=== PATIENT | male | born 1940 | race Caucasian/White ===

== ENCOUNTER 2018-07-23 16:23 | Inpatient (IN) ==
[2018-07-23] MEDS ORDERED: MethylPREDNISolone Sod Succinate Inj 40 MG/ML Vial IV.PUSH ONE (16:36)
--- NOTE | 2018-07-23 16:42 | ED ---
HPI General Chief Complaint: Shortness of Breath/Dyspnea Stated Complaint: Respiratory Time Seen by Provider: 07/23/18 16:30 Source: patient Mode of arrival: ambulatory Limitations: no limitations History of Present Illness 77-year-old male with PMH of COPD, DM, CHF, HTN, PVD, anemia, CAD status post CABG x5 presents to the ED for evaluation of one week history of worsening shortness of breath, cough productive of yellow sputum. Patient states "I have gained 11 pounds since July 03." He states "I got all this fluid on me and I cannot breathe." He states that he uses a Trilogy machine at home but has had no improvement of his symptoms. He endorses chills. He has not measured a fever at home. He denies chest pain, palpitations, diaphoresis. He endorses increase in lower extremity edema. [facility] here for further evaluation. He is a current smoker. Related Data Home Medications Medication Instructions Recorded Confirmed amlodipine 10 mg PO DAILY 07/23/18 07/23/18 aspirin 81 mg PO DAILY 07/23/18 07/23/18 atorvastatin 80 mg PO QPM 07/23/18 07/23/18 carboxymethylcellulose sodium 1 drp OPHTHALMIC (EYE) Q4-6H PRN 07/23/18 07/23/18 clopidogrel 75 mg PO DAILY 07/23/18 07/23/18 cyanocobalamin (vitamin B-12) 1,000 mcg PO DAILY 07/23/18 07/23/18 furosemide 40 mg PO BID 07/23/18 07/23/18 glipizide 10 mg PO BID 07/23/18 07/23/18 ipratropium-albuterol 3 ml INHALATION Q6-8H PRN 07/23/18 07/23/18 isosorbide mononitrate 120 mg PO DAILY 07/23/18 07/23/18 metoprolol succinate 25 mg PO DAILY 07/23/18 07/23/18 nitroglycerin 0.4 mg SUBLINGUAL Q5-15M PRN 07/23/18 07/23/18 pantoprazole 40 mg PO BID 07/23/18 07/23/18 ranolazine 1,000 mg PO Q12H 07/23/18 07/23/18 terazosin 4 mg PO DAILY 07/23/18 07/23/18 Allergies Allergy/AdvReac Type Severity Reaction Status Date / Time acetaminophen Allergy Severe Rash Unverified 07/23/18 17:07 aspirin Allergy Severe Rash Unverified 07/23/18 17:07 codeine Allergy Severe anaphylaxis Unverified 03/04/17 00:48 ferrous sulfate Allergy Severe Rash Unverified 03/04/17 00:48 iron Allergy Severe Rash Unverified 03/04/17 00:48 oxycodone Allergy Severe Rash Unverified 07/23/18 17:07 [place] AdvReac Severe SYSTEM Uncoded 04/11/14 08:32 SHUTS DOWN Review of Systems ROS: all other systems reviewed are negative FOR[facility]LY [facility] Medical History Medical History Amaurosis fugax (Acute) Anemia (Acute) COPD (chronic obstructive pulmonary disease) (Acute) Chronic ischemic heart disease (Acute) Chronic kidney disease (Acute) Colon polyp (Acute) Diabetes (Acute) Dyslipidemia (Acute) Gastritis (Acute) Hearing loss (Acute) Hypertension (Acute) Hypertrophy of prostate without urinary obstruction (Acute) Osteoarthritis (Acute) Pancreatitis (Acute) Peripheral vascular disease (Acute) Ptosis of eyelid (Acute) Sleep apnea (Acute) TIA (transient ischemic attack) (Acute) Surgical History Surgical History History of cardiac cath (Acute) Postsurgical aortocoronary bypass status (Acute) Social History Social History Substance History: No History of Abuse Smoking Status: Current every day smoker Tobacco Type: Cigarettes How Often Do You Have a Drink Containing Alcohol: Never Recent Travel in [facility] within the Last 8 Weeks: No Recent Out of Country Travel within the Last 8 Weeks: No Exam Narrative Exam Narrative: GENERAL: Well-nourished, well-developed, obese white male with some degree of breathing difficulties. SKIN: Focused skin assessment warm/dry. Perioral cyanosis. HEAD: Atraumatic. Normocephalic. EYES: Pupils equal and round. No scleral icterus. No injection or drainage. ENT: No nasal bleeding or discharge. Mucous membranes pink and moist. NECK: Trachea midline. No JVD. CARDIOVASCULAR: Regular rate and rhythm. No murmur appreciated. RESPIRATORY: No accessory muscle use. Audible wheezing at bedside. Coarse breath sounds diffusely. Breath sounds equal bilaterally. GASTROINTESTINAL: Abdomen soft, non-tender, protuberant, nontender. Hepatic and splenic margins not palpable. MUSCULOSKELETAL: No obvious deformities. No clubbing. 2+ edema to the midshin bilaterally. NEUROLOGICAL: Awake and alert. No obvious cranial nerve deficits. Motor grossly within normal limits. Normal speech. PSYCHIATRIC: Appropriate mood and affect; insight and judgment normal. Course Initial Documented Vital Signs Temperature 97.8 F 07/23/18 16:27 Pulse Rate 57 L 07/23/18 16:27 Respiratory Rate 20 07/23/18 16:27 Blood Pressure 136/65 07/23/18 16:27 Pulse Oximetry 94 L 07/23/18 16:27 Last Documented Vital Signs Temperature 97.8 F 07/23/18 18:41 Pulse Rate 63 07/23/18 19:00 Respiratory Rate 18 07/23/18 19:00 Blood Pressure 123/58 L 07/23/18 19:00 Pulse Oximetry 98 07/23/18 19:00 Medical Decision Making LAURENCE Attestation LAURENCE supervised visit: Yes Attestation: I, Dr. Tomlin, have reviewed the advance practice practitioner's documentation and am in agreement, met with the patient face to face, made the diagnosis, and the medical decision making was done by me. *My assessment and Findings: Dyspnea. Patient with history of COPD, CHF. Patient has had progressive shortness of breath over the last 2 weeks. He is extremely tachypneic. Just talking, makes him severely short of breath. The patient has what appears to be mild congestive heart failure on his chest x- ray. He also has wheezing so he would have a dual diagnosis of both COPD and CHF. He will be admitted for diuresis and treatment for his COPD. MDM Narrative Medical decision making narrative: 77-year-old male with PMH of COPD, DM, CHF, HTN, PVD, anemia, CAD status post CABG x5 presents to the ED for evaluation of one week history of worsening shortness of breath, cough productive of yellow sputum. Patient states "I have gained 11 pounds since July 03." He states "I got all this fluid on me and I cannot breathe." On presentation patient's respiratory rate is 28, O2 sats 98% on 3 L by nasal cannula. There is audible wheezing heard while standing in the doorway. Patient has perioral cyanosis, coarse lung sounds in all lung talley. IV was established. Patient was administered duo nebs x3, IV Solu-Medrol. EKG without acute changes. CXR with pulmonary venous congestion and diffuse cardiomegaly. The patient was administered 1 mg of Bumex. CBC WBC 6.5, hemoglobin 9.4. INR 1.2. CMP with BUN of 19, creatinine 2.22. BNP 213. No culture indicated of the UA. This is CHF and COPD exacerbation. Patient is agreeable to admission. I spoke with Dr. Sanchez who agrees to accept the patient to the medicine service. Please see medicine notes for disposition. Medical Screen Exam Complete: Yes Emergency Medical Condition: Yes Differential Diagnosis Differential Diagnosis: COPD exacerbation versus CHF exacerbation versus pneumonia versus anemia versus other Lab Data Result diagrams: 07/23/18 16:40 07/23/18 16:40 Lab Results 07/23/18 07/23/18 07/23/18 Range/Units 16:40 16:40 16:40 WBC 6.5 (4.0-11.0) th/mm3 RBC 4.06 L (4.50-5.90) mil/mm3 Hgb 9.4 L (13.0-17.0) gm/dL Hct 29.4 L (39.0-51.0) % MCV 72.6 L (80.0-100.0) fL MCH 23.2 L (27.0-34.0) pg MCHC 32.0 (32.0-36.0) % RDW 20.2 H (11.6-17.2) % Plt Count 113 L (150-450) th/mm3 MPV 8.6 (7.0-11.0) fL Neut % (Auto) 65.1 (16.0-70.0) % Lymph % (Auto) 24.1 (9.0-44.0) % [place] % (Auto) 8.7 H (0.0-8.0) % Eos % (Auto) 1.5 (0.0-4.0) % Baso % (Auto) 0.6 (0.0-2.0) % Neut # (Auto) 4.2 (1.8-7.7) th/mm3 Lymph # (Auto) 1.6 (1.0-4.8) th/mm3 [place] # (Auto) 0.6 (0.0-0.9) th/mm3 Eos # (Auto) 0.1 (0.0-0.4) th/mm3 Baso # (Auto) 0.0 (0.0-0.2) th/mm3 WBC Differential . Differential Comment Auto diff final PT 11.7 H (9.8-11.6) sec INR 1.2 Ratio Puncture Site Patient Temperature O2 Saturation (90-100) % ABG pH (7.380-7.420) ABG pCO2 (38-42) mmHg ABG pO2 (61-120) mmHg ABG HCO3 (22-26) mmol/L ABG O2 Content (12.0-20.0) Vol % ABG Base Excess (-2-2) mmol/L ABG Methemoglobin (0-2) % Matt Test Hemoglobin (12.0-16.0) G/DL Carboxyhemoglobin (0-4) % Inspired O2 % Critical Value Sodium 139 (136-145) meq/L Potassium 4.1 (3.5-5.1) meq/L Chloride 103 (98-107) meq/L Carbon Dioxide 31.6 (21.0-32.0) meq/L Anion Gap 4 L (5-15) meq/L BUN 19 H (7-18) mg/dL Creatinine 2.22 H (0.60-1.30) mg/dL Estimated GFR 29 L (>89) mL/min Random Glucose 80 (74-106) mg/dL Calcium 8.7 (8.5-10.1) mg/dL Total Bilirubin 0.7 (0.2-1.0) mg/dL AST 18 (15-37) U/L ALT 20 (12-78) U/L Alkaline Phosphatase 132 H (45-117) U/L Troponin I 0.04 (0.02-0.05) ng/mL B-Natriuretic Peptide (0-100) pg/mL Total Protein 7.6 (6.4-8.2) g/dL Albumin 3.6 (3.4-5.0) g/dL Urine Color (Yellw/Straw) Urine Clarity (Clear) Urine pH (5.0-8.5) Ur Specific [place] (1.002-1.035) Urine Protein (Neg-Trace) mg/dL Urine Glucose (UA) (Negative) mg/dL Urine Ketones (Negative) mg/dL Urine Occult Blood (Negative) Urine Nitrate (Negative) Urine Bilirubin (Negative) Urine Urobilinogen (Less than 2) mg/dL Ur Leukocyte Esterase (Negative) Micro UA Comment Ur Microscopic Review Urine Culture Comments 07/23/18 07/23/18 07/23/18 Range/Units 16:40 17:03 18:38 WBC (4.0-11.0) th/mm3 RBC (4.50-5.90) mil/mm3 Hgb (13.0-17.0) gm/dL Hct (39.0-51.0) % MCV (80.0-100.0) fL MCH (27.0-34.0) pg MCHC (32.0-36.0) % RDW (11.6-17.2) % Plt Count (150-450) th/mm3 MPV (7.0-11.0) fL Neut % (Auto) (16.0-70.0) % Lymph % (Auto) (9.0-44.0) % [place] % (Auto) (0.0-8.0) % Eos % (Auto) (0.0-4.0) % Baso % (Auto) (0.0-2.0) % Neut # (Auto) (1.8-7.7) th/mm3 Lymph # (Auto) (1.0-4.8) th/mm3 [place] # (Auto) (0.0-0.9) th/mm3 Eos # (Auto) (0.0-0.4) th/mm3 Baso # (Auto) (0.0-0.2) th/mm3 WBC Differential Differential Comment PT (9.8-11.6) sec INR Ratio Puncture Site Right radial Patient Temperature 98.6 O2 Saturation 87 L* (90-100) % ABG pH 7.42 (7.380-7.420) ABG pCO2 46 H (38-42) mmHg ABG pO2 69 (61-120) mmHg ABG HCO3 30 H (22-26) mmol/L ABG O2 Content 10.5 L (12.0-20.0) Vol % ABG Base Excess 5.4 H (-2-2) mmol/L ABG Methemoglobin 0.6 (0-2) % Matt Test Present Hemoglobin 8.5 L (12.0-16.0) G/DL Carboxyhemoglobin 6.4 H* (0-4) % Inspired O2 21 % Critical Value Yes Sodium (136-145) meq/L Potassium (3.5-5.1) meq/L Chloride (98-107) meq/L Carbon Dioxide (21.0-32.0) meq/L Anion Gap (5-15) meq/L BUN (7-18) mg/dL Creatinine (0.60-1.30) mg/dL Estimated GFR (>89) mL/min Random Glucose (74-106) mg/dL Calcium (8.5-10.1) mg/dL Total Bilirubin (0.2-1.0) mg/dL AST (15-37) U/L ALT (12-78) U/L Alkaline Phosphatase (45-117) U/L Troponin I (0.02-0.05) ng/mL B-Natriuretic Peptide 213 H (0-100) pg/mL Total Protein (6.4-8.2) g/dL Albumin (3.4-5.0) g/dL Urine Color Yellow (Yellw/Straw) Urine Clarity Clear (Clear) Urine pH 6.0 (5.0-8.5) Ur Specific [place] 1.004 (1.002-1.035) Urine Protein Negative (Neg-Trace) mg/dL Urine Glucose (UA) Negative (Negative) mg/dL Urine Ketones Negative (Negative) mg/dL Urine Occult Blood Negative (Negative) Urine Nitrate Negative (Negative) Urine Bilirubin Negative (Negative) Urine Urobilinogen Less than 2 (Less than 2) mg/dL Ur Leukocyte Esterase Negative (Negative) Micro UA Comment Culture not ind Ur Microscopic Review Not Reportable Urine Culture Comments Culture not ind Imaging Data Radiologist's impression: Chest X-Ray 07/23/18 16:36 CONCLUSION: 1. Pulmonary venous congestion. 2. Diffuse cardiomegaly. Discharge Plan Discharge Disposition Patient Disposition: ED Admit(ED Internal Use Only) Discharge Order Discharge Orders: ED Use Only Admit Order (Routine); Ordered 07/23/18 Ordered By: Nancy Garcia Discharge Details Diagnosis: CHF exacerbation, COPD exacerbation Physicians Team ED Provider: Avni Tomlin ED Midlevel Provider: Nancy Garcia Primary Care Provider: [facility],Physician 's Attending Provider: Jason Lema Discharge Interventions Interventions: Vital Signs Last Done: 07/23/18 19:00 Status ED Status: Admitted Observation Patient
--- NOTE | 2018-07-23 16:56 | XR ---
EXAM DATE: 07/23/2018 4:52 PM EST AGE/SEX: 77 years / Male INDICATIONS: Short of breath. CLINICAL DATA: This is the patient's initial encounter. Patient reports that signs and symptoms have been present for 1 week and indicates a pain score of 4/10. MEDICAL/SURGICAL HISTORY: Cardiovascular disease. Stroke. CABG. COMPARISON: No prior exams available for comparison. FINDINGS: There is hyperaeration of both lung talley. There is prominence of pulmonary vasculature bilaterally characteristic of pulmonary venous congestion. The heart size is diffusely enlarged. There is evidenc e of previous cardiothoracic surgery. No significant pleural effusions are demonstrated. There is no evidence of pneumothorax. The bony structures are grossly intact. CONCLUSION: 1. Pulmonary venous congestion. 2. Diffuse cardiomegaly. Electronically signed by: Favio Larry MD Board Certified Radiologist 07/23/2018 4:55 PM EST
[2018-07-23 16:57] LABS: Baso % (Auto) 0.6 % (0.0-2.0); Eos # (Auto) 0.1 th/mm3 (0.0-0.4); Eos % (Auto) 1.5 % (0.0-4.0); Hematocrit 29.4 % (39.0-51.0); Hemoglobin 9.4 gm/dL (13.0-17.0); Lymph # (Auto) 1.6 th/mm3 (1.0-4.8); Lymph % (Auto) 24.1 % (9.0-44.0); Mean Corpuscular Hemoglobin 23.2 pg (27.0-34.0); Mean Corpuscular Volume 72.6 fL (80.0-100.0); Mean Platelet Volume 8.6 fL (7.0-11.0); Mono # (Auto) 0.6 th/mm3 (0.0-0.9); Mono % (Auto) 8.7 % (0.0-8.0); Neut # (Auto) 4.2 th/mm3 (1.8-7.7); Neut % (Auto) 65.1 % (16.0-70.0); Platelet Count 113 th/mm3 (150-450); Red Blood Count 4.06 mil/mm3 (4.50-5.90); Red Cell Distribution Width 20.2 % (11.6-17.2); White Blood Count 6.5 th/mm3 (4.0-11.0)
[2018-07-23 17:06] LABS: INR 1.2 Ratio; Prothrombin Time 11.7 sec (9.8-11.6)
[2018-07-23 17:15] LABS: ABG Base Excess 5.4 mmol/L (-2-2); ABG PCO2 46 mmHg (38-42); ABG PO2 69 mmHg (61-120)
[2018-07-23 17:21] LABS: Alanine Aminotransferase 20 U/L (12-78); Albumin 3.6 g/dL (3.4-5.0); Anion Gap 4 meq/L (5-15); Aspartate Aminotransferase 18 U/L (15-37); Blood Urea Nitrogen 19 mg/dL (7-18); Calcium 8.7 mg/dL (8.5-10.1); Carbon Dioxide 31.6 meq/L (21.0-32.0); Chloride 103 meq/L (98-107); Glomerular Filtration Rate 29 mL/min (>89); Glucose,Random 80 mg/dL (74-106); Potassium 4.1 meq/L (3.5-5.1); Sodium 139 meq/L (136-145)
[2018-07-23 17:25] LABS: Alkaline Phosphatase 132 U/L (45-117); Total Protein 7.6 g/dL (6.4-8.2); Troponin I 0.04 ng/mL (0.02-0.05)
[2018-07-23 19:08] LABS: Bilirubin,Urine Negative (Negative); Clarity,Urine Clear (Clear); Color,Urine Yellow (Yellw/Straw); Glucose,Urine (UA) Negative (Negative); Leukocyte Esterase,Urine Negative (Negative); Nitrite,Urine Negative (Negative); Specific Gravity,Urine 1.004 (1.002-1.035)
--- NOTE | 2018-07-23 19:42 | P.HPFP ---
History of Present Illness Primary Care Physician: Physician [facility] <GregDenny L - 07/24/18 14:00> Physician [facility] <Daniel Sandeep Perezabby Schaeffer - 07/23/18 19:42> History of Present Illness: 77 y/o M w/hx of CHF, COPD, and CKD3 presents w/progressive SOB. A week ago, developed gradual worsening SOB occurring with activity and rest. Feels that his belly is pressing against his lungs and that it will bust. Is feeling SOB while laying in bed, even while sitting up. Uses CPAP at night. His stomach and feet swelled up. If he does any activity at all, he has to take a nitro. Taking his medications. Has vertigo, not feeling more lightheaded or dizzy more than usual. Has an occasional cough. No fevers/chills, recent illness , nausea/vomiting, or diarrhea. P[place] is [facility]. [place] [facility] [place] Sees product/industry consultant in [place] is Dr. Ellison. Did stress test a couple weeks ago, which "was good." Discussed placing a defibrillator due to heart blockage. Has been to the hospital 4 times for fluid overload in total, last year was hospitalized for several weeks and this was the last time (CHF, ARF). Uses a cane to ambulate. Uses atrovent and symbicort for COPD. Does not use O2 at home. PMH: DM2, controlled JENNIFER CHF CVA x4, last was 2014 CKD 3 Gastritis Anemia obesity OA BPH Past surgical history: CABG x 5 1998 Carotid endarterectomy 1998 2014 cholecystectomy 2016 colonoscopy 2016 EGD Family Hx: Social hx: No ETOH use. Smoked 50 pack years, no illicit or recreational drug use. Lives in house, ambulates with cane. 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 <Daniel PerezSobeida Schaeffer - 07/23/18 22:02> - Diagnosis (1) CHF exacerbation (2) COPD exacerbation (3) DM2 (diabetes mellitus, type 2) (4) Coronary artery disease (5) History of CVA (cerebrovascular accident) (6) CKD (chronic kidney disease) stage 3, GFR 30-59 ml/min (7) BPH (benign prostatic hyperplasia) (8) Gastritis (9) Smoker <Sobeida Interiano - 07/23/18 21:40> (1) Elevated troponin (2) CHF exacerbation (3) COPD exacerbation (4) DM2 (diabetes mellitus, type 2) (5) Coronary artery disease (6) History of CVA (cerebrovascular accident) (7) CKD (chronic kidney disease) stage 3, GFR 30-59 ml/min (8) BPH (benign prostatic hyperplasia) (9) Gastritis (10) Smoker <Denny Garza - 07/24/18 14:00> Inpatient Certification: I certify that the inpatient services were ordered in accordance with Medicare regulations governing the order. This includes certification that hospital inpatient services are reasonable and necessary and in the case of services not specified as inpatient-only under 42 CFR 419.22(n), that they are appropriately provided as inpatient services in accordance to with the 2-midnight benchmark under 43 CFR 412.3(e) <Denny Garza - 07/24/18 14:00> PMFSH - History History Provided By: Patient, Medical Record <Sobeida Interiano - 07/23/18 19: 42> - Medical History Medical History: Medical History (Last Updated 07/23/18 @ 16:38 by Franny Winslow RN) Amaurosis fugax Anemia COPD (chronic obstructive pulmonary disease) Chronic ischemic heart disease Chronic kidney disease Colon polyp Diabetes Dyslipidemia Gastritis Hearing loss Hypertension Hypertrophy of prostate without urinary obstruction Osteoarthritis Pancreatitis Peripheral vascular disease Ptosis of eyelid Sleep apnea TIA (transient ischemic attack) <Denny Garza - 07/24/18 14:00> Medical History (Last Updated 07/23/18 @ 16:38 by Franny Winslow RN) Amaurosis fugax Anemia COPD (chronic obstructive pulmonary disease) Chronic ischemic heart disease Chronic kidney disease Colon polyp Diabetes Dyslipidemia Gastritis Hearing loss Hypertension Hypertrophy of prostate without urinary obstruction Osteoarthritis Pancreatitis Peripheral vascular disease Ptosis of eyelid Sleep apnea TIA (transient ischemic attack) <Sobeida Interiano - 07/23/18 19:42> - Surgical History Surgical History: Surgical History (Last Updated 07/23/18 @ 16:38 by Franny Winslow RN) History of cardiac cath Postsurgical aortocoronary bypass status <Denny Garza - 07/24/18 14:00> Surgical History (Last Updated 07/23/18 @ 16:38 by Franny Winslow RN) History of cardiac cath Postsurgical aortocoronary bypass status <Sobeida Interiano 07/23/18 19:42> - Tobacco History Tobacco Use In Past 30 Days: Yes <Sobeida Interiano 07/23/18 19:42> Smoking Status: Current every day smoker <Sobeida Interiano 07/23/18 19:42> Tobacco Type: Cigarettes <Sobeida Interiano 07/23/18 19:42> - Alcohol History How Often Do You Have a Drink Containing Alcohol: Never <Sobeida Interiano 19:42> - Substance Use History Substance History: No History of Abuse <Sobeida Interiano 07/23/18 19:42> - Travel History Recent Travel in the [facility] Within the Last 8 Weeks: No <Sobeida Interiano 07/23 19:42> Recent Travel Out of the Country Within the Last 8 Weeks: No <Sobeida Interiano 07/23/18 19:42> - Immunization History Tetanus Immunization: Unsure <Sobeida Interiano 07/23/18 19:42> Medications and Allergies Allergies Allergy/AdvReac Type Severity Reaction Status Date / Time acetaminophen Allergy Severe Rash Verified 07/24/18 09:38 aspirin Allergy Severe Rash Verified 07/24/18 09:38 codeine Allergy Severe anaphylaxis Verified 07/24/18 09:38 ferrous sulfate Allergy Severe Rash Verified 07/24/18 09:38 iron Allergy Severe Rash Verified 07/24/18 09:38 oxycodone Allergy Severe Rash Verified 07/24/18 09:38 [place] AdvReac Severe SYSTEM Uncoded 04/11/14 08:32 SHUTS DOWN <Denny Garza - 07/24/18 14:00> Home Medications Medication Instructions Recorded Confirmed Type amlodipine 10 mg PO DAILY 07/23/18 07/23/18 History aspirin 81 mg PO DAILY 07/23/18 07/23/18 History atorvastatin 80 mg PO QPM 07/23/18 07/23/18 History carboxymethylcellulose sodium 1 drp OPHTHALMIC (EYE) Q4-6H PRN 07/23/18 History clopidogrel 75 mg PO DAILY 07/23/18 07/23/18 History cyanocobalamin (vitamin B-12) 1,000 mcg PO DAILY 07/23/18 07/23/18 History furosemide 40 mg PO BID 07/23/18 07/23/18 History glipizide 10 mg PO BID 07/23/18 07/23/18 History ipratropium-albuterol 3 ml INHALATION Q6-8H PRN 07/23/18 07/23/18 History isosorbide mononitrate 120 mg PO DAILY 07/23/18 07/23/18 History metoprolol succinate 25 mg PO DAILY 07/23/18 07/23/18 History nitroglycerin 0.4 mg SUBLINGUAL Q5-15M PRN 07/23/18 07/23/18 History pantoprazole 40 mg PO BID 07/23/18 07/23/18 History ranolazine 1,000 mg PO Q12H 07/23/18 07/23/18 History terazosin 4 mg PO DAILY 07/23/18 07/23/18 History <Denny Garza - 07/24/18 14:00> Active Medications: Active Medications Al Hydroxide/Mg Hydroxide (Milk Of Pinnacle Spinealin Rollins) 30 ml PO Q12H PRN PRN Reason: Mild Constipation Albuterol (Albuterol Neb (Prn)) 2.5 mg NEB Q2HR NEB PRN PRN Reason: SHORTNESS OF BREATH Albuterol (Duoneb Neb (Herb)) 1 ampul NEB Q8HR NEB HERB Amlodipine Besylate (Norvasc) 10 mg PO DAILY [facility] Last Admin: 07/24/18 08:32 Dose: 10 mg Artificial Tears (Refresh Tears 0.5% Opth Drops) 1 drop EACH EYE Q4H PRN PRN Reason: Eye Irritation Aspirin (Aspirin Chew) 324 mg PO ONCE ONE Stop: 07/24/18 13:16 Atorvastatin Calcium (Lipitor) 80 mg PO QPM [facility] Bisacodyl (Dulcolax Supp) 10 mg RECTAL DAILY PRN PRN Reason: SEVERE CONSITIPATION Budesonide/Formoterol Fumarate (Symbicort 160/4.5 Mcg Inh) 2 puff INH BID [facility] Last Admin: 07/24/18 01:04 Dose: Not Given Bumetanide (Bumex Inj) 1 mg IV.PUSH BID [facility] Last Admin: 07/24/18 08:55 Dose: 1 mg Chlorhexidine Gluconate (Chlorhexidine 2% Cloth) 3 pack TOPICAL DAILY@0400 [facility] Stop: 07/30/18 03:59 Chlorhexidine Gluconate (Chlorhexidine 2% Cloth) 3 pack TOPICAL DAILY@0400 PRN PRN Reason: Extra cloth needed Stop: 07/30/18 03:59 Clopidogrel Bisulfate (Plavix) 75 mg PO DAILY [facility] Last Admin: 07/24/18 08:32 Dose: 75 mg Gabapentin (Neurontin) 100 mg PO TID [facility] Last Admin: 07/24/18 12:13 Dose: 100 mg Isosorbide Mononitrate (Imdur) 120 mg PO DAILY [facility] Last Admin: 07/24/18 08:31 Dose: 120 mg Lactulose (Lactulose Liq) 30 ml PO DAILY PRN PRN Reason: SEVERE CONSITIPATION Metoprolol Succinate (Toprol Xl) 25 mg PO DAILY [facility] Last Admin: 07/24/18 08:31 Dose: 25 mg Nicotine (Habitrol 21 Mg Patch.24 Hr) 1 patch T-DERMAL DAILY [facility] Last Admin: 07/24/18 08:32 Dose: 1 patch Nitroglycerin (Nitrostat Sl) 0.4 mg SL Q5M PRN PRN Reason: Chest Pain Last Admin: 07/24/18 05:25 Dose: 0.4 mg Ondansetron HCl (Zofran Inj) 4 mg IV.PUSH Q6H PRN PRN Reason: NAUSEA OR VOMITING Pantoprazole Sodium (Protonix) 40 mg PO BID [facility] Last Admin: 07/24/18 08:32 Dose: 40 mg Prednisone (Deltasone) 20 mg PO BID [facility] Last Admin: 07/24/18 12:14 Dose: 20 mg Sennosides (Senokot) 17.2 mg PO Q12H PRN PRN Reason: Moderate Constipation Sodium Chloride (Ns Flush) 2 ml IV.FLUSH BID [facility] Last Admin: 07/24/18 08:32 Dose: 2 ml Sodium Chloride (Ns Flush) 2 ml IV.FLUSH PRN PRN PRN Reason: FLUSH AFTER USING IV ACCESS Terazosin HCl (Hytrin) 4 mg PO DAILY [facility] Last Admin: 07/24/18 08:31 Dose: 4 mg <Denny Garza - 07/24/18 14:00> Exam Vital signs: Vital Signs 07/23/18 16:27 07/23/18 17:16 07/23/18 18:41 Temperature 97.8 F 97.8 F Pulse Rate 57 L 82 63 Respiratory Rate 20 23 28 H Blood Pressure 136/65 158/67 H Pulse Oximetry 94 L 98 07/23/18 18:52 07/23/18 18:53 07/23/18 19:00 Temperature Pulse Rate 62 63 Respiratory Rate 18 Blood Pressure 123/58 L Pulse Oximetry 99 99 98 07/23/18 20:22 07/23/18 23:04 07/24/18 00:00 Temperature 98.1 F Pulse Rate 74 76 Respiratory Rate 18 22 Blood Pressure 133/76 Pulse Oximetry 96 90 L 07/24/18 03:34 07/24/18 04:00 07/24/18 04:26 Temperature 98.6 F Pulse Rate 69 77 Respiratory Rate 18 20 Blood Pressure 158/61 H Pulse Oximetry 94 L 100 07/24/18 04:46 07/24/18 06:00 07/24/18 06:31 Temperature 98.6 F 98.6 F 98.6 F Pulse Rate 92 H 85 85 Respiratory Rate 20 20 20 Blood Pressure 159/69 H 160/72 H 170/72 H Pulse Oximetry 94 L 94 L 97 07/24/18 08:00 Temperature Pulse Rate Respiratory Rate Blood Pressure Pulse Oximetry 100 Intake & Output 07/23/18 07/24/18 07/24/18 18:59 06:59 18:59 Intake Total 250 / 250 Output Total 1700 / 1700 Balance -1450 / -1450 Weight 125.645 kg 125.645 kg Intake: Oral 250 / 250 Output: Urine 1700 / 1700 Other: # Voids 1 Weight On Admission 125.645 kg <Denny Garza L - 07/24/18 14:00> Vital Signs 07/23/18 16:27 07/23/18 17:16 07/23/18 18:41 Temperature 97.8 F 97.8 F Pulse Rate 57 L 82 63 Respiratory Rate 20 23 28 H Blood Pressure 136/65 158/67 H Pulse Oximetry 94 L 98 07/23/18 18:52 07/23/18 18:53 Temperature Pulse Rate 62 Respiratory Rate Blood Pressure Pulse Oximetry 99 99 Intake & Output 07/23/18 07/23/18 07/24/18 06:59 18:59 06:59 Weight 125.645 kg <Carolynroc Sobeida Perez - 07/23/18 19:42> Narrative: GENERAL: Overweight older gentleman w/large AP diameter sitting up in bed in mild discomfort. Use of some accessory muscles to breathe, needs help to sit up. SKIN: Warm and dry. HEAD: Atraumatic. Normocephalic. EYES: No scleral icterus. No injection or drainage. ENT: No nasal bleeding or discharge. Mucous membranes pink and moist. Some difficulty hearing. NECK: Trachea midline. No JVD visible, difficult due to body habitus. CARDIOVASCULAR: Regular rate and rhythm. RESPIRATORY: Bilateral expiratory wheeze and poor inspiratory airflow. GASTROINTESTINAL: Abdomen soft but distended. No tenderness. MUSCULOSKELETAL: Extremities with 1+ edema, non-pitting. NEUROLOGICAL: Awake and alert. No obvious cranial nerve deficits. Limited range of motion due to body habitus. Normal speech. <Daniel Sobeida Perez - 07/23/18 22:02> Results - Labs Result diagrams: 07/24/18 06:39 07/24/18 06:39 <Denny Garza L - 07/24/18 14:00> Abnormal lab results 07/23/18 07/23/18 07/23/18 Range/Units 16:40 16:40 16:40 RBC 4.06 L (4.50-5.90) mil/mm3 Hgb 9.4 L (13.0-17.0) gm/dL Hct 29.4 L (39.0-51.0) % MCV 72.6 L (80.0-100.0) fL MCH 23.2 L (27.0-34.0) pg MCHC (32.0-36.0) % RDW 20.2 H (11.6-17.2) % Plt Count 113 L (150-450) th/mm3 Neut % (Auto) (16.0-70.0) % Upson % (Auto) 8.7 H (0.0-8.0) % Lymph # (Auto) (1.0-4.8) th/mm3 PT 11.7 H (9.8-11.6) sec O2 Saturation (90-100) % ABG pCO2 (38-42) mmHg ABG HCO3 (22-26) mmol/L ABG O2 Content (12.0-20.0) Vol % ABG Base Excess (-2-2) mmol/L Hemoglobin (12.0-16.0) G/DL Carboxyhemoglobin (0-4) % Anion Gap 4 L (5-15) meq/L BUN 19 H (7-18) mg/dL Creatinine 2.22 H (0.60-1.30) mg/dL Estimated GFR 29 L (>89) mL/min POC Glucose (68-110) mg/dl Random Glucose (74-106) mg/dL Alkaline Phosphatase 132 H (45-117) U/L Troponin I (0.02-0.05) ng/mL B-Natriuretic Peptide (0-100) pg/mL 07/23/18 07/23/18 07/24/18 Range/Units 16:40 17:03 04:03 RBC (4.50-5.90) mil/mm3 Hgb (13.0-17.0) gm/dL Hct (39.0-51.0) % MCV (80.0-100.0) fL MCH (27.0-34.0) pg MCHC (32.0-36.0) % RDW (11.6-17.2) % Plt Count (150-450) th/mm3 Neut % (Auto) (16.0-70.0) % Upson % (Auto) (0.0-8.0) % Lymph # (Auto) (1.0-4.8) th/mm3 PT (9.8-11.6) sec O2 Saturation 87 L* (90-100) % ABG pCO2 46 H (38-42) mmHg ABG HCO3 30 H (22-26) mmol/L ABG O2 Content 10.5 L (12.0-20.0) Vol % ABG Base Excess 5.4 H (-2-2) mmol/L Hemoglobin 8.5 L (12.0-16.0) G/DL Carboxyhemoglobin 6.4 H* (0-4) % Anion Gap (5-15) meq/L BUN (7-18) mg/dL Creatinine (0.60-1.30) mg/dL Estimated GFR (>89) mL/min POC Glucose 195 H (68-110) mg/dl Random Glucose (74-106) mg/dL Alkaline Phosphatase (45-117) U/L Troponin I (0.02-0.05) ng/mL B-Natriuretic Peptide 213 H (0-100) pg/mL 07/24/18 07/24/18 07/24/18 Range/Units 06:39 06:39 06:39 RBC 3.80 L (4.50-5.90) mil/mm3 Hgb 8.7 L (13.0-17.0) gm/dL Hct 27.4 L (39.0-51.0) % MCV 72.0 L (80.0-100.0) fL MCH 22.8 L (27.0-34.0) pg MCHC 31.7 L (32.0-36.0) % RDW 20.5 H (11.6-17.2) % Plt Count 100 L (150-450) th/mm3 Neut % (Auto) 84.7 H (16.0-70.0) % Upson % (Auto) (0.0-8.0) % Lymph # (Auto) 0.5 L (1.0-4.8) th/mm3 PT (9.8-11.6) sec O2 Saturation (90-100) % ABG pCO2 (38-42) mmHg ABG HCO3 (22-26) mmol/L ABG O2 Content (12.0-20.0) Vol % ABG Base Excess (-2-2) mmol/L Hemoglobin (12.0-16.0) G/DL Carboxyhemoglobin (0-4) % Anion Gap (5-15) meq/L BUN 21 H (7-18) mg/dL Creatinine 2.27 H (0.60-1.30) mg/dL Estimated GFR 28 L (>89) mL/min POC Glucose (68-110) mg/dl Random Glucose 177 H (74-106) mg/dL Alkaline Phosphatase (45-117) U/L Troponin I (0.02-0.05) ng/mL B-Natriuretic Peptide 365 H (0-100) pg/mL 07/24/18 07/24/18 Range/Units 10:36 12:07 RBC (4.50-5.90) mil/mm3 Hgb (13.0-17.0) gm/dL Hct (39.0-51.0) % MCV (80.0-100.0) fL MCH (27.0-34.0) pg MCHC (32.0-36.0) % RDW (11.6-17.2) % Plt Count (150-450) th/mm3 Neut % (Auto) (16.0-70.0) % Upson % (Auto) (0.0-8.0) % Lymph # (Auto) (1.0-4.8) th/mm3 PT (9.8-11.6) sec O2 Saturation (90-100) % ABG pCO2 (38-42) mmHg ABG HCO3 (22-26) mmol/L ABG O2 Content (12.0-20.0) Vol % ABG Base Excess (-2-2) mmol/L Hemoglobin (12.0-16.0) G/DL Carboxyhemoglobin (0-4) % Anion Gap (5-15) meq/L BUN (7-18) mg/dL Creatinine (0.60-1.30) mg/dL Estimated GFR (>89) mL/min POC Glucose 162 H (68-110) mg/dl Random Glucose (74-106) mg/dL Alkaline Phosphatase (45-117) U/L Troponin I 1.47 H* (0.02-0.05) ng/mL B-Natriuretic Peptide (0-100) pg/mL Short CBC 07/23/18 07/24/18 Range/Units 16:40 06:39 WBC 6.5 4.8 (4.0-11.0) th/mm3 Hgb 9.4 L 8.7 L (13.0-17.0) gm/dL Hct 29.4 L 27.4 L (39.0-51.0) % Plt Count 113 L 100 L (150-450) th/mm3 BMP 07/23/18 07/24/18 16:40 06:39 Sodium 139 137 Potassium 4.1 4.4 Chloride 103 101 Carbon Dioxide 31.6 28.9 BUN 19 H 21 H Creatinine 2.22 H 2.27 H Calcium 8.7 9.0 Cardiac Enzymes 07/23/18 07/24/18 Range/Units 16:40 10:36 Troponin I 0.04 1.47 H* (0.02-0.05) ng/mL Liver Function 07/23/18 Range/Units 16:40 Total Bilirubin 0.7 (0.2-1.0) mg/dL AST 18 (15-37) U/L ALT 20 (12-78) U/L Alkaline Phosphatase 132 H (45-117) U/L Albumin 3.6 (3.4-5.0) g/dL Urine 07/23/18 Range/Units 18:38 Urine Color Yellow (Yellw/Straw) Urine Clarity Clear (Clear) Urine pH 6.0 (5.0-8.5) Ur Specific [place] 1.004 (1.002-1.035) Urine Protein Negative (Neg-Trace) mg/dL Urine Glucose (UA) Negative (Negative) mg/dL <YoungDenny L - 07/24/18 14:00> Abnormal lab results 07/23/18 07/23/18 07/23/18 Range/Units 16:40 16:40 16:40 RBC 4.06 L (4.50-5.90) mil/mm3 Hgb 9.4 L (13.0-17.0) gm/dL Hct 29.4 L (39.0-51.0) % MCV 72.6 L (80.0-100.0) fL MCH 23.2 L (27.0-34.0) pg RDW 20.2 H (11.6-17.2) % Plt Count 113 L (150-450) th/mm3 Upson % (Auto) 8.7 H (0.0-8.0) % PT 11.7 H (9.8-11.6) sec O2 Saturation (90-100) % ABG pCO2 (38-42) mmHg ABG HCO3 (22-26) mmol/L ABG O2 Content (12.0-20.0) Vol % ABG Base Excess (-2-2) mmol/L Hemoglobin (12.0-16.0) G/DL Carboxyhemoglobin (0-4) % Anion Gap 4 L (5-15) meq/L BUN 19 H (7-18) mg/dL Creatinine 2.22 H (0.60-1.30) mg/dL Estimated GFR 29 L (>89) mL/min Alkaline Phosphatase 132 H (45-117) U/L B-Natriuretic Peptide (0-100) pg/mL 07/23/18 07/23/18 Range/Units 16:40 17:03 RBC (4.50-5.90) mil/mm3 Hgb (13.0-17.0) gm/dL Hct (39.0-51.0) % MCV (80.0-100.0) fL MCH (27.0-34.0) pg RDW (11.6-17.2) % Plt Count (150-450) th/mm3 Upson % (Auto) (0.0-8.0) % PT (9.8-11.6) sec O2 Saturation 87 L* (90-100) % ABG pCO2 46 H (38-42) mmHg ABG HCO3 30 H (22-26) mmol/L ABG O2 Content 10.5 L (12.0-20.0) Vol % ABG Base Excess 5.4 H (-2-2) mmol/L Hemoglobin 8.5 L (12.0-16.0) G/DL Carboxyhemoglobin 6.4 H* (0-4) % Anion Gap (5-15) meq/L BUN (7-18) mg/dL Creatinine (0.60-1.30) mg/dL Estimated GFR (>89) mL/min Alkaline Phosphatase (45-117) U/L B-Natriuretic Peptide 213 H (0-100) pg/mL Short CBC 07/23/18 Range/Units 16:40 WBC 6.5 (4.0-11.0) th/mm3 Hgb 9.4 L (13.0-17.0) gm/dL Hct 29.4 L (39.0-51.0) % Plt Count 113 L (150-450) th/mm3 BMP 07/23/18 16:40 Sodium 139 Potassium 4.1 Chloride 103 Carbon Dioxide 31.6 BUN 19 H Creatinine 2.22 H Calcium 8.7 Cardiac Enzymes 07/23/18 Range/Units 16:40 Troponin I 0.04 (0.02-0.05) ng/mL Liver Function 07/23/18 Range/Units 16:40 Total Bilirubin 0.7 (0.2-1.0) mg/dL AST 18 (15-37) U/L ALT 20 (12-78) U/L Alkaline Phosphatase 132 H (45-117) U/L Albumin 3.6 (3.4-5.0) g/dL Urine 07/23/18 Range/Units 18:38 Urine Color Yellow (Yellw/Straw) Urine Clarity Clear (Clear) Urine pH 6.0 (5.0-8.5) Ur Specific [place] 1.004 (1.002-1.035) Urine Protein Negative (Neg-Trace) mg/dL Urine Glucose (UA) Negative (Negative) mg/dL <[facility] 07/23/18 19:42> - Imaging Impressions Chest X-Ray 07/23/18 16:36 CONCLUSION: 1. Pulmonary venous congestion. 2. Diffuse cardiomegaly. Chest X-Ray 07/24/18 00:00 CONCLUSION: Slight cardiomegaly, questionable right lung base infiltrate and/or tiny pleural effusion. <Denny Garza 07/24/18 14:00> Impressions Chest X-Ray 07/23/18 16:36 CONCLUSION: 1. Pulmonary venous congestion. 2. Diffuse cardiomegaly. <[facility] 07/23/18 19:42> Caprini VTE Risk Assessment Caprini VTE Risk Assessment: Moderate/High Risk (score >= 2) <[facility] 07/23/18 22:02> Caprini Risk Assessment Model: Point Value = 1 Point Value = 2 Point Value = 3 Point Value = 5 Age 41-60 Minor surgery BMI > 25 kg/m2 Swollen legs Varicose veins or History of unexplained or recurrent spontaneous Oral contraceptives or hormone replacement Sepsis (< 1 month) Serious lung disease, including pneumonia (< 1 month) Abnormal pulmonary function Acute myocardial infarction Congestive heart failure (< 1 month) History of inflammatory bowel disease Medical patient at bed rest Age 61-74 Arthroscopic surgery Major open surgery (> 45 min) Laparoscopic surgery (> 45 min) Malignancy Confined to bed (> 72 hours) Immobilizing plaster cast Central venous access Age >= 75 History of VTE Family history of VTE Factor V Leiden Prothrombin [id number] Lupus anticoagulant Anticardiolipin antibodies Elevated serum homocysteine Heparin-induced thrombocytopenia Other congenital or acquired thrombophilia Stroke (< 1 month) Elective arthroplasty Hip, pelvis, or leg fracture Acute spinal cord injury (< 1 month) <Denny Garza 07/24/18 14:00> Point Value = 1 Point Value = 2 Point Value = 3 Point Value = 5 Age 41-60 Minor surgery BMI > 25 kg/m2 Swollen legs Varicose veins or History of unexplained or recurrent spontaneous Oral contraceptives or hormone replacement Sepsis (< 1 month) Serious lung disease, including pneumonia (< 1 month) Abnormal pulmonary function Acute myocardial infarction Congestive heart failure (< 1 month) History of inflammatory bowel disease Medical patient at bed rest Age 61-74 Arthroscopic surgery Major open surgery (> 45 min) Laparoscopic surgery (> 45 min) Malignancy Confined to bed (> 72 hours) Immobilizing plaster cast Central venous access Age >= 75 History of VTE Family history of VTE Factor V Leiden Prothrombin [id number] Lupus anticoagulant Anticardiolipin antibodies Elevated serum homocysteine Heparin-induced thrombocytopenia Other congenital or acquired thrombophilia Stroke (< 1 month) Elective arthroplasty Hip, pelvis, or leg fracture Acute spinal cord injury (< 1 month) <Sobeida Interiano - 07/23/18 19:42> Prophylaxis Regimen: Total Risk Factor Score Risk Level Prophylaxis Regimen 0-1 Low Early ambulation 2 Moderate Order ONE of the following: *Sequential Compression Device (SCD) *Heparin 5000 units SQ BID 3-4 Higher Order ONE of the following medications: *Heparin 5000 units SQ TID *Enoxaparin/Lovenox 40 mg SQ daily (WT < 150 kg, CrCl > 30 mL/min) *Enoxaparin/Lovenox 30 mg SQ daily (WT < 150 kg, CrCl > 10-29 mL/min) *Enoxaparin/Lovenox 30 mg SQ BID (WT < 150 kg, CrCl > 30 mL/min) AND/OR *Sequential Compression Device (SCD) 5 or more Highest Order ONE of the following medications: *Heparin 5000 units SQ TID (Preferred with Epidurals) *Enoxaparin/Lovenox 40 mg SQ daily (WT < 150 kg, CrCl > 30 mL/min) *Enoxaparin/Lovenox 30 mg SQ daily (WT < 150 kg, CrCl > 10-29 mL/min) *Enoxaparin/Lovenox 30 mg SQ BID (WT < 150 kg, CrCl > 30 mL/min) AND *Sequential Compression Device (SCD) <Denny Garza - 07/24/18 14:00> Total Risk Factor Score Risk Level Prophylaxis Regimen 0-1 Low Early ambulation 2 Moderate Order ONE of the following: *Sequential Compression Device (SCD) *Heparin 5000 units SQ BID 3-4 Higher Order ONE of the following medications: *Heparin 5000 units SQ TID *Enoxaparin/Lovenox 40 mg SQ daily (WT < 150 kg, CrCl > 30 mL/min) *Enoxaparin/Lovenox 30 mg SQ daily (WT < 150 kg, CrCl > 10-29 mL/min) *Enoxaparin/Lovenox 30 mg SQ BID (WT < 150 kg, CrCl > 30 mL/min) AND/OR *Sequential Compression Device (SCD) 5 or more Highest Order ONE of the following medications: *Heparin 5000 units SQ TID (Preferred with Epidurals) *Enoxaparin/Lovenox 40 mg SQ daily (WT < 150 kg, CrCl > 30 mL/min) *Enoxaparin/Lovenox 30 mg SQ daily (WT < 150 kg, CrCl > 10-29 mL/min) *Enoxaparin/Lovenox 30 mg SQ BID (WT < 150 kg, CrCl > 30 mL/min) AND *Sequential Compression Device (SCD) <Sobeida Interiano - 07/23/18 19:42> Assessment and Plan - Assessment (1) CHF exacerbation Code(s): I50.9 - Heart failure, unspecified Status: Acute Plan: BNP 213 on admission CXR shows pulmonary congestion Takes furosemide 40 mg BID, metoprolol and amlodipine as home meds ABG does not show significant respiratory acidosis, patient is compensated Given Bumex 1 mg x1 in the ED (hx of CKD) Give another Bumex 1 mg x1. Order Bumex 1 mg to be given BID Cardiac tele IS, head of bed elevated 30 degrees, CPAP at night to prevent atelactasis O2 as needed to maintain sats 88-92 degrees XR tomorrow AM PA&LAT, morning BMP Duonebs Q4H, with albuterol PRN for SOB 2D echo Check morning BMP PT ordered CM for possible need for home O2. Will need home O2 walk test (2) COPD exacerbation Code(s): J44.1 - Chronic obstructive pulmonary disease with (acute) exacerbation Status: Acute Plan: See above plan Based on lung exam, more likely CHF exacerbation w/concurrent COPD exacerbation Home meds: atrovent and symbicort BID -> have been held Solumedrol 60 mg IV x1 given in the ED Consider starting 5 day total course of steroids, continued with prednisone 40 mg daily tomorrow based on clinical exam (3) DM2 (diabetes mellitus, type 2) Code(s): E11.9 - Type 2 diabetes mellitus without complications Status: Acute Plan: SSI w/accuchecks Con't home Gabapentin TID (4) Coronary artery disease Code(s): I25.10 - Atherosclerotic heart disease of [place] coronary artery without angina pectoris Status: Acute Plan: Con't home atorvastatin, plavix, amlodipine, isosorbide mononitrate,. Con't ranolazine for angina. [hold aspirin due to allergy although this is a home med(?)] (5) History of CVA (cerebrovascular accident) Code(s): Z86.73 - Personal history of transient ischemic attack (TIA), and cerebral infarction without residual deficits Status: Acute Plan: See above, con't home meds except aspirin (6) CKD (chronic kidney disease) stage 3, GFR 30-59 ml/min Code(s): N18.3 - Chronic kidney disease, stage 3 (moderate) Status: Acute Plan: Avoid nephrotoxic meds See above plan Daily BMP (7) BPH (benign prostatic hyperplasia) Code(s): N40.0 - Benign prostatic hyperplasia without lower urinary tract symptoms Status: Acute Plan: Con't home Terazosin 4 mg daily (8) Gastritis Code(s): K29.70 - Gastritis, unspecified, without bleeding Status: Acute Plan: Con't home protonix daily (9) Smoker Code(s): F17.200 - Nicotine dependence, unspecified, uncomplicated Status: Acute Plan: Nicotine patches daily Encourage cessation Fluids: none, try to avoid Electrolytes: as needed Nutrition: Diabetic diet DVT prophylaxis: plavix and SCDs <Abid R2Sobeida N - 07/23/18 21:40> (1) Elevated troponin Code(s): R74.8 - Abnormal levels of other serum enzymes Status: Acute (2) CHF exacerbation Code(s): I50.9 - Heart failure, unspecified Status: Acute (3) COPD exacerbation Code(s): J44.1 - Chronic obstructive pulmonary disease with (acute) exacerbation Status: Acute (4) DM2 (diabetes mellitus, type 2) Code(s): E11.9 - Type 2 diabetes mellitus without complications Status: Acute (5) Coronary artery disease Code(s): I25.10 - Atherosclerotic heart disease of [place] coronary artery without angina pectoris Status: Acute (6) History of CVA (cerebrovascular accident) Code(s): Z86.73 - Personal history of transient ischemic attack (TIA), and cerebral infarction without residual deficits Status: Acute (7) CKD (chronic kidney disease) stage 3, GFR 30-59 ml/min Code(s): N18.3 - Chronic kidney disease, stage 3 (moderate) Status: Acute (8) BPH (benign prostatic hyperplasia) Code(s): N40.0 - Benign prostatic hyperplasia without lower urinary tract symptoms Status: Acute (9) Gastritis Code(s): K29.70 - Gastritis, unspecified, without bleeding Status: Acute (10) Smoker Code(s): F17.200 - Nicotine dependence, unspecified, uncomplicated Status: Acute <Denny Garza - 07/24/18 14:00> - Attending Attestation The exam, history, and the medical decision-making described in the above note were completed with the assistance of the resident physician. I reviewed and agree with the findings presented. I attest that I had a [id number] encounter with the patient on the following day, and personally performed and documented my assessment and findings in the medical record. See my documentation on 07/24/18. <Denny Garza - 07/24/18 14:00> <Denny Garza - Last Filed: 07/24/18 14:00> (2) CHF exacerbation Qualifiers: Heart failure type: systolic Qualified Code(s): I50.23 - Acute on chronic systolic (congestive) heart failure <Denny Garza - Ha Filed: 07/24/18 14:00> (2) CHF exacerbation Qualifiers: Heart failure type: systolic Qualified Code(s): I50.23 - Acute on chronic systolic (congestive) heart failure
[2018-07-23] MEDS ORDERED: Bisacodyl 10 MG Supp RECTAL PRN (20:21)
[2018-07-23] MEDS ORDERED: Budesonide-Formoterol 160/4.5 MCG 6 GM Inhaler INH SCH (21:00)
[2018-07-24 07:22] LABS: Baso % (Auto) 0.1 % (0.0-2.0); Eos % (Auto) 0.1 % (0.0-4.0); Hematocrit 27.4 % (39.0-51.0); Hemoglobin 8.7 gm/dL (13.0-17.0); Lymph # (Auto) 0.5 th/mm3 (1.0-4.8); Lymph % (Auto) 10.4 % (9.0-44.0); Mean Corpuscular HGB Conc 31.7 % (32.0-36.0); Mean Corpuscular Hemoglobin 22.8 pg (27.0-34.0); Mean Platelet Volume 8.3 fL (7.0-11.0); Mono # (Auto) 0.2 th/mm3 (0.0-0.9); Mono % (Auto) 4.7 % (0.0-8.0); Neut # (Auto) 4.1 th/mm3 (1.8-7.7); Neut % (Auto) 84.7 % (16.0-70.0); Platelet Count 100 th/mm3 (150-450); Red Cell Distribution Width 20.5 % (11.6-17.2); White Blood Count 4.8 th/mm3 (4.0-11.0)
[2018-07-24 07:37] LABS: Carbon Dioxide 28.9 meq/L (21.0-32.0); Potassium 4.4 meq/L (3.5-5.1)
[2018-07-24] MEDS: Isosorbide Mononitrate 60 MG ER 24HR Tablet (Imdur) PO SCH (08:31)
[2018-07-24] MEDS: Gabapentin 100 MG Capsule PO SCH ×3 (08:31→18:29)
[2018-07-24] MEDS: amLODIPine 10 MG Tablet PO SCH (08:32)
--- NOTE | 2018-07-24 08:48 | XR ---
EXAM DATE: 07/24/2018 8:41 AM EST AGE/SEX: 77 years / Male INDICATIONS: Congestion. CLINICAL DATA: This is the patient's subsequent encounter. Patient reports that signs and symptoms h ave been present for 2 days and indicates a pain score of 0/10. MEDICAL/SURGICAL HISTORY: . Cardiovascular disease. Stroke. CABG. . [place] [facility] [place]. . FINDINGS: Slight cardiomegaly seen. There is evidence for prior median sternotomy. Questionable infiltrate right lung base and/or tiny right pleural effusion. CONCLUSION: Slight cardiomegaly, questionable right lung base infiltrate and/or tiny pleural effusion. Electronically signed by: Ana Nina MD Board Certified Radiologist 07/24/2018 8:46 AM EST
--- NOTE | 2018-07-24 10:36 | ECHRPT ---
Indication: Heart Failure CONCLUSIONS Normal left ventricular size. Mild concentric left ventricular hypertrophy. The left ventricular systolic function is moderately reduced with an estimated ejection fraction in the range of 40-45%. Global hypokinesis The left atrial size is mildly dilated. Normal atrial septal thickness. Trace mitral valve regurgitation. Aortic valve sclerosis is present. There is trace tricuspid valve regurgitation. The estimated pulmonary arterial pressure is 48 mmHg. BP: 170 / 75 HR: Rhythm: MEASUREMENTS (Male / Female) Normal Values Technical Quality:Technically difficult study 2D ECHO LV Diastolic Diameter PLAX 5.0 cm 4.2 - 5.9 / 3.9 - 5.3 cm LV Systolic Diameter PLAX 4.3 cm IVS Diastolic Thickness 1.1 cm 0.6 - 1.0 / 0.6 - 0.9 cm LVPW Diastolic Thickness 1.1 cm 0.6 - 1.0 / 0.6 - 0.9 cm LV Relative Wall Thickness 0.4 RV Internal Dim ED PLAX 3.1 cm LVOT Diameter 1.9 cm Aortic Root Diameter 3.1 cm LA Systolic Diameter LX 4.5 cm 3.0 - 4.0 / 2.7 - 3.8 cm DOPPLER AV Peak Velocity 167.0 cm/s AV Peak Gradient 11.2 mmHg LVOT Peak Velocity 74.6 cm/s LVOT Peak Gradient 2.2 mmHg AV Area Cont Eq pk 1.3 cm Mitral E Point Velocity 147.0 cm/s Mitral A Point Velocity 141.0 cm/s Mitral E to A Ratio 1.0 LV E' Lateral Velocity 4.9 cm/s Mitral E to LV E' Lateral Ratio 30.2 LV E' Septal Velocity 11.6 cm/s Mitral E to LV E' Septal Ratio 12.7 TR Peak Velocity 308.0 cm/s TR Peak Gradient 37.9 mmHg Right Atrial Pressure 10.0 mmHg Pulmonary Artery Systolic Pressu 47.9 mmHg Right Ventricular Systolic Press 47.9 mmHg PV Peak Velocity 136.0 cm/s PV Peak Gradient 7.4 mmHg FINDINGS LEFT VENTRICLE Normal left ventricular size. Mild concentric left ventricular hypertrophy. The left ventricular systolic function is moderately reduced with an estimated ejection fraction in the range of 40-45%. RIGHT VENTRICLE Normal right ventricular size and systolic function. LEFT ATRIUM The left atrial size is mildly dilated. RIGHT ATRIUM The right atrial size is normal. ATRIAL SEPTUM Normal atrial septal thickness. AORTA The aortic root and proximal ascending aorta are normal in size on limited imaging. MITRAL VALVE Trace mitral valve regurgitation. AORTIC VALVE Trileaflet aortic valve. Aortic valve sclerosis is present. TRICUSPID VALVE There is trace tricuspid valve regurgitation. The estimated pulmonary arterial pressure is 48 mmHg. PULMONARY VALVE The pulmonary valve is not well visualized. VESSELS The inferior vena cava is normal in size. PERICARDIUM No pericardial effusion. Ortega Hoffman MD (Electronically Signed) Final Date:24 July 2018 10:34
[2018-07-24] MEDS: predniSONE 20 MG Tablet PO SCH ×2 (12:14→20:01)
--- NOTE | 2018-07-24 12:43 | P.PNFP ---
Subjective Interval history: 77 year old male with CHF, COPD, CKD stage 3, presented yesterday with dyspnea. Occurred gradually, starting a week ago. Occurs with activity and rest. Notices increased edema, lower extremities and abdomen. Also with some mild coughing. No fevers, chills, recent travel, recent viral illness, nausea, vomiting, diarrhea. Sees Dr. Burton at [facility] for primary care. Sees Dr. Ellison in [place] for cardiology. Has been hospitalized 4 times in the past for CHF exacerbation. Last time was a year ago. Uses cane to ambulate. For his COPD, he is not on home oxygen. Uses Atrovent and Symbicort, along with albuterol as needed. Also with history of diabetes, multiple strokes, significant obesity, obstructive sleep apnea. CABG in 1994, history of stable angina. Seen with Dr. Medina, Dr. Sanchez, and Dr. Pavon this morning. He is sitting up in bed. Has apparent coughing during the history. Reports feeling 40% better compared to yesterday. Notes his breathing is better. Reports having chest discomfort, but also reports that this is chronic. Goes across his chest and up to his shoulder. Has good appetite. Notices decrease in edema overnight. Urinating well. Reports that for his angina he is heavily reliant on nitro for relief. Also takes Ranolazine for the angina. Results - Labs Result diagrams: 07/24/18 06:39 07/24/18 06:39 Abnormal lab results 07/23/18 07/23/18 07/23/18 Range/Units 16:40 16:40 16:40 RBC 4.06 L (4.50-5.90) mil/mm3 Hgb 9.4 L (13.0-17.0) gm/dL Hct 29.4 L (39.0-51.0) % MCV 72.6 L (80.0-100.0) fL MCH 23.2 L (27.0-34.0) pg MCHC (32.0-36.0) % RDW 20.2 H (11.6-17.2) % Plt Count 113 L (150-450) th/mm3 Neut % (Auto) (16.0-70.0) % [place] % (Auto) 8.7 H (0.0-8.0) % Lymph # (Auto) (1.0-4.8) th/mm3 PT 11.7 H (9.8-11.6) sec O2 Saturation (90-100) % ABG pCO2 (38-42) mmHg ABG HCO3 (22-26) mmol/L ABG O2 Content (12.0-20.0) Vol % ABG Base Excess (-2-2) mmol/L Hemoglobin (12.0-16.0) G/DL Carboxyhemoglobin (0-4) % Anion Gap 4 L (5-15) meq/L BUN 19 H (7-18) mg/dL Creatinine 2.22 H (0.60-1.30) mg/dL Estimated GFR 29 L (>89) mL/min POC Glucose (68-110) mg/dl Random Glucose (74-106) mg/dL Alkaline Phosphatase 132 H (45-117) U/L Troponin I (0.02-0.05) ng/mL B-Natriuretic Peptide (0-100) pg/mL 07/23/18 07/23/18 07/24/18 Range/Units 16:40 17:03 04:03 RBC (4.50-5.90) mil/mm3 Hgb (13.0-17.0) gm/dL Hct (39.0-51.0) % MCV (80.0-100.0) fL MCH (27.0-34.0) pg MCHC (32.0-36.0) % RDW (11.6-17.2) % Plt Count (150-450) th/mm3 Neut % (Auto) (16.0-70.0) % [place] % (Auto) (0.0-8.0) % Lymph # (Auto) (1.0-4.8) th/mm3 PT (9.8-11.6) sec O2 Saturation 87 L* (90-100) % ABG pCO2 46 H (38-42) mmHg ABG HCO3 30 H (22-26) mmol/L ABG O2 Content 10.5 L (12.0-20.0) Vol % ABG Base Excess 5.4 H (-2-2) mmol/L Hemoglobin 8.5 L (12.0-16.0) G/DL Carboxyhemoglobin 6.4 H* (0-4) % Anion Gap (5-15) meq/L BUN (7-18) mg/dL Creatinine (0.60-1.30) mg/dL Estimated GFR (>89) mL/min POC Glucose 195 H (68-110) mg/dl Random Glucose (74-106) mg/dL Alkaline Phosphatase (45-117) U/L Troponin I (0.02-0.05) ng/mL B-Natriuretic Peptide 213 H (0-100) pg/mL 07/24/18 07/24/18 07/24/18 Range/Units 06:39 06:39 06:39 RBC 3.80 L (4.50-5.90) mil/mm3 Hgb 8.7 L (13.0-17.0) gm/dL Hct 27.4 L (39.0-51.0) % MCV 72.0 L (80.0-100.0) fL MCH 22.8 L (27.0-34.0) pg MCHC 31.7 L (32.0-36.0) % RDW 20.5 H (11.6-17.2) % Plt Count 100 L (150-450) th/mm3 Neut % (Auto) 84.7 H (16.0-70.0) % [place] % (Auto) (0.0-8.0) % Lymph # (Auto) 0.5 L (1.0-4.8) th/mm3 PT (9.8-11.6) sec O2 Saturation (90-100) % ABG pCO2 (38-42) mmHg ABG HCO3 (22-26) mmol/L ABG O2 Content (12.0-20.0) Vol % ABG Base Excess (-2-2) mmol/L Hemoglobin (12.0-16.0) G/DL Carboxyhemoglobin (0-4) % Anion Gap (5-15) meq/L BUN 21 H (7-18) mg/dL Creatinine 2.27 H (0.60-1.30) mg/dL Estimated GFR 28 L (>89) mL/min POC Glucose (68-110) mg/dl Random Glucose 177 H (74-106) mg/dL Alkaline Phosphatase (45-117) U/L Troponin I (0.02-0.05) ng/mL B-Natriuretic Peptide 365 H (0-100) pg/mL 07/24/18 07/24/18 Range/Units 10:36 12:07 RBC (4.50-5.90) mil/mm3 Hgb (13.0-17.0) gm/dL Hct (39.0-51.0) % MCV (80.0-100.0) fL MCH (27.0-34.0) pg MCHC (32.0-36.0) % RDW (11.6-17.2) % Plt Count (150-450) th/mm3 Neut % (Auto) (16.0-70.0) % [place] % (Auto) (0.0-8.0) % Lymph # (Auto) (1.0-4.8) th/mm3 PT (9.8-11.6) sec O2 Saturation (90-100) % ABG pCO2 (38-42) mmHg ABG HCO3 (22-26) mmol/L ABG O2 Content (12.0-20.0) Vol % ABG Base Excess (-2-2) mmol/L Hemoglobin (12.0-16.0) G/DL Carboxyhemoglobin (0-4) % Anion Gap (5-15) meq/L BUN (7-18) mg/dL Creatinine (0.60-1.30) mg/dL Estimated GFR (>89) mL/min POC Glucose 162 H (68-110) mg/dl Random Glucose (74-106) mg/dL Alkaline Phosphatase (45-117) U/L Troponin I 1.47 H* (0.02-0.05) ng/mL B-Natriuretic Peptide (0-100) pg/mL Short CBC 07/23/18 07/24/18 Range/Units 16:40 06:39 WBC 6.5 4.8 (4.0-11.0) th/mm3 Hgb 9.4 L 8.7 L (13.0-17.0) gm/dL Hct 29.4 L 27.4 L (39.0-51.0) % Plt Count 113 L 100 L (150-450) th/mm3 BMP 07/23/18 07/24/18 16:40 06:39 Sodium 139 137 Potassium 4.1 4.4 Chloride 103 101 Carbon Dioxide 31.6 28.9 BUN 19 H 21 H Creatinine 2.22 H 2.27 H Calcium 8.7 9.0 Cardiac Enzymes 07/23/18 07/24/18 Range/Units 16:40 10:36 Troponin I 0.04 1.47 H* (0.02-0.05) ng/mL Liver Function 07/23/18 Range/Units 16:40 Total Bilirubin 0.7 (0.2-1.0) mg/dL AST 18 (15-37) U/L ALT 20 (12-78) U/L Alkaline Phosphatase 132 H (45-117) U/L Albumin 3.6 (3.4-5.0) g/dL Urine 07/23/18 Range/Units 18:38 Urine Color Yellow (Yellw/Straw) Urine Clarity Clear (Clear) Urine pH 6.0 (5.0-8.5) Ur Specific [place] 1.004 (1.002-1.035) Urine Protein Negative (Neg-Trace) mg/dL Urine Glucose (UA) Negative (Negative) mg/dL - Imaging Impressions Chest X-Ray 07/23/18 16:36 CONCLUSION: 1. Pulmonary venous congestion. 2. Diffuse cardiomegaly. Chest X-Ray 07/24/18 00:00 CONCLUSION: Slight cardiomegaly, questionable right lung base infiltrate and/or tiny pleural effusion. Physical Exam Vital signs: Vital Signs 07/23/18 16:27 07/23/18 17:16 07/23/18 18:41 Temperature 97.8 F 97.8 F Pulse Rate 57 L 82 63 Respiratory Rate 20 23 28 H Blood Pressure 136/65 158/67 H Pulse Oximetry 94 L 98 07/23/18 18:52 07/23/18 18:53 07/23/18 19:00 Temperature Pulse Rate 62 63 Respiratory Rate 18 Blood Pressure 123/58 L Pulse Oximetry 99 99 98 07/23/18 20:22 07/23/18 23:04 07/24/18 00:00 Temperature 98.1 F Pulse Rate 74 76 Respiratory Rate 18 22 Blood Pressure 133/76 Pulse Oximetry 96 90 L 07/24/18 03:34 07/24/18 04:00 07/24/18 04:26 Temperature 98.6 F Pulse Rate 69 77 Respiratory Rate 18 20 Blood Pressure 158/61 H Pulse Oximetry 94 L 100 07/24/18 04:46 07/24/18 06:00 07/24/18 06:31 Temperature 98.6 F 98.6 F 98.6 F Pulse Rate 92 H 85 85 Respiratory Rate 20 20 20 Blood Pressure 159/69 H 160/72 H 170/72 H Pulse Oximetry 94 L 94 L 97 07/24/18 08:00 Temperature Pulse Rate Respiratory Rate Blood Pressure Pulse Oximetry 100 Intake & Output 07/23/18 07/24/18 07/24/18 18:59 06:59 18:59 Intake Total 250 / 250 Output Total 1700 / 1700 Balance -1450 / -1450 Weight 125.645 kg 125.645 kg Intake: Oral 250 / 250 Output: Urine 1700 / 1700 Other: # Voids 1 Weight On Admission 125.645 kg Narrative: General: Obese, sitting up in bed, no distress, coughing Skin: No rashes or lesions HEENT: Normocephalic, no conjunctivitis, no nasal discharge Neck: Supple, endarterectomy scar, no thyromegaly or lymphadenopathy CV: RRR, no murmurs, rubs, or gallops, regular pulses, normal cap refill Lungs: Has mild expiratory wheezing bilaterally, fine crackles in the lung bases , coughing during exam, no significant respiratory distress, mild accessory muscle use with breathing, talking in complete sentences Abdomen: Soft, mild edema, no distension, normal bowel sounds Ext: 1+ pitting edema Neuro: Awake, alert Assessment and Plan - Assessment (1) Elevated troponin Code(s): R74.8 - Abnormal levels of other serum enzymes Status: Acute Plan: Patient with chest discomfort during rounds this morning, history of stable angina, possibly now unstable. History of CABG. - Troponin significantly elevated compared to yesterday - Stat EKG, start Aspirin if not allergic - High dose statin 80 mg daily - Nitroglycerin as needed for chest pain - Morphine for unacceptable chest pain - Stat consult to cardiology for upwards trend (2) CHF exacerbation Code(s): I50.9 - Heart failure, unspecified Status: Acute Plan: BNP 213 on admission CXR shows pulmonary congestion Takes furosemide 40 mg BID, metoprolol and Imdur as home meds ABG does not show significant respiratory acidosis, patient is compensated Had 1450 mL output overnight ECHO: Mild LVH, EF 40-45%, left atrial mild dilation, aortic valve sclerosis, pulmonary pressure 48 X-ray: Mild cardiomegaly, pulmonary congestion, no obvious pneumonia EKst degree AV block, nonspecific ST-T wave changes - Continue Bumex 1 mg bid for diuresis - Monitor intake and output, daily weights - Continue metoprolol, Imdur. May benefit from TALHA inhibitor but possibly with acute kidney injury so will hold off. - Continue telemetry, review daily - Keep head of bed elevated to 30 degrees - O2 walk test before discharge - O2 supplementation to target 88-93% O2 Sat (3) COPD exacerbation Code(s): J44.1 - Chronic obstructive pulmonary disease with (acute) exacerbation Status: Acute Plan: Symptoms most consistent with CHF exacerbation, may be component of COPD exacerbation. Has some mild diffuse wheezing on exam. - Continue Atrovent and Symbicort for maintenance - DuoNebs once a day which is what he does at home, albuterol as needed - Prednisone 40 mg daily (4) DM2 (diabetes mellitus, type 2) Code(s): E11.9 - Type 2 diabetes mellitus without complications Status: Acute Plan: SSI w/accuchecks Con't home Gabapentin TID (5) Coronary artery disease Code(s): I25.10 - Atherosclerotic heart disease of [place] coronary artery without angina pectoris Status: Acute Plan: History of CABG and stable angina. Complaining of chest discomfort this morning , unclear if this is his baseline. - Trend troponin and EKG's - Continue high dose statin, Plavix. Aspirin is listed as a home med but it is also listed as an allergy, will verify with patient and resume if he is not allergic. - Continue Ranolazine, Imdur (6) History of CVA (cerebrovascular accident) Code(s): Z86.73 - Personal history of transient ischemic attack (TIA), and cerebral infarction without residual deficits Status: Acute Plan: See above, con't home meds (7) CKD (chronic kidney disease) stage 3, GFR 30-59 ml/min Code(s): N18.3 - Chronic kidney disease, stage 3 (moderate) Status: Acute Plan: Avoid nephrotoxic meds See above plan Daily BMP (8) BPH (benign prostatic hyperplasia) Code(s): N40.0 - Benign prostatic hyperplasia without lower urinary tract symptoms Status: Acute Plan: Con't home Terazosin 4 mg daily (9) Gastritis Code(s): K29.70 - Gastritis, unspecified, without bleeding Status: Acute Plan: Con't home protonix daily (10) Smoker Code(s): F17.200 - Nicotine dependence, unspecified, uncomplicated Status: Acute Plan: Nicotine patches daily Encourage cessation Fluids: by mouth Electrolytes: monitor Nutrition: Diabetic diet DVT prophylaxis: plavix and SCDs - Assessment and Plan Discussed Condition With: Seen and discussed with Dr. Pavon, Dr. Medina (2) CHF exacerbation Qualifiers: Heart failure type: systolic Qualified Code(s): I50.23 - Acute on chronic systolic (congestive) heart failure
[2018-07-24] MEDS ORDERED: Heparin Drip 25,000 UNIT/250 ML BAG IV.CONT PRN (14:27)
[2018-07-24] MEDS ORDERED: Heparin 10,000 UNITS/10 ML Vial (for IV use) IV.PUSH STA (14:27)
--- NOTE | 2018-07-24 14:47 | MB ---
cc: Ortega Hoffman MD DATE: 07/24/2018 REASON FOR CONSULTATION: Chest pain, shortness of breath, abnormal troponins. HISTORY OF PRESENT ILLNESS: The patient is a pleasant 77-year-old gentleman with a known ischemic cardiomyopathy with history of CHF, COPD, chronic kidney disease, who has had multiple admissions for CHF. The patient presents with worsening shortness of breath and was admitted for a CHF exacerbation. This morning he began having reasonable sounding chest discomfort radiating to his left jaw which he does describe as his prior angina. Of note, the patient had a recent nonischemic nuclear stress test per the patient. 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 He does not believe anyone has ever tried from the right arm. PAST MEDICAL HISTORY: Obesity, diabetes, CHF, CVA, CKD, CABG x5 in 1997, carotid endarterectomy, cholecystectomy, tobacco abuse. CURRENT MEDICATIONS: 1. Norvasc 10 mg a day. 2. Lipitor 80 mg daily. 3. Bumex 1 mg IV b.i.d. 4. Plavix 75 mg daily. 5. Neurontin. 6. Imdur 120 mg daily. 7. Toprol-XL 25 mg daily. 8. Nicotine patch. 9. Protonix 40 mg b.i.d. 10. Prednisone 20 mg b.i.d. ALLERGIES: TYLENOL, ASPIRIN, CODEINE, IRON, OXYCODONE. PHYSICAL EXAMINATION: VITAL SIGNS: Afebrile, pulse 85, respiratory rate 20, BP 170/72, saturating 100 on BiPAP. GENERAL: Pleasant, obese gentleman in no distress. NECK: No JVD. LUNGS: Decreased breath sounds in all [place]. HEART: Regular rate and rhythm. No significant murmurs appreciated. ABDOMEN: Benign. EXTREMITIES: 1+ edema bilaterally. LABORATORY DATA: White count 4.8, hematocrit 27.4, platelets 100. INR is 1.2. Sodium 137, potassium 4.4, chloride 101, bicarbonate 20.9, BUN 21, creatinine 2.27. Troponin 1.47. BNP 365. EKG shows sinus rhythm with diffuse ST changes. Echocardiogram shows ejection fraction 40%-45% with global hypokinesis. ASSESSMENT AND PLAN: 1. Chest pain with abnormal troponin. The patient may have had a small non-ST elevation myocardial infarction. However, he does have chronic kidney disease and some congestive heart failure, so even this level of troponin may reflect more of his chronic medical conditions than acute coronary syndrome. However, I did discuss cardiac catheterization with the patient, which at this time he declines given his severe vasculopathy, difficulty with access and severe kidney disease. He wishes to be treated only medically for now, which I agree seems appropriate given his other conditions. I will have him start an IV heparin drip at least until his troponins peak and I will add a statin to his regimen for angina. He is already on Imdur and a beta vickie. 2. Congestive heart failure. The patient has acute on chronic systolic congestive heart failure. He is breathing better and diuresing. We will continue him on IV Bumex for now. Thank you for the opportunity to participate in this patient's care. Ortega Hoffman MD MATA/ana , 02:27 PM , 02:35 PM
--- NOTE | 2018-07-24 14:54 | P.PNADD ---
Addendum to Inpatient Note Reason for Addendum: Additional Documentation (I was present with residents during the re-evaluation of this patient and agree with plan. Will treat with high dose aspirin, continue Plavix, start therapeutic anticoagulation, continue high dose statin, get cardiology on board. He is declining any coronary intervention.) Additional information: Subjective: This morning patient reported extensive left-sided chest pain that radiated up through the left shoulder and up the left side of his neck to the base of his occiput. At the time troponins were ordered that ultimately revealed an elevated troponin of 1.47. Concurrent EKG at the time showed no acute ST elevation or depression. Patient was reexamined at bedside at approximately 1330. At this time patient reported no chest pain and was feeling well. He denies any shortness of breath, dizziness, lightheadedness, nausea, or vomiting. Objective: General: Obese, sitting up in chair, no distress eating lunch Skin: No rashes or lesions HEENT: Normocephalic, no conjunctivitis, no nasal discharge Neck: Supple, endarterectomy scar, no thyromegaly or lymphadenopathy CV: RRR, no murmurs, rubs, or gallops, regular pulses, normal cap refill Lungs: Has mild expiratory wheezing bilaterally, fine crackles in the lung bases , coughing during exam, no significant respiratory distress, mild accessory muscle use with breathing, talking in complete sentences Abdomen: Soft, mild edema, no distension, normal bowel sounds Ext: 1+ pitting edema Neuro: Awake, alert Vital Signs Temp Pulse Resp BP Pulse Ox 07/24/18 08:00 100 07/24/18 06:31 98.6 F 85 20 170/72 H 97 07/24/18 06:00 98.6 F 85 20 160/72 H 94 L 07/24/18 04:46 98.6 F 92 H 20 159/69 H 94 L 07/24/18 04:26 100 07/24/18 04:00 98.6 F 77 20 158/61 H 94 L 07/24/18 03:34 69 18 Abnormal lab results 07/23/18 07/23/18 07/23/18 Range/Units 16:40 16:40 16:40 RBC 4.06 L (4.50-5.90) mil/mm3 Hgb 9.4 L (13.0-17.0) gm/dL Hct 29.4 L (39.0-51.0) % MCV 72.6 L (80.0-100.0) fL MCH 23.2 L (27.0-34.0) pg MCHC (32.0-36.0) % RDW 20.2 H (11.6-17.2) % Plt Count 113 L (150-450) th/mm3 Neut % (Auto) (16.0-70.0) % [place] % (Auto) 8.7 H (0.0-8.0) % Lymph # (Auto) (1.0-4.8) th/mm3 PT 11.7 H (9.8-11.6) sec O2 Saturation (90-100) % ABG pCO2 (38-42) mmHg ABG HCO3 (22-26) mmol/L ABG O2 Content (12.0-20.0) Vol % ABG Base Excess (-2-2) mmol/L Hemoglobin (12.0-16.0) G/DL Carboxyhemoglobin (0-4) % Anion Gap 4 L (5-15) meq/L BUN 19 H (7-18) mg/dL Creatinine 2.22 H (0.60-1.30) mg/dL Estimated GFR 29 L (>89) mL/min POC Glucose (68-110) mg/dl Random Glucose (74-106) mg/dL Alkaline Phosphatase 132 H (45-117) U/L Troponin I (0.02-0.05) ng/mL B-Natriuretic Peptide (0-100) pg/mL 07/23/18 07/23/18 07/24/18 Range/Units 16:40 17:03 04:03 RBC (4.50-5.90) mil/mm3 Hgb (13.0-17.0) gm/dL Hct (39.0-51.0) % MCV (80.0-100.0) fL MCH (27.0-34.0) pg MCHC (32.0-36.0) % RDW (11.6-17.2) % Plt Count (150-450) th/mm3 Neut % (Auto) (16.0-70.0) % [place] % (Auto) (0.0-8.0) % Lymph # (Auto) (1.0-4.8) th/mm3 PT (9.8-11.6) sec O2 Saturation 87 L* (90-100) % ABG pCO2 46 H (38-42) mmHg ABG HCO3 30 H (22-26) mmol/L ABG O2 Content 10.5 L (12.0-20.0) Vol % ABG Base Excess 5.4 H (-2-2) mmol/L Hemoglobin 8.5 L (12.0-16.0) G/DL Carboxyhemoglobin 6.4 H* (0-4) % Anion Gap (5-15) meq/L BUN (7-18) mg/dL Creatinine (0.60-1.30) mg/dL Estimated GFR (>89) mL/min POC Glucose 195 H (68-110) mg/dl Random Glucose (74-106) mg/dL Alkaline Phosphatase (45-117) U/L Troponin I (0.02-0.05) ng/mL B-Natriuretic Peptide 213 H (0-100) pg/mL 07/24/18 07/24/18 07/24/18 Range/Units 06:39 06:39 06:39 RBC 3.80 L (4.50-5.90) mil/mm3 Hgb 8.7 L (13.0-17.0) gm/dL Hct 27.4 L (39.0-51.0) % MCV 72.0 L (80.0-100.0) fL MCH 22.8 L (27.0-34.0) pg MCHC 31.7 L (32.0-36.0) % RDW 20.5 H (11.6-17.2) % Plt Count 100 L (150-450) th/mm3 Neut % (Auto) 84.7 H (16.0-70.0) % [place] % (Auto) (0.0-8.0) % Lymph # (Auto) 0.5 L (1.0-4.8) th/mm3 PT (9.8-11.6) sec O2 Saturation (90-100) % ABG pCO2 (38-42) mmHg ABG HCO3 (22-26) mmol/L ABG O2 Content (12.0-20.0) Vol % ABG Base Excess (-2-2) mmol/L Hemoglobin (12.0-16.0) G/DL Carboxyhemoglobin (0-4) % Anion Gap (5-15) meq/L BUN 21 H (7-18) mg/dL Creatinine 2.27 H (0.60-1.30) mg/dL Estimated GFR 28 L (>89) mL/min POC Glucose (68-110) mg/dl Random Glucose 177 H (74-106) mg/dL Alkaline Phosphatase (45-117) U/L Troponin I (0.02-0.05) ng/mL B-Natriuretic Peptide 365 H (0-100) pg/mL 07/24/18 07/24/18 Range/Units 10:36 12:07 RBC (4.50-5.90) mil/mm3 Hgb (13.0-17.0) gm/dL Hct (39.0-51.0) % MCV (80.0-100.0) fL MCH (27.0-34.0) pg MCHC (32.0-36.0) % RDW (11.6-17.2) % Plt Count (150-450) th/mm3 Neut % (Auto) (16.0-70.0) % [place] % (Auto) (0.0-8.0) % Lymph # (Auto) (1.0-4.8) th/mm3 PT (9.8-11.6) sec O2 Saturation (90-100) % ABG pCO2 (38-42) mmHg ABG HCO3 (22-26) mmol/L ABG O2 Content (12.0-20.0) Vol % ABG Base Excess (-2-2) mmol/L Hemoglobin (12.0-16.0) G/DL Carboxyhemoglobin (0-4) % Anion Gap (5-15) meq/L BUN (7-18) mg/dL Creatinine (0.60-1.30) mg/dL Estimated GFR (>89) mL/min POC Glucose 162 H (68-110) mg/dl Random Glucose (74-106) mg/dL Alkaline Phosphatase (45-117) U/L Troponin I 1.47 H* (0.02-0.05) ng/mL B-Natriuretic Peptide (0-100) pg/mL Assessment: 77 year old male with CHF, COPD, CKD stage 3, admitted yesterday with dyspnea, found to have left-sided chest pain, elevated troponins, and no acute ST elevation on EKG. Plan: -Aspirin 325 mg now -Cardiology consulted spoke with Dr. Hoffman, who did not request anticoagulation and reported that he was on his way to see patient -Follow-up with serial troponins and EKG Per cardiology: -IV heparin drip at least until his troponins peak -Continue atorvastatin 80 mg p.o. -Continue Imdur 120 g daily -Continue metoprolol 25 mg p.o. daily -Continue him on IV Bumex for now
[2018-07-24 15:13] LABS: Activated Partial Thrombo Time 26.3 sec (23.4-31.7); INR 1.2 Ratio; Prothrombin Time 12.4 sec (9.8-11.6)
--- NOTE | 2018-07-24 19:50 | ECG ---
Date Performed: 07/23/2018 Time Performed: 16:39:22 PTAGE: 77 years EKG: SINUS BRADYCARDIA WITH FIRST DEGREE AV BLOCK NONSPECIFIC ST & T-WAVE ABNORMALITY Compared t o previous tracing, there is a rhythm change from atrial fibrillation to Sinus rhythm ABNORMAL ECG PREVIOUS TRACING : 10/09/2015 15.30 DOCTOR: Marquise Hickey Interpretating Date/Time 07/24/2018 19:49:33
--- NOTE | 2018-07-24 19:51 | ECG ---
Date Performed: 07/24/2018 Time Performed: 10:25:13 PTAGE: 77 years EKG: Sinus rhythm WITH FIRST DEGREE AV BLOCK NONSPECIFIC ST & T-WAVE ABNORMALITY Since the previous tracing, no signif icant change noted ABNORMAL ECG PREVIOUS TRACING : 07/23/2018 16.39 DOCTOR: Marquise Hickey Interpretating Date/Time 07/24/2018 19:49:46
--- NOTE | 2018-07-24 21:02 | P.PNADD ---
Addendum to Inpatient Note Reason for Addendum: Additional Documentation Additional information: Patient is a 77 year old male with left-sided chest pain that radiated up through his left shoulder and neck to the base of his occiput this morning, prompting an ACS work-up. Initial troponin elevated at 1.47 with a repeat of 9.05. Most recent ECG shows sinus rhythm with AV block, which is unchanged from the previous tracing. Cardiology was consulted. Following discussion with patient and refusal to undergo a cardiac cath, patient was placed on a heparin drip this afternoon. Resident team was paged around 8 p.m. when second troponin resulted. Resident team evaluated patient at bedside. He had experienced a short episode of chest pain, alleviated by nitroglycerin x1. Patient denied chest pain and shortness of breath. T: 98.1 HR: 78 RR: 20 BP 141/64 Patient resting comfortably in bed. In no acute distress. Patient continues to refuse cardiac cath as he is concerned about his kidney function as well as access during the cardiac cath. He is agreeable to medical management, which at this time has been optimized. Of note, patient has aspirin listed as severe allergy, however, upon questioning the patient, he had suffered a GI bleed a year ago on aspirin therapy but does not have a true allergy. At this time, benefits of aspirin outweigh the risk. suma Garza
[2018-07-25] MEDS: Chlorhexidine Gluconate 2% 1 Pack (2 Cloths) TOPICAL SCH (03:58)
[2018-07-25] MEDS ORDERED: Chlorhexidine Gluconate 2% 1 Pack (2 Cloths) TOPICAL PRN (04:00)
[2018-07-25 05:46] LABS: Hematocrit 27.1 % (39.0-51.0); Hemoglobin 8.8 gm/dL (13.0-17.0); Mean Corpuscular HGB Conc 32.4 % (32.0-36.0); Mean Corpuscular Hemoglobin 23.2 pg (27.0-34.0); Mean Corpuscular Volume 71.5 fL (80.0-100.0); Mean Platelet Volume 8.8 fL (7.0-11.0); Platelet Count 101 th/mm3 (150-450); Red Blood Count 3.79 mil/mm3 (4.50-5.90); White Blood Count 5.8 th/mm3 (4.0-11.0)
[2018-07-25 06:08] LABS: Calcium 8.8 mg/dL (8.5-10.1); Carbon Dioxide 29.4 meq/L (21.0-32.0); Potassium 4.2 meq/L (3.5-5.1)
[2018-07-25] MEDS: amLODIPine 10 MG Tablet PO SCH (08:23)
[2018-07-25] MEDS: predniSONE 20 MG Tablet PO SCH ×2 (08:23→21:58)
[2018-07-25] MEDS: Gabapentin 100 MG Capsule PO SCH ×3 (08:23→18:09)
[2018-07-25] MEDS: Isosorbide Mononitrate 60 MG ER 24HR Tablet (Imdur) PO SCH (08:24)
--- NOTE | 2018-07-25 11:48 | P.PNFP ---
Subjective Interval history: Patient endorses significant improvement in the symptoms. Vitals stable overnight. Patient on room air. Used BiPAP overnight. Denies chest pain, shortness of breath currently. Is currently on heparin drip. States that he still would not like catheterization procedure. Endorses improvement in edema in the lower extremity's. <Abid Sobeida Perez N - 07/25/18 11:48> Results - Labs Result diagrams: 07/26/18 06:46 07/26/18 06:46 <Denny Garza L - 07/26/18 17:21> Abnormal lab results 07/26/18 07/26/18 07/26/18 Range/Units 06:46 06:46 06:46 RBC 3.86 L (4.50-5.90) mil/mm3 Hgb 8.9 L (13.0-17.0) gm/dL Hct 28.2 L (39.0-51.0) % MCV 73.0 L (80.0-100.0) fL MCH 23.1 L (27.0-34.0) pg MCHC 31.6 L (32.0-36.0) % RDW 20.5 H (11.6-17.2) % Plt Count 107 L (150-450) th/mm3 APTT (23.4-31.7) sec BUN 25 H (7-18) mg/dL Creatinine 2.11 H (0.60-1.30) mg/dL Estimated GFR 31 L (>89) mL/min POC Glucose (68-110) mg/dl Random Glucose 171 H (74-106) mg/dL Troponin I 7.74 H* (0.02-0.05) ng/mL 07/26/18 07/26/18 Range/Units 16:24 16:25 RBC (4.50-5.90) mil/mm3 Hgb (13.0-17.0) gm/dL Hct (39.0-51.0) % MCV (80.0-100.0) fL MCH (27.0-34.0) pg MCHC (32.0-36.0) % RDW (11.6-17.2) % Plt Count (150-450) th/mm3 APTT 22.6 L D (23.4-31.7) sec BUN (7-18) mg/dL Creatinine (0.60-1.30) mg/dL Estimated GFR (>89) mL/min POC Glucose 194 H (68-110) mg/dl Random Glucose (74-106) mg/dL Troponin I (0.02-0.05) ng/mL Short CBC 07/26/18 Range/Units 06:46 WBC 6.8 (4.0-11.0) th/mm3 Hgb 8.9 L (13.0-17.0) gm/dL Hct 28.2 L (39.0-51.0) % Plt Count 107 L (150-450) th/mm3 BMP 07/26/18 06:46 Sodium 137 Potassium 4.1 Chloride 101 Carbon Dioxide 28.6 BUN 25 H Creatinine 2.11 H Calcium 9.1 Cardiac Enzymes 07/26/18 Range/Units 06:46 Troponin I 7.74 H* (0.02-0.05) ng/mL <Young,Denny L - 07/26/18 17:21> Abnormal lab results 07/24/18 07/24/18 07/24/18 Range/Units 10:36 12:07 14:45 RBC (4.50-5.90) mil/mm3 Hgb (13.0-17.0) gm/dL Hct (39.0-51.0) % MCV (80.0-100.0) fL MCH (27.0-34.0) pg RDW (11.6-17.2) % Plt Count (150-450) th/mm3 PT 12.4 H (9.8-11.6) sec APTT (23.4-31.7) sec BUN (7-18) mg/dL Creatinine (0.60-1.30) mg/dL Estimated GFR (>89) mL/min POC Glucose 162 H (68-110) mg/dl Random Glucose (74-106) mg/dL Troponin I 1.47 H* (0.02-0.05) ng/mL 07/24/18 07/24/18 07/25/18 Range/Units 18:09 20:50 00:05 RBC (4.50-5.90) mil/mm3 Hgb (13.0-17.0) gm/dL Hct (39.0-51.0) % MCV (80.0-100.0) fL MCH (27.0-34.0) pg RDW (11.6-17.2) % Plt Count (150-450) th/mm3 PT (9.8-11.6) sec APTT 35.5 H D (23.4-31.7) sec BUN (7-18) mg/dL Creatinine (0.60-1.30) mg/dL Estimated GFR (>89) mL/min POC Glucose (68-110) mg/dl Random Glucose (74-106) mg/dL Troponin I 9.05 H* 11.60 H* (0.02-0.05) ng/mL 07/25/18 07/25/18 07/25/18 Range/Units 05:02 05:02 05:02 RBC 3.79 L (4.50-5.90) mil/mm3 Hgb 8.8 L (13.0-17.0) gm/dL Hct 27.1 L (39.0-51.0) % MCV 71.5 L (80.0-100.0) fL MCH 23.2 L (27.0-34.0) pg RDW 21.0 H (11.6-17.2) % Plt Count 101 L (150-450) th/mm3 PT (9.8-11.6) sec APTT 40.4 H (23.4-31.7) sec BUN 25 H (7-18) mg/dL Creatinine 2.09 H (0.60-1.30) mg/dL Estimated GFR 31 L (>89) mL/min POC Glucose (68-110) mg/dl Random Glucose 159 H (74-106) mg/dL Troponin I (0.02-0.05) ng/mL 07/25/18 Range/Units 05:02 RBC (4.50-5.90) mil/mm3 Hgb (13.0-17.0) gm/dL Hct (39.0-51.0) % MCV (80.0-100.0) fL MCH (27.0-34.0) pg RDW (11.6-17.2) % Plt Count (150-450) th/mm3 PT (9.8-11.6) sec APTT (23.4-31.7) sec BUN (7-18) mg/dL Creatinine (0.60-1.30) mg/dL Estimated GFR (>89) mL/min POC Glucose (68-110) mg/dl Random Glucose (74-106) mg/dL Troponin I 11.30 H* (0.02-0.05) ng/mL Short CBC 07/25/18 Range/Units 05:02 WBC 5.8 (4.0-11.0) th/mm3 Hgb 8.8 L (13.0-17.0) gm/dL Hct 27.1 L (39.0-51.0) % Plt Count 101 L (150-450) th/mm3 BMP 07/25/18 05:02 Sodium 136 Potassium 4.2 Chloride 101 Carbon Dioxide 29.4 BUN 25 H Creatinine 2.09 H Calcium 8.8 Cardiac Enzymes 07/24/18 07/24/18 07/25/18 Range/Units 10:36 18:09 00:05 Troponin I 1.47 H* 9.05 H* 11.60 H* (0.02-0.05) ng/mL 07/25/18 Range/Units 05:02 Troponin I 11.30 H* (0.02-0.05) ng/mL <Abid R2,Sobeida N - 07/25/18 11:48> Physical Exam Vital signs: Vital Signs 07/25/18 20:00 07/25/18 22:00 07/25/18 23:07 Temperature Pulse Rate 79 96 H 90 Respiratory Rate 20 26 H Blood Pressure 179/79 H Pulse Oximetry 93 L 93 L 07/25/18 23:08 07/25/18 23:10 07/26/18 00:00 Temperature 97.8 F 97.8 F Pulse Rate 109 H 80 Respiratory Rate 20 20 Blood Pressure 178/73 H 162/58 H Pulse Oximetry 92 L 90 L 93 L 07/26/18 04:00 07/26/18 04:15 07/26/18 04:21 Temperature 97.4 F L Pulse Rate 98 H 100 H 104 H Respiratory Rate 18 20 20 Blood Pressure 158/70 H 182/79 H 171/76 H Pulse Oximetry 92 L 94 L 07/26/18 05:02 07/26/18 05:04 07/26/18 05:11 Temperature Pulse Rate 110 H 107 H 106 H Respiratory Rate 24 20 20 Blood Pressure 103/52 L 156/72 H 168/74 H Pulse Oximetry 92 L 91 L 91 L 07/26/18 05:32 07/26/18 05:39 07/26/18 07:28 Temperature Pulse Rate 90 85 Respiratory Rate 20 16 Blood Pressure 160/75 H Pulse Oximetry 94 L 91 L 07/26/18 08:00 07/26/18 08:40 07/26/18 13:27 Temperature 97.4 F L Pulse Rate 87 79 Respiratory Rate 18 Blood Pressure 149/62 H Pulse Oximetry 95 90 L 07/26/18 13:32 07/26/18 13:44 07/26/18 13:45 Temperature 96.8 F L Pulse Rate 80 75 78 Respiratory Rate 16 14 Blood Pressure 117/56 L 117/56 L Pulse Oximetry 94 L 07/26/18 13:49 07/26/18 14:08 07/26/18 15:05 Temperature 97.1 F L Pulse Rate 79 73 Respiratory Rate 16 13 Blood Pressure 94/46 L 103/45 L Pulse Oximetry 94 L 94 L 91 L 07/26/18 15:10 07/26/18 15:11 Temperature 97.1 F L Pulse Rate 76 Respiratory Rate 13 Blood Pressure 103/45 L Pulse Oximetry 94 L Intake & Output 07/25/18 07/26/18 07/26/18 18:59 06:59 18:59 Intake Total 720 / 720 420 / 420 Output Total 850 / 850 Balance 720 / 720 -430 / -430 Weight 124 kg Intake: IV 240 / 240 Heparin/D5W 25,000 U/250 mL 25, 240 / 240 000 unit In 250 ml @ 1,000 UNITS/HR 10 mls/hr IV.CONT TITRATE PRN Rx#:[id number] Oral 480 / 480 420 / 420 Output: Urine 850 / 850 Other: # Voids 3 Date of Last Bowel Movement 07/24/18 07/24/18 # Bowel Movements 1 <Denny Garza L - 07/26/18 17:21> Vital Signs 07/24/18 12:00 07/24/18 14:28 07/24/18 16:00 Temperature 97.6 F 98.4 F 98.1 F Pulse Rate 82 86 80 Respiratory Rate 20 18 20 Blood Pressure 115/57 L 138/65 128/69 Pulse Oximetry 94 L 95 07/24/18 20:00 07/24/18 20:15 07/25/18 00:00 Temperature 97.9 F 98.1 F Pulse Rate 77 78 82 Respiratory Rate 20 20 Blood Pressure 152/69 H 141/64 H 139/63 Pulse Oximetry 96 91 L 07/25/18 00:05 07/25/18 04:00 07/25/18 08:00 Temperature 97.4 F L 98.2 F Pulse Rate 82 90 88 Respiratory Rate 20 20 Blood Pressure 144/65 H 149/67 H Pulse Oximetry 91 L 90 L 07/25/18 08:19 Temperature Pulse Rate 87 Respiratory Rate 18 Blood Pressure Pulse Oximetry 94 L Intake & Output 07/24/18 07/25/18 07/25/18 18:59 06:59 18:59 Intake Total 800 / 800 480 / 480 Output Total 700 / 700 1500 / 1500 Balance 100 / 100 -1020 / -1020 Weight 124.3 kg Intake: Oral 800 / 800 480 / 480 Output: Urine 700 / 700 1500 / 1500 Other: Date of Last Bowel Movement 07/24/18 07/24/18 # Bowel Movements 1 0 <Sobeida Interiano - 07/25/18 11:48> Narrative: General: Obese, sitting up in bed, no distress, coughing Skin: No rashes or lesions HEENT: Normocephalic, no conjunctivitis, no nasal discharge Neck: Supple, endarterectomy scar, no thyromegaly or lymphadenopathy CV: RRR, no murmurs, rubs, or gallops, regular pulses, normal cap refill Lungs: Has mild expiratory wheezing bilaterally, improved inspiratory airflow. Abdomen: Soft, obese. Ext: Mild pitting edema. Neuro: Awake, alert <Sobeida Interiano - 07/25/18 11:48> Assessment and Plan - Assessment (1) NSTEMI (non-ST elevated myocardial infarction) Code(s): I21.4 - Non-ST elevation (NSTEMI) myocardial infarction Status: Acute (2) CHF exacerbation Code(s): I50.9 - Heart failure, unspecified Status: Acute (3) COPD exacerbation Code(s): J44.1 - Chronic obstructive pulmonary disease with (acute) exacerbation Status: Acute (4) DM2 (diabetes mellitus, type 2) Code(s): E11.9 - Type 2 diabetes mellitus without complications Status: Acute (5) Coronary artery disease Code(s): I25.10 - Atherosclerotic heart disease of [place] coronary artery without angina pectoris Status: Acute (6) History of CVA (cerebrovascular accident) Code(s): Z86.73 - Personal history of transient ischemic attack (TIA), and cerebral infarction without residual deficits Status: Acute (7) CKD (chronic kidney disease) stage 3, GFR 30-59 ml/min Code(s): N18.3 - Chronic kidney disease, stage 3 (moderate) Status: Acute (8) BPH (benign prostatic hyperplasia) Code(s): N40.0 - Benign prostatic hyperplasia without lower urinary tract symptoms Status: Acute (9) Gastritis Code(s): K29.70 - Gastritis, unspecified, without bleeding Status: Acute (10) Smoker Code(s): F17.200 - Nicotine dependence, unspecified, uncomplicated Status: Acute <Denny Garza - 07/26/18 17:21> (1) NSTEMI (non-ST elevated myocardial infarction) Code(s): I21.4 - Non-ST elevation (NSTEMI) myocardial infarction Status: Acute Plan: Likely N-STEMI, medical management for now Associated with chest pain yesterday. EKG does not show significant ST elevation. Troponins increased since yesterday morning up to 11.3 Seen by cardiology, and started on heparin drip Continue Imdur, Plavix, aspirin, amlodipine, metoprolol Continue heparin drip for at least 48 hours On metoprolol 25 mg p.o. daily Check troponin this morning (2) CHF exacerbation Code(s): I50.9 - Heart failure, unspecified Status: Acute Plan: Had 2.2 L output overnight ECHO: Mild LVH, EF 40-45%, left atrial mild dilation, aortic valve sclerosis, pulmonary pressure 48 X-ray: Mild cardiomegaly, pulmonary congestion, no obvious pneumonia - Continue Bumex 1 mg bid for diuresis - Monitor intake and output, daily weights - Continue metoprolol, Imdur. May benefit from TALHA inhibitor but possibly with acute kidney injury so will hold off. - Continue telemetry, review daily - Keep head of bed elevated to 30 degrees - O2 walk test before discharge - O2 supplementation to target 88-93% O2 Sat (3) COPD exacerbation Code(s): J44.1 - Chronic obstructive pulmonary disease with (acute) exacerbation Status: Acute Plan: Symptoms most consistent with CHF exacerbation, may be component of COPD exacerbation. Has some mild diffuse wheezing on exam. - Continue Atrovent and Symbicort for maintenance - DuoNebs once a day, albuterol as needed - Prednisone 40 mg daily day #2 (4) DM2 (diabetes mellitus, type 2) Code(s): E11.9 - Type 2 diabetes mellitus without complications Status: Acute Plan: SSI w/accuchecks Con't home Gabapentin TID (5) Coronary artery disease Code(s): I25.10 - Atherosclerotic heart disease of [place] coronary artery without angina pectoris Status: Acute Plan: History of CABG and stable angina. - Continue high dose statin, Plavix and aspirin - Continue Ranolazine, Imdur (6) History of CVA (cerebrovascular accident) Code(s): Z86.73 - Personal history of transient ischemic attack (TIA), and cerebral infarction without residual deficits Status: Acute Plan: See above, con't home meds (7) CKD (chronic kidney disease) stage 3, GFR 30-59 ml/min Code(s): N18.3 - Chronic kidney disease, stage 3 (moderate) Status: Acute Plan: Avoid nephrotoxic meds See above plan Daily BMP (8) BPH (benign prostatic hyperplasia) Code(s): N40.0 - Benign prostatic hyperplasia without lower urinary tract symptoms Status: Acute Plan: Con't home Terazosin 4 mg daily (9) Gastritis Code(s): K29.70 - Gastritis, unspecified, without bleeding Status: Acute Plan: Con't home protonix daily (10) Smoker Code(s): F17.200 - Nicotine dependence, unspecified, uncomplicated Status: Acute Plan: Nicotine patches daily Encourage cessation Fluids: by mouth Electrolytes: monitor Nutrition: Diabetic diet DVT prophylaxis: plavix, aspirin, heparin drip, and SCDs <Sobeida Interiano - 07/25/18 11:35> - Attending Attestation Plan of care discussed with the resident physician. I agree with documentation above. Patient with NSTEMI but declines cardiac catheterization or other intervention. Treating medically with heparin drip, aspirin, Plavix, high dose statin, metoprolol. Cardiology on board and helping to co-manage. <Denny Garza - 07/26/18 17:21> <Sobeida Interiano N - Last Filed: 07/25/18 11:35> (2) CHF exacerbation Qualifiers: Heart failure type: systolic Qualified Code(s): I50.23 - Acute on chronic systolic (congestive) heart failure <Denny Garza - Last Filed: 07/26/18 17:21> (2) CHF exacerbation Qualifiers: Heart failure type: systolic Qualified Code(s): I50.23 - Acute on chronic systolic (congestive) heart failure <Sobeida Interiano N - Last Filed: 07/25/18 11:35> (2) CHF exacerbation Qualifiers: Heart failure type: systolic Qualified Code(s): I50.23 - Acute on chronic systolic (congestive) heart failure <Denny Garza - Last Filed: 07/26/18 17:21> (2) CHF exacerbation Qualifiers: Heart failure type: systolic Qualified Code(s): I50.23 - Acute on chronic systolic (congestive) heart failure
--- NOTE | 2018-07-25 12:06 | P.PNCA ---
Subjective Interval history: Pt feels well, no cp/sob Medications and Allergies Active Medications: Active Medications Al Hydroxide/Mg Hydroxide (Milk Of Magdi Liq) 30 ml PO Q12H PRN PRN Reason: Mild Constipation Albuterol (Albuterol Neb (Prn)) 2.5 mg NEB Q2HR NEB PRN PRN Reason: SHORTNESS OF BREATH Albuterol (Duoneb Neb (Herb)) 1 ampul NEB DAILY NEB [facility] Amlodipine Besylate (Norvasc) 10 mg PO DAILY [facility] Last Admin: 07/25/18 08:23 Dose: 10 mg Artificial Tears (Refresh Tears 0.5% Opth Drops) 1 drop EACH EYE Q4H PRN PRN Reason: Eye Irritation Aspirin (Aspirin Chew) 81 mg PO DAILY [facility] Last Admin: 07/25/18 08:23 Dose: 81 mg Atorvastatin Calcium (Lipitor) 80 mg PO QPM [facility] Last Admin: 07/24/18 18:29 Dose: 80 mg Bisacodyl (Dulcolax Supp) 10 mg RECTAL DAILY PRN PRN Reason: SEVERE CONSITIPATION Budesonide/Formoterol Fumarate (Symbicort 160/4.5 Mcg Inh) 2 puff INH BID [facility] Last Admin: 07/24/18 01:04 Dose: Not Given Bumetanide (Bumex Inj) 1 mg IV.PUSH BID [facility] Last Admin: 07/25/18 08:24 Dose: 1 mg Chlorhexidine Gluconate (Chlorhexidine 2% Cloth) 3 pack TOPICAL DAILY@0400 [facility] Stop: 07/30/18 03:59 Last Admin: 07/25/18 03:58 Dose: Not Given Chlorhexidine Gluconate (Chlorhexidine 2% Cloth) 3 pack TOPICAL DAILY@0400 PRN PRN Reason: Extra cloth needed Stop: 07/30/18 03:59 Clopidogrel Bisulfate (Plavix) 75 mg PO DAILY [facility] Last Admin: 07/25/18 08:23 Dose: 75 mg Gabapentin (Neurontin) 100 mg PO TID [facility] Last Admin: 07/25/18 08:23 Dose: 100 mg Heparin Sodium/Dextrose (Heparin/D5w 25,000 U/250 Ml) 25,000 unit in 250 mls @ 10 mls/hr IV.CONT TITRATE PRN; Protocol PRN Reason: Per Protocol Last Titration: 07/25/18 06:19 Dose: 1,100 units/hr, 11 mls/hr Isosorbide Mononitrate (Imdur) 120 mg PO DAILY [facility] Last Admin: 07/25/18 08:24 Dose: 120 mg Lactulose (Lactulose Liq) 30 ml PO DAILY PRN PRN Reason: SEVERE CONSITIPATION Metoprolol Succinate (Toprol Xl) 25 mg PO DAILY [facility] Last Admin: 07/25/18 08:23 Dose: 25 mg Nicotine (Habitrol 21 Mg Patch.24 Hr) 1 patch T-DERMAL DAILY [facility] Last Admin: 07/25/18 08:24 Dose: 1 patch Nitroglycerin (Nitrostat Sl) 0.4 mg SL Q5M PRN PRN Reason: Chest Pain Last Admin: 07/24/18 20:00 Dose: 0.4 mg Ondansetron HCl (Zofran Inj) 4 mg IV.PUSH Q6H PRN PRN Reason: NAUSEA OR VOMITING Pantoprazole Sodium (Protonix) 40 mg PO BID [facility] Last Admin: 07/25/18 08:23 Dose: 40 mg Prednisone (Deltasone) 20 mg PO BID [facility] Last Admin: 07/25/18 08:23 Dose: 20 mg Sennosides (Senokot) 17.2 mg PO Q12H PRN PRN Reason: Moderate Constipation Sodium Chloride (Ns Flush) 2 ml IV.FLUSH BID [facility] Last Admin: 07/25/18 08:25 Dose: 2 ml Sodium Chloride (Ns Flush) 2 ml IV.FLUSH PRN PRN PRN Reason: FLUSH AFTER USING IV ACCESS Terazosin HCl (Hytrin) 4 mg PO DAILY [facility] Last Admin: 07/25/18 08:24 Dose: 4 mg Allergies Allergy/AdvReac Type Severity Reaction Status Date / Time acetaminophen Allergy Severe Rash Verified 07/24/18 09:38 aspirin Allergy Severe Rash Verified 07/24/18 09:38 codeine Allergy Severe anaphylaxis Verified 07/24/18 09:38 ferrous sulfate Allergy Severe Rash Verified 07/24/18 09:38 iron Allergy Severe Rash Verified 07/24/18 09:38 oxycodone Allergy Severe Rash Verified 07/24/18 09:38 [place] AdvReac Severe SYSTEM Uncoded 04/11/14 08:32 SHUTS DOWN Home Medications Medication Instructions Recorded Confirmed Type amlodipine 10 mg PO DAILY 07/23/18 07/23/18 History aspirin 81 mg PO DAILY 07/23/18 07/23/18 History atorvastatin 80 mg PO QPM 07/23/18 07/23/18 History carboxymethylcellulose sodium 1 drp OPHTHALMIC (EYE) Q4-6H PRN 07/23/18 History clopidogrel 75 mg PO DAILY 07/23/18 07/23/18 History cyanocobalamin (vitamin B-12) 1,000 mcg PO DAILY 07/23/18 07/23/18 History furosemide 40 mg PO BID 07/23/18 07/23/18 History glipizide 10 mg PO BID 07/23/18 07/23/18 History ipratropium-albuterol 3 ml INHALATION Q6-8H PRN 07/23/18 07/23/18 History isosorbide mononitrate 120 mg PO DAILY 07/23/18 07/23/18 History metoprolol succinate 25 mg PO DAILY 07/23/18 07/23/18 History nitroglycerin 0.4 mg SUBLINGUAL Q5-15M PRN 07/23/18 07/23/18 History pantoprazole 40 mg PO BID 07/23/18 07/23/18 History ranolazine 1,000 mg PO Q12H 07/23/18 07/23/18 History terazosin 4 mg PO DAILY 07/23/18 07/23/18 History Physical Exam Vital signs: Vital Signs 07/24/18 14:28 07/24/18 16:00 07/24/18 20:00 Temperature 98.4 F 98.1 F 97.9 F Pulse Rate 86 80 77 Respiratory Rate 18 20 20 Blood Pressure 138/65 128/69 152/69 H Pulse Oximetry 95 96 07/24/18 20:15 07/25/18 00:00 07/25/18 00:05 Temperature 98.1 F Pulse Rate 78 82 82 Respiratory Rate 20 Blood Pressure 141/64 H 139/63 Pulse Oximetry 91 L 07/25/18 04:00 07/25/18 08:00 07/25/18 08:19 Temperature 97.4 F L 98.2 F Pulse Rate 90 88 87 Respiratory Rate 20 20 18 Blood Pressure 144/65 H 149/67 H Pulse Oximetry 91 L 90 L 94 L Intake & Output 07/24/18 07/25/18 07/25/18 18:59 06:59 18:59 Intake Total 800 / 800 480 / 480 Output Total 700 / 700 1500 / 1500 Balance 100 / 100 -1020 / -1020 Weight 124.3 kg Intake: Oral 800 / 800 480 / 480 Output: Urine 700 / 700 1500 / 1500 Other: Date of Last Bowel Movement 07/24/18 07/24/18 # Bowel Movements 1 0 - Constitutional no acute distress - Routine HEENT Exam Head: Present: normocephalic Eye: Present: EOMI ENT: Present: mucous membranes moist - Routine Neck Exam Present: supple. Absent: JVD - Routine Respiratory Exam Present: wheezes, distant breath sounds - Routine Cardiovascular Exam Present: RRR. Absent: murmur - Routine Abdominal Exam Present: soft - Routine Extremities Exam Present: edema Results 07/25/18 05:02 07/25/18 05:02 Cardiac Enzymes 07/23/18 07/23/18 07/24/18 Range/Units 16:40 16:40 06:39 AST 18 (15-37) U/L Troponin I 0.04 (0.02-0.05) ng/mL B-Natriuretic Peptide 213 H 365 H (0-100) pg/mL 07/24/18 07/24/18 07/25/18 Range/Units 10:36 18:09 00:05 AST (15-37) U/L Troponin I 1.47 H* 9.05 H* 11.60 H* (0.02-0.05) ng/mL B-Natriuretic Peptide (0-100) pg/mL 07/25/18 Range/Units 05:02 AST (15-37) U/L Troponin I 11.30 H* (0.02-0.05) ng/mL B-Natriuretic Peptide (0-100) pg/mL Coagulation 07/23/18 07/23/18 07/24/18 Range/Units 16:40 16:40 06:39 PT 11.7 H (9.8-11.6) sec APTT (23.4-31.7) sec B-Natriuretic Peptide 213 H 365 H (0-100) pg/mL 07/24/18 07/24/18 07/25/18 Range/Units 14:45 20:50 05:02 PT 12.4 H (9.8-11.6) sec APTT 26.3 35.5 H D 40.4 H (23.4-31.7) sec B-Natriuretic Peptide (0-100) pg/mL CBC 07/23/18 07/24/18 07/25/18 Range/Units 16:40 06:39 05:02 WBC 6.5 4.8 5.8 (4.0-11.0) th/mm3 RBC 4.06 L 3.80 L 3.79 L (4.50-5.90) mil/mm3 Hgb 9.4 L 8.7 L 8.8 L (13.0-17.0) gm/dL Hct 29.4 L 27.4 L 27.1 L (39.0-51.0) % Plt Count 113 L 100 L 101 L (150-450) th/mm3 Neut # (Auto) 4.2 4.1 (1.8-7.7) th/mm3 Lymph # (Auto) 1.6 0.5 L (1.0-4.8) th/mm3 [place] # (Auto) 0.6 0.2 (0.0-0.9) th/mm3 Eos # (Auto) 0.1 0.0 (0.0-0.4) th/mm3 Baso # (Auto) 0.0 0.0 (0.0-0.2) th/mm3 Comprehensive Metabolic Panel 07/23/18 07/24/18 07/25/18 Range/Units 16:40 06:39 05:02 Sodium 139 137 136 (136-145) meq/L Potassium 4.1 4.4 4.2 (3.5-5.1) meq/L Chloride 103 101 101 (98-107) meq/L Carbon Dioxide 31.6 28.9 29.4 (21.0-32.0) meq/L BUN 19 H 21 H 25 H (7-18) mg/dL Creatinine 2.22 H 2.27 H 2.09 H (0.60-1.30) mg/dL Calcium 8.7 9.0 8.8 (8.5-10.1) mg/dL AST 18 (15-37) U/L ALT 20 (12-78) U/L Alkaline Phosphatase 132 H (45-117) U/L Total Protein 7.6 (6.4-8.2) g/dL Albumin 3.6 (3.4-5.0) g/dL Intake and Output 07/24/18 07/25/18 07/25/18 22:59 06:59 14:59 Intake Total 800 / 800 480 / 480 Output Total 700 / 700 1500 / 1500 Balance 100 / 100 -1020 / -1020 Intake: Oral 800 / 800 480 / 480 Output: Urine 700 / 700 1500 / 1500 Other: Date of Last Bowel Movement 07/24/18 07/24/18 # Bowel Movements 1 0 Weight 124.3 kg - Imaging and Cardiology Imaging: Impressions Chest X-Ray 07/23/18 16:36 CONCLUSION: 1. Pulmonary venous congestion. 2. Diffuse cardiomegaly. Chest X-Ray 07/24/18 00:00 CONCLUSION: Slight cardiomegaly, questionable right lung base infiltrate and/or tiny pleural effusion. Assessment and Plan - Assessment (1) NSTEMI (non-ST elevated myocardial infarction) Code(s): I21.4 - Non-ST elevation (NSTEMI) myocardial infarction Status: Acute Plan: Discussed at length, no real chest pain, he is very difficult access castellanos and prior cath could not be completed; he declines an attempt at cath, wants medical mgt. only Trop's have peaked, stopped heparin ggt. (2) CHF exacerbation Code(s): I50.9 - Heart failure, unspecified Status: Acute Plan: Doing well on IV bumex, cr coming down, continue (3) CKD (chronic kidney disease) stage 3, GFR 30-59 ml/min Code(s): N18.3 - Chronic kidney disease, stage 3 (moderate) Status: Acute (4) COPD exacerbation Code(s): J44.1 - Chronic obstructive pulmonary disease with (acute) exacerbation Status: Acute (2) CHF exacerbation Qualifiers: Heart failure type: systolic Qualified Code(s): I50.23 - Acute on chronic systolic (congestive) heart failure
--- NOTE | 2018-07-25 15:04 | ECG ---
Date Performed: 07/24/2018 Time Performed: 16:29:45 PTAGE: 77 years EKG: Sinus rhythm NONSPECIFIC ST & T-WAVE ABNORMALITY ABNORMAL ECG Compared to PREVIOUS TRACING , borderline first degree AV block remains, otherwise no significant francois nge. PREVIOUS TRACIN07/24/2018 10.25 DOCTOR: Marquise Hickey Interpretating Date/Time 07/25/2018 15:01:00
--- NOTE | 2018-07-25 15:04 | ECG ---
Date Performed: 07/24/2018 Time Performed: 21:49:10 PTAGE: 77 years EKG: Sinus rhythm NONSPECIFIC ST & T-WAVE ABNORMALITY ABNORMAL ECG Since PREVIOUS TRACING , no significant change noted PREVIOUS TRACIN07/24/2018 16.29 DOCTOR: Marquise Hickey Interpretating Date/Time 07/25/2018 15:02:09
[2018-07-26] MEDS ORDERED: Morphine Inj 4 MG/ML Vial IV.PUSH ONE (05:50)
--- NOTE | 2018-07-26 05:54 | P.PNADD ---
Addendum to Inpatient Note Reason for Addendum: Additional Documentation Additional information: Chrissie called at 5.30 am today with complains of chest pain. S: pt states this is the same pain he has been having, on his R side. The pain is not improving with Nitroglycerin. Patient feels our nitro is "old" since it won't burn under his tongue and dissolve like the ones at home. He had some mild relief earlier in the day after 3 Nitro but none at this moment. He also stated he was having some short of breath that quickly resolved with 3L of oxygen. Pt states he is NOT allergic to morphine, that he had had that "good stuff" in the past, the most recent was a year ago at [facility]. O: Patient is alert, oriented, talkative, does not appear to be in acute distress. He is sitting in the recliner with Bipap on 3 L. His heart has RRR, no murmurs appreciated. His lungs have distant breath sounds, likely due to body habitus, bilateral expiratory wheezing, no crackles. resting tremor visualized on RUE, pt states this has been going on for several months now. VS: HR90 RR20 BP 160/75 O2sat: 94 % on BIPAP 3L EKG: showed unchanged from prior studies. No specific ST & T wave abnormalities. Sinus rhythm. Plan: extensively discussed with patient regarding morphine administration and the crossreactivity with codeine due to his allergy. He states he has never had an issue with morphine in the past. Last time given a year ago at . He understands the risks and would like to get some pain relief. Nurse at bedside instructed to watch for possible anaphylaxis/ allergic reactions very carefully. 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 - One time dose of morphine 2mg IV push ordered Patient seen and evaluated with Dr. Hamilton
[2018-07-26] MEDS: Chlorhexidine Gluconate 2% 1 Pack (2 Cloths) TOPICAL SCH (06:07)
[2018-07-26 08:45] LABS: Hematocrit 28.2 % (39.0-51.0); Hemoglobin 8.9 gm/dL (13.0-17.0); Mean Corpuscular HGB Conc 31.6 % (32.0-36.0); Mean Corpuscular Hemoglobin 23.1 pg (27.0-34.0); Mean Platelet Volume 9.1 fL (7.0-11.0); Platelet Count 107 th/mm3 (150-450); Red Blood Count 3.86 mil/mm3 (4.50-5.90); Red Cell Distribution Width 20.5 % (11.6-17.2); White Blood Count 6.8 th/mm3 (4.0-11.0)
[2018-07-26 08:56] LABS: Calcium 9.1 mg/dL (8.5-10.1); Carbon Dioxide 28.6 meq/L (21.0-32.0); INR 1.1 Ratio; Potassium 4.1 meq/L (3.5-5.1); Prothrombin Time 11.4 sec (9.8-11.6)
[2018-07-26] MEDS: Isosorbide Mononitrate 60 MG ER 24HR Tablet (Imdur) PO SCH (09:23)
[2018-07-26] MEDS: predniSONE 20 MG Tablet PO SCH ×2 (09:25→20:36)
[2018-07-26] MEDS: Gabapentin 100 MG Capsule PO SCH ×3 (09:25→17:00)
[2018-07-26] MEDS: amLODIPine 10 MG Tablet PO SCH (09:26)
--- NOTE | 2018-07-26 10:20 | P.PNFP ---
Subjective Interval history: Patient seen and examined at bedside this morning. Laying comfortably in a chair on BiPAP. States that his chest pain has resolved and he feels like " a million bucks". He says he is able to sleep more comfortably in the chair compared to the bed. States that the nitroglycerin pills in the hospital are out of date. Would like to take his home nitroglycerin pills. Relayed to him that we would speak to pharmacy about those regulations. All questions were answered at bedside. <Sully Mendez - 07/26/18 10:19> Results - Labs Result diagrams: 07/26/18 06:46 07/26/18 06:46 <Denny Garza - 07/26/18 17:44> Abnormal lab results 07/26/18 07/26/18 07/26/18 Range/Units 06:46 06:46 06:46 RBC 3.86 L (4.50-5.90) mil/mm3 Hgb 8.9 L (13.0-17.0) gm/dL Hct 28.2 L (39.0-51.0) % MCV 73.0 L (80.0-100.0) fL MCH 23.1 L (27.0-34.0) pg MCHC 31.6 L (32.0-36.0) % RDW 20.5 H (11.6-17.2) % Plt Count 107 L (150-450) th/mm3 APTT (23.4-31.7) sec BUN 25 H (7-18) mg/dL Creatinine 2.11 H (0.60-1.30) mg/dL Estimated GFR 31 L (>89) mL/min POC Glucose (68-110) mg/dl Random Glucose 171 H (74-106) mg/dL Troponin I 7.74 H* (0.02-0.05) ng/mL 07/26/18 07/26/18 Range/Units 16:24 16:25 RBC (4.50-5.90) mil/mm3 Hgb (13.0-17.0) gm/dL Hct (39.0-51.0) % MCV (80.0-100.0) fL MCH (27.0-34.0) pg MCHC (32.0-36.0) % RDW (11.6-17.2) % Plt Count (150-450) th/mm3 APTT 22.6 L D (23.4-31.7) sec BUN (7-18) mg/dL Creatinine (0.60-1.30) mg/dL Estimated GFR (>89) mL/min POC Glucose 194 H (68-110) mg/dl Random Glucose (74-106) mg/dL Troponin I (0.02-0.05) ng/mL Short CBC 07/26/18 Range/Units 06:46 WBC 6.8 (4.0-11.0) th/mm3 Hgb 8.9 L (13.0-17.0) gm/dL Hct 28.2 L (39.0-51.0) % Plt Count 107 L (150-450) th/mm3 BMP 07/26/18 06:46 Sodium 137 Potassium 4.1 Chloride 101 Carbon Dioxide 28.6 BUN 25 H Creatinine 2.11 H Calcium 9.1 Cardiac Enzymes 07/26/18 Range/Units 06:46 Troponin I 7.74 H* (0.02-0.05) ng/mL <Young,Denny L - 07/26/18 17:44> Abnormal lab results 07/25/18 07/25/18 07/25/18 Range/Units 05:02 11:37 11:37 RBC (4.50-5.90) mil/mm3 Hgb (13.0-17.0) gm/dL Hct (39.0-51.0) % MCV (80.0-100.0) fL MCH (27.0-34.0) pg MCHC (32.0-36.0) % RDW (11.6-17.2) % Plt Count (150-450) th/mm3 APTT 41.2 H (23.4-31.7) sec BUN (7-18) mg/dL Creatinine (0.60-1.30) mg/dL Estimated GFR (>89) mL/min Random Glucose (74-106) mg/dL Troponin I 11.30 H* 9.04 H* (0.02-0.05) ng/mL 07/26/18 07/26/18 07/26/18 Range/Units 06:46 06:46 06:46 RBC 3.86 L (4.50-5.90) mil/mm3 Hgb 8.9 L (13.0-17.0) gm/dL Hct 28.2 L (39.0-51.0) % MCV 73.0 L (80.0-100.0) fL MCH 23.1 L (27.0-34.0) pg MCHC 31.6 L (32.0-36.0) % RDW 20.5 H (11.6-17.2) % Plt Count 107 L (150-450) th/mm3 APTT (23.4-31.7) sec BUN 25 H (7-18) mg/dL Creatinine 2.11 H (0.60-1.30) mg/dL Estimated GFR 31 L (>89) mL/min Random Glucose 171 H (74-106) mg/dL Troponin I 7.74 H* (0.02-0.05) ng/mL Short CBC 07/26/18 Range/Units 06:46 WBC 6.8 (4.0-11.0) th/mm3 Hgb 8.9 L (13.0-17.0) gm/dL Hct 28.2 L (39.0-51.0) % Plt Count 107 L (150-450) th/mm3 BMP 07/26/18 06:46 Sodium 137 Potassium 4.1 Chloride 101 Carbon Dioxide 28.6 BUN 25 H Creatinine 2.11 H Calcium 9.1 Cardiac Enzymes 07/25/18 07/25/18 07/26/18 Range/Units 05:02 11:37 06:46 Troponin I 11.30 H* 9.04 H* 7.74 H* (0.02-0.05) ng/mL <Sully Mendez - 07/26/18 10:19> Physical Exam Vital signs: Vital Signs 07/25/18 20:00 07/25/18 22:00 07/25/18 23:07 Temperature Pulse Rate 79 96 H 90 Respiratory Rate 20 26 H Blood Pressure 179/79 H Pulse Oximetry 93 L 93 L 07/25/18 23:08 07/25/18 23:10 07/26/18 00:00 Temperature 97.8 F 97.8 F Pulse Rate 109 H 80 Respiratory Rate 20 20 Blood Pressure 178/73 H 162/58 H Pulse Oximetry 92 L 90 L 93 L 07/26/18 04:00 07/26/18 04:15 07/26/18 04:21 Temperature 97.4 F L Pulse Rate 98 H 100 H 104 H Respiratory Rate 18 20 20 Blood Pressure 158/70 H 182/79 H 171/76 H Pulse Oximetry 92 L 94 L 07/26/18 05:02 07/26/18 05:04 07/26/18 05:11 Temperature Pulse Rate 110 H 107 H 106 H Respiratory Rate 24 20 20 Blood Pressure 103/52 L 156/72 H 168/74 H Pulse Oximetry 92 L 91 L 91 L 07/26/18 05:32 07/26/18 05:39 07/26/18 07:28 Temperature Pulse Rate 90 85 Respiratory Rate 20 16 Blood Pressure 160/75 H Pulse Oximetry 94 L 91 L 07/26/18 08:00 07/26/18 08:40 07/26/18 13:27 Temperature 97.4 F L Pulse Rate 87 79 Respiratory Rate 18 Blood Pressure 149/62 H Pulse Oximetry 95 90 L 07/26/18 13:32 07/26/18 13:44 07/26/18 13:45 Temperature 96.8 F L Pulse Rate 80 75 78 Respiratory Rate 16 14 Blood Pressure 117/56 L 117/56 L Pulse Oximetry 94 L 07/26/18 13:49 07/26/18 14:08 07/26/18 15:05 Temperature 97.1 F L Pulse Rate 79 73 Respiratory Rate 16 13 Blood Pressure 94/46 L 103/45 L Pulse Oximetry 94 L 94 L 91 L 07/26/18 15:10 07/26/18 15:11 Temperature 97.1 F L Pulse Rate 76 Respiratory Rate 13 Blood Pressure 103/45 L Pulse Oximetry 94 L Intake & Output 07/25/18 07/26/18 07/26/18 18:59 06:59 18:59 Intake Total 720 / 720 420 / 420 Output Total 850 / 850 Balance 720 / 720 -430 / -430 Weight 124 kg Intake: IV 240 / 240 Heparin/D5W 25,000 U/250 mL 25, 240 / 240 000 unit In 250 ml @ 1,000 UNITS/HR 10 mls/hr IV.CONT TITRATE PRN Rx#:[id number] Oral 480 / 480 420 / 420 Output: Urine 850 / 850 Other: # Voids 3 Date of Last Bowel Movement 07/24/18 07/24/18 # Bowel Movements 1 <Denny Garza L - 07/26/18 17:44> Vital Signs 07/25/18 12:00 07/25/18 16:00 07/25/18 20:00 Temperature 97.6 F 97.7 F Pulse Rate 87 78 79 Respiratory Rate 20 18 Blood Pressure 140/64 128/60 Pulse Oximetry 90 L 95 07/25/18 22:00 07/25/18 23:07 07/25/18 23:08 Temperature Pulse Rate 96 H 90 Respiratory Rate 20 26 H Blood Pressure 179/79 H Pulse Oximetry 93 L 93 L 92 L 07/25/18 23:10 07/26/18 00:00 07/26/18 04:00 Temperature 97.8 F 97.8 F 97.4 F L Pulse Rate 109 H 80 98 H Respiratory Rate 20 20 18 Blood Pressure 178/73 H 162/58 H 158/70 H Pulse Oximetry 90 L 93 L 92 L 07/26/18 04:15 07/26/18 04:21 07/26/18 05:02 Temperature Pulse Rate 100 H 104 H 110 H Respiratory Rate 20 20 24 Blood Pressure 182/79 H 171/76 H 103/52 L Pulse Oximetry 94 L 92 L 07/26/18 05:04 07/26/18 05:11 07/26/18 05:32 Temperature Pulse Rate 107 H 106 H Respiratory Rate 20 20 Blood Pressure 156/72 H 168/74 H Pulse Oximetry 91 L 91 L 94 L 07/26/18 05:39 07/26/18 07:28 07/26/18 08:00 Temperature 97.4 F L Pulse Rate 90 85 87 Respiratory Rate 20 16 18 Blood Pressure 160/75 H 149/62 H Pulse Oximetry 91 L 95 Intake & Output 07/25/18 07/26/18 07/26/18 18:59 06:59 18:59 Intake Total 720 / 720 420 / 420 Output Total 850 / 850 Balance 720 / 720 -430 / -430 Weight 124 kg Intake: IV 240 / 240 Heparin/D5W 25,000 U/250 mL 25, 240 / 240 000 unit In 250 ml @ 1,000 UNITS/HR 10 mls/hr IV.CONT TITRATE PRN Rx#:[id number] Oral 480 / 480 420 / 420 Output: Urine 850 / 850 Other: # Voids 3 Date of Last Bowel Movement 07/24/18 # Bowel Movements 1 <Sully Mendez - 07/26/18 10:19> Narrative: General: Obese, laying in bed, no distress, coughing Skin: No rashes or lesions HEENT: Normocephalic, no conjunctivitis, no nasal discharge Neck: Supple, endarterectomy scar, no thyromegaly or lymphadenopathy CV: RRR, no murmurs, rubs, or gallops, regular pulses, normal cap refill Lungs: Has mild expiratory wheezing bilaterally, improved inspiratory airflow. Abdomen: Soft, obese. Ext: Mild pitting edema. Neuro: Awake, alert <Sully Mendez - 07/26/18 10:19> Assessment and Plan - Assessment (1) NSTEMI (non-ST elevated myocardial infarction) Code(s): I21.4 - Non-ST elevation (NSTEMI) myocardial infarction Status: Acute (2) CHF exacerbation Code(s): I50.9 - Heart failure, unspecified Status: Acute (3) COPD exacerbation Code(s): J44.1 - Chronic obstructive pulmonary disease with (acute) exacerbation Status: Acute (4) DM2 (diabetes mellitus, type 2) Code(s): E11.9 - Type 2 diabetes mellitus without complications Status: Acute (5) Coronary artery disease Code(s): I25.10 - Atherosclerotic heart disease of [place] coronary artery without angina pectoris Status: Acute (6) History of CVA (cerebrovascular accident) Code(s): Z86.73 - Personal history of transient ischemic attack (TIA), and cerebral infarction without residual deficits Status: Acute (7) CKD (chronic kidney disease) stage 3, GFR 30-59 ml/min Code(s): N18.3 - Chronic kidney disease, stage 3 (moderate) Status: Acute (8) BPH (benign prostatic hyperplasia) Code(s): N40.0 - Benign prostatic hyperplasia without lower urinary tract symptoms Status: Acute (9) Gastritis Code(s): K29.70 - Gastritis, unspecified, without bleeding Status: Acute (10) Smoker Code(s): F17.200 - Nicotine dependence, unspecified, uncomplicated Status: Acute <Denny Garza - 07/26/18 17:44> (1) NSTEMI (non-ST elevated myocardial infarction) Code(s): I21.4 - Non-ST elevation (NSTEMI) myocardial infarction Status: Acute Plan: Likely N-STEMI, medical management. Chest pain earlier this morning, Halicat Called. Chest pain now improved status post morphine administration. Morphine 1 mg as needed for chest pain every 4. Troponin trending downwards 7.74 from 9.04 yesterday Continue Imdur, Plavix, aspirin, amlodipine, metoprolol Cardiology On Board. (2) CHF exacerbation Code(s): I50.9 - Heart failure, unspecified Status: Acute Plan: ECHO: Mild LVH, EF 40-45%, left atrial mild dilation, aortic valve sclerosis, pulmonary pressure 48 X-ray: Mild cardiomegaly, pulmonary congestion, no obvious pneumonia - Continue Bumex 1 mg bid for diuresis - Monitor intake and output. Weight decreased 1 kg today. - Continue metoprolol, Imdur. May benefit from TALHA inhibitor but possibly with acute kidney injury so will hold off. - Continue telemetry, review daily - Keep head of bed elevated to 30 degrees - O2 walk test before discharge - O2 supplementation to target 88-93% O2 Sat (3) COPD exacerbation Code(s): J44.1 - Chronic obstructive pulmonary disease with (acute) exacerbation Status: Acute Plan: Symptoms most consistent with CHF exacerbation, may be component of COPD exacerbation. Has some mild diffuse wheezing on exam. - Will probably have some baseline of wheezing due to metoprolol and side effects of bronchospasm. Benefits of metoprolol with improving mortality for CHF outweighs bronchospasm at this time. Will continue on metoprolol. - Continue Atrovent and Symbicort for maintenance - DuoNebs once a day, albuterol as needed - Prednisone 40 mg daily day #3 (4) DM2 (diabetes mellitus, type 2) Code(s): E11.9 - Type 2 diabetes mellitus without complications Status: Acute Plan: SSI w/accuchecks Con't home Gabapentin TID (5) Coronary artery disease Code(s): I25.10 - Atherosclerotic heart disease of [place] coronary artery without angina pectoris Status: Acute Plan: History of CABG and stable angina. - Continue high dose statin, Plavix and aspirin - Continue Ranolazine, Imdur (6) History of CVA (cerebrovascular accident) Code(s): Z86.73 - Personal history of transient ischemic attack (TIA), and cerebral infarction without residual deficits Status: Acute Plan: See above, con't home meds (7) CKD (chronic kidney disease) stage 3, GFR 30-59 ml/min Code(s): N18.3 - Chronic kidney disease, stage 3 (moderate) Status: Acute Plan: Avoid nephrotoxic meds Creatinine increasing from 2.09 to 2.11 today. Due to CHF caution with fluids. Will continue to monitor. See above plan Daily BMP (8) BPH (benign prostatic hyperplasia) Code(s): N40.0 - Benign prostatic hyperplasia without lower urinary tract symptoms Status: Acute Plan: Con't home Terazosin 4 mg daily (9) Gastritis Code(s): K29.70 - Gastritis, unspecified, without bleeding Status: Acute Plan: Con't home protonix daily (10) Smoker Code(s): F17.200 - Nicotine dependence, unspecified, uncomplicated Status: Acute Plan: Nicotine patches daily Encourage cessation Fluids: by mouth Electrolytes: monitor Nutrition: Diabetic diet DVT prophylaxis: plavix, aspirin, and SCDs <Sully Mendez - 07/26/18 15:12> - Assessment and Plan 77-year-old male with past medical history of CHF, COPD presents with right- sided chest pain found to have NSTEMI. Elevated troponins. Unable to do cardiac catheterization. Medical management. <Sully Mendez - 07/26/18 10:19> - Attending Attestation The exam, history, and the medical decision-making described in the above note were completed with the assistance of the resident physician. I reviewed and agree with the findings presented. I attest that I had a [id number] encounter with the patient on the same day, and personally performed and documented my assessment and findings in the medical record. I saw patient independently this afternoon after his catheterization. At the time I saw him, no further chest pain, states he feels good. He is eating dinner. No difficulty breathing. No abdominal pain, nausea, vomiting, diarrhea. Has good appetite. Does not know results of cath procedure, awaiting report. Currently in the CVICU. Will continue to monitor him overnight. <Denny Garza - 07/26/18 17:44> <Sully Mendez - Last Filed: 07/26/18 15:12> (2) CHF exacerbation Qualifiers: Heart failure type: systolic Qualified Code(s): I50.23 - Acute on chronic systolic (congestive) heart failure <Denny Garza - Last Filed: 07/26/18 17:44> (2) CHF exacerbation Qualifiers: Heart failure type: systolic Qualified Code(s): I50.23 - Acute on chronic systolic (congestive) heart failure <Sully Mendez - Last Filed: 07/26/18 15:12> (2) CHF exacerbation Qualifiers: Heart failure type: systolic Qualified Code(s): I50.23 - Acute on chronic systolic (congestive) heart failure <Denny Garza - Last Filed: 07/26/18 17:44> (2) CHF exacerbation Qualifiers: Heart failure type: systolic Qualified Code(s): I50.23 - Acute on chronic systolic (congestive) heart failure
[2018-07-26] MEDS ORDERED: Heparin 10,000 UNITS/10 ML Vial (for IV use) IV.PUSH STA (10:45)
[2018-07-26] MEDS ORDERED: Heparin Drip 25,000 UNIT/250 ML BAG IV.CONT PRN (10:45)
--- NOTE | 2018-07-26 10:45 | P.PNCA ---
Subjective Interval history: More cp/sob, using mult. nitro. Medications and Allergies Active Medications: Active Medications Al Hydroxide/Mg Hydroxide (Milk Of Magnalin Liq) 30 ml PO Q12H PRN PRN Reason: Mild Constipation Albuterol (Albuterol Neb (Prn)) 2.5 mg NEB Q2HR NEB PRN PRN Reason: SHORTNESS OF BREATH Last Admin: 07/25/18 23:05 Dose: 2.5 mg Albuterol (Duoneb Neb ([facility])) 1 ampul NEB DAILY NEB [facility] Last Admin: 07/26/18 07:25 Dose: 1 ampul Amlodipine Besylate (Norvasc) 10 mg PO DAILY [facility] Last Admin: 07/26/18 09:26 Dose: 10 mg Artificial Tears (Refresh Tears 0.5% Opth Drops) 1 drop EACH EYE Q4H PRN PRN Reason: Eye Irritation Aspirin (Aspirin Chew) 81 mg PO DAILY [facility] Last Admin: 07/26/18 09:24 Dose: 81 mg Atorvastatin Calcium (Lipitor) 80 mg PO QPM [facility] Last Admin: 07/25/18 18:11 Dose: 80 mg Bisacodyl (Dulcolax Supp) 10 mg RECTAL DAILY PRN PRN Reason: SEVERE CONSITIPATION Budesonide/Formoterol Fumarate (Symbicort 160/4.5 Mcg Inh) 2 puff INH BID [facility] Last Admin: 07/24/18 01:04 Dose: Not Given Bumetanide (Bumex Inj) 1 mg IV.PUSH BID [facility] Last Admin: 07/26/18 09:27 Dose: 1 mg Chlorhexidine Gluconate (Chlorhexidine 2% Cloth) 3 pack TOPICAL DAILY@0400 [facility] Stop: 07/30/18 03:59 Last Admin: 07/26/18 06:07 Dose: Not Given Chlorhexidine Gluconate (Chlorhexidine 2% Cloth) 3 pack TOPICAL DAILY@0400 PRN PRN Reason: Extra cloth needed Stop: 07/30/18 03:59 Clopidogrel Bisulfate (Plavix) 75 mg PO DAILY [facility] Last Admin: 07/26/18 09:26 Dose: 75 mg Gabapentin (Neurontin) 100 mg PO TID [facility] Last Admin: 07/26/18 09:25 Dose: 100 mg Isosorbide Mononitrate (Imdur) 120 mg PO DAILY [facility] Last Admin: 07/26/18 09:23 Dose: 120 mg Lactulose (Lactulose Liq) 30 ml PO DAILY PRN PRN Reason: SEVERE CONSITIPATION Metoprolol Succinate (Toprol Xl) 25 mg PO DAILY [facility] Last Admin: 07/26/18 09:25 Dose: 25 mg Morphine Sulfate (Morphine Inj) 1 mg IV.PUSH Q4H PRN PRN Reason: PAIN SCALE 6 TO 10 Nicotine (Habitrol 21 Mg Patch.24 Hr) 1 patch T-DERMAL DAILY [facility] Last Admin: 07/26/18 09:27 Dose: 1 patch Nitroglycerin (Nitrostat Sl) 0.4 mg SL Q5M PRN PRN Reason: Chest Pain Last Admin: 07/26/18 09:59 Dose: 0.4 mg Ondansetron HCl (Zofran Inj) 4 mg IV.PUSH Q6H PRN PRN Reason: NAUSEA OR VOMITING Pantoprazole Sodium (Protonix) 40 mg PO BID [facility] Last Admin: 07/26/18 09:26 Dose: 40 mg Prednisone (Deltasone) 20 mg PO BID [facility] Last Admin: 07/26/18 09:25 Dose: 20 mg Sennosides (Senokot) 17.2 mg PO Q12H PRN PRN Reason: Moderate Constipation Sodium Chloride (Ns Flush) 2 ml IV.FLUSH BID [facility] Last Admin: 07/26/18 09:28 Dose: 2 ml Sodium Chloride (Ns Flush) 2 ml IV.FLUSH PRN PRN PRN Reason: FLUSH AFTER USING IV ACCESS Terazosin HCl (Hytrin) 4 mg PO DAILY [facility] Last Admin: 07/26/18 09:24 Dose: 4 mg Allergies Allergy/AdvReac Type Severity Reaction Status Date / Time acetaminophen Allergy Severe Rash Verified 07/24/18 09:38 aspirin Allergy Severe Rash Verified 07/24/18 09:38 codeine Allergy Severe anaphylaxis Verified 07/24/18 09:38 ferrous sulfate Allergy Severe Rash Verified 07/24/18 09:38 iron Allergy Severe Rash Verified 07/24/18 09:38 oxycodone Allergy Severe Rash Verified 07/24/18 09:38 [place] AdvReac Severe SYSTEM Uncoded 04/11/14 08:32 SHUTS DOWN Home Medications Medication Instructions Recorded Confirmed Type amlodipine 10 mg PO DAILY 07/23/18 07/23/18 History aspirin 81 mg PO DAILY 07/23/18 07/23/18 History atorvastatin 80 mg PO QPM 07/23/18 07/23/18 History carboxymethylcellulose sodium 1 drp OPHTHALMIC (EYE) Q4-6H PRN 07/23/18 History clopidogrel 75 mg PO DAILY 07/23/18 07/23/18 History cyanocobalamin (vitamin B-12) 1,000 mcg PO DAILY 07/23/18 07/23/18 History furosemide 40 mg PO BID 07/23/18 07/23/18 History glipizide 10 mg PO BID 07/23/18 07/23/18 History ipratropium-albuterol 3 ml INHALATION Q6-8H PRN 07/23/18 07/23/18 History isosorbide mononitrate 120 mg PO DAILY 07/23/18 07/23/18 History metoprolol succinate 25 mg PO DAILY 07/23/18 07/23/18 History nitroglycerin 0.4 mg SUBLINGUAL Q5-15M PRN 07/23/18 07/23/18 History pantoprazole 40 mg PO BID 07/23/18 07/23/18 History ranolazine 1,000 mg PO Q12H 07/23/18 07/23/18 History terazosin 4 mg PO DAILY 07/23/18 07/23/18 History Physical Exam Vital signs: Vital Signs 07/25/18 12:00 07/25/18 16:00 07/25/18 20:00 Temperature 97.6 F 97.7 F Pulse Rate 87 78 79 Respiratory Rate 20 18 Blood Pressure 140/64 128/60 Pulse Oximetry 90 L 95 07/25/18 22:00 07/25/18 23:07 07/25/18 23:08 Temperature Pulse Rate 96 H 90 Respiratory Rate 20 26 H Blood Pressure 179/79 H Pulse Oximetry 93 L 93 L 92 L 07/25/18 23:10 07/26/18 00:00 07/26/18 04:00 Temperature 97.8 F 97.8 F 97.4 F L Pulse Rate 109 H 80 98 H Respiratory Rate 20 20 18 Blood Pressure 178/73 H 162/58 H 158/70 H Pulse Oximetry 90 L 93 L 92 L 07/26/18 04:15 07/26/18 04:21 07/26/18 05:02 Temperature Pulse Rate 100 H 104 H 110 H Respiratory Rate 20 20 24 Blood Pressure 182/79 H 171/76 H 103/52 L Pulse Oximetry 94 L 92 L 07/26/18 05:04 07/26/18 05:11 07/26/18 05:32 Temperature Pulse Rate 107 H 106 H Respiratory Rate 20 20 Blood Pressure 156/72 H 168/74 H Pulse Oximetry 91 L 91 L 94 L 07/26/18 05:39 07/26/18 07:28 07/26/18 08:00 Temperature 97.4 F L Pulse Rate 90 85 87 Respiratory Rate 20 16 18 Blood Pressure 160/75 H 149/62 H Pulse Oximetry 91 L 95 Intake & Output 07/25/18 07/26/18 07/26/18 18:59 06:59 18:59 Intake Total 720 / 720 420 / 420 Output Total 850 / 850 Balance 720 / 720 -430 / -430 Weight 124 kg Intake: IV 240 / 240 Heparin/D5W 25,000 U/250 mL 25, 240 / 240 000 unit In 250 ml @ 1,000 UNITS/HR 10 mls/hr IV.CONT TITRATE PRN Rx#:[id number] Oral 480 / 480 420 / 420 Output: Urine 850 / 850 Other: # Voids 3 Date of Last Bowel Movement 07/24/18 # Bowel Movements 1 - Constitutional no acute distress - Routine Neck Exam Present: supple - Routine Respiratory Exam Present: CTA bilaterally, distant breath sounds - Routine Cardiovascular Exam Present: RRR - Routine Extremities Exam Present: edema Results 07/26/18 06:46 07/26/18 06:46 Cardiac Enzymes 07/24/18 07/24/18 07/24/18 Range/Units 06:39 10:36 18:09 Troponin I 1.47 H* 9.05 H* (0.02-0.05) ng/mL B-Natriuretic Peptide 365 H (0-100) pg/mL 07/25/18 07/25/18 07/25/18 Range/Units 00:05 05:02 11:37 Troponin I 11.60 H* 11.30 H* 9.04 H* (0.02-0.05) ng/mL B-Natriuretic Peptide (0-100) pg/mL 07/26/18 Range/Units 06:46 Troponin I 7.74 H* (0.02-0.05) ng/mL B-Natriuretic Peptide (0-100) pg/mL Coagulation 07/24/18 07/24/18 07/24/18 Range/Units 06:39 14:45 20:50 PT 12.4 H (9.8-11.6) sec APTT 26.3 35.5 H D (23.4-31.7) sec B-Natriuretic Peptide 365 H (0-100) pg/mL 07/25/18 07/25/18 07/26/18 Range/Units 05:02 11:37 06:46 PT 11.4 (9.8-11.6) sec APTT 40.4 H 41.2 H (23.4-31.7) sec B-Natriuretic Peptide (0-100) pg/mL CBC 07/25/18 07/26/18 Range/Units 05:02 06:46 WBC 5.8 6.8 (4.0-11.0) th/mm3 RBC 3.79 L 3.86 L (4.50-5.90) mil/mm3 Hgb 8.8 L 8.9 L (13.0-17.0) gm/dL Hct 27.1 L 28.2 L (39.0-51.0) % Plt Count 101 L 107 L (150-450) th/mm3 Comprehensive Metabolic Panel 07/25/18 07/26/18 Range/Units 05:02 06:46 Sodium 136 137 (136-145) meq/L Potassium 4.2 4.1 (3.5-5.1) meq/L Chloride 101 101 (98-107) meq/L Carbon Dioxide 29.4 28.6 (21.0-32.0) meq/L BUN 25 H 25 H (7-18) mg/dL Creatinine 2.09 H 2.11 H (0.60-1.30) mg/dL Calcium 8.8 9.1 (8.5-10.1) mg/dL Intake and Output 07/25/18 07/26/18 07/26/18 22:59 06:59 14:59 Intake Total 480 / 480 420 / 420 Output Total 850 / 850 Balance 480 / 480 -430 / -430 Intake: Oral 480 / 480 420 / 420 Output: Urine 850 / 850 Other: # Voids 3 # Bowel Movements 1 Weight 124 kg Assessment and Plan - Assessment (1) NSTEMI (non-ST elevated myocardial infarction) Code(s): I21.4 - Non-ST elevation (NSTEMI) myocardial infarction Status: Acute Plan: Now w/ severe chest pain, advised urgent cath, asked Dr. Desai to evaluate, pt unsure. but considering will restart heparin/nitro ggt, transfer to CV ICU (2) CHF exacerbation Code(s): I50.9 - Heart failure, unspecified Status: Acute Plan: Doing well on IV bumex (3) CKD (chronic kidney disease) stage 3, GFR 30-59 ml/min Code(s): N18.3 - Chronic kidney disease, stage 3 (moderate) Status: Acute (4) COPD exacerbation Code(s): J44.1 - Chronic obstructive pulmonary disease with (acute) exacerbation Status: Acute (2) CHF exacerbation Qualifiers: Heart failure type: systolic Qualified Code(s): I50.23 - Acute on chronic systolic (congestive) heart failure
[2018-07-26] MEDS: Morphine Inj 4 MG/ML Vial IV.PUSH PRN (10:59)
[2018-07-26] MEDS ORDERED: Heparin/NS PF Inj 1,500 ML ONE (11:49)
[2018-07-26] MEDS ORDERED: Heparin 10,000 UNITS/10 ML Vial (for IV use) ONE (11:49)
[2018-07-26] MEDS ORDERED: fentaNYL Citrate Inj 100 MCG/2 ML Ampul ONE (11:57)
--- NOTE | 2018-07-26 13:02 | CATHPROC ---
[place] [employer] [facility] Report Study Information Study Number Admission Scheduled Start Study Start [id number] Jul 23 2018 8:21PM 07/26/2018 Jul 26 2018 11:08AM [place] [facility] Cardiac Pacer/ICD Admit Source Facility Department Emergency department [facility] - Doctor Of Radiology Physician and Clinical Staff Initial Dewayne Orta Bench Lathe Operator Ryan RN, Jim Bench Lathe OperatorDrake Gallo RN Recorder Navneet, Dhara Recorder Kathy Palacios ,RT(R) Scrub Dimitry Coleman RCIS(BS) Procedures Performed Procedure Location (Site) Vessel Name Coronary Angiograms LCA Left Coronary Coronary Angiograms RCA Right Coronary Coronary Angiograms FERRARI Graft Left Coronary Coronary Angiograms Gft. Stump 1 SVG Graft Coronary Angiograms Gft. Stump 2 SVG Graft L Heart Cath Radiation Dosage Wire insertion Radial (right) Radial Art. Equipment Time Receiving Supervisor Description Size Mfg Part Number Used/Scraped TRANSDUCER, TRUWAVE [id number] 11:09 GARCIA MAURICIO * Used W/STOCKCOCK *[id number] *[id number] *[id number] WIRE, HYDROSTEER 150CM [id number] 12:08 DAIG[employer] 150CM Used ANGLED GLIDE *[id number] 11:09 [employer] BLANKET,WARM AIR CCL * Used *[id number] 11:09 [employer] PACK, CCL CUSTOM * Used *[id number] 11:09 [employer] SUPPORT, ARTERIAL ADULT 61208 *[id number] Used [id number] 12:11 [employer]IC JL 3.5 DXTERITY CATHETER FR 5 Used *[id number] BAND, RADIAL COMPRESSION TR [id number] 12:49 [employer] 29CM Used LARGE 29 *[id number] 11:09 [employer] WIRE, EXCHANGE 260CM 3MMJ 260CM Used *[id number] 11:09 NAMIC MANIFOLD, 4 PORT * Used *[id number] 11:09 [employer] OMNIPAQUE, 350 MG, 150ML 150ML [id number] Used 12:45 [employer] OMNIPAQUE, 350 MG, 50ML 50ML [id number] Used SHEATH, FR6 TRANSRADIAL [id number] 11:09 [employer] MEDICAL FR 6 Used SLENDER 10CM *[id number] Equipment Model, Serial, Lot Number and Expiration Data Description Model Number Serial Number Lot Number Expiration Date LATISHA KAT 150CM [id number] 10-17-2020 ANGLED GLIDE History: Current Medications Medication Dosage/Unit Route Frequency Last Date/Time Taken Beta Jacob NORVASC Imdur ASA PLAVIX History: Allergies Allergy Reaction iron Rash ferrous sulfate Rash codeine anaphylaxis oxycodone Rash aspirin Rash acetaminophen Rash COCA COLA SYSTEM SHUTS DOWN History: Risk Factors Family History of Hypertension Dyslipidemia Previous [place] Previous Heart Failure Premature CAD Yes Yes Yes Yes Yes Prior Valve Prior PCI Prior CABG Surgery No No Yes Cerebrovascular Peripheral Artery Chronic Lung On Dialysis Diabetes Disease Disease Disease No Yes Yes Yes Yes Labs Hgb (g/dl) Hct (%) WBC (l/cumm) Platelets (thousands) 11.60-17.00 35.00-51.00 4.00-11.00 150.00-450.00 8.9 28.2 6.8 107 Glucose (mg/dl) BUN (mg/dl) Creatinine (mg/dl) BUN:Creatinine (1:x) 74.00-106.00 7.00-18.00 0.50-1.30 10.00-20.00 171 25 2.1 11.9 Na (meq/l) K (meq/l) 136.00-145.00 3.50-5.10 137 4.1 Troponin I (ng/ml) CPK-MB (ng/ML) 0.02-0.05 0.50-3.60 7.7 Not Drawn Medication Medication Total Dose (Bolus/Oral) Medication Total Dosage/Unit 1% XYLOCAINE 5 mL FENTANYL 100 mcg NTG (IC) 100 mcg RADIAL COCKTAIL 5 mL (Bolus) Medications (Bolus/Oral) Medication Time Given Dosage/Unit Administered By Reason 1% XYLOCAINE 07/26/2018 11:55:43 AM 5 mL Dewayne Desai 5 mL 1% XYLOCAINE given in lab by Dewayne Desai in Right Radial via Subcutaneous. Ordered by Dewayne Romero. Ntg 200mcg Verapamil 2.5mg Heparin RADIAL COCKTAIL 07/26/2018 11:56:58 AM 5 mL (Bolus) Dewayne Desai 3000U 5 mL (Bolus) RADIAL COCKTAIL given in lab by Dewayne Desai via Radial. Using [Solution Name]. O rdered by Dewayne Desai Reason: Ntg 200mcg Verapamil 2.5mg Heparin 3000U. FENTANYL 07/26/2018 11:59:08 AM 25 mcg Adele, Drake 25 mcg FENTANYL given in lab by Drake Angulo RN via Peripheral IV. Ordered by Dewayne Desai FENTANYL 07/26/2018 12:04:44 PM 25 mcg Adele, Drake 25 mcg FENTANYL given in lab by Drake Angulo RN via Peripheral IV. Ordered by Dewayne Desai FENTANYL 07/26/2018 12:40:28 PM 50 mcg Jim Davis RN 50 mcg FENTANYL given in lab by Jim Davis RN in Right Antecubital via Peripheral IV. Ordered by Dewayne Romero NTG (IC) 07/26/2018 12:41:00 PM 100 mcg Dewayne Desai 100 mcg NTG (IC) given in lab by Dewayne Desai in Right Radial via Intra-coronary. Ordered by Dewayne Gutierrez Medication (Drip) Medication Time Given Dosage/Unit Concentration/Unit Diluent (ml) Solution IV Solutions 07/26/2018 11:36:43 AM 50 mL (IV) NaCl .9 Patient arrived on IV Solutions via Peripheral IV. Pump/Drip Flow using NaCl .9. Initial Case Assessment Cardiovascular HR 81 Edema Present Skin color Skin Mild Normal Warm Dry Circulatory - Right Pulses Radial 2 Scale (0,1,2,3,4,d) Scale (0,1,2,3,4,d) Neurological State Oriented to time-place- Alert Moves all extremities person Respiration - General Respiration Rate SpO2 (%) (B/min) 12 97 Final Case Assessment Cardiovascular HR NIBP Chest Pain 80 111/47 0 Edema Present Skin color Skin Mild Normal Warm Dry Circulatory - Right Pulses Radial 2 Scale (0,1,2,3,4,d) Scale (0,1,2,3,4,d) Neurological State Oriented to time-place- Alert Moves all extremities person Respiration - General Respiration Rate SpO2 (%) (B/min) 16 97 Chronological Log Time Study Chronological Log 11:24:51 Patient arrived via Bed. 11:24:52 Patient Name, D.O.B, / Armband Verified By R.N. 11:36:21 Consent signed by the physician and the patient and verified by the Doctor Of Radiology staff. 11:36:21 Pre-op and post- op instructions given; patient acknowledges understanding of instructions. 11:36:25 Patient has been NPO for More than 6Hrs. 11:36:25 Skin Breakdown- none per patient 11:36:26 Patient Warmer Placed on the Table. 11:36:42 Gordo Prominences Protected 11:36:42 A # 20 IV was noted in the Antecubital (right). Grade = 0 11:36:43 Patient arrived on IV Solutions via Peripheral IV. Pump/Drip Flow using NaCl .9. 11:36:44 History and physical on the chart or being dictated. Assessment: Initial Case, HR=81 BPM, Edema=Mild, Color=Normal, Skin = Warm, Dry Right Pulses: Radial=2 11:36:44 Neurological: State=Alert, Ox3, AMADO Respiration: Resp=12 B/min, SpO2=97 % Vitals capture started with the following parameters, Patient=Adult, Interval=3 min, Initial Pr jiimdw=340 mmHg, 11:37:43 Deflation Rate=5 mmHg, Cuff placed on Left Arm 11:39:15 HR=77 bpm, HKSA=028/64 mmhg, SpO2=95.0 %, Resp=18 B/min, Pain=0, Amanuel=10, Laws=2 11:41:32 HR=74 bpm, LKJO=508/62 mmhg, SpO2=95.0 %, Resp=19 B/min, Pain=0, Amanuel=10, Laws=2 11:44:37 HR=80 bpm, QAWF=269/58 mmhg, SpO2=93.0 %, Resp=15 B/min, Pain=0, Amanuel=10, Laws=2 11:47:33 HR=82 bpm, VWYN=125/59 mmhg, SpO2=94.0 %, Resp=20 B/min, Pain=0, Amanuel=10, Laws=2 11:50:13 MD paged 11:50:35 HR=81 bpm, FFBB=082/53 mmhg, SpO2=93.0 %, Resp=13 B/min, Pain=0, Amanuel=10, Laws=2 11:51:34 Pressure channel 1 zeroed. 11:51:43 MD arrived. 11:53:33 HR=77 bpm, ROXY=397/61 mmhg, SpO2=92.0 %, Resp=15 B/min, Pain=0, Amanuel=10, Laws=2 Time Out. Correct patient, correct procedure, correct physician, labs, allergies, and equipment verified with lab manager 11:54:54 team present. Fire risk assesment completed (see hard stop sheet for coding). Time Out Conc urred by MD and individual staff in procedure. 11:55:18 Reference ECG taken 11:55:42 Case Start 5 mL 1% XYLOCAINE given in lab by Dewayne Desai in Right Radial via Subcutaneous. Ordered by Lloyd 11:55:43 Dewayne [place] 11:56:38 HR=75 bpm, GGSY=184/55 mmhg, SpO2=94.0 %, Resp=11 B/min 11:56:42 Access site was Right Radial Artery . A SHEATH, FR6 TRANSRADIAL SLENDER 10CM FR 6 was advanced into the Radial (right) using the Perc utaneous 11:56:47 technique. 5 mL (Bolus) RADIAL COCKTAIL given in lab by Dewayne Desai via Radial. Using [Solution Na me]. Ordered by 11:56:58 Dewayne Desai Reason: Ntg 200mcg Verapamil 2.5mg Heparin 3000U. 11:59:08 25 mcg FENTANYL given in lab by Drake Angulo, RN via Peripheral IV. Ordered by Ruth Desai 11:59:38 HR=76 bpm, SYHS=419/47 mmhg, SpO2=93.0 %, Resp=14 B/min A JR 4.0 INFINITI CATHETER FR 5 was advanced over a wire. OMNIPAQUE, 350 MG, 150ML 150ML was us ed for 12:00:00 injections. Recorded Pressure: LV, HR=75, Condition=Condition 1 12:00:31 (Left Ventricle) LV 138/21/35 Recorded Pressure: LV, Ao, HR=76, Condition=Condition 1 12:00:47 (Left Ventricle) LV 135/18/31, (Aorta) Ao 130/54/88 12:02:08 The RCA was injected and visualized at various angles. OMNIPAQUE, 350 MG, 150ML 150ML used . 12:02:34 HR=76 bpm, XADJ=846/52 mmhg, SpO2=95.0 %, Resp=9 B/min 12:03:11 The Gft. Stump 1 was injected and visualized at various angles. OMNIPAQUE, 350 MG, 150ML 15 0ML used. 12:04:44 25 mcg FENTANYL given in lab by Drake Angulo, RODERICK via Peripheral IV. Ordered by Ruth Desai 12:05:32 HR=76 bpm, TBNQ=969/56 mmhg, SpO2=91.0 %, Resp=12 B/min, Pain=0, Amanuel=10, Laws=2 12:05:53 The Gft. Stump 2 was injected and visualized at various angles. OMNIPAQUE, 350 MG, 150ML 15 0ML used. Recorded Pressure: Ao, HR=80, Condition=Condition 1 12:06:19 (Aorta) Ao 142/71/101 12:08:35 HR=81 bpm, BEMX=481/60 mmhg, SpO2=91.0 %, Resp=15 B/min, Pain=0, Amanuel=10, Laws=2 12:09:54 A WIRE, HYDROSTEER 150CM ANGLED GLIDE 150CM was inserted via Radial (right). After removing the current catheter a JL 3.5 DXTERITY CATHETER FR 5 was advanced over a WIRE, E XCHANGE 260CM 12:10:39 3MMJ 260CM. 12:11:35 HR=83 bpm, XSAR=422/50 mmhg, SpO2=91.0 %, Resp=10 B/min, Pain=0, Amanuel=10, Laws=2 12:13:24 The LCA was injected and visualized at various angles. OMNIPAQUE, 350 MG, 150ML 150ML used . 12:14:31 HR=77 bpm, XBJX=103/61 mmhg, SpO2=91.0 %, Resp=14 B/min, Pain=0, Amanuel=10, Laws=2 12:17:35 HR=82 bpm, PEMR=198/61 mmhg, SpO2=93.0 %, Resp=12 B/min, Pain=0, Amanuel=10, Laws=2 12:20:33 HR=78 bpm, CWUP=471/60 mmhg, SpO2=88.0 %, Resp=18 B/min, Pain=0, Amanuel=10, Laws=2 After removing the current catheter a JR 4.0 INFINITI CATHETER FR 5 was advanced over a WIRE, E XCHANGE 260CM 12:22:32 3MMJ 260CM. 12:23:38 HR=77 bpm, KEVC=673/59 mmhg, SpO2=91.0 %, Resp=11 B/min, Pain=0, Amanuel=10, Laws=2 12:26:36 HR=80 bpm, WKWY=133/65 mmhg, SpO2=92.0 %, Resp=14 B/min, Pain=0, Amanuel=10, Laws=2 12:29:34 HR=86 bpm, MJRT=880/83 mmhg, SpO2=91.0 %, Resp=18 B/min, Pain=0, Amanuel=10, Laws=2 12:30:35 The FERRARI Graft was injected and visualized at various angles. OMNIPAQUE, 350 MG, 150ML 150M L used. 12:32:38 HR=78 bpm, CQMS=046/50 mmhg, SpO2=91.0 %, Resp=14 B/min, Pain=0, Amanuel=10, Laws=2 After removing the current catheter a AL 1 INFINITI CATHETER FR 5 was advanced over a WIRE, HYD ROSTEER 150CM 12:35:13 ANGLED GLIDE 150CM. 12:35:35 HR=79 bpm, YYLE=555/52 mmhg, SpO2=89.0 %, Resp=15 B/min, Pain=0, Amanuel=10, Laws=2 12:38:41 HR=78 bpm, BWUS=187/44 mmhg, SpO2=94.0 %, Resp=10 B/min, Pain=0, Amanuel=10, Laws=2 50 mcg FENTANYL given in lab by Jim Davis RN in Right Antecubital via Peripheral IV. Ordered by Dewayne Desai 12:40:28 G. 100 mcg NTG (IC) given in lab by Dewayne Desai in Right Radial via Intra-coronary. Ordere d by Dewayne Desai 12:41:00 G. 12:41:41 HR=83 bpm, RVGY=286/45 mmhg, SpO2=90.0 %, Resp=11 B/min, Pain=0, Amanuel=10, Laws=2 A JL 3.5 DXTERITY CATHETER FR 5 was advanced over a wire. OMNIPAQUE, 350 MG, 150ML 150ML was us ed for 12:41:55 injections. 12:44:35 HR=83 bpm, FGHN=998/56 mmhg, SpO2=89.0 %, Resp=12 B/min, Pain=0, Amanuel=10, Laws=2 12:47:36 HR=83 bpm, EGZI=898/55 mmhg, SpO2=88.0 %, Resp=13 B/min, Pain=0, Amanuel=10, Laws=2 12:48:47 Catheter was removed 12:48:52 Case End (Physician broke scrub) 12:49:00 Catheter(s) removed without difficulty Radial Compression Device Used. 12 mLs of air placed in BAND, RADIAL COMPRESSION TR LARGE 29 29 CM. Affected 12:49:02 hand 96 % O2 saturation. 12:49:22 mGy is equal to or greater than 2000 mGy due to: Body Habitus and Complex Procedure 12:49:56 No case complications noted. 12:49:58 Cine recording checked. 12:50:00 Bedside Report will be given. 12:50:04 A Left Heart Cath was performed. Assessment: Final Case, HR=80 BPM, VPMV=659/47 mmhg, Chest Pain=0, Edema=Mild, Color=Normal, S kin = Warm, Dry 12:50:09 Right Pulses: Radial=2 Neurological: State=Alert, Ox3, AMADO Respiration: Resp=16 B/min, SpO2=97 % 12:50:40 HR=79 bpm, GLUW=095/47 mmhg, SpO2=91.0 %, Resp=13 B/min, Pain=0, Amnauel=10, Laws=2 12:53:38 HR=76 bpm, LIEK=760/48 mmhg, SpO2=92.0 %, Resp=17 B/min, Pain=0, Amanuel=10, Laws=2 12:56:38 HR=77 bpm, NBCD=426/49 mmhg, SpO2=90.0 %, Resp=15 B/min, Pain=0, Amanuel=10, Laws=2 12:59:21 Vitals capture stopped. 12:59:26 Patient moved to stretcher End Study - Contrast Media Used In Study Contrast Total Opened (mL) Total Used (mL) Total Wasted (mL) Omnipaque 150 130 20 End Study - Maximum Contrast Load Max Contrast Load (mL) 295.2 End Study - Radiation Exposure Fluoro Time Fluoro Dose (mGy) Cine Dose (uGym2) (minutes) 21.3 8210 56804 End Study - Patient Disposition Complications Transferred To Interventional Outcome No Critical Care Bed No attempt made
[2018-07-26] MEDS ORDERED: Iohexol 350 MG/ML 100 ML Vial (for Cath Lab) IV.SIG ONE (13:18)
[2018-07-26] MEDS ORDERED: Iohexol 350 MG/ML 50 ML Vial (for Cath Lab) IV.SIG ONE (13:18)
[2018-07-26] MEDS ORDERED: Dextrose 50% in Water 50 ML Vial IV.PUSH PRN (15:45)
[2018-07-26] MEDS ORDERED: Heparin 10,000 UNITS/10 ML Vial (for IV use) IV.PUSH PRN (16:46)
[2018-07-26] MEDS: Insulin NovoLOG Aspart Correctional Sugar Inj SQ SCH ×2 (17:00→21:34)
--- NOTE | 2018-07-26 21:03 | ECG ---
Date Performed: 07/26/2018 Time Performed: 05:35:34 PTAGE: 77 years EKG: Sinus rhythm with PAC(s). Inferior/lateral ST-T changes may be due to myocardial ischemia Abnormal ECG PREVIOUS TRACING : 07/24/2018 21.49 Since the previous tracing, no significant change noted DOCTOR: Jayson Garber Interpretating Date/Time 07/26/2018 21:02:08
[2018-07-27] MEDS: Morphine Inj 4 MG/ML Vial IV.PUSH PRN ×2 (00:49→09:10)
[2018-07-27] MEDS: Nitroglycerin Drip Premix 50 MG/250 ML BOTTLE IV.CONT PRN ×2 (01:22→18:01)
--- NOTE | 2018-07-27 01:59 | MB ---
cc: Dewayne Desai DO DATE: 07/26/2018 REASON FOR CONSULTATION: NSTEMI, congestive heart failure. HISTORY OF PRESENT ILLNESS: Jason Scruggs is a pleasant 77-year-old male who presented to [facility] due to shortness of breath and chest discomfort. He was seen by Dr. Hoffman and they were attempting to treat him medically as he was worried about his kidney function as well as he was told that cardiac catheterization could not be done because both his femoral arteries and his left arm are completely blocked. Apparently, he has been treated medically for coronary artery disease for a number of years. He was doing relatively well and then his heparin was stopped, and he was evaluated by Dr. Hoffman this morning. He was getting significant chest pain requiring multiple nitroglycerins and so I was asked to see him. He states that he had a nonischemic nuclear stress test at the OR a few months ago. In seeing him, he is currently short of breath and having chest pain for which nitroglycerin is having difficulty controlling. PAST MEDICAL HISTORY: 1. Diabetes. 2. Obstructive sleep apnea, on CPAP. 3. Ischemic cardiomyopathy. 4. Previous CVA x 4. 5. Chronic kidney disease. 6. Coronary artery disease. 7. Gastritis. 8. Anemia. 9. Obesity. 10. Benign prostatic hypertrophy. PAST SURGICAL HISTORY: 1. CABG x 5 (1997). 2. Carotid endarterectomy (1997). 3. Cholecystectomy (2013). 4. Colonoscopy (2015). 5. EGD (2015). ALLERGIES: 1. TYLENOL. 2. ASPIRIN. 3. CODEINE. 4. IRON. 5. OXYCODONE. MEDICATIONS: 1. Aspirin 81 mg daily. 2. Nitro sublingual as needed. 3. Norvasc 10 mg daily. 4. Protonix 40 mg b.i.d. 5. Terazosin 4 mg daily. 6. Ranexa 1000 mg b.i.d. 7. Isosorbide mononitrate 120 mg daily. 8. Glipizide 10 mg b.i.d. 9. Lasix 40 mg b.i.d. 10. Plavix 75 mg daily. 11. Lipitor 80 mg every night. 12. Ipratropium/albuterol as needed. 13. Toprol-XL 25 mg daily. FAMILY HISTORY: Denies sudden cardiac within the family. SOCIAL HISTORY: The patient denies alcohol or drug abuse. He smoked for 50 years. REVIEW OF SYSTEMS: Fourteen systems were reviewed including osteopathic. Pertinent positives and negatives above, otherwise negative. PHYSICAL EXAMINATION: VITAL SIGNS: Temperature 97.4, heart rate 87, blood pressure 149/62, respirations 16, pulse oximetry 95% on CPAP. GENERAL: The patient appears in mild distress due to shortness of breath. Alert, awake and oriented x 3. HEENT: Extraocular muscles intact. Mucous membranes moist. NECK: Supple. No JVD at 45 degrees. No carotid bruits heard bilaterally. Carotid upstroke is brisk in nature. HEART: Regular rate and rhythm. Positive first and second heart sounds with no noted murmurs, gallops or rubs. LUNGS: Decreased breath sounds bilaterally. No overt wheezes, rales or rhonchi. ABDOMEN: Soft, nontender, nondistended. No organomegaly noted. EXTREMITIES: Show 1+ pitting edema bilaterally. NEUROLOGIC: No focal deficits. SKIN: Warm, dry and intact. OSTEOPATHIC: Mild lordosis. No kyphoscoliosis or paraspinal tender points. LABORATORY DATA: Hemoglobin 8.9, hematocrit 28.2, platelets 107. Potassium 4.1, BUN 25, creatinine 2.11. Troponin 11.6. Electrocardiogram (07/26/2018 at 0535 hours): Sinus rhythm with PACs, ST-T wave changes inferolaterally, possible ischemia. IMPRESSIONS: 1. Non-ST elevation myocardial infarction. 2. Acute on chronic systolic heart failure. 3. Known ischemic cardiomyopathy. 4. Coronary artery disease with a history of coronary artery bypass graft x 5. 5. Obstructive sleep apnea, on CPAP. 6. Chronic kidney disease. RECOMMENDATIONS: 1. Mr. Scruggs appears to have presented with acute on chronic systolic heart failure, but had a significant elevation of his troponins. 2. Apparently, he has been treated medically for a number of years as he was told that both femorals and left radial access are unable to do catheterization through due to blockages. 3. At this current time, he appears to be in unstable angina with chest pain unrelieved by nitroglycerin after stopping his heparin drip. 4. I had a long discussion with him and his fiancee about how we should proceed as well as with Dr. Hoffman. Ultimately, he is at significant risk of further deterioration, as I am concerned he has significant coronary artery disease, which has progressed over the years. He states that since his bypass in 1997, he has used nitroglycerin to get rid of his angina and it has always seemed to work, but does not seem to be working at this time. 5. We discussed the risks, benefits, and alternatives to cardiac catheterization. He understands that he is at a significant risk of acute kidney injury or possible placement on hemodialysis if we do proceed with cardiac catheterization. 6. After discussing everything with him, he has decided to go through with cardiac catheterization, so we will plan on a right radial access, although this will be difficult with his history of CABG x 5. 7. We will plan on moving him to the CV ICU after cardiac catheterization for further observation. 8. We should attempt to try to diurese him further as any heart failure will cause more ischemia. Once again, this will be difficult with his current creatinine levels. 9. If significant disease is found, we will have to weigh the risks and benefits of immediate intervention versus attempting to stage him for intervention, but in the meantime, he may need a nitroglycerin drip. 10. Further recommendations will be made after coronary visualization. Thank you for allowing me to see Jason Scruggs. If there are any questions, please do not hesitate to call. Dewayne Desai DO VGP/rw , 12:09 AM , 12:24 AM
--- NOTE | 2018-07-27 02:44 | MA ---
cc: Dewayne Desai DO DATE: 07/26/2018 PROCEDURE: Left heart catheterization, coronary angiogram, bypass angiogram, complex procedure. PREPROCEDURE DIAGNOSES: Yew-XY-ksroxxmdc myocardial infarction, acute on chronic systolic heart failure, known ischemic cardiomyopathy. POSTOPERATIVE DIAGNOSES: Multivessel disease, history of coronary artery bypass graft x 5 (1/5 grafts patent). MEDICATIONS: Fentanyl 100 mcg, nitro 200 mcg, verapamil 2.5 mg, heparin 4000 units. CONTRAST USED: 130 mL. FLUOROSCOPY: 21.3 minutes. MODERATE SEDATION: 0 minutes. FRAILTY SCORE 6. ESTIMATED BLOOD LOSS: 10 mL. PROCEDURAL SUMMARY: Jason Scruggs is a 77-year-old male who originally presented to [facility] as acute on chronic congestive heart failure. He was noted to have significant elevation of his troponins, but was told previously that cardiac catheterization could not be done as he had occlusion of both femorals as well as his access from his left arm. He has been treated medically for a number of years and has used nitroglycerin for any angina that he has had. He was seen today by Dr. Hoffman and was having chest pain as well as significant shortness of breath and he had taken multiple nitroglycerins without relief. Overall, he was concerned about his kidney function and undergoing cardiac catheterization, which he understands that there would be a risk of acute kidney injury or possible hemodialysis. Risks, benefits and alternatives of cardiac catheterization were discussed with him and he agreed to proceed. He was brought to the lab and prepped in the usual sterile fashion. The right radial artery was accessed using a modified Seldinger technique and placement of a 5/6 [place] slender sheath. This was easily aspirated and flushed. A JR4 was advanced over a J-wire to the ascending aorta and across the aortic valve for measurement of left ventricular pressure. This was pulled back across the aortic valve showing no significant gradient of aortic stenosis. JR4 was used for selective angiography of the right coronary artery as well as the saphenous vein graft bypasses. This was then exchanged for a JL3.5, which was used for selective angiography of the left coronary artery system. This was then pulled back and used with a Glidewire to advance up the left subclavian and exchanged out for the JR4. Unfortunately, due to significant tortuosity, the JR4 was unable to be advanced to engage the FERRARI, so a nonselective shot of the FERRARI was done. I then exchanged the JR4 for an AL1 in an attempt to find the last bypass graft, but was unable to get the AL1 to sit correctly and so this was exchanged out for the JR4 and the last bypass graft was found. JR4 was removed over a J wire. A radial band was placed over the arteriotomy site for hemostasis. The patient left the biological lab technician in a guarded situation, but no chest pain or shortness of breath. FINDINGS: LEFT MAIN: 50% disease. It bifurcates into an LAD and circumflex. LAD: Moderate size vessel with 40% disease throughout the proximal portion. Mid portion appears to be 100% occluded. It gives off 1 major diagonal, which has 40% disease throughout. LEFT CIRCUMFLEX: 100% occluded at the proximal portion. It gives off a high obtuse marginal, which then supplies [id number] collaterals to the distal obtuse marginal as well as left posterior descending artery. RCA: Small, nondominant vessel with an 80% ostial stenosis. FERRARI to LAD: Patent and fills both antegrade and retrograde. Distal LAD is diffusely diseased. Three saphenous vein grafts were engaged, all appear occluded. LVEDP 30. IMPRESSION: 1. Non-ST elevation myocardial infarction. 2. Multivessel coronary artery disease. 3. History of coronary artery bypass graft x 5 (1/5 grafts patent). 4. Elevated left ventricular end-diastolic pressure. 5. Acute on chronic systolic heart failure. 6. Ischemic cardiomyopathy. RECOMMENDATIONS: 1. Mr. Scruggs appears to have significant coronary artery disease, but does not appear to have lesions amenable to PCI at this time. 2. He will be recommended continued medical therapy. 3. We will attempt to diurese him as possible with his current kidney function as his LVEDP is 30 and this may perpetuate his ischemia. 4. I do not believe that he would be a repeat bypass candidate and overall he states that he would not undergo bypass again. 5. We will have to watch his kidney function as he does have significant chronic kidney disease. Thank you for allowing me to see Jason Scruggs. If there any questions, please do not hesitate to call. Dewayne Desai DO VGP/rw , 01:22 AM , 01:37 AM
[2018-07-27 05:18] LABS: Hematocrit 27.6 % (39.0-51.0); Mean Corpuscular HGB Conc 32.6 % (32.0-36.0); Mean Corpuscular Hemoglobin 23.1 pg (27.0-34.0); Mean Corpuscular Volume 70.9 fL (80.0-100.0); Mean Platelet Volume 9.1 fL (7.0-11.0); Platelet Count 113 th/mm3 (150-450); Red Cell Distribution Width 20.5 % (11.6-17.2)
[2018-07-27] MEDS: Chlorhexidine Gluconate 2% 1 Pack (2 Cloths) TOPICAL SCH (05:22)
[2018-07-27] MEDS: Gabapentin 100 MG Capsule PO SCH ×3 (09:04→17:15)
[2018-07-27] MEDS: Isosorbide Mononitrate 60 MG ER 24HR Tablet (Imdur) PO SCH (09:04)
[2018-07-27] MEDS: amLODIPine 10 MG Tablet PO SCH (09:04)
[2018-07-27] MEDS: predniSONE 20 MG Tablet PO SCH ×2 (09:04→21:28)
[2018-07-27] MEDS: Insulin NovoLOG Aspart Correctional Sugar Inj SQ SCH ×4 (09:05→21:58)
--- NOTE | 2018-07-27 09:22 | P.PNFP ---
Subjective Interval history: Patient seen and examined at bedside this morning. States that he understands what happened during his heart catheterization. Complained of chest pain overnight. States that the chest pain resolved once he was started on a nitro drip. This morning he still complains of insomnia. States that he has only had 5 hours of sleep since admission. Would like some medication to help with his sleep moving forward. This morning he denies any chest pain, shortness of breath, abdominal pain, problems with urination or defecation. All questions were answered at bedside. <Sully Mendez - 07/27/18 14:53> Results - Labs Result diagrams: 07/27/18 04:01 07/27/18 08:58 <Denny Garza - 07/27/18 18:00> Abnormal lab results 07/26/18 07/27/18 07/27/18 Range/Units 21:18 04:01 07:39 RBC 3.90 L (4.50-5.90) mil/mm3 Hgb 9.0 L (13.0-17.0) gm/dL Hct 27.6 L (39.0-51.0) % MCV 70.9 L (80.0-100.0) fL MCH 23.1 L (27.0-34.0) pg RDW 20.5 H (11.6-17.2) % Plt Count 113 L (150-450) th/mm3 BUN (7-18) mg/dL Creatinine (0.60-1.30) mg/dL Estimated GFR (>89) mL/min POC Glucose 196 H 170 H (68-110) mg/dl Random Glucose (74-106) mg/dL 07/27/18 07/27/18 07/27/18 Range/Units 08:58 11:51 16:57 RBC (4.50-5.90) mil/mm3 Hgb (13.0-17.0) gm/dL Hct (39.0-51.0) % MCV (80.0-100.0) fL MCH (27.0-34.0) pg RDW (11.6-17.2) % Plt Count (150-450) th/mm3 BUN 25 H (7-18) mg/dL Creatinine 2.01 H (0.60-1.30) mg/dL Estimated GFR 33 L (>89) mL/min POC Glucose 192 H 194 H (68-110) mg/dl Random Glucose 171 H (74-106) mg/dL Short CBC 07/27/18 Range/Units 04:01 WBC 8.0 (4.0-11.0) th/mm3 Hgb 9.0 L (13.0-17.0) gm/dL Hct 27.6 L (39.0-51.0) % Plt Count 113 L (150-450) th/mm3 BMP 07/27/18 08:58 Sodium 138 Potassium 4.1 Chloride 103 Carbon Dioxide 28.6 BUN 25 H Creatinine 2.01 H Calcium 9.2 <Young,Denny L - 07/27/18 18:00> Abnormal lab results 07/26/18 07/26/18 07/26/18 Range/Units 16:24 16:25 21:18 RBC (4.50-5.90) mil/mm3 Hgb (13.0-17.0) gm/dL Hct (39.0-51.0) % MCV (80.0-100.0) fL MCH (27.0-34.0) pg RDW (11.6-17.2) % Plt Count (150-450) th/mm3 APTT 22.6 L D (23.4-31.7) sec POC Glucose 194 H 196 H (68-110) mg/dl 07/27/18 07/27/18 Range/Units 04:01 07:39 RBC 3.90 L (4.50-5.90) mil/mm3 Hgb 9.0 L (13.0-17.0) gm/dL Hct 27.6 L (39.0-51.0) % MCV 70.9 L (80.0-100.0) fL MCH 23.1 L (27.0-34.0) pg RDW 20.5 H (11.6-17.2) % Plt Count 113 L (150-450) th/mm3 APTT (23.4-31.7) sec POC Glucose 170 H (68-110) mg/dl Short CBC 07/27/18 Range/Units 04:01 WBC 8.0 (4.0-11.0) th/mm3 Hgb 9.0 L (13.0-17.0) gm/dL Hct 27.6 L (39.0-51.0) % Plt Count 113 L (150-450) th/mm3 <Sully Mendez - 07/27/18 09:22> Physical Exam Vital signs: Vital Signs 07/26/18 18:00 07/26/18 20:00 07/26/18 21:35 Temperature 98.9 F Pulse Rate 78 79 Respiratory Rate 20 18 Blood Pressure 136/90 141/63 H Pulse Oximetry 99 97 07/27/18 00:00 07/27/18 04:00 07/27/18 07:56 Temperature 99.0 F 98.4 F Pulse Rate 109 H 99 H 98 H Respiratory Rate 20 18 16 Blood Pressure 153/82 H 129/65 131/69 Pulse Oximetry 92 L 94 L 91 L 07/27/18 09:22 07/27/18 09:45 07/27/18 11:53 Temperature 98.8 F Pulse Rate 96 H 98 H Respiratory Rate 16 24 16 Blood Pressure 115/54 L Pulse Oximetry 96 91 L 07/27/18 13:58 07/27/18 16:00 07/27/18 16:29 Temperature 98.9 F Pulse Rate 82 82 Respiratory Rate 18 Blood Pressure 126/62 Pulse Oximetry 92 L 92 L 07/27/18 17:00 Temperature Pulse Rate Respiratory Rate Blood Pressure Pulse Oximetry 92 L Intake & Output 07/26/18 07/27/18 07/27/18 18:59 06:59 18:59 Intake Total 480 / 480 240 / 240 720 / 720 Output Total 500 / 500 1400 / 1400 1000 / 1000 Balance -20 / -20 -1160 / -1160 -280 / -280 Weight 122 kg Intake: Oral 480 / 480 240 / 240 720 / 720 Output: Urine 500 / 500 1400 / 1400 1000 / 1000 Other: Date of Last Bowel Movement 07/24/18 07/24/18 # Bowel Movements 0 0 <Young,Denny L - 07/27/18 18:00> Vital Signs 07/26/18 13:27 07/26/18 13:32 07/26/18 13:44 Temperature 96.8 F L Pulse Rate 80 75 Respiratory Rate 16 Blood Pressure 117/56 L Pulse Oximetry 90 L 07/26/18 13:45 07/26/18 13:49 07/26/18 14:08 Temperature Pulse Rate 78 79 Respiratory Rate 14 16 Blood Pressure 117/56 L 94/46 L Pulse Oximetry 94 L 94 L 94 L 07/26/18 15:05 07/26/18 15:10 07/26/18 15:11 Temperature 97.1 F L 97.1 F L Pulse Rate 73 76 Respiratory Rate 13 13 Blood Pressure 103/45 L 103/45 L Pulse Oximetry 91 L 94 L 07/26/18 16:00 07/26/18 17:00 07/26/18 18:00 Temperature Pulse Rate 82 75 78 Respiratory Rate 20 20 Blood Pressure 136/60 136/90 Pulse Oximetry 92 L 07/26/18 20:00 07/26/18 21:35 07/27/18 00:00 Temperature 98.9 F Pulse Rate 79 109 H Respiratory Rate 18 20 Blood Pressure 141/63 H 153/82 H Pulse Oximetry 99 97 92 L 07/27/18 04:00 07/27/18 07:56 Temperature 99.0 F 98.4 F Pulse Rate 99 H 98 H Respiratory Rate 18 16 Blood Pressure 129/65 131/69 Pulse Oximetry 94 L 91 L Intake & Output 07/26/18 07/27/18 07/27/18 18:59 06:59 18:59 Intake Total 480 / 480 240 / 240 Output Total 500 / 500 1400 / 1400 Balance -20 / -20 -1160 / -1160 Weight 122 kg Intake: Oral 480 / 480 240 / 240 Output: Urine 500 / 500 1400 / 1400 Other: Date of Last Bowel Movement 07/24/18 07/24/18 # Bowel Movements 0 <Kobi AguilarSully - 07/27/18 09:22> Narrative: General: Obese, laying in bed, no distress, coughing Skin: No rashes or lesions HEENT: Normocephalic, no conjunctivitis, no nasal discharge Neck: Supple, endarterectomy scar, no thyromegaly or lymphadenopathy CV: RRR, no murmurs, rubs, or gallops, regular pulses, normal cap refill Lungs: Has mild expiratory wheezing bilaterally, improved inspiratory airflow. Abdomen: Soft, obese. Ext: Mild pitting edema. Neuro: Awake, alert <Kobi AguilarSully - 07/27/18 14:20> Assessment and Plan - Assessment (1) NSTEMI (non-ST elevated myocardial infarction) Code(s): I21.4 - Non-ST elevation (NSTEMI) myocardial infarction Status: Acute (2) CHF exacerbation Code(s): I50.9 - Heart failure, unspecified Status: Acute (3) COPD exacerbation Code(s): J44.1 - Chronic obstructive pulmonary disease with (acute) exacerbation Status: Acute (4) DM2 (diabetes mellitus, type 2) Code(s): E11.9 - Type 2 diabetes mellitus without complications Status: Acute (5) Coronary artery disease Code(s): I25.10 - Atherosclerotic heart disease of [place] coronary artery without angina pectoris Status: Acute (6) History of CVA (cerebrovascular accident) Code(s): Z86.73 - Personal history of transient ischemic attack (TIA), and cerebral infarction without residual deficits Status: Acute (7) CKD (chronic kidney disease) stage 3, GFR 30-59 ml/min Code(s): N18.3 - Chronic kidney disease, stage 3 (moderate) Status: Acute (8) BPH (benign prostatic hyperplasia) Code(s): N40.0 - Benign prostatic hyperplasia without lower urinary tract symptoms Status: Acute (9) Gastritis Code(s): K29.70 - Gastritis, unspecified, without bleeding Status: Acute (10) Smoker Code(s): F17.200 - Nicotine dependence, unspecified, uncomplicated Status: Acute <Denny Garza - 07/27/18 18:00> (1) NSTEMI (non-ST elevated myocardial infarction) Code(s): I21.4 - Non-ST elevation (NSTEMI) myocardial infarction Status: Acute Plan: Likely N-STEMI, status post cardiac catheterization yesterday. Continuing medical management. Currently on nitro drip. Continue Imdur, Plavix, aspirin, amlodipine, metoprolol Cardiology On Board. Appreciate recommendations. (2) CHF exacerbation Code(s): I50.9 - Heart failure, unspecified Status: Acute Plan: ECHO: Mild LVH, EF 40-45%, left atrial mild dilation, aortic valve sclerosis, pulmonary pressure 48 X-ray: Mild cardiomegaly, pulmonary congestion, no obvious pneumonia - Continue Bumex 1 mg bid for diuresis - Monitor intake and output. Weight decreased 2 kg today. - Continue metoprolol, Imdur. May benefit from TALHA inhibitor but possibly with acute kidney injury so will hold off. - Continue telemetry, review daily - Keep head of bed elevated to 30 degrees - O2 walk test before discharge - O2 supplementation to target 88-93% O2 Sat (3) COPD exacerbation Code(s): J44.1 - Chronic obstructive pulmonary disease with (acute) exacerbation Status: Acute Plan: Symptoms most consistent with CHF exacerbation, may be component of COPD exacerbation. Has some mild diffuse wheezing on exam. - Will probably have some baseline of wheezing due to metoprolol and side effects of bronchospasm. Benefits of metoprolol with improving mortality for CHF outweighs bronchospasm at this time. Will continue on metoprolol. - Continue Atrovent and Symbicort for maintenance - DuoNebs once a day, albuterol as needed - Prednisone 40 mg daily day #4 (4) DM2 (diabetes mellitus, type 2) Code(s): E11.9 - Type 2 diabetes mellitus without complications Status: Acute Plan: SSI w/accuchecks Con't home Gabapentin TID (5) Coronary artery disease Code(s): I25.10 - Atherosclerotic heart disease of [place] coronary artery without angina pectoris Status: Acute Plan: History of CABG and stable angina. - Continue high dose statin, Plavix and aspirin - Continue Ranolazine, Imdur (6) History of CVA (cerebrovascular accident) Code(s): Z86.73 - Personal history of transient ischemic attack (TIA), and cerebral infarction without residual deficits Status: Acute Plan: See above, con't home meds (7) CKD (chronic kidney disease) stage 3, GFR 30-59 ml/min Code(s): N18.3 - Chronic kidney disease, stage 3 (moderate) Status: Acute Plan: Avoid nephrotoxic meds Creatinine decreasing from 2.11 to 2.01 today. Due to CHF caution with fluids. Will continue to monitor. See above plan Daily BMP (8) BPH (benign prostatic hyperplasia) Code(s): N40.0 - Benign prostatic hyperplasia without lower urinary tract symptoms Status: Acute Plan: Con't home Terazosin 4 mg daily (9) Gastritis Code(s): K29.70 - Gastritis, unspecified, without bleeding Status: Acute Plan: Con't home protonix daily (10) Smoker Code(s): F17.200 - Nicotine dependence, unspecified, uncomplicated Status: Acute Plan: Nicotine patches daily Encourage cessation Fluids: by mouth Electrolytes: monitor Nutrition: Diabetic diet DVT prophylaxis: plavix, aspirin, and SCDs <Sully Mendez - 07/27/18 14:53> - Assessment and Plan 77-year-old male with past medical history of CHF, COPD presents with right- sided chest pain found to have NSTEMI. Elevated troponins. Status post cardiac catheterization. Continuing with medical management for NSTEMI. <Sully Mendez - 07/27/18 14:52> - Attending Attestation The exam, history, and the medical decision-making described in the above note were completed with the assistance of the resident physician. I reviewed and agree with the findings presented. I attest that I had a [id number] encounter with the patient on the same day, and personally performed and documented my assessment and findings in the medical record. Patient with significant coronary artery disease, status post catheterization, unable to place stent and also not wanting coronary artery bypass at this time, if he is even an appropriate candidate. Will continue medical management for NSTEMI. Appreciate cardiology's assistance in managing this patient. <Denny Garza - 07/27/18 17:58> <Sully Mendez - Last Filed: 07/27/18 14:53> (2) CHF exacerbation Qualifiers: Heart failure type: systolic Qualified Code(s): I50.23 - Acute on chronic systolic (congestive) heart failure <Denny Garza - Last Filed: 07/27/18 18:00> (2) CHF exacerbation Qualifiers: Heart failure type: systolic Qualified Code(s): I50.23 - Acute on chronic systolic (congestive) heart failure <Sully Mendez - Last Filed: 07/27/18 14:53> (2) CHF exacerbation Qualifiers: Heart failure type: systolic Qualified Code(s): I50.23 - Acute on chronic systolic (congestive) heart failure <Denny Garza - Last Filed: 07/27/18 18:00> (2) CHF exacerbation Qualifiers: Heart failure type: systolic Qualified Code(s): I50.23 - Acute on chronic systolic (congestive) heart failure
[2018-07-27 10:08] LABS: Calcium 9.2 mg/dL (8.5-10.1); Carbon Dioxide 28.6 meq/L (21.0-32.0); Potassium 4.1 meq/L (3.5-5.1)
--- NOTE | 2018-07-27 17:47 | P.PNCA ---
Subjective Interval history: Pt doing better on nitro ggt, had cp this am now resolve.d Medications and Allergies Active Medications: Active Medications Al Hydroxide/Mg Hydroxide (Milk Of Magdi Liq) 30 ml PO Q12H PRN PRN Reason: Mild Constipation Albuterol (Albuterol Neb (Prn)) 2.5 mg NEB Q2HR NEB PRN PRN Reason: SHORTNESS OF BREATH Last Admin: 07/25/18 23:05 Dose: 2.5 mg Albuterol (Duoneb Neb ([facility])) 1 ampul NEB DAILY NEB [facility] Last Admin: 07/27/18 09:44 Dose: 1 ampul Amlodipine Besylate (Norvasc) 10 mg PO DAILY [facility] Last Admin: 07/27/18 09:04 Dose: 10 mg Artificial Tears (Refresh Tears 0.5% Opth Drops) 1 drop EACH EYE Q4H PRN PRN Reason: Eye Irritation Aspirin (Aspirin Chew) 81 mg PO DAILY [facility] Last Admin: 07/27/18 09:05 Dose: 81 mg Atorvastatin Calcium (Lipitor) 80 mg PO QPM [facility] Last Admin: 07/27/18 17:15 Dose: 80 mg Bisacodyl (Dulcolax Supp) 10 mg RECTAL DAILY PRN PRN Reason: SEVERE CONSITIPATION Budesonide/Formoterol Fumarate (Symbicort 160/4.5 Mcg Inh) 2 puff INH BID [facility] Last Admin: 07/24/18 01:04 Dose: Not Given Bumetanide (Bumex Inj) 1 mg IV.PUSH BID [facility] Last Admin: 07/27/18 09:05 Dose: 1 mg Chlorhexidine Gluconate (Chlorhexidine 2% Cloth) 3 pack TOPICAL DAILY@0400 [facility] Stop: 07/30/18 03:59 Last Admin: 07/27/18 05:22 Dose: Not Given Chlorhexidine Gluconate (Chlorhexidine 2% Cloth) 3 pack TOPICAL DAILY@0400 PRN PRN Reason: Extra cloth needed Stop: 07/30/18 03:59 Clopidogrel Bisulfate (Plavix) 75 mg PO DAILY [facility] Last Admin: 07/27/18 09:04 Dose: 75 mg Dextrose (D50w Vial) 50 ml IV.PUSH UNSCH PRN PRN Reason: PER HYPOGLYCEMIA PROTOCOL Gabapentin (Neurontin) 100 mg PO TID [facility] Last Admin: 07/27/18 17:15 Dose: 100 mg Glucagon (Glucagon Inj) 1 mg OTHER PRN PRN PRN Reason: for Hypoglycemia Protocol Nitroglycerin/Dextrose (Nitroglycerin Drip Premix) 50 mg in 250 mls @ 1.5 mls/ hr IV.CONT TITRATE PRN; Protocol PRN Reason: Per Protocol Last Titration: 07/27/18 09:20 Dose: 50 mcg/min, 15 mls/hr Insulin Aspart (Novolog Insulin Correctional Sugar Inj) 0 unit SQ ACHS [facility]; Protocol Last Admin: 07/27/18 17:15 Dose: 1 unit Isosorbide Mononitrate (Imdur) 120 mg PO DAILY [facility] Last Admin: 07/27/18 09:04 Dose: 120 mg Lactulose (Lactulose Liq) 30 ml PO DAILY PRN PRN Reason: SEVERE CONSITIPATION Metoprolol Succinate (Toprol Xl) 25 mg PO DAILY [facility] Last Admin: 07/27/18 09:04 Dose: 25 mg Morphine Sulfate (Morphine Inj) 1 mg IV.PUSH Q4H PRN PRN Reason: PAIN SCALE 6 TO 10 Last Admin: 07/27/18 09:10 Dose: 1 mg Nicotine (Habitrol 21 Mg Patch.24 Hr) 1 patch T-DERMAL DAILY [facility] Last Admin: 07/26/18 09:27 Dose: 1 patch Nitroglycerin (Nitrostat Sl) 0.4 mg SL Q5M PRN PRN Reason: Chest Pain Last Admin: 07/27/18 00:55 Dose: 0.4 mg Ondansetron HCl (Zofran Inj) 4 mg IV.PUSH Q6H PRN PRN Reason: NAUSEA OR VOMITING Pantoprazole Sodium (Protonix) 40 mg PO BID [facility] Last Admin: 07/27/18 09:04 Dose: 40 mg Prednisone (Deltasone) 20 mg PO BID [facility] Last Admin: 07/27/18 09:04 Dose: 20 mg Sennosides (Senokot) 17.2 mg PO Q12H PRN PRN Reason: Moderate Constipation Sodium Chloride (Ns Flush) 2 ml IV.FLUSH BID [facility] Last Admin: 07/27/18 09:06 Dose: 2 ml Sodium Chloride (Ns Flush) 2 ml IV.FLUSH PRN PRN PRN Reason: FLUSH AFTER USING IV ACCESS Terazosin HCl (Hytrin) 4 mg PO DAILY [facility] Last Admin: 07/27/18 09:04 Dose: 4 mg Allergies Allergy/AdvReac Type Severity Reaction Status Date / Time acetaminophen Allergy Severe Rash Verified 07/24/18 09:38 aspirin Allergy Severe Rash Verified 07/24/18 09:38 codeine Allergy Severe anaphylaxis Verified 07/24/18 09:38 ferrous sulfate Allergy Severe Rash Verified 07/24/18 09:38 iron Allergy Severe Rash Verified 07/24/18 09:38 oxycodone Allergy Severe Rash Verified 07/24/18 09:38 [place] AdvReac Severe SYSTEM Uncoded 04/11/14 08:32 SHUTS DOWN Home Medications Medication Instructions Recorded Confirmed Type amlodipine 10 mg PO DAILY 07/23/18 07/23/18 History aspirin 81 mg PO DAILY 07/23/18 07/23/18 History atorvastatin 80 mg PO QPM 07/23/18 07/23/18 History carboxymethylcellulose sodium 1 drp OPHTHALMIC (EYE) Q4-6H PRN 07/23/18 History clopidogrel 75 mg PO DAILY 07/23/18 07/23/18 History cyanocobalamin (vitamin B-12) 1,000 mcg PO DAILY 07/23/18 07/23/18 History furosemide 40 mg PO BID 07/23/18 07/23/18 History glipizide 10 mg PO BID 07/23/18 07/23/18 History ipratropium-albuterol 3 ml INHALATION Q6-8H PRN 07/23/18 07/23/18 History isosorbide mononitrate 120 mg PO DAILY 07/23/18 07/23/18 History metoprolol succinate 25 mg PO DAILY 07/23/18 07/23/18 History nitroglycerin 0.4 mg SUBLINGUAL Q5-15M PRN 07/23/18 07/23/18 History pantoprazole 40 mg PO BID 07/23/18 07/23/18 History ranolazine 1,000 mg PO Q12H 07/23/18 07/23/18 History terazosin 4 mg PO DAILY 07/23/18 07/23/18 History Physical Exam Vital signs: Vital Signs 07/26/18 18:00 07/26/18 20:00 07/26/18 21:35 Temperature 98.9 F Pulse Rate 78 79 Respiratory Rate 20 18 Blood Pressure 136/90 141/63 H Pulse Oximetry 99 97 07/27/18 00:00 07/27/18 04:00 07/27/18 07:56 Temperature 99.0 F 98.4 F Pulse Rate 109 H 99 H 98 H Respiratory Rate 20 18 16 Blood Pressure 153/82 H 129/65 131/69 Pulse Oximetry 92 L 94 L 91 L 07/27/18 09:22 07/27/18 09:45 07/27/18 11:53 Temperature 98.8 F Pulse Rate 96 H 98 H Respiratory Rate 16 24 16 Blood Pressure 115/54 L Pulse Oximetry 96 91 L 07/27/18 13:58 07/27/18 16:00 07/27/18 16:29 Temperature 98.9 F Pulse Rate 82 82 Respiratory Rate 18 Blood Pressure 126/62 Pulse Oximetry 92 L 92 L 07/27/18 17:00 Temperature Pulse Rate Respiratory Rate Blood Pressure Pulse Oximetry 92 L Intake & Output 07/26/18 07/27/18 07/27/18 18:59 06:59 18:59 Intake Total 480 / 480 240 / 240 720 / 720 Output Total 500 / 500 1400 / 1400 1000 / 1000 Balance -20 / -20 -1160 / -1160 -280 / -280 Weight 122 kg Intake: Oral 480 / 480 240 / 240 720 / 720 Output: Urine 500 / 500 1400 / 1400 1000 / 1000 Other: Date of Last Bowel Movement 07/24/18 07/24/18 # Bowel Movements 0 0 - Constitutional no acute distress - Routine HEENT Exam Head: Present: normocephalic ENT: Present: mucous membranes moist - Routine Neck Exam Present: JVD - Routine Respiratory Exam Present: wheezes - Routine Cardiovascular Exam Present: RRR - Routine Abdominal Exam Present: soft - Routine Extremities Exam Present: edema Results 07/27/18 04:01 07/27/18 08:58 Cardiac Enzymes 07/26/18 Range/Units 06:46 Troponin I 7.74 H* (0.02-0.05) ng/mL Coagulation 07/26/18 07/26/18 Range/Units 06:46 16:25 PT 11.4 (9.8-11.6) sec APTT 22.6 L D (23.4-31.7) sec CBC 07/26/18 07/27/18 Range/Units 06:46 04:01 WBC 6.8 8.0 (4.0-11.0) th/mm3 RBC 3.86 L 3.90 L (4.50-5.90) mil/mm3 Hgb 8.9 L 9.0 L (13.0-17.0) gm/dL Hct 28.2 L 27.6 L (39.0-51.0) % Plt Count 107 L 113 L (150-450) th/mm3 Comprehensive Metabolic Panel 07/26/18 07/27/18 Range/Units 06:46 08:58 Sodium 137 138 (136-145) meq/L Potassium 4.1 4.1 (3.5-5.1) meq/L Chloride 101 103 (98-107) meq/L Carbon Dioxide 28.6 28.6 (21.0-32.0) meq/L BUN 25 H 25 H (7-18) mg/dL Creatinine 2.11 H 2.01 H (0.60-1.30) mg/dL Calcium 9.1 9.2 (8.5-10.1) mg/dL Intake and Output 07/27/18 07/27/18 07/27/18 06:59 14:59 22:59 Intake Total 240 / 240 720 / 720 Output Total 1400 / 1400 1000 / 1000 Balance -1160 / -1160 -280 / -280 Intake: Oral 240 / 240 720 / 720 Output: Urine 1400 / 1400 1000 / 1000 Other: Date of Last Bowel Movement 07/24/18 # Bowel Movements 0 0 Weight 122 kg Assessment and Plan - Assessment (1) NSTEMI (non-ST elevated myocardial infarction) Code(s): I21.4 - Non-ST elevation (NSTEMI) myocardial infarction Status: Acute Plan: severe complex cad, not amenable to PCI, still w/ cp, put in a CV consult. (2) CHF exacerbation Code(s): I50.9 - Heart failure, unspecified Status: Acute Plan: Doing well on IV bumex, cr stable., elevated lvedp yesterday suggests still room for diuresis (3) CKD (chronic kidney disease) stage 3, GFR 30-59 ml/min Code(s): N18.3 - Chronic kidney disease, stage 3 (moderate) Status: Acute (4) COPD exacerbation Code(s): J44.1 - Chronic obstructive pulmonary disease with (acute) exacerbation Status: Acute - Plan overall prognosis very poor, would consider palliative care (2) CHF exacerbation Qualifiers: Heart failure type: systolic Qualified Code(s): I50.23 - Acute on chronic systolic (congestive) heart failure
--- NOTE | 2018-07-28 00:58 | ECG ---
Date Performed: 07/26/2018 Time Performed: 16:10:22 PTAGE: 77 years EKG: Sinus rhythm with PAC(s) Possible left ventricular hypertrophy Extensive ST-T changes may be due to hypertrophy a nd/or ischemia Abnormal ECG Since the PREVIOUS TRACING , no significant change noted DOCTOR: Dewayne Desai Interpretating Date/Time 07/28/2018 00:57:32
[2018-07-28 04:08] LABS: Baso % (Auto) 0.2 % (0.0-2.0); Hematocrit 26.1 % (39.0-51.0); Hemoglobin 8.2 gm/dL (13.0-17.0); Lymph # (Auto) 0.6 th/mm3 (1.0-4.8); Lymph % (Auto) 10.4 % (9.0-44.0); Mean Corpuscular HGB Conc 31.4 % (32.0-36.0); Mean Corpuscular Hemoglobin 22.7 pg (27.0-34.0); Mean Corpuscular Volume 72.3 fL (80.0-100.0); Mean Platelet Volume 8.3 fL (7.0-11.0); Mono # (Auto) 0.4 th/mm3 (0.0-0.9); Mono % (Auto) 6.1 % (0.0-8.0); Neut % (Auto) 83.3 % (16.0-70.0); Platelet Count 102 th/mm3 (150-450); Red Cell Distribution Width 20.5 % (11.6-17.2)
[2018-07-28 04:32] LABS: Calcium 8.9 mg/dL (8.5-10.1); Carbon Dioxide 29.4 meq/L (21.0-32.0); Potassium 4.1 meq/L (3.5-5.1)
[2018-07-28] MEDS: Chlorhexidine Gluconate 2% 1 Pack (2 Cloths) TOPICAL SCH (06:09)
[2018-07-28] MEDS: Insulin NovoLOG Aspart Correctional Sugar Inj SQ SCH ×4 (07:53→21:18)
[2018-07-28] MEDS: Gabapentin 100 MG Capsule PO SCH ×3 (09:11→17:35)
[2018-07-28] MEDS: amLODIPine 10 MG Tablet PO SCH (09:12)
[2018-07-28] MEDS: predniSONE 20 MG Tablet PO SCH ×2 (09:12→21:33)
[2018-07-28] MEDS: Isosorbide Mononitrate 60 MG ER 24HR Tablet (Imdur) PO SCH (09:12)
[2018-07-28] MEDS: Nitroglycerin Drip Premix 50 MG/250 ML BOTTLE IV.CONT PRN (09:13)
--- NOTE | 2018-07-28 11:50 | P.PNFP ---
Subjective Interval history: Patient seen and examined today. Patient reports he has had no chest pain while on the nitro drip. No increase in difficulty breathing. Denies nausea, vomiting, fever, chills, don pain, chest pain, shortness of breath, lightheadedness, dizziness. Discussed at length patient's current condition as well as reviewed what he had discussed with the java sybase developer. Discussed the next steps including meeting with cardiothoracic surgery for options and risks and benefits. Also discussed a visit with palliative care who will help determine patient's goals. <Denny Steel - 07/28/18 14:44> Results - Labs Result diagrams: 07/29/18 02:54 07/29/18 02:54 <Denny Garza - 07/29/18 15:32> Abnormal lab results 07/28/18 07/28/18 07/29/18 Range/Units 17:03 21:38 02:54 RBC 3.67 L (4.50-5.90) mil/mm3 Hgb 8.3 L (13.0-17.0) gm/dL Hct 26.4 L (39.0-51.0) % MCV 72.0 L (80.0-100.0) fL MCH 22.6 L (27.0-34.0) pg MCHC 31.4 L (32.0-36.0) % RDW 19.6 H (11.6-17.2) % Plt Count 100 L (150-450) th/mm3 BUN (7-18) mg/dL Creatinine (0.60-1.30) mg/dL Estimated GFR (>89) mL/min POC Glucose 197 H 180 H (68-110) mg/dl Random Glucose (74-106) mg/dL 07/29/18 07/29/18 07/29/18 Range/Units 02:54 08:45 11:51 RBC (4.50-5.90) mil/mm3 Hgb (13.0-17.0) gm/dL Hct (39.0-51.0) % MCV (80.0-100.0) fL MCH (27.0-34.0) pg MCHC (32.0-36.0) % RDW (11.6-17.2) % Plt Count (150-450) th/mm3 BUN 36 H (7-18) mg/dL Creatinine 2.20 H (0.60-1.30) mg/dL Estimated GFR 29 L (>89) mL/min POC Glucose 182 H 220 H (68-110) mg/dl Random Glucose 222 H (74-106) mg/dL Short CBC 07/29/18 Range/Units 02:54 WBC 5.6 (4.0-11.0) th/mm3 Hgb 8.3 L (13.0-17.0) gm/dL Hct 26.4 L (39.0-51.0) % Plt Count 100 L (150-450) th/mm3 BMP 07/29/18 02:54 Sodium 138 Potassium 4.1 Chloride 102 Carbon Dioxide 30.3 BUN 36 H Creatinine 2.20 H Calcium 8.6 <Young,Denny L - 07/29/18 15:32> Abnormal lab results 07/27/18 07/27/18 07/27/18 Range/Units 11:51 16:57 21:50 RBC (4.50-5.90) mil/mm3 Hgb (13.0-17.0) gm/dL Hct (39.0-51.0) % MCV (80.0-100.0) fL MCH (27.0-34.0) pg MCHC (32.0-36.0) % RDW (11.6-17.2) % Plt Count (150-450) th/mm3 Neut % (Auto) (16.0-70.0) % Lymph # (Auto) (1.0-4.8) th/mm3 BUN (7-18) mg/dL Creatinine (0.60-1.30) mg/dL Estimated GFR (>89) mL/min POC Glucose 192 H 194 H 209 H (68-110) mg/dl Random Glucose (74-106) mg/dL 07/28/18 07/28/18 07/28/18 Range/Units 03:58 03:58 07:38 RBC 3.60 L (4.50-5.90) mil/mm3 Hgb 8.2 L (13.0-17.0) gm/dL Hct 26.1 L (39.0-51.0) % MCV 72.3 L (80.0-100.0) fL MCH 22.7 L (27.0-34.0) pg MCHC 31.4 L (32.0-36.0) % RDW 20.5 H (11.6-17.2) % Plt Count 102 L (150-450) th/mm3 Neut % (Auto) 83.3 H (16.0-70.0) % Lymph # (Auto) 0.6 L (1.0-4.8) th/mm3 BUN 31 H (7-18) mg/dL Creatinine 2.05 H (0.60-1.30) mg/dL Estimated GFR 32 L (>89) mL/min POC Glucose 191 H (68-110) mg/dl Random Glucose 177 H (74-106) mg/dL Short CBC 07/28/18 Range/Units 03:58 WBC 6.0 (4.0-11.0) th/mm3 Hgb 8.2 L (13.0-17.0) gm/dL Hct 26.1 L (39.0-51.0) % Plt Count 102 L (150-450) th/mm3 BMP 07/28/18 03:58 Sodium 138 Potassium 4.1 Chloride 102 Carbon Dioxide 29.4 BUN 31 H Creatinine 2.05 H Calcium 8.9 <Faille R2,Rolf - 07/28/18 11:50> Physical Exam Vital signs: Vital Signs 07/28/18 16:00 07/28/18 17:00 07/28/18 18:00 Temperature 97.8 F Pulse Rate 76 88 90 Respiratory Rate 22 Blood Pressure 101/57 L Pulse Oximetry 90 L 90 L 07/28/18 19:00 07/28/18 20:00 07/28/18 21:00 Temperature 97.8 F Pulse Rate 93 H 92 H 96 H Respiratory Rate 20 Blood Pressure 136/65 Pulse Oximetry 91 L 96 07/28/18 22:00 07/28/18 23:00 07/29/18 00:00 Temperature 97.5 F L Pulse Rate 90 92 H 89 Respiratory Rate 18 Blood Pressure 126/60 Pulse Oximetry 97 07/29/18 01:00 07/29/18 02:00 07/29/18 03:00 Temperature Pulse Rate 87 97 H 92 H Respiratory Rate Blood Pressure Pulse Oximetry 98 07/29/18 04:00 07/29/18 05:00 07/29/18 07:00 Temperature 97.8 F Pulse Rate 90 86 95 H Respiratory Rate 17 Blood Pressure 141/69 H Pulse Oximetry 97 94 L 07/29/18 08:00 07/29/18 09:00 07/29/18 10:00 Temperature 98.4 F Pulse Rate 86 85 84 Respiratory Rate 20 Blood Pressure 126/59 L Pulse Oximetry 95 07/29/18 11:00 07/29/18 12:00 07/29/18 13:00 Temperature 98.3 F Pulse Rate 84 92 H 93 H Respiratory Rate 20 Blood Pressure 128/60 Pulse Oximetry 96 96 Intake & Output 07/28/18 07/29/18 07/29/18 18:59 06:59 18:59 Intake Total 1900 / 1900 730 / 730 Output Total 1100 / 1100 1300 / 1300 Balance 800 / 800 -570 / -570 Weight 120 kg Intake: IV 250 / 250 250 / 250 Nitroglycerin Drip Premix 50 mg 250 / 250 250 / 250 In 250 ml @ 5 MCG/MIN 1.5 mls/ hr IV.CONT TITRATE PRN Rx#: [id number] Oral 1650 / 1650 480 / 480 Output: Urine 1100 / 1100 1300 / 1300 Other: Date of Last Bowel Movement 07/24/18 07/25/18 07/25/18 <Denny Garza L - 07/29/18 15:32> Vital Signs 07/27/18 11:53 07/27/18 13:58 07/27/18 16:00 Temperature 98.8 F Pulse Rate 98 H 82 Respiratory Rate 16 Blood Pressure 115/54 L Pulse Oximetry 91 L 92 L 07/27/18 16:29 07/27/18 17:00 07/27/18 18:10 Temperature 98.9 F Pulse Rate 82 80 Respiratory Rate 18 18 Blood Pressure 126/62 Pulse Oximetry 92 L 92 L 07/27/18 20:00 07/27/18 21:00 07/28/18 00:00 Temperature 98.9 F Pulse Rate 99 H 116 H Respiratory Rate 20 18 Blood Pressure 129/70 144/71 H Pulse Oximetry 92 L 92 L 94 L 07/28/18 04:00 07/28/18 05:00 07/28/18 08:00 Temperature 99.0 F 98.4 F Pulse Rate 104 H 98 H Respiratory Rate 20 22 Blood Pressure 138/73 135/72 Pulse Oximetry 94 L 94 L 93 L 07/28/18 09:00 Temperature Pulse Rate Respiratory Rate Blood Pressure Pulse Oximetry 92 L Intake & Output 07/27/18 07/28/18 07/28/18 18:59 06:59 18:59 Intake Total 920 / 920 240 / 240 250 / 250 Output Total 1000 / 1000 950 / 950 Balance -80 / -80 -710 / -710 250 / 250 Weight 121 kg Intake: IV 200 / 200 250 / 250 Nitroglycerin Drip Premix 50 mg 200 / 200 250 / 250 In 250 ml @ 5 MCG/MIN 1.5 mls/ hr IV.CONT TITRATE PRN Rx#: [id number] Oral 720 / 720 240 / 240 Output: Urine 1000 / 1000 950 / 950 Other: Date of Last Bowel Movement 07/24/18 07/24/18 # Bowel Movements 0 0 <Felecia PerezDenny - 07/28/18 11:50> Narrative: General: Obese, laying in bed, no distress, coughing Skin: No rashes or lesions HEENT: Normocephalic, no conjunctivitis, no nasal discharge Neck: Supple, endarterectomy scar, no thyromegaly or lymphadenopathy CV: RRR, no murmurs, rubs, or gallops, regular pulses, normal cap refill Lungs: Has mild expiratory wheezing bilaterally, improved inspiratory airflow. Abdomen: Soft, obese. Ext: Mild pitting edema. Neuro: Awake, alert <Felecia PerezDenny - 07/28/18 14:44> Assessment and Plan - Assessment (1) NSTEMI (non-ST elevated myocardial infarction) Code(s): I21.4 - Non-ST elevation (NSTEMI) myocardial infarction Status: Acute (2) CHF exacerbation Code(s): I50.9 - Heart failure, unspecified Status: Acute (3) COPD exacerbation Code(s): J44.1 - Chronic obstructive pulmonary disease with (acute) exacerbation Status: Acute (4) DM2 (diabetes mellitus, type 2) Code(s): E11.9 - Type 2 diabetes mellitus without complications Status: Acute (5) Coronary artery disease Code(s): I25.10 - Atherosclerotic heart disease of [place] coronary artery without angina pectoris Status: Acute (6) History of CVA (cerebrovascular accident) Code(s): Z86.73 - Personal history of transient ischemic attack (TIA), and cerebral infarction without residual deficits Status: Acute (7) CKD (chronic kidney disease) stage 3, GFR 30-59 ml/min Code(s): N18.3 - Chronic kidney disease, stage 3 (moderate) Status: Acute (8) BPH (benign prostatic hyperplasia) Code(s): N40.0 - Benign prostatic hyperplasia without lower urinary tract symptoms Status: Acute (9) Gastritis Code(s): K29.70 - Gastritis, unspecified, without bleeding Status: Acute (10) Smoker Code(s): F17.200 - Nicotine dependence, unspecified, uncomplicated Status: Acute <Denny Garza - 07/29/18 15:32> (1) NSTEMI (non-ST elevated myocardial infarction) Code(s): I21.4 - Non-ST elevation (NSTEMI) myocardial infarction Status: Acute Plan: Likely N-STEMI, status post cardiac catheterization 07/26/17. 07/24 grafts patent. Continuing medical management. Currently on nitro drip. Continue Imdur, Plavix, aspirin, amlodipine, metoprolol Cardiology On Board. Appreciate recommendations. -Follow-up with cardiothoracic surgery recommendations -Follow-up palliative care (2) CHF exacerbation Code(s): I50.9 - Heart failure, unspecified Status: Acute Plan: ECHO: Mild LVH, EF 40-45%, left atrial mild dilation, aortic valve sclerosis, pulmonary pressure 48 X-ray: Mild cardiomegaly, pulmonary congestion, no obvious pneumonia - Continue Bumex 1 mg bid for diuresis - Monitor intake and output. - Continue metoprolol, Imdur. May benefit from TALHA inhibitor but possibly with acute kidney injury so will hold off. - Continue telemetry, review daily - Keep head of bed elevated to 30 degrees - O2 walk test before discharge - O2 supplementation to target 88-93% O2 Sat (3) COPD exacerbation Code(s): J44.1 - Chronic obstructive pulmonary disease with (acute) exacerbation Status: Acute Plan: Symptoms most consistent with CHF exacerbation, may be component of COPD exacerbation. Has some mild diffuse wheezing on exam. - Will probably have some baseline of wheezing due to metoprolol and side effects of bronchospasm. Benefits of metoprolol with improving mortality for CHF outweighs bronchospasm at this time. Will continue on metoprolol. - Continue Atrovent and Symbicort for maintenance - DuoNebs once a day, albuterol as needed - Prednisone 40 mg daily (4) DM2 (diabetes mellitus, type 2) Code(s): E11.9 - Type 2 diabetes mellitus without complications Status: Acute Plan: SSI w/accuchecks Con't home Gabapentin TID (5) Coronary artery disease Code(s): I25.10 - Atherosclerotic heart disease of [place] coronary artery without angina pectoris Status: Acute Plan: History of CABG and stable angina. - Continue high dose statin, Plavix and aspirin - Continue Ranolazine, Imdur (6) History of CVA (cerebrovascular accident) Code(s): Z86.73 - Personal history of transient ischemic attack (TIA), and cerebral infarction without residual deficits Status: Acute Plan: See above, con't home meds (7) CKD (chronic kidney disease) stage 3, GFR 30-59 ml/min Code(s): N18.3 - Chronic kidney disease, stage 3 (moderate) Status: Acute Plan: Avoid nephrotoxic meds Creatinine decreasing from 2.11 to 2.01 today. Due to CHF caution with fluids. Will continue to monitor. See above plan Daily BMP (8) BPH (benign prostatic hyperplasia) Code(s): N40.0 - Benign prostatic hyperplasia without lower urinary tract symptoms Status: Acute Plan: Con't home Terazosin 4 mg daily (9) Gastritis Code(s): K29.70 - Gastritis, unspecified, without bleeding Status: Acute Plan: Con't home protonix daily (10) Smoker Code(s): F17.200 - Nicotine dependence, unspecified, uncomplicated Status: Acute Plan: Nicotine patches daily Encourage cessation Fluids: by mouth Electrolytes: monitor Nutrition: Diabetic diet DVT prophylaxis: plavix, aspirin, and SCDs <Denny Steel - 07/28/18 14:30> - Assessment and Plan 77-year-old male with past medical history of CHF, COPD presents with right- sided chest pain found to have NSTEMI. Elevated troponins. Status post cardiac catheterization. Continuing with medical management for NSTEMI. <Denny Steel - 07/28/18 11:50> - Attending Attestation Patient seen and examined with resident team this morning. Agree with documentation above. Symptoms are stable. Continues with nitro drip. He is asymptomatic with nitro drip, but becomes symptomatic off of it with chest pain. Cardiovascular surgery consulted to assess options for bypass. Palliative care consulted to assess patient's goals. Will continue to manage symptoms. <Denny Garza - 07/29/18 15:32> <Denny Steel - Last Filed: 07/28/18 14:30> (2) CHF exacerbation Qualifiers: Heart failure type: systolic Qualified Code(s): I50.23 - Acute on chronic systolic (congestive) heart failure <Denny Garza - Last Filed: 07/29/18 15:32> (2) CHF exacerbation Qualifiers: Heart failure type: systolic Qualified Code(s): I50.23 - Acute on chronic systolic (congestive) heart failure <FailDenny Ricks - Last Filed: 07/28/18 14:30> (2) CHF exacerbation Qualifiers: Heart failure type: systolic Qualified Code(s): I50.23 - Acute on chronic systolic (congestive) heart failure <Denny Garza - Last Filed: 07/29/18 15:32> (2) CHF exacerbation Qualifiers: Heart failure type: systolic Qualified Code(s): I50.23 - Acute on chronic systolic (congestive) heart failure
--- NOTE | 2018-07-28 12:36 | P.CONPAL ---
Consult Service: Palliative Care Requesting Physician: Denny Perez Reason for Consult: a. To assist with evaluation and management of symptoms including: pain, dyspnea b. To assist medical decision maker(s) with: better understanding of current medical conditions; weighing benefits/burdens of medical treatment options; making medical treatment decisions. Primary Care Provider[facility] History of Present Illness History of Present Illness: This is a 77-year-old male with a past medical history significant for CHF, COPD was not previously oxygen dependent, chronic kidney disease stage III, previous CVA, diabetes, obesity, obstructive sleep apnea, known vasculopathy. He originally presented to the emergency room on 07/23/2018 with a one-week history of worsening shortness of breath, cough with yellow sputum, and fluid weight gain of 11 pounds. 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 He was evaluated on 07/24/18 by cardiology for elevated troponins, at that time he alerted Dr. Hoffman he was unable to undergo cardiac cath due to blockages in both femoral arteries and left arm approach. Patient declined cath procedure and elected medical management, Dr. Hoffman opined that was appropriate given overall condition, he also noted that tropnins may also be elevated due to chronic illnesses (creatinine >2). He was started on a Heparin gtt, aspirin, Plavix, high dose statin, metoprolol. On 07/26/17, he began having chest pain after heparin was stopped. His chest pain was not controlled by nitro as it was in the past and was called a Hallicat. He continued to decline cardiac cath. He was again seen by cardiology advised urgent cath, he eventually agreed. Per cath report, "does not appear to have lesions amenable to PCI at this time," recommended continuation of medical management for NSTEMI. Labs today: WBC 6 hemoglobin 8.2, hematocrit 26.1, platelet 102, sodium 138, potassium 4.1, chloride 102, carbon dioxide 29.4, BUN 31, creatinine 2.05, GFR 32, glucose 191, calcium 8.9 Palliative care has been consulted to help clarify goals. Patient seen and examined lying in his bed, he remains on a nitro drip, per nursing is unable to been weaned from this. He remains on CPAP/BiPAP and has not been able to be weaned from this as well. Explored goals of care, he seems to have a good understanding of limited options available to him for any cardiac interventions. Despite this, he wishes to remain full code, when asked if he would want chest compressions or shock, he states yes, discussed progression of his dyspnea and underlying lung disease, he would want to be placed on a ventilator. We discussed he would certainly have difficulties being weaned from the ventilator if he were to require it, and would likely remain vent dependent. His significant other who is sitting at bedside states that she does not think he would want to live that way, she agrees he is not fully understanding what that would mean, and that he would be able to go home like that. Discussed concerns for complications related to compression/shock with cardiac resuscitation. I advised there is a good chance that attempts at resuscitation may be futile and he likely with broken ribs at that point. They are both agreeable to ongoing discussions in the coming days to readdress. They are awaiting vascular surgery evaluation/recommendations though are not hopeful there will be any recommendations. Briefly explored possibility of going home with hospice if goals are comfort oriented, he is receptive to this however is looking forward to the surgical team's evaluation. Again, he and his significant other both state that they are not hopeful that there will be any options available for interventions. They are Agreeable for follow-up tomorrow after evaluation has been completed. Function/Cognitive Trajectory: Patient's had multiple hospitalizations due to CHF exacerbations. Was reportedly not on chronic oxygen at home for his COPD. He was ambulatory at home with a cane. [facility] - History History Provided By: Patient, Family Member, Medical Record - Medical History Medical History: Medical History (Last Reviewed 07/28/18 @ 12:37 by PANDA Bruce) Amaurosis fugax Anemia COPD (chronic obstructive pulmonary disease) Chronic ischemic heart disease Chronic kidney disease Colon polyp Diabetes Dyslipidemia Gastritis Hearing loss Hypertension Hypertrophy of prostate without urinary obstruction Osteoarthritis Pancreatitis Peripheral vascular disease Ptosis of eyelid Sleep apnea TIA (transient ischemic attack) - Surgical History Surgical History: Surgical History (Last Updated 07/28/18 @ 12:37 by PANDA Bruce) H/O carotid endarterectomy History of cardiac cath Postsurgical aortocoronary bypass status - Tobacco History Second Hand Smoke Exposure: Yes Tobacco Use In Past 30 Days: Yes Smoking Status: Current every day smoker Tobacco Type: Cigarettes - Alcohol History How Often Do You Have a Drink Containing Alcohol: Never - Substance Use History Substance History: No History of Abuse - Travel History Recent Travel in the [place] Within the Last 8 Weeks: No Recent Travel Out of the Country Within the Last 8 Weeks: No - Immunization History Tetanus Immunization: Unsure Hx Influenza Vaccine This Season: Yes Medications and Allergies Active Medications: Active Medications Al Hydroxide/Mg Hydroxide (Milk Of Magnalin Liq) 30 ml PO Q12H PRN PRN Reason: Mild Constipation Albuterol (Albuterol Neb (Prn)) 2.5 mg NEB Q2HR NEB PRN PRN Reason: SHORTNESS OF BREATH Last Admin: 07/27/18 18:15 Dose: 2.5 mg Albuterol (Duoneb Neb ([facility])) 1 ampul NEB DAILY NEB [facility] Last Admin: 07/28/18 09:20 Dose: Not Given Amlodipine Besylate (Norvasc) 10 mg PO DAILY [facility] Last Admin: 07/28/18 09:12 Dose: 10 mg Artificial Tears (Refresh Tears 0.5% Opth Drops) 1 drop EACH EYE Q4H PRN PRN Reason: Eye Irritation Aspirin (Aspirin Chew) 81 mg PO DAILY [facility] Last Admin: 07/28/18 09:11 Dose: 81 mg Atorvastatin Calcium (Lipitor) 80 mg PO QPM [facility] Last Admin: 07/27/18 17:15 Dose: 80 mg Bisacodyl (Dulcolax Supp) 10 mg RECTAL DAILY PRN PRN Reason: SEVERE CONSITIPATION Budesonide/Formoterol Fumarate (Symbicort 160/4.5 Mcg Inh) 2 puff INH BID [facility] Last Admin: 07/24/18 01:04 Dose: Not Given Bumetanide (Bumex Inj) 1 mg IV.PUSH BID [facility] Last Admin: 07/28/18 09:12 Dose: 1 mg Chlorhexidine Gluconate (Chlorhexidine 2% Cloth) 3 pack TOPICAL DAILY@0400 [facility] Stop: 07/30/18 03:59 Last Admin: 07/28/18 06:09 Dose: Not Given Chlorhexidine Gluconate (Chlorhexidine 2% Cloth) 3 pack TOPICAL DAILY@0400 PRN PRN Reason: Extra cloth needed Stop: 07/30/18 03:59 Clopidogrel Bisulfate (Plavix) 75 mg PO DAILY [facility] Last Admin: 07/28/18 09:11 Dose: 75 mg Dextrose (D50w Vial) 50 ml IV.PUSH UNSCH PRN PRN Reason: PER HYPOGLYCEMIA PROTOCOL Gabapentin (Neurontin) 100 mg PO TID [facility] Last Admin: 07/28/18 09:11 Dose: 100 mg Glucagon (Glucagon Inj) 1 mg OTHER PRN PRN PRN Reason: for Hypoglycemia Protocol Nitroglycerin/Dextrose (Nitroglycerin Drip Premix) 50 mg in 250 mls @ 1.5 mls/ hr IV.CONT TITRATE PRN; Protocol PRN Reason: Per Protocol Last Admin: 07/28/18 09:13 Dose: 45 mcg/min, 13.5 mls/hr Insulin Aspart (Novolog Insulin Correctional Sugar Inj) 0 unit SQ ACHS [facility]; Protocol Last Admin: 07/28/18 07:53 Dose: 1 unit Isosorbide Mononitrate (Imdur) 120 mg PO DAILY [facility] Last Admin: 07/28/18 09:12 Dose: 120 mg Lactulose (Lactulose Liq) 30 ml PO DAILY PRN PRN Reason: SEVERE CONSITIPATION Metoprolol Succinate (Toprol Xl) 25 mg PO DAILY [facility] Last Admin: 07/28/18 09:11 Dose: 25 mg Morphine Sulfate (Morphine Inj) 1 mg IV.PUSH Q4H PRN PRN Reason: PAIN SCALE 6 TO 10 Last Admin: 07/27/18 09:10 Dose: 1 mg Nicotine (Habitrol 21 Mg Patch.24 Hr) 1 patch T-DERMAL DAILY [facility] Last Admin: 07/26/18 09:27 Dose: 1 patch Nitroglycerin (Nitrostat Sl) 0.4 mg SL Q5M PRN PRN Reason: Chest Pain Last Admin: 07/27/18 00:55 Dose: 0.4 mg Ondansetron HCl (Zofran Inj) 4 mg IV.PUSH Q6H PRN PRN Reason: NAUSEA OR VOMITING Pantoprazole Sodium (Protonix) 40 mg PO BID [facility] Last Admin: 07/28/18 09:12 Dose: 40 mg Prednisone (Deltasone) 20 mg PO BID [facility] Last Admin: 07/28/18 09:12 Dose: 20 mg Sennosides (Senokot) 17.2 mg PO Q12H PRN PRN Reason: Moderate Constipation Sodium Chloride (Ns Flush) 2 ml IV.FLUSH BID [facility] Last Admin: 07/28/18 09:10 Dose: 2 ml Sodium Chloride (Ns Flush) 2 ml IV.FLUSH PRN PRN PRN Reason: FLUSH AFTER USING IV ACCESS Terazosin HCl (Hytrin) 4 mg PO DAILY [facility] Last Admin: 07/28/18 09:11 Dose: 4 mg Allergies Allergy/AdvReac Type Severity Reaction Status Date / Time acetaminophen Allergy Severe Rash Verified 07/24/18 09:38 aspirin Allergy Severe Rash Verified 07/24/18 09:38 codeine Allergy Severe anaphylaxis Verified 07/24/18 09:38 ferrous sulfate Allergy Severe Rash Verified 07/24/18 09:38 iron Allergy Severe Rash Verified 07/24/18 09:38 oxycodone Allergy Severe Rash Verified 07/24/18 09:38 [place] AdvReac Severe SYSTEM Uncoded 04/11/14 08:32 SHUTS DOWN Home Medications Medication Instructions Recorded Confirmed Type amlodipine 10 mg PO DAILY 07/23/18 07/23/18 History aspirin 81 mg PO DAILY 07/23/18 07/23/18 History atorvastatin 80 mg PO QPM 07/23/18 07/23/18 History carboxymethylcellulose sodium 1 drp OPHTHALMIC (EYE) Q4-6H PRN 07/23/18 History clopidogrel 75 mg PO DAILY 07/23/18 07/23/18 History cyanocobalamin (vitamin B-12) 1,000 mcg PO DAILY 07/23/18 07/23/18 History furosemide 40 mg PO BID 07/23/18 07/23/18 History glipizide 10 mg PO BID 07/23/18 07/23/18 History ipratropium-albuterol 3 ml INHALATION Q6-8H PRN 07/23/18 07/23/18 History isosorbide mononitrate 120 mg PO DAILY 07/23/18 07/23/18 History metoprolol succinate 25 mg PO DAILY 07/23/18 07/23/18 History nitroglycerin 0.4 mg SUBLINGUAL Q5-15M PRN 07/23/18 07/23/18 History pantoprazole 40 mg PO BID 07/23/18 07/23/18 History ranolazine 1,000 mg PO Q12H 01/04/19 01/04/19 History terazosin 4 mg PO DAILY 07/23/18 07/23/18 History Advance Directives Living Will: No Healthcare Surrogate: No Power of Mother Superior: No Physical Exam Vital Signs: Vital Signs - 24 hr 07/27/18 13:58 07/27/18 16:00 07/27/18 16:29 Temperature 98.9 F Pulse Rate 82 82 Respiratory Rate 18 Blood Pressure 126/62 Pulse Oximetry 92 L 92 L 07/27/18 17:00 07/27/18 18:10 07/27/18 20:00 Temperature 98.9 F Pulse Rate 80 99 H Respiratory Rate 18 20 Blood Pressure 129/70 Pulse Oximetry 92 L 92 L 07/27/18 21:00 07/28/18 00:00 07/28/18 04:00 Temperature 99.0 F Pulse Rate 116 H 104 H Respiratory Rate 18 20 Blood Pressure 144/71 H 138/73 Pulse Oximetry 92 L 94 L 94 L 07/28/18 05:00 07/28/18 08:00 07/28/18 09:00 Temperature 98.4 F Pulse Rate 98 H Respiratory Rate 22 Blood Pressure 135/72 Pulse Oximetry 94 L 93 L 92 L I&O: Intake & Output 07/26/18 07/27/18 07/28/18 07/29/18 06:59 06:59 06:59 06:59 Intake Total 1140 / 1140 720 / 720 1160 / 1160 250 / 250 Output Total 850 / 850 1900 / 1900 1950 / 1950 Balance 290 / 290 -1180 / -1180 -790 / -790 250 / 250 Weight 124 kg 122 kg 121 kg Physical Exam: CONSTITUTIONAL/GENERAL: This is an adequately nourished patient, in no apparent distress. TUBES/LINES/DRAINS: SKIN: No jaundice, rashes, or lesions. Ecchymoses on upper extremities. No wounds seen anteriorly. Skin temperature appropriate. Not diaphoretic. HEAD: Atraumatic. Normocephalic. EYES: Pupils equal and round and reactive. Extraocular motions intact. No scleral icterus. No injection or drainage. Fundi not examined. ENT: Hearing grossly normal. Nose without bleeding or purulent drainage. Throat without visible erythema, exudates, masses, or lesions. NECK: Trachea midline. Supple, nontender. No palpable thyroid enlargement or nodularity. CARDIOVASCULAR: Regular rate and rhythm without murmurs, gallops, or rubs. No JVD. Peripheral pulses symmetric. RESPIRATORY/CHEST: Symmetric, unlabored respirations. Clear to auscultation. Breath sounds equal bilaterally. No wheezes, rales, or rhonchi. GASTROINTESTINAL: Abdomen soft, non-tender, nondistended. No hepato-splenomegaly , or palpable masses. No guarding. Bowel sounds present. GENITOURINARY: Without palpable bladder distension. Rowan catheter in place. MUSCULOSKELETAL: Extremities without clubbing, cyanosis, or edema. No joint tenderness or effusion noted. No calf tenderness. No mottling or clubbing. LYMPHATICS: No palpable cervical or supraclavicular adenopathy. NEUROLOGICAL: Awake and alert. Motor and sensory grossly within normal limits. Follows commands. Cognitively sharp. Moves all extremities. PSYCHIATRIC: No obvious anxiety/depression. no apparent hallucinations or other psychotic thought process. Diagnostic Tests Laboratory: Laboratory Results - last 72 hr 07/25/18 07/25/18 07/26/18 11:37 11:37 06:46 WBC 6.8 RBC 3.86 L Hgb 8.9 L Hct 28.2 L MCV 73.0 L MCH 23.1 L MCHC 31.6 L RDW 20.5 H Plt Count 107 L MPV 9.1 Neut % (Auto) Lymph % (Auto) Grayson % (Auto) Eos % (Auto) Baso % (Auto) Neut # (Auto) Lymph # (Auto) Grayson # (Auto) Eos # (Auto) Baso # (Auto) WBC Differential Differential Comment PT INR APTT 41.2 H Sodium Potassium Chloride Carbon Dioxide Anion Gap BUN Creatinine Estimated GFR POC Glucose Random Glucose Calcium Troponin I 9.04 H* 07/26/18 07/26/18 07/26/18 06:46 06:46 06:46 WBC RBC Hgb Hct MCV MCH MCHC RDW Plt Count MPV Neut % (Auto) Lymph % (Auto) Grayson % (Auto) Eos % (Auto) Baso % (Auto) Neut # (Auto) Lymph # (Auto) Grayson # (Auto) Eos # (Auto) Baso # (Auto) WBC Differential Differential Comment PT 11.4 INR 1.1 APTT Sodium 137 Potassium 4.1 Chloride 101 Carbon Dioxide 28.6 Anion Gap 7 BUN 25 H Creatinine 2.11 H Estimated GFR 31 L POC Glucose Random Glucose 171 H Calcium 9.1 Troponin I 7.74 H* 07/26/18 07/26/18 07/26/18 16:24 16:25 21:18 WBC RBC Hgb Hct MCV MCH MCHC RDW Plt Count MPV Neut % (Auto) Lymph % (Auto) Grayson % (Auto) Eos % (Auto) Baso % (Auto) Neut # (Auto) Lymph # (Auto) Grayson # (Auto) Eos # (Auto) Baso # (Auto) WBC Differential Differential Comment PT INR APTT 22.6 L D Sodium Potassium Chloride Carbon Dioxide Anion Gap BUN Creatinine Estimated GFR POC Glucose 194 H 196 H Random Glucose Calcium Troponin I 07/27/18 07/27/18 07/27/18 04:01 07:39 08:58 WBC 8.0 RBC 3.90 L Hgb 9.0 L Hct 27.6 L MCV 70.9 L MCH 23.1 L MCHC 32.6 RDW 20.5 H Plt Count 113 L MPV 9.1 Neut % (Auto) Lymph % (Auto) Grayson % (Auto) Eos % (Auto) Baso % (Auto) Neut # (Auto) Lymph # (Auto) Grayson # (Auto) Eos # (Auto) Baso # (Auto) WBC Differential Differential Comment PT INR APTT Sodium 138 Potassium 4.1 Chloride 103 Carbon Dioxide 28.6 Anion Gap 6 BUN 25 H Creatinine 2.01 H Estimated GFR 33 L POC Glucose 170 H Random Glucose 171 H Calcium 9.2 Troponin I 07/27/18 07/27/18 07/27/18 11:51 16:57 21:50 WBC RBC Hgb Hct MCV MCH MCHC RDW Plt Count MPV Neut % (Auto) Lymph % (Auto) Grayson % (Auto) Eos % (Auto) Baso % (Auto) Neut # (Auto) Lymph # (Auto) Grayson # (Auto) Eos # (Auto) Baso # (Auto) WBC Differential Differential Comment PT INR APTT Sodium Potassium Chloride Carbon Dioxide Anion Gap BUN Creatinine Estimated GFR POC Glucose 192 H 194 H 209 H Random Glucose Calcium Troponin I 07/28/18 07/28/18 07/28/18 03:58 03:58 07:38 WBC 6.0 RBC 3.60 L Hgb 8.2 L Hct 26.1 L MCV 72.3 L MCH 22.7 L MCHC 31.4 L RDW 20.5 H Plt Count 102 L MPV 8.3 Neut % (Auto) 83.3 H Lymph % (Auto) 10.4 Grayson % (Auto) 6.1 Eos % (Auto) 0.0 Baso % (Auto) 0.2 Neut # (Auto) 5.0 Lymph # (Auto) 0.6 L Grayson # (Auto) 0.4 Eos # (Auto) 0.0 Baso # (Auto) 0.0 WBC Differential . Differential Comment Auto diff final PT INR APTT Sodium 138 Potassium 4.1 Chloride 102 Carbon Dioxide 29.4 Anion Gap 7 BUN 31 H Creatinine 2.05 H Estimated GFR 32 L POC Glucose 191 H Random Glucose 177 H Calcium 8.9 Troponin I 07/28/18 11:54 WBC RBC Hgb Hct MCV MCH MCHC RDW Plt Count MPV Neut % (Auto) Lymph % (Auto) Grayson % (Auto) Eos % (Auto) Baso % (Auto) Neut # (Auto) Lymph # (Auto) Grayson # (Auto) Eos # (Auto) Baso # (Auto) WBC Differential Differential Comment PT INR APTT Sodium Potassium Chloride Carbon Dioxide Anion Gap BUN Creatinine Estimated GFR POC Glucose 200 H Random Glucose Calcium Troponin I Result Diagrams: 07/28/18 03:58 07/28/18 03:58 Microbiology: Microbiology 07/24/18 14:28 Stool Occult Blood (MYA) - Final Stool Hemoccult negative Patient/Family Conference Present at Family Conference: Significant other [facility] Family Conference Location: Bedside Issues Discussed: * Palliative care role, purpose, approach * Additional medical, psychosocial, and spiritual history * Patients general health, functional status, and cognitive changes in the months leading up to the current hospitalization * Patient/family understanding of the current medical problems * Patient/family understanding of prognosis * Patients goals of care as best understood from advance directives and/or conversations and/or values * Current medical treatment options and benefits/burdens of those options * Likely scenarios comparing ongoing aggressive care with a transition to comfort measures only * Questions answered to the best of my ability * Palliative care contact information provided Assessment and Plan - Symptom Scale (1) Pain 0-10 Scale: Unable to quantify (2) Dyspnea 0-10 Scale: Unable to quantify (3) Weakness 0-10 Scale: Unable to quantify Pertinent Non-Medical Issues: Psychosocial: Patient is . 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 He has significant other for the past 13 years, danii, and 6 children aged 54-13. Spiritual: Retinal Angiographer available Legal: Patient is capacitated to make his own decisions. Ethical issues impacting care: None Important Contacts: Significant other Gifty [place] [phone] Prognosis: Patient has extensive cardiac history, remote history of 5 vessel CABG, 4 of 5 vessels are now occluded. Having continuous chest pain requiring a nitro drip. Was previously not on oxygen, now requiring continuous CPAP. Not likely a surgical candidate for any further aggressive type treatments due to multiple other comorbid illnesses. Life expectancy is limited. Would be medically eligible for hospice services if goals were appropriate Code Status: Full Code Plan: Legal decision maker: Patient currently capacitated make his own decisions. If he were to become capacitated legal decision making would fall to his 6 children per [place] statutes. Decision pending for healthcare surrogate. Goals: Remain aggressive at this time despite knowing there are limited options available to him. Agreeable to ongoing discussions in the coming days regarding continued aggressive treatment versus transition to comfort, pending surgical team assessment. CODE STATUS: Requesting full code SYMPTOMS: --chest pain: Has been on Nitro chronically at home. Reports frequent use. Us having difficulty understanding different medications and proper use. Is not able to be weaned from Nitro gtt. Will need ongoing discussion about D/C plans and plans for weaning nitro. Pending surgical evaluation. --Dyspnea: He is having ongoing SOB, now requiring continuous BiPAP/CPAP. Is having difficulty understanding progression of heart failure, though has good understanding of his options being limited. Remains full code and would want ventilator support despite underlying lung issues. He is open to ongoing discussion related to possible transition to comfort. Palliative care will continue to follow during hospital course as condition evolves, to assist patient/decision-maker with understanding of medical conditions, weighing benefits/burdens of treatment options, for clarification of goals of treatment. Additionally will assist with any symptoms of palliative concern Appreciation Thank you for the opportunity to participate in the care of Jason Feliciano Scruggs. Attestation Collaborating Comments: Dr. Carcamo Attestation: To help prompt me to consider important information that might be impacting today's encounter and assessment, information from prior notes written by myself or my colleagues may have been "brought forward" into today's note. My signature on this note, however, is an attestation that I personally performed the exam, history, and/or decision-making noted today, and, unless otherwise indicated, the interactions with patient, family, and staff as well as the review of records all occurred today. I also attest that the listed assessment and stated plan reflect my best clinical judgment today based on the combination of historical information, prior notes, and today's exam/ interactions. When time spent is documented, it refers only to time spent today by the signer, or if indicated, combined time spent today by collaborating physician/nurse practitioner.
--- NOTE | 2018-07-28 13:41 | MB ---
cc: Tay Peters MD DATE: 07/28/2018 HISTORY OF PRESENT ILLNESS: This is a 77-year-old male with history of coronary artery disease, who was admitted with a non-STEMI. 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 Ellison at [facility] in [place], Dr. Pryor at the [facility] in [facility], who has been in and out of the hospital with a history of congestive heart failure, also chronic angina. On this admission, he was having increased chest discomfort radiating to his left jaw. His troponin ruled in for a non-STEMI with a troponin bump to 11.60, he underwent cardiac catheterization by Dr. Desai which showed multivessel disease with history of coronary artery bypass grafting in 1997 at [facility] by Dr. Hi. Left main had 50% disease. The LAD was mid portion what appeared to be 100% occluded. The left circumflex was 100% occluded at the proximal portion. It did get supply from left to right collaterals to the distal obtuse marginal, as well as to the left PDA. The RCA was small, nondominant with 80% ostial stenosis. The FERRARI to the LAD was patent with fill both antegrade and retrograde. The distal LAD was diffusely diseased. There were 3 saphenous vein grafts, which were engaged and all appeared occluded. The impression was 1/5 grafts were patent. He also was noted to have elevated left ventricular end diastolic pressures of 30, has history of acute on chronic systolic heart failure, ejection fraction 40% and ischemic cardiomyopathy. We were consulted to evaluate for redo sternotomy and redo coronary artery bypass grafting. PAST MEDICAL HISTORY: Includes morbid obesity with a BMI of 43, congestive heart failure, combined systolic and diastolic, [place] class 3-4, chronic kidney disease, last creatinine was 2.0. Coronary artery disease, carotid disease, continued tobacco abuse, hypertension, diabetes mellitus. PAST SURGICAL HISTORY: Include coronary artery bypass graft x5, 1997, [facility], right carotid endarterectomy, cholecystectomy, tonsillectomy. ALLERGIES: THE PATIENT HAS ALLERGIES TO ACETAMINOPHEN, ASPIRIN, CODEINE, FERROUS SULFATE, OXYCODONE, COCA-COLA. FAMILY HISTORY: Mother , complications of brain bleed, unclear of his father's demise. SOCIAL HISTORY: The patient is 3 times. Has 5 living children, lives with his significant other. Last alcohol intake was 4 years ago. He has been smoking for 40 years. He quit 6 years after his bypass graft and then restarted and is smoking up to half a pack per day. Uses a cane to ambulate. He also has partial dentures in his lower teeth that he does not wear due to discomfort. He has sleep apnea and uses a CPAP machine. REVIEW OF SYSTEMS: As above in the HPI, the 12 systems are unremarkable. PHYSICAL EXAMINATION: GENERAL: The patient currently has removed his CPAP machine. He is awake, alert, in no acute distress. HEENT: Head is normocephalic. He has a very thick short neck. Oral mucosa pink, moist. He has about 6 bottom teeth. He has dentures on the top. Oral mucosa is pink and moist. NECK: Supple. He has got a well-healed scar in the right neck area. No JVD. CARDIOVASCULAR: Heart sounds S1, S2. Regular rate and rhythm. No audible rubs or gallops. LUNGS: Inspiratory and expiratory wheeze. ABDOMEN: Obese, positive bowel sounds. No tenderness. EXTREMITIES: Reveal trace edema. Fair distal pulses, good capillary refill. He has a well-healed scar mid sternotomy and also in the left mid thigh and lower leg. LABORATORY DATA: Shows hemoglobin of 8.2, hematocrit of 26, white cell count of 6, platelet count of 102. INR 1.1. Blood gas on admission showed a pH of 7.42, CO2 of 46, pO2 on 69 on room air. Sodium 138, potassium 4.1, BUN of 31, creatinine 2.05, glucose 192. Troponin again was 11.3. Urinalysis is unremarkable. EKG: Sinus rhythm with some PACs, evidence of some LVH. Echocardiogram showed trace mitral regurgitation, trace tricuspid regurgitation, ejection fraction 40% to 45% with global hypokinesis. IMPRESSION: 1. This is a 77-year-old male with history of coronary artery disease, prior coronary artery bypass grafting, status post heart catheterization with a right radial approach. 2. Significant history of peripheral vascular disease. 3. Chronic obstructive pulmonary disease. 4. 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 5. Acute on chronic combined diastolic and systolic heart failure with ejection fraction of 40%. 6. Chronic renal failure, baseline creatinine is at 2. 7. Pancytopenia. 8. Morbid obesity with BMI greater than 40. 9. Continued tobacco abuse. At this time the STS data reveals a score of 11 puts him at a very high risk for repeat redo sternotomy and coronary bypass. The cardiac films will need to be reviewed by Dr. Tay Peters and evaluation for candidacy for any surgery. However, at this time, he is deemed a very high risk due to his other high-risk comorbidities. Further planning per Dr. Peters. Dictated by Karolina Portillo APRN Patient seen and examined, chart and angiograms reviewed on 07/28/2018 and the findings discussed in detail with the patient. He is going to be very high risk for surgical intervention given his significant medical comorbidities, body habitus, respiratory insufficiency, renal sufficiency as well as cardiomyopathy. I would recommend referring him back to Dr. Hi who did his initial surgery, if optimizing medical therapy does not control his symptoms. Thank you for allowing me to participate in the care of this patient. MD MANUEL Ibarra/ana , 12:30 PM , 12:42 PM RIGOBERTO
--- NOTE | 2018-07-29 00:25 | P.PNCA ---
Subjective Interval history: No events overnight Continues on CPAP as needed Continues on Nitro drip Medications and Allergies Active Medications: Active Medications Al Hydroxide/Mg Hydroxide (Milk Of Magnalin Liq) 30 ml PO Q12H PRN PRN Reason: Mild Constipation Albuterol (Albuterol Neb (Prn)) 2.5 mg NEB Q2HR NEB PRN PRN Reason: SHORTNESS OF BREATH Last Admin: 07/27/18 18:15 Dose: 2.5 mg Albuterol (Duoneb Neb ([facility])) 1 ampul NEB DAILY NEB [facility] Last Admin: 07/28/18 09:20 Dose: Not Given Amlodipine Besylate (Norvasc) 10 mg PO DAILY [facility] Last Admin: 07/28/18 09:12 Dose: 10 mg Artificial Tears (Refresh Tears 0.5% Opth Drops) 1 drop EACH EYE Q4H PRN PRN Reason: Eye Irritation Aspirin (Aspirin Chew) 81 mg PO DAILY [facility] Last Admin: 07/28/18 09:11 Dose: 81 mg Atorvastatin Calcium (Lipitor) 80 mg PO QPM [facility] Last Admin: 07/28/18 17:23 Dose: 80 mg Bisacodyl (Dulcolax Supp) 10 mg RECTAL DAILY PRN PRN Reason: SEVERE CONSITIPATION Budesonide/Formoterol Fumarate (Symbicort 160/4.5 Mcg Inh) 2 puff INH BID [facility] Last Admin: 07/24/18 01:04 Dose: Not Given Bumetanide (Bumex Inj) 1 mg IV.PUSH BID [facility] Last Admin: 07/28/18 21:32 Dose: 1 mg Chlorhexidine Gluconate (Chlorhexidine 2% Cloth) 3 pack TOPICAL DAILY@0400 [facility] Stop: 07/30/18 03:59 Last Admin: 07/28/18 06:09 Dose: Not Given Chlorhexidine Gluconate (Chlorhexidine 2% Cloth) 3 pack TOPICAL DAILY@0400 PRN PRN Reason: Extra cloth needed Stop: 07/30/18 03:59 Clopidogrel Bisulfate (Plavix) 75 mg PO DAILY [facility] Last Admin: 07/28/18 09:11 Dose: 75 mg Dextrose (D50w Vial) 50 ml IV.PUSH UNSCH PRN PRN Reason: PER HYPOGLYCEMIA PROTOCOL Gabapentin (Neurontin) 100 mg PO TID [facility] Last Admin: 07/28/18 17:35 Dose: 100 mg Glucagon (Glucagon Inj) 1 mg OTHER PRN PRN PRN Reason: for Hypoglycemia Protocol Nitroglycerin/Dextrose (Nitroglycerin Drip Premix) 50 mg in 250 mls @ 1.5 mls/ hr IV.CONT TITRATE PRN; Protocol PRN Reason: Per Protocol Last Titration: 07/28/18 23:59 Dose: 50 mcg/min, 15 mls/hr Insulin Aspart (Novolog Insulin Correctional Sugar Inj) 0 unit SQ ACHS [facility]; Protocol Last Admin: 07/28/18 21:18 Dose: 1 unit Isosorbide Mononitrate (Imdur) 120 mg PO DAILY [facility] Last Admin: 07/28/18 09:12 Dose: 120 mg Lactulose (Lactulose Liq) 30 ml PO DAILY PRN PRN Reason: SEVERE CONSITIPATION Metoprolol Succinate (Toprol Xl) 25 mg PO DAILY [facility] Last Admin: 07/28/18 09:11 Dose: 25 mg Morphine Sulfate (Morphine Inj) 1 mg IV.PUSH Q4H PRN PRN Reason: PAIN SCALE 6 TO 10 Last Admin: 07/27/18 09:10 Dose: 1 mg Nicotine (Habitrol 21 Mg Patch.24 Hr) 1 patch T-DERMAL DAILY [facility] Last Admin: 07/26/18 09:27 Dose: 1 patch Nitroglycerin (Nitrostat Sl) 0.4 mg SL Q5M PRN PRN Reason: Chest Pain Last Admin: 07/27/18 00:55 Dose: 0.4 mg Ondansetron HCl (Zofran Inj) 4 mg IV.PUSH Q6H PRN PRN Reason: NAUSEA OR VOMITING Pantoprazole Sodium (Protonix) 40 mg PO BID [facility] Last Admin: 07/28/18 21:33 Dose: 40 mg Prednisone (Deltasone) 20 mg PO BID [facility] Last Admin: 07/28/18 21:33 Dose: 20 mg Sennosides (Senokot) 17.2 mg PO Q12H PRN PRN Reason: Moderate Constipation Sodium Chloride (Ns Flush) 2 ml IV.FLUSH BID [facility] Last Admin: 07/28/18 21:33 Dose: 2 ml Sodium Chloride (Ns Flush) 2 ml IV.FLUSH PRN PRN PRN Reason: FLUSH AFTER USING IV ACCESS Terazosin HCl (Hytrin) 4 mg PO DAILY [facility] Last Admin: 07/28/18 09:11 Dose: 4 mg Allergies Allergy/AdvReac Type Severity Reaction Status Date / Time acetaminophen Allergy Severe Rash Verified 07/24/18 09:38 aspirin Allergy Severe Rash Verified 07/24/18 09:38 codeine Allergy Severe anaphylaxis Verified 07/24/18 09:38 ferrous sulfate Allergy Severe Rash Verified 07/24/18 09:38 iron Allergy Severe Rash Verified 07/24/18 09:38 oxycodone Allergy Severe Rash Verified 07/24/18 09:38 COCA COLA AdvReac Severe SYSTEM Uncoded 04/11/14 08:32 SHUTS DOWN Home Medications Medication Instructions Recorded Confirmed Type amlodipine 10 mg PO DAILY 07/23/18 07/23/18 History aspirin 81 mg PO DAILY 07/23/18 07/23/18 History atorvastatin 80 mg PO QPM 07/23/18 07/23/18 History carboxymethylcellulose sodium 1 drp OPHTHALMIC (EYE) Q4-6H PRN 07/23/18 History clopidogrel 75 mg PO DAILY 07/23/18 07/23/18 History cyanocobalamin (vitamin B-12) 1,000 mcg PO DAILY 07/23/18 07/23/18 History furosemide 40 mg PO BID 07/23/18 07/23/18 History glipizide 10 mg PO BID 07/23/18 07/23/18 History ipratropium-albuterol 3 ml INHALATION Q6-8H PRN 07/23/18 07/23/18 History isosorbide mononitrate 120 mg PO DAILY 07/23/18 07/23/18 History metoprolol succinate 25 mg PO DAILY 07/23/18 07/23/18 History nitroglycerin 0.4 mg SUBLINGUAL Q5-15M PRN 07/23/18 07/23/18 History pantoprazole 40 mg PO BID 07/23/18 07/23/18 History ranolazine 1,000 mg PO Q12H 07/23/18 07/23/18 History terazosin 4 mg PO DAILY 07/23/18 07/23/18 History Physical Exam Vital signs: Vital Signs 07/28/18 04:00 07/28/18 05:00 07/28/18 08:00 Temperature 99.0 F 98.4 F Pulse Rate 104 H 98 H Respiratory Rate 20 22 Blood Pressure 138/73 135/72 Pulse Oximetry 94 L 94 L 93 L 07/28/18 09:00 07/28/18 12:00 07/28/18 13:00 Temperature 97.9 F Pulse Rate 85 Respiratory Rate 24 Blood Pressure 126/69 Pulse Oximetry 92 L 92 L 92 L 07/28/18 15:00 07/28/18 16:00 07/28/18 17:00 Temperature 97.8 F Pulse Rate 82 76 88 Respiratory Rate 22 Blood Pressure 101/57 L Pulse Oximetry 90 L 90 L 07/28/18 18:00 07/28/18 19:00 07/28/18 20:00 Temperature 97.8 F Pulse Rate 90 93 H 92 H Respiratory Rate 20 Blood Pressure 136/65 Pulse Oximetry 91 L 07/28/18 21:00 07/28/18 22:00 07/29/18 00:00 Temperature 97.5 F L Pulse Rate 96 H 90 95 H Respiratory Rate 18 Blood Pressure 126/60 Pulse Oximetry 96 97 Intake & Output 07/28/18 07/28/18 07/29/18 06:59 18:59 06:59 Intake Total 240 / 240 1900 / 1900 160 / 160 Output Total 950 / 950 1100 / 1100 Balance -710 / -710 800 / 800 160 / 160 Weight 121 kg Intake: IV 250 / 250 160 / 160 Nitroglycerin Drip Premix 50 mg 250 / 250 160 / 160 In 250 ml @ 5 MCG/MIN 1.5 mls/ hr IV.CONT TITRATE PRN Rx#: [id number] Oral 240 / 240 1650 / 1650 Output: Urine 950 / 950 1100 / 1100 Other: Date of Last Bowel Movement 07/24/18 07/24/18 07/25/18 # Bowel Movements 0 Narrative: General: Obese, laying in bed, no distress Skin: No rashes or lesions HEENT: Normocephalic, no conjunctivitis, no nasal discharge Neck: Supple, endarterectomy scar, no thyromegaly or lymphadenopathy CV: RRR, no murmurs, rubs, or gallops, regular pulses, normal cap refill Lungs: Has mild expiratory wheezing bilaterally, improved inspiratory airflow. Abdomen: Soft, obese. Ext: Mild pitting edema. Neuro: Awake, alert Results 07/28/18 03:58 07/28/18 03:58 CBC 07/27/18 07/28/18 Range/Units 04:01 03:58 WBC 8.0 6.0 (4.0-11.0) th/mm3 RBC 3.90 L 3.60 L (4.50-5.90) mil/mm3 Hgb 9.0 L 8.2 L (13.0-17.0) gm/dL Hct 27.6 L 26.1 L (39.0-51.0) % Plt Count 113 L 102 L (150-450) th/mm3 Neut # (Auto) 5.0 (1.8-7.7) th/mm3 Lymph # (Auto) 0.6 L (1.0-4.8) th/mm3 Cross # (Auto) 0.4 (0.0-0.9) th/mm3 Eos # (Auto) 0.0 (0.0-0.4) th/mm3 Baso # (Auto) 0.0 (0.0-0.2) th/mm3 Comprehensive Metabolic Panel 07/27/18 07/28/18 Range/Units 08:58 03:58 Sodium 138 138 (136-145) meq/L Potassium 4.1 4.1 (3.5-5.1) meq/L Chloride 103 102 (98-107) meq/L Carbon Dioxide 28.6 29.4 (21.0-32.0) meq/L BUN 25 H 31 H (7-18) mg/dL Creatinine 2.01 H 2.05 H (0.60-1.30) mg/dL Calcium 9.2 8.9 (8.5-10.1) mg/dL Intake and Output 07/28/18 07/28/18 07/29/18 14:59 22:59 06:59 Intake Total 1660 / 1660 240 / 240 160 / 160 Output Total 850 / 850 250 / 250 Balance 810 / 810 -10 / -10 160 / 160 Intake: IV 250 / 250 160 / 160 Nitroglycerin Drip Premix 50 mg 250 / 250 160 / 160 In 250 ml @ 5 MCG/MIN 1.5 mls/ hr IV.CONT TITRATE PRN Rx#: [id number] Oral 1410 / 1410 240 / 240 Output: Urine 850 / 850 250 / 250 Other: Date of Last Bowel Movement 07/24/18 07/25/18 07/25/18 Assessment and Plan - Assessment (1) NSTEMI (non-ST elevated myocardial infarction) Code(s): I21.4 - Non-ST elevation (NSTEMI) myocardial infarction Status: Acute Plan: severe complex cad, not amenable to PCI, still w/ cp, put in a CV consult. (2) CHF exacerbation Code(s): I50.9 - Heart failure, unspecified Status: Acute Plan: Doing well on IV bumex, cr stable., elevated lvedp yesterday suggests still room for diuresis (3) CKD (chronic kidney disease) stage 3, GFR 30-59 ml/min Code(s): N18.3 - Chronic kidney disease, stage 3 (moderate) Status: Acute (4) COPD exacerbation Code(s): J44.1 - Chronic obstructive pulmonary disease with (acute) exacerbation Status: Acute - Plan 1) [place] Complex CAD not amendable to PCI Review of old notes, apparently he's been told this since a cath in 2011 Con't Nitro drip Discussed with CT surgery Consideration of TMR Not available here Possible [facility] if they have available Otherwise not much to offer 2) Acute on chronic CHF Con't diuresis as heart failure will exacerbate his angina 3) CKD Creatinine stable Discussed increasing his diuretic He's concerned about his kidney function and worsening of the kidneys (2) CHF exacerbation Qualifiers: Heart failure type: systolic Qualified Code(s): I50.23 - Acute on chronic systolic (congestive) heart failure
[2018-07-29 03:05] LABS: Hematocrit 26.4 % (39.0-51.0); Hemoglobin 8.3 gm/dL (13.0-17.0); Mean Corpuscular HGB Conc 31.4 % (32.0-36.0); Mean Corpuscular Hemoglobin 22.6 pg (27.0-34.0); Mean Platelet Volume 8.7 fL (7.0-11.0); Platelet Count 100 th/mm3 (150-450); Red Blood Count 3.67 mil/mm3 (4.50-5.90); Red Cell Distribution Width 19.6 % (11.6-17.2); White Blood Count 5.6 th/mm3 (4.0-11.0)
[2018-07-29 03:25] LABS: Calcium 8.6 mg/dL (8.5-10.1); Carbon Dioxide 30.3 meq/L (21.0-32.0); Potassium 4.1 meq/L (3.5-5.1)
[2018-07-29] MEDS: Chlorhexidine Gluconate 2% 1 Pack (2 Cloths) TOPICAL SCH (04:21)
[2018-07-29] MEDS: Nitroglycerin Drip Premix 50 MG/250 ML BOTTLE IV.CONT PRN ×2 (05:13→18:49)
[2018-07-29] MEDS: Isosorbide Mononitrate 60 MG ER 24HR Tablet (Imdur) PO SCH (08:47)
[2018-07-29] MEDS: predniSONE 20 MG Tablet PO SCH ×2 (08:47→21:36)
[2018-07-29] MEDS: Gabapentin 100 MG Capsule PO SCH ×3 (08:48→17:07)
[2018-07-29] MEDS: amLODIPine 10 MG Tablet PO SCH (08:48)
[2018-07-29] MEDS: Insulin NovoLOG Aspart Correctional Sugar Inj SQ SCH ×4 (09:03→21:35)
--- NOTE | 2018-07-29 11:23 | P.PNFP ---
Subjective Interval history: Patient seen and examined at bedside. Lying comfortably in bed on BiPAP. Patient states that he is not in chest pain. Still on a nitro drip. He understands the plan moving forward with palliative care versus possible surgery. We await cardiothoracic's recommendations moving forward. He denies any chest pain, shortness of breath, abdominal pain, problems with urination or defecation. All questions were answered at bedside. <Kobi AguilarSully - 07/29/18 14:10> Results - Labs Result diagrams: 07/29/18 02:54 07/29/18 02:54 <Denny Garza - 07/29/18 16:49> Abnormal lab results 07/28/18 07/28/18 07/29/18 Range/Units 17:03 21:38 02:54 RBC 3.67 L (4.50-5.90) mil/mm3 Hgb 8.3 L (13.0-17.0) gm/dL Hct 26.4 L (39.0-51.0) % MCV 72.0 L (80.0-100.0) fL MCH 22.6 L (27.0-34.0) pg MCHC 31.4 L (32.0-36.0) % RDW 19.6 H (11.6-17.2) % Plt Count 100 L (150-450) th/mm3 BUN (7-18) mg/dL Creatinine (0.60-1.30) mg/dL Estimated GFR (>89) mL/min POC Glucose 197 H 180 H (68-110) mg/dl Random Glucose (74-106) mg/dL 07/29/18 07/29/18 07/29/18 Range/Units 02:54 08:45 11:51 RBC (4.50-5.90) mil/mm3 Hgb (13.0-17.0) gm/dL Hct (39.0-51.0) % MCV (80.0-100.0) fL MCH (27.0-34.0) pg MCHC (32.0-36.0) % RDW (11.6-17.2) % Plt Count (150-450) th/mm3 BUN 36 H (7-18) mg/dL Creatinine 2.20 H (0.60-1.30) mg/dL Estimated GFR 29 L (>89) mL/min POC Glucose 182 H 220 H (68-110) mg/dl Random Glucose 222 H (74-106) mg/dL Short CBC 07/29/18 Range/Units 02:54 WBC 5.6 (4.0-11.0) th/mm3 Hgb 8.3 L (13.0-17.0) gm/dL Hct 26.4 L (39.0-51.0) % Plt Count 100 L (150-450) th/mm3 BMP 07/29/18 02:54 Sodium 138 Potassium 4.1 Chloride 102 Carbon Dioxide 30.3 BUN 36 H Creatinine 2.20 H Calcium 8.6 <Young,Denny L - 07/29/18 16:49> Abnormal lab results 07/28/18 07/28/18 07/28/18 Range/Units 11:54 17:03 21:38 RBC (4.50-5.90) mil/mm3 Hgb (13.0-17.0) gm/dL Hct (39.0-51.0) % MCV (80.0-100.0) fL MCH (27.0-34.0) pg MCHC (32.0-36.0) % RDW (11.6-17.2) % Plt Count (150-450) th/mm3 BUN (7-18) mg/dL Creatinine (0.60-1.30) mg/dL Estimated GFR (>89) mL/min POC Glucose 200 H 197 H 180 H (68-110) mg/dl Random Glucose (74-106) mg/dL 07/29/18 07/29/18 07/29/18 Range/Units 02:54 02:54 08:45 RBC 3.67 L (4.50-5.90) mil/mm3 Hgb 8.3 L (13.0-17.0) gm/dL Hct 26.4 L (39.0-51.0) % MCV 72.0 L (80.0-100.0) fL MCH 22.6 L (27.0-34.0) pg MCHC 31.4 L (32.0-36.0) % RDW 19.6 H (11.6-17.2) % Plt Count 100 L (150-450) th/mm3 BUN 36 H (7-18) mg/dL Creatinine 2.20 H (0.60-1.30) mg/dL Estimated GFR 29 L (>89) mL/min POC Glucose 182 H (68-110) mg/dl Random Glucose 222 H (74-106) mg/dL Short CBC 07/29/18 Range/Units 02:54 WBC 5.6 (4.0-11.0) th/mm3 Hgb 8.3 L (13.0-17.0) gm/dL Hct 26.4 L (39.0-51.0) % Plt Count 100 L (150-450) th/mm3 BMP 07/29/18 02:54 Sodium 138 Potassium 4.1 Chloride 102 Carbon Dioxide 30.3 BUN 36 H Creatinine 2.20 H Calcium 8.6 <Kobi R1Sully - 07/29/18 11:23> Physical Exam Vital signs: Vital Signs 07/28/18 17:00 07/28/18 18:00 07/28/18 19:00 Temperature Pulse Rate 88 90 93 H Respiratory Rate Blood Pressure Pulse Oximetry 90 L 07/28/18 20:00 07/28/18 21:00 07/28/18 22:00 Temperature 97.8 F Pulse Rate 92 H 96 H 90 Respiratory Rate 20 Blood Pressure 136/65 Pulse Oximetry 91 L 96 07/28/18 23:00 07/29/18 00:00 07/29/18 01:00 Temperature 97.5 F L Pulse Rate 92 H 89 87 Respiratory Rate 18 Blood Pressure 126/60 Pulse Oximetry 97 07/29/18 02:00 07/29/18 03:00 07/29/18 04:00 Temperature 97.8 F Pulse Rate 97 H 92 H 90 Respiratory Rate 17 Blood Pressure 141/69 H Pulse Oximetry 98 97 07/29/18 05:00 07/29/18 07:00 07/29/18 08:00 Temperature 98.4 F Pulse Rate 86 95 H 86 Respiratory Rate 20 Blood Pressure 126/59 L Pulse Oximetry 94 L 95 07/29/18 09:00 07/29/18 10:00 07/29/18 11:00 Temperature Pulse Rate 85 84 84 Respiratory Rate Blood Pressure Pulse Oximetry 96 07/29/18 12:00 07/29/18 13:00 07/29/18 14:00 Temperature 98.3 F Pulse Rate 92 H 93 H 88 Respiratory Rate 20 Blood Pressure 128/60 Pulse Oximetry 96 07/29/18 15:00 07/29/18 16:00 Temperature 97.9 F Pulse Rate 90 80 Respiratory Rate 22 Blood Pressure 134/62 Pulse Oximetry 98 98 Intake & Output 07/28/18 07/29/18 07/29/18 18:59 06:59 18:59 Intake Total 1900 / 1900 730 / 730 Output Total 1100 / 1100 1300 / 1300 Balance 800 / 800 -570 / -570 Weight 120 kg Intake: IV 250 / 250 250 / 250 Nitroglycerin Drip Premix 50 mg 250 / 250 250 / 250 In 250 ml @ 5 MCG/MIN 1.5 mls/ hr IV.CONT TITRATE PRN Rx#: [id number] Oral 1650 / 1650 480 / 480 Output: Urine 1100 / 1100 1300 / 1300 Other: Date of Last Bowel Movement 07/24/18 07/25/18 07/25/18 <Denny Garza - 07/29/18 16:49> Vital Signs 07/28/18 12:00 07/28/18 13:00 07/28/18 15:00 Temperature 97.9 F Pulse Rate 85 82 Respiratory Rate 24 Blood Pressure 126/69 Pulse Oximetry 92 L 92 L 07/28/18 16:00 07/28/18 17:00 07/28/18 18:00 Temperature 97.8 F Pulse Rate 76 88 90 Respiratory Rate 22 Blood Pressure 101/57 L Pulse Oximetry 90 L 90 L 07/28/18 19:00 07/28/18 20:00 07/28/18 21:00 Temperature 97.8 F Pulse Rate 93 H 92 H 96 H Respiratory Rate 20 Blood Pressure 136/65 Pulse Oximetry 91 L 96 07/28/18 22:00 07/28/18 23:00 07/29/18 00:00 Temperature 97.5 F L Pulse Rate 90 92 H 89 Respiratory Rate 18 Blood Pressure 126/60 Pulse Oximetry 97 07/29/18 01:00 07/29/18 02:00 07/29/18 03:00 Temperature Pulse Rate 87 97 H 92 H Respiratory Rate Blood Pressure Pulse Oximetry 98 07/29/18 04:00 07/29/18 05:00 07/29/18 07:00 Temperature 97.8 F Pulse Rate 90 86 95 H Respiratory Rate 17 Blood Pressure 141/69 H Pulse Oximetry 97 94 L 07/29/18 08:00 07/29/18 09:00 07/29/18 10:00 Temperature 98.4 F Pulse Rate 86 85 84 Respiratory Rate 20 Blood Pressure 126/59 L Pulse Oximetry 95 Intake & Output 07/28/18 07/29/18 07/29/18 18:59 06:59 18:59 Intake Total 1900 / 1900 730 / 730 Output Total 1100 / 1100 1300 / 1300 Balance 800 / 800 -570 / -570 Weight 120 kg Intake: IV 250 / 250 250 / 250 Nitroglycerin Drip Premix 50 mg 250 / 250 250 / 250 In 250 ml @ 5 MCG/MIN 1.5 mls/ hr IV.CONT TITRATE PRN Rx#: [id number] Oral 1650 / 1650 480 / 480 Output: Urine 1100 / 1100 1300 / 1300 Other: Date of Last Bowel Movement 07/24/18 07/25/18 07/25/18 <Sully Mendez - 07/29/18 11:23> Narrative: General: Obese, laying in bed, no distress Skin: No rashes or lesions HEENT: Normocephalic, no conjunctivitis, no nasal discharge Neck: Supple, endarterectomy scar, no thyromegaly or lymphadenopathy CV: RRR, no murmurs, rubs, or gallops, regular pulses, normal cap refill Lungs: Has mild expiratory wheezing bilaterally, improved inspiratory airflow. Abdomen: Soft, obese. Ext: Mild pitting edema. Neuro: Awake, alert <Sully Mendez - 07/29/18 14:08> Assessment and Plan - Assessment (1) NSTEMI (non-ST elevated myocardial infarction) Code(s): I21.4 - Non-ST elevation (NSTEMI) myocardial infarction Status: Acute (2) CHF exacerbation Code(s): I50.9 - Heart failure, unspecified Status: Acute (3) COPD exacerbation Code(s): J44.1 - Chronic obstructive pulmonary disease with (acute) exacerbation Status: Acute (4) DM2 (diabetes mellitus, type 2) Code(s): E11.9 - Type 2 diabetes mellitus without complications Status: Acute (5) Coronary artery disease Code(s): I25.10 - Atherosclerotic heart disease of [place] coronary artery without angina pectoris Status: Acute (6) History of CVA (cerebrovascular accident) Code(s): Z86.73 - Personal history of transient ischemic attack (TIA), and cerebral infarction without residual deficits Status: Acute (7) CKD (chronic kidney disease) stage 3, GFR 30-59 ml/min Code(s): N18.3 - Chronic kidney disease, stage 3 (moderate) Status: Acute (8) BPH (benign prostatic hyperplasia) Code(s): N40.0 - Benign prostatic hyperplasia without lower urinary tract symptoms Status: Acute (9) Gastritis Code(s): K29.70 - Gastritis, unspecified, without bleeding Status: Acute (10) Smoker Code(s): F17.200 - Nicotine dependence, unspecified, uncomplicated Status: Acute <Denny Garza - 07/29/18 16:49> (1) NSTEMI (non-ST elevated myocardial infarction) Code(s): I21.4 - Non-ST elevation (NSTEMI) myocardial infarction Status: Acute Plan: Likely N-STEMI, status post cardiac catheterization 07/26/17. 07/24 grafts patent. Continuing medical management. Currently on nitro drip. Continue Imdur, Plavix, aspirin, amlodipine, metoprolol Cardiology On Board. Appreciate recommendations. -Follow-up with cardiothoracic surgery recommendations Possible Palliative Care Candidate. Awaiting Cardiothoracic recommendations. (2) CHF exacerbation Code(s): I50.9 - Heart failure, unspecified Status: Acute Plan: ECHO: Mild LVH, EF 40-45%, left atrial mild dilation, aortic valve sclerosis, pulmonary pressure 48 X-ray: Mild cardiomegaly, pulmonary congestion, no obvious pneumonia - Continue Bumex 1 mg bid for diuresis - Monitor intake and output. - Continue metoprolol, Imdur. May benefit from TALHA inhibitor but possibly with acute kidney injury so will hold off. - Continue telemetry, review daily - Keep head of bed elevated to 30 degrees - O2 walk test before discharge - O2 supplementation to target 88-93% O2 Sat (3) COPD exacerbation Code(s): J44.1 - Chronic obstructive pulmonary disease with (acute) exacerbation Status: Acute Plan: Symptoms most consistent with CHF exacerbation, may be component of COPD exacerbation. Has some mild diffuse wheezing on exam. - Will probably have some baseline of wheezing due to metoprolol and side effects of bronchospasm. Benefits of metoprolol with improving mortality for CHF outweighs bronchospasm at this time. Will continue on metoprolol. - Continue Atrovent and Symbicort for maintenance - DuoNebs once a day, albuterol as needed - Prednisone 40 mg daily (4) DM2 (diabetes mellitus, type 2) Code(s): E11.9 - Type 2 diabetes mellitus without complications Status: Acute Plan: SSI w/accuchecks Con't home Gabapentin TID (5) Coronary artery disease Code(s): I25.10 - Atherosclerotic heart disease of [place] coronary artery without angina pectoris Status: Acute Plan: History of CABG and stable angina. - Continue high dose statin, Plavix and aspirin - Continue Ranolazine, Imdur (6) History of CVA (cerebrovascular accident) Code(s): Z86.73 - Personal history of transient ischemic attack (TIA), and cerebral infarction without residual deficits Status: Acute Plan: See above, con't home meds (7) CKD (chronic kidney disease) stage 3, GFR 30-59 ml/min Code(s): N18.3 - Chronic kidney disease, stage 3 (moderate) Status: Acute Plan: Avoid nephrotoxic meds Creatinine increased to 2.20 from 2.05 today. Due to CHF caution with fluids. Will continue to monitor. See above plan Daily BMP (8) BPH (benign prostatic hyperplasia) Code(s): N40.0 - Benign prostatic hyperplasia without lower urinary tract symptoms Status: Acute Plan: Con't home Terazosin 4 mg daily (9) Gastritis Code(s): K29.70 - Gastritis, unspecified, without bleeding Status: Acute Plan: Con't home protonix daily (10) Smoker Code(s): F17.200 - Nicotine dependence, unspecified, uncomplicated Status: Acute Plan: Nicotine patches daily Encourage cessation Fluids: by mouth Electrolytes: monitor Nutrition: Diabetic diet DVT prophylaxis: plavix, aspirin, and SCDs <Sully Mendez - 07/29/18 14:11> - Assessment and Plan 77-year-old male with past medical history of CHF, COPD presents with right- sided chest pain found to have NSTEMI. Elevated troponins. Status post cardiac catheterization. Continuing with medical management for NSTEMI. <Sully Mendez - 07/29/18 14:08> - Attending Attestation Patient seen with resident team this morning. I agree with documentation above. Resting in bed, comfortable this morning, no active chest pain, does well with nitro drip. Cardiothoracic surgery on board, likely not a good candidate for bypass, may be candidate for transmyocardial revascularization? Palliative care on board to help define goals of care. Prognosis given his advanced cardiac disease was discussed with patient. <Denny Garza - 07/29/18 16:49> <Sully Mendez - Last Filed: 07/29/18 14:11> (2) CHF exacerbation Qualifiers: Heart failure type: systolic Qualified Code(s): I50.23 - Acute on chronic systolic (congestive) heart failure <Denny Garza - Last Filed: 07/29/18 16:49> (2) CHF exacerbation Qualifiers: Qualified Code(s): I50.23 - Acute on chronic systolic (congestive) heart failure <Sully Mendez - Last Filed: 07/29/18 14:11> (2) CHF exacerbation Qualifiers: Heart failure type: systolic Qualified Code(s): I50.23 - Acute on chronic systolic (congestive) heart failure <Denny Garza - Last Filed: 07/29/18 16:49> (2) CHF exacerbation Qualifiers: Qualified Code(s): I50.23 - Acute on chronic systolic (congestive) heart failure
--- NOTE | 2018-07-29 15:16 | P.PNCV ---
- Note Subjective/Hospital Course: Clinically and hemodynamically stable On nitroglycerin drip No active chest pain Objective: Vital Signs - 24 hr 07/28/18 16:00 07/28/18 17:00 07/28/18 18:00 Temperature 97.8 F Pulse Rate 76 88 90 Respiratory Rate 22 Blood Pressure 101/57 L Pulse Oximetry 90 L 90 L 07/28/18 19:00 07/28/18 20:00 07/28/18 21:00 Temperature 97.8 F Pulse Rate 93 H 92 H 96 H Respiratory Rate 20 Blood Pressure 136/65 Pulse Oximetry 91 L 96 07/28/18 22:00 07/28/18 23:00 07/29/18 00:00 Temperature 97.5 F L Pulse Rate 90 92 H 89 Respiratory Rate 18 Blood Pressure 126/60 Pulse Oximetry 97 07/29/18 01:00 07/29/18 02:00 07/29/18 03:00 Temperature Pulse Rate 87 97 H 92 H Respiratory Rate Blood Pressure Pulse Oximetry 98 07/29/18 04:00 07/29/18 05:00 07/29/18 07:00 Temperature 97.8 F Pulse Rate 90 86 95 H Respiratory Rate 17 Blood Pressure 141/69 H Pulse Oximetry 97 94 L 07/29/18 08:00 07/29/18 09:00 07/29/18 10:00 Temperature 98.4 F Pulse Rate 86 85 84 Respiratory Rate 20 Blood Pressure 126/59 L Pulse Oximetry 95 07/29/18 11:00 07/29/18 12:00 07/29/18 13:00 Temperature 98.3 F Pulse Rate 84 92 H 93 H Respiratory Rate 20 Blood Pressure 128/60 Pulse Oximetry 96 96 Labs: Laboratory Results - last 12 hr 07/29/18 07/29/18 07/29/18 02:54 08:45 11:51 Sodium 138 Potassium 4.1 Chloride 102 Carbon Dioxide 30.3 Anion Gap 6 BUN 36 H Creatinine 2.20 H Estimated GFR 29 L POC Glucose 182 H 220 H Random Glucose 222 H Calcium 8.6 Result Diagrams: 07/29/18 02:54 07/29/18 02:54 Agree the patient remains at prohibitive risk for reoperative surgical intervention for his underlying coronary disease given his significant medical comorbidities, morbid obesity, cardiomyopathy as well as pulmonary and renal insufficiency. Also agree that he may benefit from evaluation at the [facility] for possible TMR versus follow-up with his cardiac surgeon Dr. Hi since he did the first coronary bypass surgery.
--- NOTE | 2018-07-29 17:06 | P.PNPAL ---
Reason for Visit Reason for visit: a. To assist with evaluation and management of symptoms including: pain, dyspnea b. To assist medical decision maker(s) with: better understanding of current medical conditions; weighing benefits/burdens of medical treatment options; making medical treatment decisions. Subjective Subjective/Interval History: This is a 77-year-old male with a past medical history significant for CHF, COPD was not previously oxygen dependent, chronic kidney disease stage III, previous CVA, diabetes, obesity, obstructive sleep apnea, known vasculopathy. He originally presented to the emergency room on 07/23/2018 with a one-week history of worsening shortness of breath, cough with yellow sputum, and fluid weight gain of 11 pounds. He is reportedly had 4 hospitalizations past year for fluid overload, also sees [place] senior electrical designer was recently recommending a defibrillator due to heart blockage. He was evaluated on 07/24/18 by cardiology for elevated troponins, at that time he alerted Dr. Hoffman he was unable to undergo cardiac cath due to blockages in both femoral arteries and left arm approach. Patient declined cath procedure and elected medical management, Dr. Hoffman opined that was appropriate given overall condition, he also noted that tropnins may also be elevated due to chronic illnesses (creatinine >2). He was started on a Heparin gtt, aspirin, Plavix, high dose statin, metoprolol. On 07/26/17, he began having chest pain after heparin was stopped. His chest pain was not controlled by nitro as it was in the past and was called a Hallicat. He continued to decline cardiac cath. He was again seen by cardiology advised urgent cath, he eventually agreed. Per cath report, "does not appear to have lesions amenable to PCI at this time," recommended continuation of medical management for NSTEMI. Labs today: WBC 6 hemoglobin 8.2, hematocrit 26.1, platelet 102, sodium 138, potassium 4.1, chloride 102, carbon dioxide 29.4, BUN 31, creatinine 2.05, GFR 32, glucose 191, calcium 8.9 Patient seen and examined lying in his bed, he has multiple family members at bedside participating in discussion. He remains on a nitro drip, per nursing is unable to been weaned from this, has been increased now to 50 mcg/min. He remains on CPAP/BiPAP and has not been able to be weaned from this as well. Explored goals of care, he seems to have a good understanding of limited options available to him for any cardiac interventions. Despite this, he and his family have discussed that he would like to be a DO NOT INTUBATE. We discussed high likelihood that resuscitation attempts would not be successful even with cardiac resuscitation. He does seem to have some difficulty understanding immediate resuscitation versus dependency on life support for the long-term given his overall poor condition and comorbid illnesses. Dr. Peace present during part of visit. Follow-up: Call placed to Dr. Peace to update with outcome of family conversation. 1630: Call placed to Dr. Desai to discuss possibility of patient transitioning to comfort and going home, we discussed best way to get him off of the nitro drip. He states he does not see a reasonable way to get him off at this point. He is agreeable to transitioning to nitro patch and is scheduled morphine in attempts to wean off nitro and hopes to get patient home if patient decides to go with comfort measures only. He feels the only reasonable option for the patient at this time if he does not transition to comfort [facility] to [facility] including a TMR. Advised we will follow-up tomorrow after I follow up with the family and patient to see what their decision is. Family/Friend Interactions: Met with patient, his significant other, and multiple grandchildren. Patient and his family have been discussing CODE STATUS, and decision making. He apparently does have a living will and power of compliance attorney, copies were made placed on chart. Explored overall understanding of limitations. Discussed CODE STATUS again with family present. Family seems to have good understanding of what intubation/dependency would look like if patient were to code, however they all seem to have difficulty understanding complications related to shock and compressions during resuscitation attempts. Again advised likelihood of unsuccessful attempts at resuscitation given his overall poor cardiac function. Explored possibilities of patient transitioning to comfort, patient states "I want to be kept alive." He and his family then described that "kept alive" would mean going home with comfort measures in place if he is not offered any reasonable surgical interventions by a cardiovascular surgeon. We did have a lengthy discussion related to his increasing demands for intravenous nitro and his inability to be weaned from it. Discussed that this likely means he will be treated conservatively, likely with morphine for symptom management, but will need a few days to try to best control his symptoms while in the hospital. He seems to be in good spirits, still seems to have good understanding of limitations. We discussed his need for continuous oxygen versus prior to this hospitalization he was not requiring oxygen at all. Again, they seem to have a good understanding overall, just have certain areas that seem to be troublesome for them. They do seem to receptive to transitioning to comfort if no reasonable options are recommended. They are welcoming and agreeable to follow- up tomorrow. Advised I would reach out to cardiology to find the best plan for getting him off of the nitro drip and home comfortable. Advance Directives Living Will: Copy in medical record Health Care Surrogate: Copy in medical record Durable Power of Utility Bag Assembler: Copy in medical record Objective Vital Signs: Vital Signs 07/28/18 17:00 07/28/18 18:00 07/28/18 19:00 Temperature Pulse Rate 88 90 93 H Respiratory Rate Blood Pressure Pulse Oximetry 90 L 07/28/18 20:00 07/28/18 21:00 07/28/18 22:00 Temperature 97.8 F Pulse Rate 92 H 96 H 90 Respiratory Rate 20 Blood Pressure 136/65 Pulse Oximetry 91 L 96 07/28/18 23:00 07/29/18 00:00 07/29/18 01:00 Temperature 97.5 F L Pulse Rate 92 H 89 87 Respiratory Rate 18 Blood Pressure 126/60 Pulse Oximetry 97 07/29/18 02:00 07/29/18 03:00 07/29/18 04:00 Temperature 97.8 F Pulse Rate 97 H 92 H 90 Respiratory Rate 17 Blood Pressure 141/69 H Pulse Oximetry 98 97 07/29/18 05:00 07/29/18 07:00 07/29/18 08:00 Temperature 98.4 F Pulse Rate 86 95 H 86 Respiratory Rate 20 Blood Pressure 126/59 L Pulse Oximetry 94 L 95 07/29/18 09:00 07/29/18 10:00 07/29/18 11:00 Temperature Pulse Rate 85 84 84 Respiratory Rate Blood Pressure Pulse Oximetry 96 07/29/18 12:00 07/29/18 13:00 07/29/18 14:00 Temperature 98.3 F Pulse Rate 92 H 93 H 88 Respiratory Rate 20 Blood Pressure 128/60 Pulse Oximetry 96 07/29/18 15:00 07/29/18 16:00 Temperature 97.9 F Pulse Rate 90 80 Respiratory Rate 22 Blood Pressure 134/62 Pulse Oximetry 98 98 Intake & Output 07/28/18 07/29/18 07/29/18 18:59 06:59 18:59 Intake Total 1900 / 1900 730 / 730 Output Total 1100 / 1100 1300 / 1300 Balance 800 / 800 -570 / -570 Weight 120 kg Intake: IV 250 / 250 250 / 250 Nitroglycerin Drip Premix 50 mg 250 / 250 250 / 250 In 250 ml @ 5 MCG/MIN 1.5 mls/ hr IV.CONT TITRATE PRN Rx#: [id number] Oral 1650 / 1650 480 / 480 Output: Urine 1100 / 1100 1300 / 1300 Other: Date of Last Bowel Movement 07/24/18 07/25/18 07/25/18 Physical Exam: CONSTITUTIONAL/GENERAL: This is an adequately nourished patient, in no apparent distress. TUBES/LINES/DRAINS: PIV, Rowan, BiPAP SKIN: Left upper arm IV infiltrate. Skin otherwise intact and appropriately warm EYES: Pupils equal and round and reactive. Extraocular motions intact. No scleral icterus. No injection or drainage. Fundi not examined. ENT: Hearing grossly normal. Nose without bleeding or purulent drainage. Throat without visible erythema, exudates, masses, or lesions. CARDIOVASCULAR: Regular rate and rhythm. On nitro drip for chest pain no JVD. RESPIRATORY/CHEST: Symmetric, unlabored respirations. Clear to auscultation. Has CPAP in place GASTROINTESTINAL: Abdomen soft, non-tender, nondistended. No hepato-splenomegaly , or palpable masses. No guarding. Bowel sounds present. GENITOURINARY: Without palpable bladder distension. Rowan catheter in place. MUSCULOSKELETAL: Extremities without clubbing, cyanosis, or edema. No joint tenderness or effusion noted. No calf tenderness. No mottling or clubbing. NEUROLOGICAL: Awake and alert. Motor and sensory grossly within normal limits. Follows commands. Cognitively sharp. Moves all extremities. PSYCHIATRIC: No obvious anxiety/depression. no apparent hallucinations or other psychotic thought process. Diagnostic Tests Laboratory: Laboratory Results - last 72 hr 07/26/18 07/26/18 07/27/18 16:25 21:18 04:01 WBC 8.0 RBC 3.90 L Hgb 9.0 L Hct 27.6 L MCV 70.9 L MCH 23.1 L MCHC 32.6 RDW 20.5 H Plt Count 113 L MPV 9.1 Neut % (Auto) Lymph % (Auto) [place] % (Auto) Eos % (Auto) Baso % (Auto) Neut # (Auto) Lymph # (Auto) [place] # (Auto) Eos # (Auto) Baso # (Auto) WBC Differential Differential Comment APTT 22.6 L D Sodium Potassium Chloride Carbon Dioxide Anion Gap BUN Creatinine Estimated GFR POC Glucose 196 H Random Glucose Calcium 07/27/18 07/27/18 07/27/18 07:39 08:58 11:51 WBC RBC Hgb Hct MCV MCH MCHC RDW Plt Count MPV Neut % (Auto) Lymph % (Auto) [place] % (Auto) Eos % (Auto) Baso % (Auto) Neut # (Auto) Lymph # (Auto) [place] # (Auto) Eos # (Auto) Baso # (Auto) WBC Differential Differential Comment APTT Sodium 138 Potassium 4.1 Chloride 103 Carbon Dioxide 28.6 Anion Gap 6 BUN 25 H Creatinine 2.01 H Estimated GFR 33 L POC Glucose 170 H 192 H Random Glucose 171 H Calcium 9.2 07/27/18 07/27/18 07/28/18 16:57 21:50 03:58 WBC 6.0 RBC 3.60 L Hgb 8.2 L Hct 26.1 L MCV 72.3 L MCH 22.7 L MCHC 31.4 L RDW 20.5 H Plt Count 102 L MPV 8.3 Neut % (Auto) 83.3 H Lymph % (Auto) 10.4 [place] % (Auto) 6.1 Eos % (Auto) 0.0 Baso % (Auto) 0.2 Neut # (Auto) 5.0 Lymph # (Auto) 0.6 L [place] # (Auto) 0.4 Eos # (Auto) 0.0 Baso # (Auto) 0.0 WBC Differential . Differential Comment Auto diff final APTT Sodium Potassium Chloride Carbon Dioxide Anion Gap BUN Creatinine Estimated GFR POC Glucose 194 H 209 H Random Glucose Calcium 07/28/18 07/28/18 07/28/18 03:58 07:38 11:54 WBC RBC Hgb Hct MCV MCH MCHC RDW Plt Count MPV Neut % (Auto) Lymph % (Auto) [place] % (Auto) Eos % (Auto) Baso % (Auto) Neut # (Auto) Lymph # (Auto) [place] # (Auto) Eos # (Auto) Baso # (Auto) WBC Differential Differential Comment APTT Sodium 138 Potassium 4.1 Chloride 102 Carbon Dioxide 29.4 Anion Gap 7 BUN 31 H Creatinine 2.05 H Estimated GFR 32 L POC Glucose 191 H 200 H Random Glucose 177 H Calcium 8.9 07/28/18 07/28/18 07/29/18 17:03 21:38 02:54 WBC 5.6 RBC 3.67 L Hgb 8.3 L Hct 26.4 L MCV 72.0 L MCH 22.6 L MCHC 31.4 L RDW 19.6 H Plt Count 100 L MPV 8.7 Neut % (Auto) Lymph % (Auto) [place] % (Auto) Eos % (Auto) Baso % (Auto) Neut # (Auto) Lymph # (Auto) [place] # (Auto) Eos # (Auto) Baso # (Auto) WBC Differential Differential Comment APTT Sodium Potassium Chloride Carbon Dioxide Anion Gap BUN Creatinine Estimated GFR POC Glucose 197 H 180 H Random Glucose Calcium 07/29/18 07/29/18 07/29/18 02:54 08:45 11:51 WBC RBC Hgb Hct MCV MCH MCHC RDW Plt Count MPV Neut % (Auto) Lymph % (Auto) [place] % (Auto) Eos % (Auto) Baso % (Auto) Neut # (Auto) Lymph # (Auto) [place] # (Auto) Eos # (Auto) Baso # (Auto) WBC Differential Differential Comment APTT Sodium 138 Potassium 4.1 Chloride 102 Carbon Dioxide 30.3 Anion Gap 6 BUN 36 H Creatinine 2.20 H Estimated GFR 29 L POC Glucose 182 H 220 H Random Glucose 222 H Calcium 8.6 Result Diagrams: 07/29/18 02:54 07/29/18 02:54 Assessment and Plan - Symptom Scale (1) Pain 0-10 Scale: Unable to quantify (2) Dyspnea 0-10 Scale: Unable to quantify (3) Weakness 0-10 Scale: Unable to quantify Pertinent Non-Medical Issues: Psychosocial: Patient is 3 times. 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 He has significant other for the past 13 years, danii, and 6 children aged 54-13. Spiritual: Senior Systems Architect available Legal: Patient is capacitated to make his own decisions. 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 Having continuous chest pain requiring a nitro drip in large doses and has been unable to be weaned. Was previously not on oxygen, now requiring continuous CPAP. Not likely a surgical candidate for any further aggressive type treatments due to multiple other comorbid illnesses. Life expectancy is limited. Would be medically eligible for hospice services if goals were appropriate Code Status: Alternative Code (DO NOT INTUBATE) Plan: Legal decision maker: Patient currently capacitated make his own decisions. Patient has healthcare surrogate and power of compliance attorney designating his significant other danii as healthcare decision maker. Goals: Remain aggressive short of intubation. Awaiting cardiovascular surgery evaluation/recommendations. Patient and family considering transition to comfort if no reasonable recommendations are offered. Spoke with Dr. Desai who agrees with the following recommendations only if patient transitions to comfort: Start nitro patch at 0.2 mg/h, titrate to max dose of 0.6 mg/h. Start scheduled morphine 2 mg IV every 3 hours ATC. Wean nitro as tolerated, once nitro weaned off, since changed to oral long-acting morphine at indicated dose. Consult hospice if goals are to return home with comfort CODE STATUS: DO NOT INTUBATE SYMPTOMS: --chest pain: Has been on Nitro chronically at home. Reports frequent use. Us having difficulty understanding different medications and proper use. Is not able to be weaned from Nitro gtt, currently at 50 mcg per minute. Will need ongoing discussion about D/C plans and plans for weaning nitro. Pending surgical evaluation. --Dyspnea: He is having ongoing SOB, now requiring continuous BiPAP/CPAP. Is having difficulty understanding progression of heart failure, though has good understanding of his options being limited. Patient and his family now requesting DO NOT INTUBATE. Palliative care will continue to follow during hospital course as condition evolves, to assist patient/decision-maker with understanding of medical conditions, weighing benefits/burdens of treatment options, for clarification of goals of treatment. Additionally will assist with any symptoms of palliative concern Attestation Collaborating MD Comments: Dr. Carcamo Attestation: To help prompt me to consider important information that might be impacting today's encounter and assessment, information from prior notes written by myself or my colleagues may have been "brought forward" into today's note. My signature on this note, however, is an attestation that I personally performed the exam, history, and/or decision-making noted today, and, unless otherwise indicated, the interactions with patient, family, and staff as well as the review of records all occurred today. I also attest that the listed assessment and stated plan reflect my best clinical judgment today based on the combination of historical information, prior notes, and today's exam/ interactions. When time spent is documented, it refers only to time spent today by the signer, or if indicated, combined time spent today by collaborating physician/nurse practitioner.
[2018-07-29] MEDS: Artificial Tears Opth Drops 15 ML Bottle EACH EYE PRN (17:33)
[2018-07-29] MEDS: Carboxymethylcellulose 0.5% Opth Drops 15 ML Bottle EACH EYE PRN (17:34)
--- NOTE | 2018-07-29 23:56 | P.PNCA ---
Subjective Interval history: No complaints Still on nitro drip, no change in dose Medications and Allergies Active Medications: Active Medications Al Hydroxide/Mg Hydroxide (Milk Of Magnalin Liq) 30 ml PO Q12H PRN PRN Reason: Mild Constipation Albuterol (Albuterol Neb (Prn)) 2.5 mg NEB Q2HR NEB PRN PRN Reason: SHORTNESS OF BREATH Last Admin: 07/27/18 18:15 Dose: 2.5 mg Amlodipine Besylate (Norvasc) 10 mg PO DAILY [facility] Last Admin: 07/29/18 08:48 Dose: 10 mg Artificial Tears (Refresh Tears 0.5% Opth Drops) 1 drop EACH EYE Q4H PRN PRN Reason: Eye Irritation Last Admin: 07/29/18 17:34 Dose: 1 drop Artificial Tears (Tears Naturale Opth Drops) 1 drop EACH EYE Q4H PRN PRN Reason: Eye dryness Last Admin: 07/29/18 17:33 Dose: 1 drop Aspirin (Aspirin Chew) 81 mg PO DAILY [facility] Last Admin: 07/29/18 08:47 Dose: 81 mg Atorvastatin Calcium (Lipitor) 80 mg PO QPM [facility] Last Admin: 07/29/18 17:07 Dose: 80 mg Bisacodyl (Dulcolax Supp) 10 mg RECTAL DAILY PRN PRN Reason: SEVERE CONSITIPATION Budesonide/Formoterol Fumarate (Symbicort 160/4.5 Mcg Inh) 2 puff INH BID [facility] Last Admin: 07/24/18 01:04 Dose: Not Given Bumetanide (Bumex Inj) 1 mg IV.PUSH BID [facility] Last Admin: 07/29/18 21:35 Dose: 1 mg Chlorhexidine Gluconate (Chlorhexidine 2% Cloth) 3 pack TOPICAL DAILY@0400 [facility] Stop: 07/30/18 03:59 Last Admin: 07/29/18 04:21 Dose: Not Given Chlorhexidine Gluconate (Chlorhexidine 2% Cloth) 3 pack TOPICAL DAILY@0400 PRN PRN Reason: Extra cloth needed Stop: 07/30/18 03:59 Clopidogrel Bisulfate (Plavix) 75 mg PO DAILY [facility] Last Admin: 07/29/18 08:47 Dose: 75 mg Dextrose (D50w Vial) 50 ml IV.PUSH UNSCH PRN PRN Reason: PER HYPOGLYCEMIA PROTOCOL Gabapentin (Neurontin) 100 mg PO TID [facility] Last Admin: 07/29/18 17:07 Dose: 100 mg Glucagon (Glucagon Inj) 1 mg OTHER PRN PRN PRN Reason: for Hypoglycemia Protocol Nitroglycerin/Dextrose (Nitroglycerin Drip Premix) 50 mg in 250 mls @ 1.5 mls/ hr IV.CONT TITRATE PRN; Protocol PRN Reason: Per Protocol Last Admin: 07/29/18 18:49 Dose: 50 mcg/min, 15 mls/hr Insulin Aspart (Novolog Insulin Correctional Sugar Inj) 0 unit SQ ACHS [facility]; Protocol Last Admin: 07/29/18 21:35 Dose: 3 unit Isosorbide Mononitrate (Imdur) 120 mg PO DAILY [facility] Last Admin: 07/29/18 08:47 Dose: 120 mg Lactulose (Lactulose Liq) 30 ml PO DAILY PRN PRN Reason: SEVERE CONSITIPATION Metoprolol Succinate (Toprol Xl) 25 mg PO DAILY [facility] Last Admin: 07/29/18 08:47 Dose: 25 mg Morphine Sulfate (Morphine Inj) 1 mg IV.PUSH Q4H PRN PRN Reason: PAIN SCALE 6 TO 10 Last Admin: 07/27/18 09:10 Dose: 1 mg Nicotine (Habitrol 21 Mg Patch.24 Hr) 1 patch T-DERMAL DAILY [facility] Last Admin: 07/26/18 09:27 Dose: 1 patch Nitroglycerin (Nitrostat Sl) 0.4 mg SL Q5M PRN PRN Reason: Chest Pain Last Admin: 07/27/18 00:55 Dose: 0.4 mg Ondansetron HCl (Zofran Inj) 4 mg IV.PUSH Q6H PRN PRN Reason: NAUSEA OR VOMITING Pantoprazole Sodium (Protonix) 40 mg PO BID [facility] Last Admin: 07/29/18 21:36 Dose: 40 mg Prednisone (Deltasone) 20 mg PO BID [facility] Last Admin: 07/29/18 21:36 Dose: 20 mg Sennosides (Senokot) 17.2 mg PO Q12H PRN PRN Reason: Moderate Constipation Sodium Chloride (Ns Flush) 2 ml IV.FLUSH BID [facility] Last Admin: 07/29/18 21:35 Dose: 2 ml Sodium Chloride (Ns Flush) 2 ml IV.FLUSH PRN PRN PRN Reason: FLUSH AFTER USING IV ACCESS Terazosin HCl (Hytrin) 4 mg PO DAILY [facility] Last Admin: 07/29/18 08:47 Dose: 4 mg Allergies Allergy/AdvReac Type Severity Reaction Status Date / Time acetaminophen Allergy Severe Rash Verified 07/24/18 09:38 aspirin Allergy Severe Rash Verified 07/24/18 09:38 codeine Allergy Severe anaphylaxis Verified 07/24/18 09:38 ferrous sulfate Allergy Severe Rash Verified 07/24/18 09:38 iron Allergy Severe Rash Verified 07/24/18 09:38 oxycodone Allergy Severe Rash Verified 07/24/18 09:38 [place] AdvReac Severe SYSTEM Uncoded 04/11/14 08:32 SHUTS DOWN Home Medications Medication Instructions Recorded Confirmed Type amlodipine 10 mg PO DAILY 07/23/18 07/23/18 History aspirin 81 mg PO DAILY 07/23/18 07/23/18 History atorvastatin 80 mg PO QPM 07/23/18 07/23/18 History carboxymethylcellulose sodium 1 drp OPHTHALMIC (EYE) Q4-6H PRN 07/23/18 History clopidogrel 75 mg PO DAILY 07/23/18 07/23/18 History cyanocobalamin (vitamin B-12) 1,000 mcg PO DAILY 07/23/18 07/23/18 History furosemide 40 mg PO BID 07/23/18 07/23/18 History glipizide 10 mg PO BID 07/23/18 07/23/18 History ipratropium-albuterol 3 ml INHALATION Q6-8H PRN 07/23/18 07/23/18 History isosorbide mononitrate 120 mg PO DAILY 07/23/18 07/23/18 History metoprolol succinate 25 mg PO DAILY 07/23/18 07/23/18 History nitroglycerin 0.4 mg SUBLINGUAL Q5-15M PRN 07/23/18 07/23/18 History pantoprazole 40 mg PO BID 07/23/18 07/23/18 History ranolazine 1,000 mg PO Q12H 07/23/18 07/23/18 History terazosin 4 mg PO DAILY 07/23/18 07/23/18 History Physical Exam Vital signs: Vital Signs 07/29/18 00:00 07/29/18 01:00 07/29/18 02:00 Temperature 97.5 F L Pulse Rate 89 87 97 H Respiratory Rate 18 Blood Pressure 126/60 Pulse Oximetry 97 07/29/18 03:00 07/29/18 04:00 07/29/18 05:00 Temperature 97.8 F Pulse Rate 92 H 90 86 Respiratory Rate 17 Blood Pressure 141/69 H Pulse Oximetry 98 97 07/29/18 07:00 07/29/18 08:00 07/29/18 09:00 Temperature 98.4 F Pulse Rate 95 H 86 85 Respiratory Rate 20 Blood Pressure 126/59 L Pulse Oximetry 94 L 95 07/29/18 10:00 07/29/18 11:00 07/29/18 12:00 Temperature 98.3 F Pulse Rate 84 84 92 H Respiratory Rate 20 Blood Pressure 128/60 Pulse Oximetry 96 96 07/29/18 13:00 07/29/18 14:00 07/29/18 15:00 Temperature Pulse Rate 93 H 88 90 Respiratory Rate Blood Pressure Pulse Oximetry 98 07/29/18 16:00 07/29/18 17:00 07/29/18 18:00 Temperature 97.9 F Pulse Rate 80 84 90 Respiratory Rate 22 Blood Pressure 134/62 Pulse Oximetry 98 07/29/18 19:00 07/29/18 20:00 07/29/18 21:49 Temperature 99 F Pulse Rate 90 Respiratory Rate 22 Blood Pressure 137/73 Pulse Oximetry 95 98 94 L Intake & Output 07/29/18 07/29/18 07/30/18 06:59 18:59 06:59 Intake Total 730 / 730 1450 / 1450 Output Total 1300 / 1300 1150 / 1150 Balance -570 / -570 300 / 300 Weight 120 kg Intake: IV 250 / 250 250 / 250 Nitroglycerin Drip Premix 50 mg 250 / 250 250 / 250 In 250 ml @ 5 MCG/MIN 1.5 mls/ hr IV.CONT TITRATE PRN Rx#: [id number] Oral 480 / 480 1200 / 1200 Output: Urine 1300 / 1300 1150 / 1150 Other: # Voids 5 Date of Last Bowel Movement 07/25/18 07/25/18 Narrative: General: Obese, laying in bed, no distress Skin: No rashes or lesions HEENT: Normocephalic, no conjunctivitis, no nasal discharge Neck: Supple, endarterectomy scar, no thyromegaly or lymphadenopathy CV: RRR, no murmurs, rubs, or gallops, regular pulses, normal cap refill Lungs: Has mild expiratory wheezing bilaterally, improved inspiratory airflow. Abdomen: Soft, obese. Ext: Mild pitting edema. Neuro: Awake, alert Results 07/29/18 02:54 07/29/18 02:54 CBC 07/28/18 07/29/18 Range/Units 03:58 02:54 WBC 6.0 5.6 (4.0-11.0) th/mm3 RBC 3.60 L 3.67 L (4.50-5.90) mil/mm3 Hgb 8.2 L 8.3 L (13.0-17.0) gm/dL Hct 26.1 L 26.4 L (39.0-51.0) % Plt Count 102 L 100 L (150-450) th/mm3 Neut # (Auto) 5.0 (1.8-7.7) th/mm3 Lymph # (Auto) 0.6 L (1.0-4.8) th/mm3 [place] # (Auto) 0.4 (0.0-0.9) th/mm3 Eos # (Auto) 0.0 (0.0-0.4) th/mm3 Baso # (Auto) 0.0 (0.0-0.2) th/mm3 Comprehensive Metabolic Panel 07/28/18 07/29/18 Range/Units 03:58 02:54 Sodium 138 138 (136-145) meq/L Potassium 4.1 4.1 (3.5-5.1) meq/L Chloride 102 102 (98-107) meq/L Carbon Dioxide 29.4 30.3 (21.0-32.0) meq/L BUN 31 H 36 H (7-18) mg/dL Creatinine 2.05 H 2.20 H (0.60-1.30) mg/dL Calcium 8.9 8.6 (8.5-10.1) mg/dL Intake and Output 07/29/18 07/29/18 07/30/18 14:59 22:59 06:59 Intake Total 1450 / 1450 Output Total 1150 / 1150 Balance 300 / 300 Intake: IV 250 / 250 Nitroglycerin Drip Premix 50 mg 250 / 250 In 250 ml @ 5 MCG/MIN 1.5 mls/ hr IV.CONT TITRATE PRN Rx#: [id number] Oral 1200 / 1200 Output: Urine 1150 / 1150 Other: # Voids 5 Date of Last Bowel Movement 07/25/18 07/25/18 Assessment and Plan - Assessment (1) NSTEMI (non-ST elevated myocardial infarction) Code(s): I21.4 - Non-ST elevation (NSTEMI) myocardial infarction Status: Acute Plan: severe complex cad, not amenable to PCI, still w/ cp, put in a CV consult. (2) CHF exacerbation Code(s): I50.9 - Heart failure, unspecified Status: Acute Plan: Doing well on IV bumex, cr stable., elevated lvedp yesterday suggests still room for diuresis (3) CKD (chronic kidney disease) stage 3, GFR 30-59 ml/min Code(s): N18.3 - Chronic kidney disease, stage 3 (moderate) Status: Acute (4) COPD exacerbation Code(s): J44.1 - Chronic obstructive pulmonary disease with (acute) exacerbation Status: Acute - Plan 1) [place] Complex CAD not amendable to PCI Review of old notes, apparently he's been told this since a cath in 2011 Con't Nitro drip Discussed with CT surgery Consideration of TMR Not available here Possible transfer to [facility] if they have available Otherwise not much to offer No currently on his Ranexa, will restart, hopefully it will help 2) Acute on chronic CHF Con't diuresis as heart failure will exacerbate his angina 3) CKD Creatinine stable Discussed increasing his diuretic He's concerned about his kidney function and worsening of the kidneys (2) CHF exacerbation Qualifiers: Heart failure type: systolic Qualified Code(s): I50.23 - Acute on chronic systolic (congestive) heart failure
[2018-07-30 05:44] LABS: Baso % (Auto) 0.2 % (0.0-2.0); Hematocrit 25.9 % (39.0-51.0); Hemoglobin 8.1 gm/dL (13.0-17.0); Lymph # (Auto) 0.6 th/mm3 (1.0-4.8); Lymph % (Auto) 12.6 % (9.0-44.0); Mean Corpuscular HGB Conc 31.2 % (32.0-36.0); Mean Corpuscular Hemoglobin 22.6 pg (27.0-34.0); Mean Corpuscular Volume 72.6 fL (80.0-100.0); Mean Platelet Volume 8.7 fL (7.0-11.0); Mono # (Auto) 0.3 th/mm3 (0.0-0.9); Mono % (Auto) 6.8 % (0.0-8.0); Neut % (Auto) 80.4 % (16.0-70.0); Platelet Count 97 th/mm3 (150-450); Red Blood Count 3.57 mil/mm3 (4.50-5.90); Red Cell Distribution Width 20.1 % (11.6-17.2)
[2018-07-30 05:45] LABS: Calcium 8.8 mg/dL (8.5-10.1); Carbon Dioxide 30.5 meq/L (21.0-32.0)
[2018-07-30 07:18] LABS: Ovalocytes 1+
[2018-07-30] MEDS: Isosorbide Mononitrate 60 MG ER 24HR Tablet (Imdur) PO SCH (08:28)
[2018-07-30] MEDS: Gabapentin 100 MG Capsule PO SCH ×3 (08:29→17:52)
[2018-07-30] MEDS: Ranolazine 500 MG 12HR ER Tablet PO SCH ×2 (08:29→21:24)
[2018-07-30] MEDS: amLODIPine 10 MG Tablet PO SCH (08:29)
[2018-07-30] MEDS: predniSONE 20 MG Tablet PO SCH ×2 (08:29→21:25)
[2018-07-30] MEDS: Nitroglycerin Drip Premix 50 MG/250 ML BOTTLE IV.CONT PRN (08:30)
[2018-07-30] MEDS: Insulin NovoLOG Aspart Correctional Sugar Inj SQ SCH ×4 (08:30→22:22)
[2018-07-30] MEDS: Carboxymethylcellulose 0.5% Opth Drops 15 ML Bottle EACH EYE PRN (08:32)
[2018-07-30] MEDS: Artificial Tears Opth Drops 15 ML Bottle EACH EYE PRN (08:32)
--- NOTE | 2018-07-30 11:56 | P.PNFP ---
Subjective Interval history: Patient seen and examined this morning. No acute events overnight. Patient denies nausea, vomiting, fever, chills, abdominal pain, chest pain, shortness of breath, lightheadedness, dizziness, left arm or jaw pain, weakness. Reviewed current plan with patient and patient's fianc. They agreed with current plan to attempt to transfer patient for potential TMR with his previous cardiac surgeon. They understand that this is a possibility, and are willing to speak about medical management if this is unable to happen. No other complaints at this time. <Denny Steel - 07/30/18 15:10> Results - Labs Result diagrams: 07/30/18 04:49 07/30/18 04:49 <Denny Garza - 07/30/18 17:48> Abnormal lab results 07/29/18 07/30/18 07/30/18 Range/Units 20:13 04:49 04:49 RBC 3.57 L (4.50-5.90) mil/mm3 Hgb 8.1 L (13.0-17.0) gm/dL Hct 25.9 L (39.0-51.0) % MCV 72.6 L (80.0-100.0) fL MCH 22.6 L (27.0-34.0) pg MCHC 31.2 L (32.0-36.0) % RDW 20.1 H (11.6-17.2) % Plt Count 97 L (150-450) th/mm3 Neut % (Auto) 80.4 H (16.0-70.0) % Lymph # (Auto) 0.6 L (1.0-4.8) th/mm3 Platelet Estimate Low L (Normal) Platelet Morphology Enlarged H (Normal) Ovalocytes 1+ H (None) BUN 38 H (7-18) mg/dL Creatinine 1.95 H (0.60-1.30) mg/dL Estimated GFR 34 L (>89) mL/min POC Glucose 220 H (68-110) mg/dl Random Glucose 192 H (74-106) mg/dL 07/30/18 07/30/18 07/30/18 Range/Units 07:48 12:02 17:27 RBC (4.50-5.90) mil/mm3 Hgb (13.0-17.0) gm/dL Hct (39.0-51.0) % MCV (80.0-100.0) fL MCH (27.0-34.0) pg MCHC (32.0-36.0) % RDW (11.6-17.2) % Plt Count (150-450) th/mm3 Neut % (Auto) (16.0-70.0) % Lymph # (Auto) (1.0-4.8) th/mm3 Platelet Estimate (Normal) Platelet Morphology (Normal) Ovalocytes (None) BUN (7-18) mg/dL Creatinine (0.60-1.30) mg/dL Estimated GFR (>89) mL/min POC Glucose 198 H 252 H 281 H (68-110) mg/dl Random Glucose (74-106) mg/dL Short CBC 07/30/18 Range/Units 04:49 WBC 5.0 (4.0-11.0) th/mm3 Hgb 8.1 L (13.0-17.0) gm/dL Hct 25.9 L (39.0-51.0) % Plt Count 97 L (150-450) th/mm3 BMP 07/30/18 04:49 Sodium 138 Potassium 4.0 Chloride 99 Carbon Dioxide 30.5 BUN 38 H Creatinine 1.95 H Calcium 8.8 <Young,Denny L - 07/30/18 17:48> Abnormal lab results 07/29/18 07/29/18 07/30/18 Range/Units 17:05 20:13 04:49 RBC 3.57 L (4.50-5.90) mil/mm3 Hgb 8.1 L (13.0-17.0) gm/dL Hct 25.9 L (39.0-51.0) % MCV 72.6 L (80.0-100.0) fL MCH 22.6 L (27.0-34.0) pg MCHC 31.2 L (32.0-36.0) % RDW 20.1 H (11.6-17.2) % Plt Count 97 L (150-450) th/mm3 Neut % (Auto) 80.4 H (16.0-70.0) % Lymph # (Auto) 0.6 L (1.0-4.8) th/mm3 Platelet Estimate Low L (Normal) Platelet Morphology Enlarged H (Normal) Ovalocytes 1+ H (None) BUN (7-18) mg/dL Creatinine (0.60-1.30) mg/dL Estimated GFR (>89) mL/min POC Glucose 231 H 220 H (68-110) mg/dl Random Glucose (74-106) mg/dL 07/30/18 07/30/18 Range/Units 04:49 07:48 RBC (4.50-5.90) mil/mm3 Hgb (13.0-17.0) gm/dL Hct (39.0-51.0) % MCV (80.0-100.0) fL MCH (27.0-34.0) pg MCHC (32.0-36.0) % RDW (11.6-17.2) % Plt Count (150-450) th/mm3 Neut % (Auto) (16.0-70.0) % Lymph # (Auto) (1.0-4.8) th/mm3 Platelet Estimate (Normal) Platelet Morphology (Normal) Ovalocytes (None) BUN 38 H (7-18) mg/dL Creatinine 1.95 H (0.60-1.30) mg/dL Estimated GFR 34 L (>89) mL/min POC Glucose 198 H (68-110) mg/dl Random Glucose 192 H (74-106) mg/dL Short CBC 07/30/18 Range/Units 04:49 WBC 5.0 (4.0-11.0) th/mm3 Hgb 8.1 L (13.0-17.0) gm/dL Hct 25.9 L (39.0-51.0) % Plt Count 97 L (150-450) th/mm3 [facility] 07/30/18 04:49 Sodium 138 Potassium 4.0 Chloride 99 Carbon Dioxide 30.5 BUN 38 H Creatinine 1.95 H Calcium 8.8 <Faille R2,Rolf - 07/30/18 11:56> Physical Exam Vital signs: Vital Signs 07/29/18 18:00 07/29/18 19:00 07/29/18 20:00 Temperature 99 F Pulse Rate 90 86 86 Respiratory Rate 22 Blood Pressure 137/73 Pulse Oximetry 95 98 07/29/18 21:00 07/29/18 21:49 07/29/18 22:00 Temperature Pulse Rate 86 94 H Respiratory Rate Blood Pressure Pulse Oximetry 94 L 07/29/18 23:00 07/30/18 00:00 07/30/18 01:00 Temperature 98.8 F Pulse Rate 90 82 89 Respiratory Rate 22 Blood Pressure 142/67 H Pulse Oximetry 95 96 07/30/18 02:00 07/30/18 03:00 07/30/18 04:00 Temperature 98 F Pulse Rate 90 89 81 Respiratory Rate 18 Blood Pressure 141/63 H Pulse Oximetry 97 07/30/18 05:00 07/30/18 05:58 07/30/18 07:00 Temperature Pulse Rate 86 86 80 Respiratory Rate Blood Pressure Pulse Oximetry 98 07/30/18 08:00 07/30/18 09:00 07/30/18 10:00 Temperature 97.8 F Pulse Rate 100 H 78 82 Respiratory Rate 18 Blood Pressure 142/74 H Pulse Oximetry 99 99 07/30/18 11:00 07/30/18 12:00 07/30/18 13:00 Temperature 97.7 F Pulse Rate 82 78 81 Respiratory Rate 18 Blood Pressure 130/59 L Pulse Oximetry 96 96 07/30/18 14:00 07/30/18 15:00 Temperature Pulse Rate 86 79 Respiratory Rate Blood Pressure Pulse Oximetry Intake & Output 07/29/18 07/30/18 07/30/18 18:59 06:59 18:59 Intake Total 1450 / 1450 720 / 720 250 / 250 Output Total 1150 / 1150 1120 / 1120 Balance 300 / 300 -400 / -400 250 / 250 Weight 118.5 kg Intake: IV 250 / 250 250 / 250 Nitroglycerin Drip Premix 50 mg 250 / 250 250 / 250 In 250 ml @ 5 MCG/MIN 1.5 mls/ hr IV.CONT TITRATE PRN Rx#: [id number] Oral 1200 / 1200 720 / 720 Output: Urine 1150 / 1150 1120 / 1120 Other: # Voids 5 5 Date of Last Bowel Movement 07/25/18 07/30/18 07/30/18 # Bowel Movements 0 <Denny Garza L - 07/30/18 17:48> Vital Signs 07/29/18 12:00 07/29/18 13:00 07/29/18 14:00 Temperature 98.3 F Pulse Rate 92 H 93 H 88 Respiratory Rate 20 Blood Pressure 128/60 Pulse Oximetry 96 07/29/18 15:00 07/29/18 16:00 07/29/18 17:00 Temperature 97.9 F Pulse Rate 90 80 84 Respiratory Rate 22 Blood Pressure 134/62 Pulse Oximetry 98 98 07/29/18 18:00 07/29/18 19:00 07/29/18 20:00 Temperature 99 F Pulse Rate 90 86 86 Respiratory Rate 22 Blood Pressure 137/73 Pulse Oximetry 95 98 07/29/18 21:00 07/29/18 21:49 07/29/18 22:00 Temperature Pulse Rate 86 94 H Respiratory Rate Blood Pressure Pulse Oximetry 94 L 07/29/18 23:00 07/30/18 00:00 07/30/18 01:00 Temperature 98.8 F Pulse Rate 90 82 89 Respiratory Rate 22 Blood Pressure 142/67 H Pulse Oximetry 95 96 07/30/18 02:00 07/30/18 03:00 07/30/18 04:00 Temperature 98 F Pulse Rate 90 89 81 Respiratory Rate 18 Blood Pressure 141/63 H Pulse Oximetry 97 07/30/18 05:00 07/30/18 05:58 07/30/18 07:00 Temperature Pulse Rate 86 86 80 Respiratory Rate Blood Pressure Pulse Oximetry 98 07/30/18 08:00 07/30/18 09:00 07/30/18 10:00 Temperature 97.8 F Pulse Rate 100 H 78 82 Respiratory Rate 18 Blood Pressure 142/74 H Pulse Oximetry 99 99 07/30/18 11:00 Temperature Pulse Rate 82 Respiratory Rate Blood Pressure Pulse Oximetry Intake & Output 07/29/18 07/30/18 07/30/18 18:59 06:59 18:59 Intake Total 1450 / 1450 720 / 720 250 / 250 Output Total 1150 / 1150 1120 / 1120 Balance 300 / 300 -400 / -400 250 / 250 Weight 118.5 kg Intake: IV 250 / 250 250 / 250 Nitroglycerin Drip Premix 50 mg 250 / 250 250 / 250 In 250 ml @ 5 MCG/MIN 1.5 mls/ hr IV.CONT TITRATE PRN Rx#: [id number] Oral 1200 / 1200 720 / 720 Output: Urine 1150 / 1150 1120 / 1120 Other: # Voids 5 5 Date of Last Bowel Movement 07/25/18 07/30/18 07/30/18 # Bowel Movements 0 <Faille Denny Perez - 07/30/18 11:56> Narrative: Narrative: General: Obese, laying in bed, no distress Skin: No rashes or lesions HEENT: Normocephalic, no conjunctivitis, no nasal discharge Neck: Supple, endarterectomy scar, no thyromegaly or lymphadenopathy CV: RRR, no murmurs, rubs, or gallops, regular pulses, normal cap refill Lungs: Has mild expiratory wheezing bilaterally, improved inspiratory airflow. Abdomen: Soft, obese. Ext: Mild pitting edema. Neuro: Awake, alert <Denny Steel - 07/30/18 15:10> Assessment and Plan - Assessment (1) NSTEMI (non-ST elevated myocardial infarction) Code(s): I21.4 - Non-ST elevation (NSTEMI) myocardial infarction Status: Acute (2) CHF exacerbation Code(s): I50.9 - Heart failure, unspecified Status: Acute (3) COPD exacerbation Code(s): J44.1 - Chronic obstructive pulmonary disease with (acute) exacerbation Status: Acute (4) DM2 (diabetes mellitus, type 2) Code(s): E11.9 - Type 2 diabetes mellitus without complications Status: Acute (5) Coronary artery disease Code(s): I25.10 - Atherosclerotic heart disease of [place] coronary artery without angina pectoris Status: Acute (6) History of CVA (cerebrovascular accident) Code(s): Z86.73 - Personal history of transient ischemic attack (TIA), and cerebral infarction without residual deficits Status: Acute (7) CKD (chronic kidney disease) stage 3, GFR 30-59 ml/min Code(s): N18.3 - Chronic kidney disease, stage 3 (moderate) Status: Acute (8) BPH (benign prostatic hyperplasia) Code(s): N40.0 - Benign prostatic hyperplasia without lower urinary tract symptoms Status: Acute (9) Gastritis Code(s): K29.70 - Gastritis, unspecified, without bleeding Status: Acute (10) Smoker Code(s): F17.200 - Nicotine dependence, unspecified, uncomplicated Status: Acute <Denny Garza - 07/30/18 17:48> (1) NSTEMI (non-ST elevated myocardial infarction) Code(s): I21.4 - Non-ST elevation (NSTEMI) myocardial infarction Status: Acute Plan: Likely N-STEMI, status post cardiac catheterization 07/26/17. 07/24 grafts patent. -Continuing medical management. Currently on nitro drip. -Continue Imdur, Plavix, aspirin, amlodipine, metoprolol -Palliative care on board to assist with goals of care -Cardiology On Board. Appreciate recommendations. -Cardiothoracic surgery recommends against reoperative surgical intervention due to prohibitive risk secondary to his significant medical comorbidities, morbid obesity, cardiomyopathy as well as pulmonary and renal insufficiency. May benefit from being transferred to his previous cardiac surgeon for possible TMR. Cardiothoracic surgery currently attempting to obtain records to properly identify previous cardiac surgeon and to further discuss transfer with that surgeon. (2) CHF exacerbation Code(s): I50.9 - Heart failure, unspecified Status: Acute Plan: ECHO: Mild LVH, EF 40-45%, left atrial mild dilation, aortic valve sclerosis, pulmonary pressure 48 X-ray: Mild cardiomegaly, pulmonary congestion, no obvious pneumonia - Continue Bumex 1 mg bid for diuresis - Monitor intake and output. - Continue metoprolol, Imdur. May benefit from TALHA inhibitor but possibly with acute kidney injury so will hold off. - Continue telemetry, review daily - Keep head of bed elevated to 30 degrees - O2 walk test before discharge - O2 supplementation to target 88-93% O2 Sat (3) COPD exacerbation Code(s): J44.1 - Chronic obstructive pulmonary disease with (acute) exacerbation Status: Acute Plan: Symptoms most consistent with CHF exacerbation, may be component of COPD exacerbation. Has some mild diffuse wheezing on exam. - Will probably have some baseline of wheezing due to metoprolol and side effects of bronchospasm. Benefits of metoprolol with improving mortality for CHF outweighs bronchospasm at this time. Will continue on metoprolol. - Continue Atrovent and Symbicort for maintenance - DuoNebs once a day, albuterol as needed - Prednisone 40 mg daily (4) DM2 (diabetes mellitus, type 2) Code(s): E11.9 - Type 2 diabetes mellitus without complications Status: Acute Plan: SSI w/accuchecks Con't home Gabapentin TID (5) Coronary artery disease Code(s): I25.10 - Atherosclerotic heart disease of [place] coronary artery without angina pectoris Status: Acute Plan: History of CABG and stable angina. - Continue high dose statin, Plavix and aspirin - Continue Ranolazine, Imdur (6) History of CVA (cerebrovascular accident) Code(s): Z86.73 - Personal history of transient ischemic attack (TIA), and cerebral infarction without residual deficits Status: Acute Plan: See above, con't home meds (7) CKD (chronic kidney disease) stage 3, GFR 30-59 ml/min Code(s): N18.3 - Chronic kidney disease, stage 3 (moderate) Status: Acute Plan: Avoid nephrotoxic meds Creatinine increased to 2.20 from 2.05 today. Due to CHF caution with fluids. Will continue to monitor. See above plan Daily BMP (8) BPH (benign prostatic hyperplasia) Code(s): N40.0 - Benign prostatic hyperplasia without lower urinary tract symptoms Status: Acute Plan: Con't home Terazosin 4 mg daily (9) Gastritis Code(s): K29.70 - Gastritis, unspecified, without bleeding Status: Acute Plan: Con't home protonix daily (10) Smoker Code(s): F17.200 - Nicotine dependence, unspecified, uncomplicated Status: Acute Plan: Nicotine patches daily Encourage cessation Fluids: by mouth Electrolytes: monitor Nutrition: Diabetic diet DVT prophylaxis: plavix, aspirin, and SCDs <Denny Steel - 07/30/18 15:01> - Assessment and Plan 77-year-old male with past medical history of CHF, COPD presents with right- sided chest pain found to have NSTEMI. Elevated troponins. Status post cardiac catheterization. Continuing with medical management for NSTEMI. <Denny Steel - 07/30/18 11:56> - Attending Attestation The exam, history, and the medical decision-making described in the above note were completed with the assistance of the resident physician. I reviewed and agree with the findings presented. I attest that I had a [id number] encounter with the patient on the same day, and personally performed and documented my assessment and findings in the medical record. I evaluated patient in the afternoon and discussed management plan with resident. Plan is to attempt to proceed with transfer back to his established cardiothoracic surgeon, if this is feasible. Continue to discuss options with patient, including the pursuit of aggressive management versus comfort measures. Palliative care, cardiology, and cardiothoracic surgery are on board. <Denny Garza - 07/30/18 17:48> <Denny Steel - Last Filed: 07/30/18 15:01> (2) CHF exacerbation Qualifiers: Heart failure type: systolic Qualified Code(s): I50.23 - Acute on chronic systolic (congestive) heart failure <Denny Garza - Last Filed: 07/30/18 17:48> (2) CHF exacerbation Qualifiers: Heart failure type: systolic Qualified Code(s): I50.23 - Acute on chronic systolic (congestive) heart failure <Denny Steel - Last Filed: 07/30/18 15:01> (2) CHF exacerbation Qualifiers: Heart failure type: systolic Qualified Code(s): I50.23 - Acute on chronic systolic (congestive) heart failure <Denny Garza - Last Filed: 07/30/18 17:48> (2) CHF exacerbation Qualifiers: Heart failure type: systolic Qualified Code(s): I50.23 - Acute on chronic systolic (congestive) heart failure
--- NOTE | 2018-07-30 12:46 | P.PNPAL ---
Reason for Visit Reason for visit: a. To assist with evaluation and management of symptoms including: pain, dyspnea b. To assist medical decision maker(s) with: better understanding of current medical conditions; weighing benefits/burdens of medical treatment options; making medical treatment decisions. Subjective Subjective/Interval History: This is a 77-year-old male with a past medical history significant for CHF, COPD was not previously oxygen dependent, chronic kidney disease stage III, previous CVA, diabetes, obesity, obstructive sleep apnea, known vasculopathy. He originally presented to the emergency room on 07/23/2018 with a one-week history of worsening shortness of breath, cough with yellow sputum, and fluid weight gain of 11 pounds. He is reportedly had 4 hospitalizations past year for fluid overload, also sees [facility] cad cam programmer was recently recommending a defibrillator due to heart blockage. He was evaluated on 07/24/18 by cardiology for elevated troponins, at that time he alerted Dr. Hoffman he was unable to undergo cardiac cath due to blockages in both femoral arteries and left arm approach. Patient declined cath procedure and elected medical management, Dr. Hoffman opined that was appropriate given overall condition, he also noted that tropnins may also be elevated due to chronic illnesses (creatinine >2). He was started on a Heparin gtt, aspirin, Plavix, high dose statin, metoprolol. On 07/26/17, he began having chest pain after heparin was stopped. His chest pain was not controlled by nitro as it was in the past and was called a Hallicat. He continued to decline cardiac cath. He was again seen by cardiology advised urgent cath, he eventually agreed. Per cath report, "does not appear to have lesions amenable to PCI at this time," recommended continuation of medical management for NSTEMI. Labs today: WBC 6 hemoglobin 8.2, hematocrit 26.1, platelet 102, sodium 138, potassium 4.1, chloride 102, carbon dioxide 29.4, BUN 31, creatinine 2.05, GFR 32, glucose 191, calcium 8.9 Patient seen and examined sitting at side of his bed. Remains on CPAP breathing comfortably. Nitro drip has been titrated down to 48.3 mics per minute. He reports to me that Dr. Desai visited today, advised him that they are trying to get him evaluated by Dr. Hi at the [facility] with hopes for TMR. He reports plan is to try to wean nitro, however I voiced to him that I have concerns about weaning as he has had significant increases over the past several days. He is quite pleased that it has been titrated down to its current rate. If he is not a candidate for TMR he will likely transition to oriented care, briefly discussed possible plans if that is the case. Advised I will follow-up with him on Thursday, and advised to call before then if he needs anything. Advance Directives Living Will: Copy in medical record Health Care Surrogate: Copy in medical record Durable Power of Bioinformatics Software Engineer: Copy in medical record Objective Vital Signs: Vital Signs 07/29/18 13:00 07/29/18 14:00 07/29/18 15:00 Temperature Pulse Rate 93 H 88 90 Respiratory Rate Blood Pressure Pulse Oximetry 98 07/29/18 16:00 07/29/18 17:00 07/29/18 18:00 Temperature 97.9 F Pulse Rate 80 84 90 Respiratory Rate 22 Blood Pressure 134/62 Pulse Oximetry 98 07/29/18 19:00 07/29/18 20:00 07/29/18 21:00 Temperature 99 F Pulse Rate 86 86 86 Respiratory Rate 22 Blood Pressure 137/73 Pulse Oximetry 95 98 07/29/18 21:49 07/29/18 22:00 07/29/18 23:00 Temperature Pulse Rate 94 H 90 Respiratory Rate Blood Pressure Pulse Oximetry 94 L 07/30/18 00:00 07/30/18 01:00 07/30/18 02:00 Temperature 98.8 F Pulse Rate 82 89 90 Respiratory Rate 22 Blood Pressure 142/67 H Pulse Oximetry 95 96 07/30/18 03:00 07/30/18 04:00 07/30/18 05:00 Temperature 98 F Pulse Rate 89 81 86 Respiratory Rate 18 Blood Pressure 141/63 H Pulse Oximetry 97 98 07/30/18 05:58 07/30/18 07:00 07/30/18 08:00 Temperature 97.8 F Pulse Rate 86 80 100 H Respiratory Rate 18 Blood Pressure 142/74 H Pulse Oximetry 99 07/30/18 09:00 07/30/18 10:00 07/30/18 11:00 Temperature Pulse Rate 78 82 82 Respiratory Rate Blood Pressure Pulse Oximetry 99 Intake & Output 07/29/18 07/30/18 07/30/18 18:59 06:59 18:59 Intake Total 1450 / 1450 720 / 720 250 / 250 Output Total 1150 / 1150 1120 / 1120 Balance 300 / 300 -400 / -400 250 / 250 Weight 118.5 kg Intake: IV 250 / 250 250 / 250 Nitroglycerin Drip Premix 50 mg 250 / 250 250 / 250 In 250 ml @ 5 MCG/MIN 1.5 mls/ hr IV.CONT TITRATE PRN Rx#: [id number] Oral 1200 / 1200 720 / 720 Output: Urine 1150 / 1150 1120 / 1120 Other: # Voids 5 5 Date of Last Bowel Movement 07/25/18 07/30/18 07/30/18 # Bowel Movements 0 Physical Exam: CONSTITUTIONAL/GENERAL: This is an adequately nourished patient, in no apparent distress. TUBES/LINES/DRAINS: PIV, BiPAP SKIN: Left upper arm IV infiltrate. Skin otherwise intact and appropriately warm EYES: Pupils equal and round and reactive. Extraocular motions intact. No scleral icterus. No injection or drainage. Fundi not examined. ENT: Hearing grossly normal. Nose without bleeding or purulent drainage. Throat without visible erythema, exudates, masses, or lesions. CARDIOVASCULAR: Regular rate and rhythm. On nitro drip for chest pain no JVD. RESPIRATORY/CHEST: Symmetric, unlabored respirations. Clear to auscultation. Has CPAP in place GASTROINTESTINAL: Abdomen soft, non-tender, nondistended. No hepato-splenomegaly , or palpable masses. No guarding. Bowel sounds present. GENITOURINARY: Without palpable bladder distension. Rowan catheter in place. MUSCULOSKELETAL: Extremities without clubbing, cyanosis, or edema. No joint tenderness or effusion noted. No calf tenderness. No mottling or clubbing. NEUROLOGICAL: Awake and alert. Motor and sensory grossly within normal limits. Follows commands. Cognitively sharp. Moves all extremities. PSYCHIATRIC: No obvious anxiety/depression. no apparent hallucinations or other psychotic thought process. Diagnostic Tests Laboratory: Laboratory Results - last 72 hr 07/27/18 07/27/18 07/28/18 16:57 21:50 03:58 WBC 6.0 RBC 3.60 L Hgb 8.2 L Hct 26.1 L MCV 72.3 L MCH 22.7 L MCHC 31.4 L RDW 20.5 H Plt Count 102 L MPV 8.3 Prelim Diff (Auto) Neut % (Auto) 83.3 H Lymph % (Auto) 10.4 [place] % (Auto) 6.1 Eos % (Auto) 0.0 Baso % (Auto) 0.2 Neut # (Auto) 5.0 Lymph # (Auto) 0.6 L [place] # (Auto) 0.4 Eos # (Auto) 0.0 Baso # (Auto) 0.0 WBC Differential . Diff Scan Differential Comment Auto diff final Platelet Estimate Platelet Morphology Ovalocytes Sodium Potassium Chloride Carbon Dioxide Anion Gap BUN Creatinine Estimated GFR POC Glucose 194 H 209 H Random Glucose Calcium 07/28/18 07/28/18 07/28/18 03:58 07:38 11:54 WBC RBC Hgb Hct MCV MCH MCHC RDW Plt Count MPV Prelim Diff (Auto) Neut % (Auto) Lymph % (Auto) [place] % (Auto) Eos % (Auto) Baso % (Auto) Neut # (Auto) Lymph # (Auto) [place] # (Auto) Eos # (Auto) Baso # (Auto) WBC Differential Diff Scan Differential Comment Platelet Estimate Platelet Morphology Ovalocytes Sodium 138 Potassium 4.1 Chloride 102 Carbon Dioxide 29.4 Anion Gap 7 BUN 31 H Creatinine 2.05 H Estimated GFR 32 L POC Glucose 191 H 200 H Random Glucose 177 H Calcium 8.9 07/28/18 07/28/18 07/29/18 17:03 21:38 02:54 WBC 5.6 RBC 3.67 L Hgb 8.3 L Hct 26.4 L MCV 72.0 L MCH 22.6 L MCHC 31.4 L RDW 19.6 H Plt Count 100 L MPV 8.7 Prelim Diff (Auto) Neut % (Auto) Lymph % (Auto) [place] % (Auto) Eos % (Auto) Baso % (Auto) Neut # (Auto) Lymph # (Auto) [place] # (Auto) Eos # (Auto) Baso # (Auto) WBC Differential Diff Scan Differential Comment Platelet Estimate Platelet Morphology Ovalocytes Sodium Potassium Chloride Carbon Dioxide Anion Gap BUN Creatinine Estimated GFR POC Glucose 197 H 180 H Random Glucose Calcium 07/29/18 07/29/18 07/29/18 02:54 08:45 11:51 WBC RBC Hgb Hct MCV MCH MCHC RDW Plt Count MPV Prelim Diff (Auto) Neut % (Auto) Lymph % (Auto) [place] % (Auto) Eos % (Auto) Baso % (Auto) Neut # (Auto) Lymph # (Auto) [place] # (Auto) Eos # (Auto) Baso # (Auto) WBC Differential Diff Scan Differential Comment Platelet Estimate Platelet Morphology Ovalocytes Sodium 138 Potassium 4.1 Chloride 102 Carbon Dioxide 30.3 Anion Gap 6 BUN 36 H Creatinine 2.20 H Estimated GFR 29 L POC Glucose 182 H 220 H Random Glucose 222 H Calcium 8.6 07/29/18 07/29/18 07/30/18 17:05 20:13 04:49 WBC 5.0 RBC 3.57 L Hgb 8.1 L Hct 25.9 L MCV 72.6 L MCH 22.6 L MCHC 31.2 L RDW 20.1 H Plt Count 97 L MPV 8.7 Prelim Diff (Auto) Slide review pending Neut % (Auto) 80.4 H Lymph % (Auto) 12.6 [place] % (Auto) 6.8 Eos % (Auto) 0.0 Baso % (Auto) 0.2 Neut # (Auto) 4.0 Lymph # (Auto) 0.6 L [place] # (Auto) 0.3 Eos # (Auto) 0.0 Baso # (Auto) 0.0 WBC Differential . Diff Scan Auto diff confirmed Differential Comment . Platelet Estimate Low L Platelet Morphology Enlarged H Ovalocytes 1+ H Sodium Potassium Chloride Carbon Dioxide Anion Gap BUN Creatinine Estimated GFR POC Glucose 231 H 220 H Random Glucose Calcium 07/30/18 07/30/18 07/30/18 04:49 07:48 12:02 WBC RBC Hgb Hct MCV MCH MCHC RDW Plt Count MPV Prelim Diff (Auto) Neut % (Auto) Lymph % (Auto) [place] % (Auto) Eos % (Auto) Baso % (Auto) Neut # (Auto) Lymph # (Auto) [place] # (Auto) Eos # (Auto) Baso # (Auto) WBC Differential Diff Scan Differential Comment Platelet Estimate Platelet Morphology Ovalocytes Sodium 138 Potassium 4.0 Chloride 99 Carbon Dioxide 30.5 Anion Gap 9 BUN 38 H Creatinine 1.95 H Estimated GFR 34 L POC Glucose 198 H 252 H Random Glucose 192 H Calcium 8.8 Result Diagrams: 07/30/18 04:49 07/30/18 04:49 Assessment and Plan - Symptom Scale (1) Pain 0-10 Scale: Unable to quantify (2) Dyspnea 0-10 Scale: Unable to quantify (3) Weakness 0-10 Scale: Unable to quantify Pertinent Non-Medical Issues: Psychosocial: Patient is 3 times. 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 He has significant other for the past 13 years, danii, and 6 children aged 54-13. Spiritual: Team Leader Surgery available Legal: Patient is capacitated to make his own decisions. He has healthcare surrogate and living well Ethical issues impacting care: None Important Contacts: Significant other Gifty [place] [phone] Prognosis: Patient has extensive cardiac history, remote history of 5 vessel CABG, 4 of 5 vessels are now occluded. Having continuous chest pain requiring a nitro drip in large doses and has been unable to be weaned. Was previously not on oxygen, now requiring continuous CPAP. Not likely a surgical candidate for any further aggressive type treatments due to multiple other comorbid illnesses. Life expectancy is limited. Would be medically eligible for hospice services if goals were appropriate Code Status: Alternative Code (DO NOT INTUBATE) Plan: Legal decision maker: Patient currently capacitated make his own decisions. Patient has healthcare surrogate and power of regulatory attorney designating his significant other danii as healthcare decision maker. Goals: Remain aggressive short of intubation. Awaiting cardiovascular surgery evaluation/recommendations. Patient and family considering transition to comfort if no reasonable recommendations are offered. Spoke with Dr. Desai who agrees with the following recommendations only if patient transitions to comfort: Start nitro patch at 0.2 mg/h, titrate to max dose of 0.6 mg/h. Start scheduled morphine 2 mg IV every 3 hours ATC. Wean nitro as tolerated, once nitro weaned off, since changed to oral long-acting morphine at indicated dose. Consult hospice if goals are to return home with comfort CODE STATUS: DO NOT INTUBATE SYMPTOMS: --chest pain: Has been on Nitro chronically at home. Reports frequent use. Us having difficulty understanding different medications and proper use. Is not able to be weaned from Nitro gtt, currently at 50 mcg per minute. Will need ongoing discussion about D/C plans and plans for weaning nitro. Pending surgical evaluation. --Dyspnea: He is having ongoing SOB, now requiring continuous BiPAP/CPAP. Is having difficulty understanding progression of heart failure, though has good understanding of his options being limited. Patient and his family now requesting DO NOT INTUBATE. Palliative care will continue to follow during hospital course as condition evolves, to assist patient/decision-maker with understanding of medical conditions, weighing benefits/burdens of treatment options, for clarification of goals of treatment. Additionally will assist with any symptoms of palliative concern Attestation Collaborating MD Comments: Dr. Carcamo Attestation: To help prompt me to consider important information that might be impacting today's encounter and assessment, information from prior notes written by myself or my colleagues may have been "brought forward" into today's note. My signature on this note, however, is an attestation that I personally performed the exam, history, and/or decision-making noted today, and, unless otherwise indicated, the interactions with patient, family, and staff as well as the review of records all occurred today. I also attest that the listed assessment and stated plan reflect my best clinical judgment today based on the combination of historical information, prior notes, and today's exam/ interactions. When time spent is documented, it refers only to time spent today by the signer, or if indicated, combined time spent today by collaborating physician/nurse practitioner.
--- NOTE | 2018-07-30 21:58 | P.PNCA ---
Subjective Interval history: No events overnight Still on Nitro drip at 50mcg/min Medications and Allergies Active Medications: Active Medications Al Hydroxide/Mg Hydroxide (Milk Of Magnalin Liq) 30 ml PO Q12H PRN PRN Reason: Mild Constipation Albuterol (Albuterol Neb (Prn)) 2.5 mg NEB Q2HR NEB PRN PRN Reason: SHORTNESS OF BREATH Last Admin: 07/27/18 18:15 Dose: 2.5 mg Amlodipine Besylate (Norvasc) 10 mg PO DAILY [facility] Last Admin: 07/30/18 08:29 Dose: 10 mg Artificial Tears (Refresh Tears 0.5% Opth Drops) 1 drop EACH EYE Q4H PRN PRN Reason: Eye Irritation Last Admin: 07/30/18 08:32 Dose: 1 drop Artificial Tears (Tears Naturale Opth Drops) 1 drop EACH EYE Q4H PRN PRN Reason: Eye dryness Last Admin: 07/30/18 08:32 Dose: 1 drop Aspirin (Aspirin Chew) 81 mg PO DAILY [facility] Last Admin: 07/30/18 08:28 Dose: 81 mg Atorvastatin Calcium (Lipitor) 80 mg PO QPM [facility] Last Admin: 07/30/18 17:53 Dose: 80 mg Bisacodyl (Dulcolax Supp) 10 mg RECTAL DAILY PRN PRN Reason: SEVERE CONSITIPATION Budesonide/Formoterol Fumarate (Symbicort 160/4.5 Mcg Inh) 2 puff INH BID [facility] Last Admin: 07/24/18 01:04 Dose: Not Given Bumetanide (Bumex Inj) 1 mg IV.PUSH BID [facility] Last Admin: 07/30/18 21:25 Dose: 1 mg Clopidogrel Bisulfate (Plavix) 75 mg PO DAILY [facility] Last Admin: 07/30/18 08:29 Dose: 75 mg Dextrose (D50w Vial) 50 ml IV.PUSH UNSCH PRN PRN Reason: PER HYPOGLYCEMIA PROTOCOL Gabapentin (Neurontin) 100 mg PO TID [facility] Last Admin: 07/30/18 17:52 Dose: 100 mg Glucagon (Glucagon Inj) 1 mg OTHER PRN PRN PRN Reason: for Hypoglycemia Protocol Nitroglycerin/Dextrose (Nitroglycerin Drip Premix) 50 mg in 250 mls @ 1.5 mls/ hr IV.CONT TITRATE PRN; Protocol PRN Reason: Per Protocol Last Titration: 07/30/18 17:00 Dose: 43.33 mcg/min, 13 mls/hr Insulin Aspart (Novolog Insulin Correctional Sugar Inj) 0 unit SQ ACHS [facility]; Protocol Last Admin: 07/30/18 17:53 Dose: 5 unit Isosorbide Mononitrate (Imdur) 120 mg PO DAILY [facility] Last Admin: 07/30/18 08:28 Dose: 120 mg Lactulose (Lactulose Liq) 30 ml PO DAILY PRN PRN Reason: SEVERE CONSITIPATION Metoprolol Succinate (Toprol Xl) 25 mg PO DAILY [facility] Last Admin: 07/30/18 08:29 Dose: 25 mg Morphine Sulfate (Morphine Inj) 1 mg IV.PUSH Q4H PRN PRN Reason: PAIN SCALE 6 TO 10 Last Admin: 07/27/18 09:10 Dose: 1 mg Nicotine (Habitrol 21 Mg Patch.24 Hr) 1 patch T-DERMAL DAILY [facility] Last Admin: 07/26/18 09:27 Dose: 1 patch Nitroglycerin (Nitrostat Sl) 0.4 mg SL Q5M PRN PRN Reason: Chest Pain Last Admin: 07/27/18 00:55 Dose: 0.4 mg Ondansetron HCl (Zofran Inj) 4 mg IV.PUSH Q6H PRN PRN Reason: NAUSEA OR VOMITING Pantoprazole Sodium (Protonix) 40 mg PO BID [facility] Last Admin: 07/30/18 21:25 Dose: 40 mg Prednisone (Deltasone) 20 mg PO BID [facility] Last Admin: 07/30/18 21:25 Dose: 20 mg Ranolazine (Ranexa) 1,000 mg PO BID [facility] Last Admin: 07/30/18 21:24 Dose: 1,000 mg Sennosides (Senokot) 17.2 mg PO Q12H PRN PRN Reason: Moderate Constipation Sodium Chloride (Ns Flush) 2 ml IV.FLUSH BID [facility] Last Admin: 07/30/18 21:26 Dose: 2 ml Sodium Chloride (Ns Flush) 2 ml IV.FLUSH PRN PRN PRN Reason: FLUSH AFTER USING IV ACCESS Terazosin HCl (Hytrin) 4 mg PO DAILY [facility] Last Admin: 07/30/18 08:28 Dose: 4 mg Zolpidem Tartrate (Ambien) 10 mg PO HS PRN PRN Reason: INSOMNIA Allergies Allergy/AdvReac Type Severity Reaction Status Date / Time acetaminophen Allergy Severe Rash Verified 07/24/18 09:38 aspirin Allergy Severe Rash Verified 07/24/18 09:38 codeine Allergy Severe anaphylaxis Verified 07/24/18 09:38 ferrous sulfate Allergy Severe Rash Verified 07/24/18 09:38 iron Allergy Severe Rash Verified 07/24/18 09:38 oxycodone Allergy Severe Rash Verified 07/24/18 09:38 [place]A AdvReac Severe SYSTEM Uncoded 04/11/14 08:32 SHUTS DOWN Home Medications Medication Instructions Recorded Confirmed Type amlodipine 10 mg PO DAILY 07/23/18 07/23/18 History aspirin 81 mg PO DAILY 07/23/18 07/23/18 History atorvastatin 80 mg PO QPM 07/23/18 07/23/18 History carboxymethylcellulose sodium 1 drp OPHTHALMIC (EYE) Q4-6H PRN 07/23/18 History clopidogrel 75 mg PO DAILY 07/23/18 07/23/18 History cyanocobalamin (vitamin B-12) 1,000 mcg PO DAILY 07/23/18 07/23/18 History furosemide 40 mg PO BID 07/23/18 07/23/18 History glipizide 10 mg PO BID 07/23/18 07/23/18 History ipratropium-albuterol 3 ml INHALATION Q6-8H PRN 07/23/18 07/23/18 History isosorbide mononitrate 120 mg PO DAILY 07/23/18 07/23/18 History metoprolol succinate 25 mg PO DAILY 07/23/18 07/23/18 History nitroglycerin 0.4 mg SUBLINGUAL Q5-15M PRN 07/23/18 07/23/18 History pantoprazole 40 mg PO BID 07/23/18 07/23/18 History ranolazine 1,000 mg PO Q12H 07/23/18 07/23/18 History terazosin 4 mg PO DAILY 07/23/18 07/23/18 History Physical Exam Vital signs: Vital Signs 07/29/18 22:00 07/29/18 23:00 07/30/18 00:00 Temperature 98.8 F Pulse Rate 94 H 90 82 Respiratory Rate 22 Blood Pressure 142/67 H Pulse Oximetry 95 07/30/18 01:00 07/30/18 02:00 07/30/18 03:00 Temperature Pulse Rate 89 90 89 Respiratory Rate Blood Pressure Pulse Oximetry 96 07/30/18 04:00 07/30/18 05:00 07/30/18 05:58 Temperature 98 F Pulse Rate 81 86 86 Respiratory Rate 18 Blood Pressure 141/63 H Pulse Oximetry 97 98 07/30/18 07:00 07/30/18 08:00 07/30/18 09:00 Temperature 97.8 F Pulse Rate 80 100 H 78 Respiratory Rate 18 Blood Pressure 142/74 H Pulse Oximetry 99 99 07/30/18 10:00 07/30/18 11:00 07/30/18 12:00 Temperature 97.7 F Pulse Rate 82 82 78 Respiratory Rate 18 Blood Pressure 130/59 L Pulse Oximetry 96 07/30/18 13:00 07/30/18 14:00 07/30/18 15:00 Temperature Pulse Rate 81 86 79 Respiratory Rate Blood Pressure Pulse Oximetry 96 07/30/18 16:00 07/30/18 17:00 07/30/18 18:00 Temperature 97.7 F Pulse Rate 78 86 74 Respiratory Rate 18 Blood Pressure 154/68 H Pulse Oximetry 97 97 Intake & Output 07/30/18 07/30/18 07/31/18 06:59 18:59 06:59 Intake Total 720 / 720 1210 / 1210 Output Total 1120 / 1120 1475 / 1475 Balance -400 / -400 -265 / -265 Weight 118.5 kg Intake: IV 250 / 250 Nitroglycerin Drip Premix 50 mg 250 / 250 In 250 ml @ 5 MCG/MIN 1.5 mls/ hr IV.CONT TITRATE PRN Rx#: [id number] Oral 720 / 720 960 / 960 Output: Urine 1120 / 1120 1475 / 1475 Other: # Voids 5 Date of Last Bowel Movement 07/30/18 07/30/18 # Bowel Movements 0 Narrative: Narrative: General: Obese, laying in bed, no distress Skin: No rashes or lesions HEENT: Normocephalic, no conjunctivitis, no nasal discharge Neck: Supple, endarterectomy scar, no thyromegaly or lymphadenopathy CV: RRR, no murmurs, rubs, or gallops, regular pulses, normal cap refill Lungs: Has mild expiratory wheezing bilaterally, improved inspiratory airflow. Abdomen: Soft, obese. Ext: Mild pitting edema. Neuro: Awake, alert Results 07/30/18 04:49 07/30/18 04:49 CBC 07/29/18 07/30/18 Range/Units 02:54 04:49 WBC 5.6 5.0 (4.0-11.0) th/mm3 RBC 3.67 L 3.57 L (4.50-5.90) mil/mm3 Hgb 8.3 L 8.1 L (13.0-17.0) gm/dL Hct 26.4 L 25.9 L (39.0-51.0) % Plt Count 100 L 97 L (150-450) th/mm3 Neut # (Auto) 4.0 (1.8-7.7) th/mm3 Lymph # (Auto) 0.6 L (1.0-4.8) th/mm3 [place] # (Auto) 0.3 (0.0-0.9) th/mm3 Eos # (Auto) 0.0 (0.0-0.4) th/mm3 Baso # (Auto) 0.0 (0.0-0.2) th/mm3 Comprehensive Metabolic Panel 07/29/18 07/30/18 Range/Units 02:54 04:49 Sodium 138 138 (136-145) meq/L Potassium 4.1 4.0 (3.5-5.1) meq/L Chloride 102 99 (98-107) meq/L Carbon Dioxide 30.3 30.5 (21.0-32.0) meq/L BUN 36 H 38 H (7-18) mg/dL Creatinine 2.20 H 1.95 H (0.60-1.30) mg/dL Calcium 8.6 8.8 (8.5-10.1) mg/dL Intake and Output 07/30/18 07/30/18 07/30/18 06:59 14:59 22:59 Intake Total 720 / 720 250 / 250 960 / 960 Output Total 1120 / 1120 1475 / 1475 Balance -400 / -400 250 / 250 -515 / -515 Intake: IV 250 / 250 Nitroglycerin Drip Premix 50 mg 250 / 250 In 250 ml @ 5 MCG/MIN 1.5 mls/ hr IV.CONT TITRATE PRN Rx#: [id number] Oral 720 / 720 960 / 960 Output: Urine 1120 / 1120 1475 / 1475 Other: # Voids 5 Date of Last Bowel Movement 07/30/18 07/30/18 07/30/18 # Bowel Movements 0 Weight 118.5 kg Assessment and Plan - Assessment (1) NSTEMI (non-ST elevated myocardial infarction) Code(s): I21.4 - Non-ST elevation (NSTEMI) myocardial infarction Status: Acute Plan: severe complex cad, not amenable to PCI, still w/ cp, put in a CV consult. (2) CHF exacerbation Code(s): I50.9 - Heart failure, unspecified Status: Acute Plan: Doing well on IV bumex, cr stable., elevated lvedp yesterday suggests still room for diuresis (3) CKD (chronic kidney disease) stage 3, GFR 30-59 ml/min Code(s): N18.3 - Chronic kidney disease, stage 3 (moderate) Status: Acute (4) COPD exacerbation Code(s): J44.1 - Chronic obstructive pulmonary disease with (acute) exacerbation Status: Acute - Plan 1) [place] Complex CAD not amendable to PCI Review of old notes, apparently he's been told this since a cath in 2011 Con't Nitro drip Will attempt to wean slowly Concern with staying on a higher dose of tachyphylaxis Discussed with CT surgery Consideration of TMR Not available here Possible transfer to [facility] if they have available Otherwise not much to offer Ranexa restarted 2) Acute on chronic CHF Con't diuresis as heart failure will exacerbate his angina 3) CKD Creatinine better today with diuresis, con't to try to diurese Discussed increasing his diuretic He's concerned about his kidney function and worsening of the kidneys 4) If concerns over the weekend, please call the service for covering physician Attempt to wean nitro as possible (2) CHF exacerbation Qualifiers: Heart failure type: systolic Qualified Code(s): I50.23 - Acute on chronic systolic (congestive) heart failure
[2018-07-31] MEDS: Nitroglycerin Drip Premix 50 MG/250 ML BOTTLE IV.CONT PRN (03:37)
[2018-07-31 04:47] LABS: Baso % (Auto) 0.2 % (0.0-2.0); Hematocrit 26.7 % (39.0-51.0); Hemoglobin 8.7 gm/dL (13.0-17.0); Lymph # (Auto) 0.6 th/mm3 (1.0-4.8); Lymph % (Auto) 9.5 % (9.0-44.0); Mean Corpuscular HGB Conc 32.7 % (32.0-36.0); Mean Corpuscular Hemoglobin 23.3 pg (27.0-34.0); Mean Corpuscular Volume 71.3 fL (80.0-100.0); Mean Platelet Volume 8.7 fL (7.0-11.0); Mono # (Auto) 0.5 th/mm3 (0.0-0.9); Mono % (Auto) 7.2 % (0.0-8.0); Neut # (Auto) 5.3 th/mm3 (1.8-7.7); Neut % (Auto) 83.1 % (16.0-70.0); Platelet Count 109 th/mm3 (150-450); Red Blood Count 3.74 mil/mm3 (4.50-5.90); Red Cell Distribution Width 19.8 % (11.6-17.2); White Blood Count 6.4 th/mm3 (4.0-11.0)
[2018-07-31 04:59] LABS: Calcium 8.6 mg/dL (8.5-10.1); Carbon Dioxide 30.9 meq/L (21.0-32.0); Potassium 4.3 meq/L (3.5-5.1)
[2018-07-31] MEDS: amLODIPine 10 MG Tablet PO SCH (08:58)
[2018-07-31] MEDS: Gabapentin 100 MG Capsule PO SCH ×3 (08:58→17:28)
[2018-07-31] MEDS: predniSONE 20 MG Tablet PO SCH ×2 (08:58→21:44)
[2018-07-31] MEDS: Ranolazine 500 MG 12HR ER Tablet PO SCH ×2 (08:58→21:43)
[2018-07-31] MEDS: Insulin NovoLOG Aspart Correctional Sugar Inj SQ SCH ×4 (08:59→21:44)
[2018-07-31] MEDS: Isosorbide Mononitrate 60 MG ER 24HR Tablet (Imdur) PO SCH (08:59)
[2018-07-31] MEDS: Artificial Tears Opth Drops 15 ML Bottle EACH EYE PRN (09:14)
[2018-07-31] MEDS: Carboxymethylcellulose 0.5% Opth Drops 15 ML Bottle EACH EYE PRN (09:14)
--- NOTE | 2018-07-31 09:36 | P.PNFP ---
Subjective Interval history: Patient seen and examined this morning. No acute events overnight. Patient denies nausea, vomiting, fever, chills, abdominal pain, chest pain, shortness of breath, lightheadedness, dizziness, left arm or jaw pain, weakness. Reviewed current plan. He agreed with current plan to attempt to transfer patient for potential TMR with his previous cardiac surgeon. He understands that this is a possibility, and are willing to speak about medical management if this is unable to happen. No other complaints at this time. <Denny Steel - 07/31/18 09:35> Results - Labs Result diagrams: 08/01/18 04:14 08/01/18 04:14 <Denny Garza - 08/01/18 19:29> Abnormal lab results 07/31/18 08/01/18 08/01/18 Range/Units 21:42 04:14 04:14 RBC 3.70 L (4.50-5.90) mil/mm3 Hgb 8.4 L (13.0-17.0) gm/dL Hct 26.7 L (39.0-51.0) % MCV 72.3 L (80.0-100.0) fL MCH 22.8 L (27.0-34.0) pg MCHC 31.5 L (32.0-36.0) % RDW 20.3 H (11.6-17.2) % Plt Count 102 L (150-450) th/mm3 Carbon Dioxide 32.2 H (21.0-32.0) meq/L BUN 39 H (7-18) mg/dL Creatinine 1.96 H (0.60-1.30) mg/dL Estimated GFR 34 L (>89) mL/min POC Glucose 333 H (68-110) mg/dl Random Glucose 181 H (74-106) mg/dL 08/01/18 08/01/18 08/01/18 Range/Units 07:50 12:08 16:55 RBC (4.50-5.90) mil/mm3 Hgb (13.0-17.0) gm/dL Hct (39.0-51.0) % MCV (80.0-100.0) fL MCH (27.0-34.0) pg MCHC (32.0-36.0) % RDW (11.6-17.2) % Plt Count (150-450) th/mm3 Carbon Dioxide (21.0-32.0) meq/L BUN (7-18) mg/dL Creatinine (0.60-1.30) mg/dL Estimated GFR (>89) mL/min POC Glucose 298 H 307 H 375 H (68-110) mg/dl Random Glucose (74-106) mg/dL Short CBC 08/01/18 Range/Units 04:14 WBC 5.9 (4.0-11.0) th/mm3 Hgb 8.4 L (13.0-17.0) gm/dL Hct 26.7 L (39.0-51.0) % Plt Count 102 L (150-450) th/mm3 BMP 08/01/18 04:14 Sodium 139 Potassium 4.2 Chloride 101 Carbon Dioxide 32.2 H BUN 39 H Creatinine 1.96 H Calcium 8.6 <Young,Denny L - 08/01/18 19:29> Abnormal lab results 07/30/18 07/30/18 07/30/18 Range/Units 12:02 17:27 21:23 RBC (4.50-5.90) mil/mm3 Hgb (13.0-17.0) gm/dL Hct (39.0-51.0) % MCV (80.0-100.0) fL MCH (27.0-34.0) pg RDW (11.6-17.2) % Plt Count (150-450) th/mm3 Neut % (Auto) (16.0-70.0) % Lymph # (Auto) (1.0-4.8) th/mm3 BUN (7-18) mg/dL Creatinine (0.60-1.30) mg/dL Estimated GFR (>89) mL/min POC Glucose 252 H 281 H 255 H (68-110) mg/dl Random Glucose (74-106) mg/dL 07/31/18 07/31/18 07/31/18 Range/Units 04:27 04:27 07:41 RBC 3.74 L (4.50-5.90) mil/mm3 Hgb 8.7 L (13.0-17.0) gm/dL Hct 26.7 L (39.0-51.0) % MCV 71.3 L (80.0-100.0) fL MCH 23.3 L (27.0-34.0) pg RDW 19.8 H (11.6-17.2) % Plt Count 109 L (150-450) th/mm3 Neut % (Auto) 83.1 H (16.0-70.0) % Lymph # (Auto) 0.6 L (1.0-4.8) th/mm3 BUN 39 H (7-18) mg/dL Creatinine 1.95 H (0.60-1.30) mg/dL Estimated GFR 34 L (>89) mL/min POC Glucose 227 H (68-110) mg/dl Random Glucose 201 H (74-106) mg/dL Short CBC 07/31/18 Range/Units 04:27 WBC 6.4 (4.0-11.0) th/mm3 Hgb 8.7 L (13.0-17.0) gm/dL Hct 26.7 L (39.0-51.0) % Plt Count 109 L (150-450) th/mm3 BMP 07/31/18 04:27 Sodium 137 Potassium 4.3 Chloride 100 Carbon Dioxide 30.9 BUN 39 H Creatinine 1.95 H Calcium 8.6 <Faille R2,Rolf - 07/31/18 09:35> Physical Exam Vital signs: Vital Signs 07/31/18 20:00 07/31/18 21:00 07/31/18 22:00 Temperature Pulse Rate 70 74 76 Respiratory Rate Blood Pressure Pulse Oximetry 99 99 07/31/18 23:00 08/01/18 00:00 08/01/18 01:00 Temperature 98.9 F Pulse Rate 85 78 74 Respiratory Rate 22 Blood Pressure 157/71 H Pulse Oximetry 97 97 08/01/18 02:00 08/01/18 03:00 08/01/18 04:00 Temperature 97.5 F L Pulse Rate 72 68 70 Respiratory Rate 20 Blood Pressure 135/64 Pulse Oximetry 98 08/01/18 05:00 08/01/18 06:00 08/01/18 07:00 Temperature 98.5 F Pulse Rate 66 72 83 Respiratory Rate 18 Blood Pressure 163/73 H Pulse Oximetry 98 08/01/18 08:00 08/01/18 09:00 08/01/18 10:00 Temperature Pulse Rate 72 66 68 Respiratory Rate Blood Pressure Pulse Oximetry 98 08/01/18 11:00 08/01/18 12:00 08/01/18 13:00 Temperature 98.6 F Pulse Rate 58 L 60 70 Respiratory Rate Blood Pressure 130/60 Pulse Oximetry 100 100 08/01/18 13:24 08/01/18 14:00 08/01/18 15:00 Temperature 97.5 F L Pulse Rate 68 70 Respiratory Rate 18 Blood Pressure 147/64 H Pulse Oximetry 98 96 08/01/18 16:00 08/01/18 17:00 08/01/18 18:00 Temperature Pulse Rate 66 77 70 Respiratory Rate Blood Pressure Pulse Oximetry 96 Intake & Output 08/01/18 08/01/18 08/02/18 06:59 18:59 06:59 Intake Total 480 / 480 Output Total 1600 / 1600 1100 / 1100 Balance -1120 / -1120 -1100 / -1100 Weight 117 kg Intake: Oral 480 / 480 Output: Urine 1600 / 1600 1100 / 1100 Other: Date of Last Bowel Movement 07/31/18 08/01/18 # Bowel Movements 1 <Young,Dneny L - 08/01/18 19:29> Vital Signs 07/30/18 10:00 07/30/18 11:00 07/30/18 12:00 Temperature 97.7 F Pulse Rate 82 82 78 Respiratory Rate 18 Blood Pressure 130/59 L Pulse Oximetry 96 07/30/18 13:00 07/30/18 14:00 07/30/18 15:00 Temperature Pulse Rate 81 86 79 Respiratory Rate Blood Pressure Pulse Oximetry 96 07/30/18 16:00 07/30/18 17:00 07/30/18 18:00 Temperature 97.7 F Pulse Rate 78 86 74 Respiratory Rate 18 Blood Pressure 154/68 H Pulse Oximetry 97 97 07/30/18 19:00 07/30/18 20:00 07/30/18 21:00 Temperature 97.8 F Pulse Rate 70 78 82 Respiratory Rate 20 Blood Pressure 150/59 H Pulse Oximetry 96 96 07/30/18 22:00 07/30/18 23:00 07/31/18 00:00 Temperature 97.3 F L Pulse Rate 80 80 82 Respiratory Rate 18 Blood Pressure 145/65 H Pulse Oximetry 98 07/31/18 01:00 07/31/18 02:00 07/31/18 03:00 Temperature Pulse Rate 84 80 85 Respiratory Rate Blood Pressure Pulse Oximetry 98 07/31/18 04:00 07/31/18 05:00 07/31/18 06:00 Temperature 97.6 F Pulse Rate 77 75 78 Respiratory Rate 16 Blood Pressure 150/65 H Pulse Oximetry 95 95 Intake & Output 07/30/18 07/31/18 07/31/18 18:59 06:59 18:59 Intake Total 1210 / 1210 240 / 240 Output Total 1475 / 1475 1050 / 1050 Balance -265 / -265 -810 / -810 Weight 118 kg Intake: IV 250 / 250 Nitroglycerin Drip Premix 50 mg 250 / 250 In 250 ml @ 5 MCG/MIN 1.5 mls/ hr IV.CONT TITRATE PRN Rx#: [id number] Oral 960 / 960 240 / 240 Output: Urine 1475 / 1475 1050 / 1050 Other: Date of Last Bowel Movement 07/30/18 07/30/18 <Felecia PerezDenny Whelan - 07/31/18 09:35> Narrative: General: Obese, laying in bed, no distress Skin: No rashes or lesions HEENT: Normocephalic, no conjunctivitis, no nasal discharge Neck: Supple, endarterectomy scar, no thyromegaly or lymphadenopathy CV: RRR, no murmurs, rubs, or gallops, regular pulses, normal cap refill Lungs: Has mild expiratory wheezing bilaterally, improved inspiratory airflow. Abdomen: Soft, obese. Ext: Mild pitting edema. Neuro: Awake, alert <Felecia PerezDenny Whelan - 07/31/18 09:35> Assessment and Plan - Assessment (1) NSTEMI (non-ST elevated myocardial infarction) Code(s): I21.4 - Non-ST elevation (NSTEMI) myocardial infarction Status: Acute (2) CHF exacerbation Code(s): I50.9 - Heart failure, unspecified Status: Acute (3) COPD exacerbation Code(s): J44.1 - Chronic obstructive pulmonary disease with (acute) exacerbation Status: Acute (4) DM2 (diabetes mellitus, type 2) Code(s): E11.9 - Type 2 diabetes mellitus without complications Status: Acute (5) Coronary artery disease Code(s): I25.10 - Atherosclerotic heart disease of [place] coronary artery without angina pectoris Status: Acute (6) History of CVA (cerebrovascular accident) Code(s): Z86.73 - Personal history of transient ischemic attack (TIA), and cerebral infarction without residual deficits Status: Acute (7) CKD (chronic kidney disease) stage 3, GFR 30-59 ml/min Code(s): N18.3 - Chronic kidney disease, stage 3 (moderate) Status: Acute (8) BPH (benign prostatic hyperplasia) Code(s): N40.0 - Benign prostatic hyperplasia without lower urinary tract symptoms Status: Acute (9) Gastritis Code(s): K29.70 - Gastritis, unspecified, without bleeding Status: Acute (10) Smoker Code(s): F17.200 - Nicotine dependence, unspecified, uncomplicated Status: Acute <Denny Garza - 08/01/18 19:29> (1) NSTEMI (non-ST elevated myocardial infarction) Code(s): I21.4 - Non-ST elevation (NSTEMI) myocardial infarction Status: Acute Plan: Likely N-STEMI, status post cardiac catheterization 07/26/17. 07/24 grafts patent. -Continuing medical management. Currently on nitro drip, weaning down per cardiology -Continue Imdur, Plavix, aspirin, amlodipine, metoprolol -Palliative care on board to assist with goals of care -Cardiology On Board. Appreciate recommendations. -Cardiothoracic surgery recommends against reoperative surgical intervention due to prohibitive risk secondary to his significant medical comorbidities, morbid obesity, cardiomyopathy as well as pulmonary and renal insufficiency. May benefit from being transferred to his previous cardiac surgeon for possible TMR. Cardiothoracic surgery currently attempting to obtain records to properly identify previous cardiac surgeon and to further discuss transfer with that surgeon. (2) CHF exacerbation Code(s): I50.9 - Heart failure, unspecified Status: Acute Plan: ECHO: Mild LVH, EF 40-45%, left atrial mild dilation, aortic valve sclerosis, pulmonary pressure 48 X-ray: Mild cardiomegaly, pulmonary congestion, no obvious pneumonia - Continue Bumex 1 mg bid for diuresis - Monitor intake and output. - Continue metoprolol, Imdur. May benefit from TALHA inhibitor but possibly with acute kidney injury so will hold off. - Continue telemetry, review daily - Keep head of bed elevated to 30 degrees - O2 walk test before discharge - O2 supplementation to target 88-93% O2 Sat (3) COPD exacerbation Code(s): J44.1 - Chronic obstructive pulmonary disease with (acute) exacerbation Status: Acute Plan: Symptoms most consistent with CHF exacerbation, may be component of COPD exacerbation. Has some mild diffuse wheezing on exam. - Will probably have some baseline of wheezing due to metoprolol and side effects of bronchospasm. Benefits of metoprolol with improving mortality for CHF outweighs bronchospasm at this time. Will continue on metoprolol. - Continue Atrovent and Symbicort for maintenance - DuoNebs once a day, albuterol as needed - Prednisone 40 mg daily (4) DM2 (diabetes mellitus, type 2) Code(s): E11.9 - Type 2 diabetes mellitus without complications Status: Acute Plan: SSI w/accuchecks Con't home Gabapentin TID (5) Coronary artery disease Code(s): I25.10 - Atherosclerotic heart disease of [place] coronary artery without angina pectoris Status: Acute Plan: History of CABG and stable angina. - Continue high dose statin, Plavix and aspirin - Continue Ranolazine, Imdur (6) History of CVA (cerebrovascular accident) Code(s): Z86.73 - Personal history of transient ischemic attack (TIA), and cerebral infarction without residual deficits Status: Acute Plan: See above, con't home meds (7) CKD (chronic kidney disease) stage 3, GFR 30-59 ml/min Code(s): N18.3 - Chronic kidney disease, stage 3 (moderate) Status: Acute Plan: Avoid nephrotoxic meds Creatinine increased to 2.20 from 2.05 today. Due to CHF caution with fluids. Will continue to monitor. See above plan Daily BMP (8) BPH (benign prostatic hyperplasia) Code(s): N40.0 - Benign prostatic hyperplasia without lower urinary tract symptoms Status: Acute Plan: Con't home Terazosin 4 mg daily (9) Gastritis Code(s): K29.70 - Gastritis, unspecified, without bleeding Status: Acute Plan: Con't home protonix daily (10) Smoker Code(s): F17.200 - Nicotine dependence, unspecified, uncomplicated Status: Acute Plan: Nicotine patches daily Encourage cessation Fluids: by mouth Electrolytes: monitor Nutrition: Diabetic diet DVT prophylaxis: plavix, aspirin, and SCDs <Denny Steel - 07/31/18 09:33> - Assessment and Plan 77-year-old male with past medical history of CHF, COPD presents with right- sided chest pain found to have NSTEMI. Elevated troponins. Status post cardiac catheterization. Continuing with medical management for NSTEMI. <Denny Stele - 07/31/18 09:35> - Attending Attestation The exam, history, and the medical decision-making described in the above note were completed with the assistance of the resident physician. I reviewed and agree with the findings presented. I attest that I had a [id number] encounter with the patient on the same day, and personally performed and documented my assessment and findings in the medical record. <Denny Garza - 08/01/18 19:29> <Denny Steel - Last Filed: 07/31/18 09:33> (2) CHF exacerbation Qualifiers: Heart failure type: systolic Qualified Code(s): I50.23 - Acute on chronic systolic (congestive) heart failure <Denny Garza - Last Filed: 08/01/18 19:29> (2) CHF exacerbation Qualifiers: Heart failure type: systolic Qualified Code(s): I50.23 - Acute on chronic systolic (congestive) heart failure <Denny Steel A - Last Filed: 07/31/18 09:33> (2) CHF exacerbation Qualifiers: Heart failure type: systolic Qualified Code(s): I50.23 - Acute on chronic systolic (congestive) heart failure <Denny Garza - Last Filed: 08/01/18 19:29> (2) CHF exacerbation Qualifiers: Heart failure type: systolic Qualified Code(s): I50.23 - Acute on chronic systolic (congestive) heart failure
[2018-08-01 04:23] LABS: Hematocrit 26.7 % (39.0-51.0); Hemoglobin 8.4 gm/dL (13.0-17.0); Mean Corpuscular HGB Conc 31.5 % (32.0-36.0); Mean Corpuscular Hemoglobin 22.8 pg (27.0-34.0); Mean Corpuscular Volume 72.3 fL (80.0-100.0); Platelet Count 102 th/mm3 (150-450); Red Cell Distribution Width 20.3 % (11.6-17.2); White Blood Count 5.9 th/mm3 (4.0-11.0)
[2018-08-01 04:52] LABS: Calcium 8.6 mg/dL (8.5-10.1); Carbon Dioxide 32.2 meq/L (21.0-32.0); Potassium 4.2 meq/L (3.5-5.1)
[2018-08-01] MEDS: predniSONE 20 MG Tablet PO SCH ×2 (10:23→21:34)
[2018-08-01] MEDS: Ranolazine 500 MG 12HR ER Tablet PO SCH ×2 (10:23→21:34)
[2018-08-01] MEDS: amLODIPine 10 MG Tablet PO SCH (10:23)
[2018-08-01] MEDS: Gabapentin 100 MG Capsule PO SCH ×3 (10:23→17:25)
[2018-08-01] MEDS: Isosorbide Mononitrate 60 MG ER 24HR Tablet (Imdur) PO SCH (10:23)
[2018-08-01] MEDS: Insulin NovoLOG Aspart Correctional Sugar Inj SQ SCH ×4 (10:25→21:35)
--- NOTE | 2018-08-01 12:42 | P.PNFP ---
Subjective Interval history: Patient seen and examined this morning. No acute events overnight. Patient states she still gets short of breath with taking off the with BiPAP. Upon further discussion, states he does not really want to go on oxygen unless it is mobile. He states though he would be willing to try a course of oxygen today off the BiPAP. He has been off the nitro drip since last night, denies any chest pain this morning. Denies any fever chills, abdominal pain, leg pain. <Edwin Ovalles J - 08/01/18 12:42> Results - Labs Result diagrams: 08/01/18 04:14 08/01/18 04:14 <Denny Garza - 08/01/18 19:47> Abnormal lab results 07/31/18 08/01/18 08/01/18 Range/Units 21:42 04:14 04:14 RBC 3.70 L (4.50-5.90) mil/mm3 Hgb 8.4 L (13.0-17.0) gm/dL Hct 26.7 L (39.0-51.0) % MCV 72.3 L (80.0-100.0) fL MCH 22.8 L (27.0-34.0) pg MCHC 31.5 L (32.0-36.0) % RDW 20.3 H (11.6-17.2) % Plt Count 102 L (150-450) th/mm3 Carbon Dioxide 32.2 H (21.0-32.0) meq/L BUN 39 H (7-18) mg/dL Creatinine 1.96 H (0.60-1.30) mg/dL Estimated GFR 34 L (>89) mL/min POC Glucose 333 H (68-110) mg/dl Random Glucose 181 H (74-106) mg/dL 08/01/18 08/01/18 08/01/18 Range/Units 07:50 12:08 16:55 RBC (4.50-5.90) mil/mm3 Hgb (13.0-17.0) gm/dL Hct (39.0-51.0) % MCV (80.0-100.0) fL MCH (27.0-34.0) pg MCHC (32.0-36.0) % RDW (11.6-17.2) % Plt Count (150-450) th/mm3 Carbon Dioxide (21.0-32.0) meq/L BUN (7-18) mg/dL Creatinine (0.60-1.30) mg/dL Estimated GFR (>89) mL/min POC Glucose 298 H 307 H 375 H (68-110) mg/dl Random Glucose (74-106) mg/dL Short CBC 08/01/18 Range/Units 04:14 WBC 5.9 (4.0-11.0) th/mm3 Hgb 8.4 L (13.0-17.0) gm/dL Hct 26.7 L (39.0-51.0) % Plt Count 102 L (150-450) th/mm3 BMP 08/01/18 04:14 Sodium 139 Potassium 4.2 Chloride 101 Carbon Dioxide 32.2 H BUN 39 H Creatinine 1.96 H Calcium 8.6 <Young,Denny L - 08/01/18 19:47> Abnormal lab results 07/31/18 07/31/18 08/01/18 Range/Units 16:06 21:42 04:14 RBC 3.70 L (4.50-5.90) mil/mm3 Hgb 8.4 L (13.0-17.0) gm/dL Hct 26.7 L (39.0-51.0) % MCV 72.3 L (80.0-100.0) fL MCH 22.8 L (27.0-34.0) pg MCHC 31.5 L (32.0-36.0) % RDW 20.3 H (11.6-17.2) % Plt Count 102 L (150-450) th/mm3 Carbon Dioxide (21.0-32.0) meq/L BUN (7-18) mg/dL Creatinine (0.60-1.30) mg/dL Estimated GFR (>89) mL/min POC Glucose 280 H 333 H (68-110) mg/dl Random Glucose (74-106) mg/dL 08/01/18 08/01/18 08/01/18 Range/Units 04:14 07:50 12:08 RBC (4.50-5.90) mil/mm3 Hgb (13.0-17.0) gm/dL Hct (39.0-51.0) % MCV (80.0-100.0) fL MCH (27.0-34.0) pg MCHC (32.0-36.0) % RDW (11.6-17.2) % Plt Count (150-450) th/mm3 Carbon Dioxide 32.2 H (21.0-32.0) meq/L BUN 39 H (7-18) mg/dL Creatinine 1.96 H (0.60-1.30) mg/dL Estimated GFR 34 L (>89) mL/min POC Glucose 298 H 307 H (68-110) mg/dl Random Glucose 181 H (74-106) mg/dL Short CBC 08/01/18 Range/Units 04:14 WBC 5.9 (4.0-11.0) th/mm3 Hgb 8.4 L (13.0-17.0) gm/dL Hct 26.7 L (39.0-51.0) % Plt Count 102 L (150-450) th/mm3 BMP 08/01/18 04:14 Sodium 139 Potassium 4.2 Chloride 101 Carbon Dioxide 32.2 H BUN 39 H Creatinine 1.96 H Calcium 8.6 <Edwin Ovalles - 08/01/18 12:42> Physical Exam Vital signs: Vital Signs 07/31/18 20:00 07/31/18 21:00 07/31/18 22:00 Temperature Pulse Rate 70 74 76 Respiratory Rate Blood Pressure Pulse Oximetry 99 99 07/31/18 23:00 08/01/18 00:00 08/01/18 01:00 Temperature 98.9 F Pulse Rate 85 78 74 Respiratory Rate 22 Blood Pressure 157/71 H Pulse Oximetry 97 97 08/01/18 02:00 08/01/18 03:00 08/01/18 04:00 Temperature 97.5 F L Pulse Rate 72 68 70 Respiratory Rate 20 Blood Pressure 135/64 Pulse Oximetry 98 08/01/18 05:00 08/01/18 06:00 08/01/18 07:00 Temperature 98.5 F Pulse Rate 66 72 83 Respiratory Rate 18 Blood Pressure 163/73 H Pulse Oximetry 98 08/01/18 08:00 08/01/18 09:00 08/01/18 10:00 Temperature Pulse Rate 72 66 68 Respiratory Rate Blood Pressure Pulse Oximetry 98 08/01/18 11:00 08/01/18 12:00 08/01/18 13:00 Temperature 98.6 F Pulse Rate 58 L 60 70 Respiratory Rate Blood Pressure 130/60 Pulse Oximetry 100 100 08/01/18 13:24 08/01/18 14:00 08/01/18 15:00 Temperature 97.5 F L Pulse Rate 68 70 Respiratory Rate 18 Blood Pressure 147/64 H Pulse Oximetry 98 96 08/01/18 16:00 08/01/18 17:00 08/01/18 18:00 Temperature Pulse Rate 66 77 70 Respiratory Rate Blood Pressure Pulse Oximetry 96 Intake & Output 08/01/18 08/01/18 08/02/18 06:59 18:59 06:59 Intake Total 480 / 480 Output Total 1600 / 1600 1100 / 1100 Balance -1120 / -1120 -1100 / -1100 Weight 117 kg Intake: Oral 480 / 480 Output: Urine 1600 / 1600 1100 / 1100 Other: Date of Last Bowel Movement 07/31/18 08/01/18 # Bowel Movements 1 <Young,Denny L - 08/01/18 19:47> Vital Signs 07/31/18 13:00 07/31/18 14:00 07/31/18 15:00 Temperature 98.0 F Pulse Rate 70 72 68 Respiratory Rate 20 Blood Pressure 143/65 H Pulse Oximetry 96 99 07/31/18 16:00 07/31/18 17:00 07/31/18 18:00 Temperature Pulse Rate 78 70 74 Respiratory Rate Blood Pressure Pulse Oximetry 90 L 07/31/18 19:00 07/31/18 20:00 07/31/18 21:00 Temperature 97.8 F Pulse Rate 72 70 74 Respiratory Rate 18 Blood Pressure 147/66 H Pulse Oximetry 99 99 99 07/31/18 22:00 07/31/18 23:00 08/01/18 00:00 Temperature 98.9 F Pulse Rate 76 85 78 Respiratory Rate 22 Blood Pressure 157/71 H Pulse Oximetry 97 08/01/18 01:00 08/01/18 02:00 08/01/18 03:00 Temperature 97.5 F L Pulse Rate 74 72 68 Respiratory Rate 20 Blood Pressure 135/64 Pulse Oximetry 97 98 08/01/18 04:00 08/01/18 05:00 08/01/18 06:00 Temperature Pulse Rate 70 66 72 Respiratory Rate Blood Pressure Pulse Oximetry 98 08/01/18 07:00 08/01/18 08:00 08/01/18 09:00 Temperature 98.5 F Pulse Rate 83 72 Respiratory Rate 18 Blood Pressure 163/73 H Pulse Oximetry 98 Intake & Output 07/31/18 08/01/18 08/01/18 18:59 06:59 18:59 Intake Total 1410 / 1410 480 / 480 Output Total 800 / 800 1600 / 1600 Balance 610 / 610 -1120 / -1120 Weight 117 kg Intake: Oral 1410 / 1410 480 / 480 Output: Urine 800 / 800 1600 / 1600 Other: Date of Last Bowel Movement 07/31/18 07/31/18 07/31/18 # Bowel Movements 1 <Odilia SolerEdwin - 08/01/18 12:42> Narrative: General: Obese, laying in bed, no distress Skin: No rashes or lesions CV: RRR, no murmurs, rubs, or gallops, regular pulses, normal cap refill Lungs: Auscultated anteriorly, occasional, minimal wheezing. Abdomen: Soft, obese. Ext: Mild pitting edema. Neuro: Awake, alert <Odilia SolerEdwin Siva - 08/01/18 12:42> Assessment and Plan - Assessment (1) NSTEMI (non-ST elevated myocardial infarction) Code(s): I21.4 - Non-ST elevation (NSTEMI) myocardial infarction Status: Acute (2) CHF exacerbation Code(s): I50.9 - Heart failure, unspecified Status: Acute (3) COPD exacerbation Code(s): J44.1 - Chronic obstructive pulmonary disease with (acute) exacerbation Status: Acute (4) DM2 (diabetes mellitus, type 2) Code(s): E11.9 - Type 2 diabetes mellitus without complications Status: Acute (5) Coronary artery disease Code(s): I25.10 - Atherosclerotic heart disease of [place] coronary artery without angina pectoris Status: Acute (6) History of CVA (cerebrovascular accident) Code(s): Z86.73 - Personal history of transient ischemic attack (TIA), and cerebral infarction without residual deficits Status: Acute (7) CKD (chronic kidney disease) stage 3, GFR 30-59 ml/min Code(s): N18.3 - Chronic kidney disease, stage 3 (moderate) Status: Acute (8) BPH (benign prostatic hyperplasia) Code(s): N40.0 - Benign prostatic hyperplasia without lower urinary tract symptoms Status: Acute (9) Gastritis Code(s): K29.70 - Gastritis, unspecified, without bleeding Status: Acute (10) Smoker Code(s): F17.200 - Nicotine dependence, unspecified, uncomplicated Status: Acute <Denny Garza - 08/01/18 19:47> (1) NSTEMI (non-ST elevated myocardial infarction) Code(s): I21.4 - Non-ST elevation (NSTEMI) myocardial infarction Status: Acute Plan: Likely N-STEMI, status post cardiac catheterization 07/26/17. 07/24 grafts patent. -Continuing medical management. Currently weaned off Nitro drip -Continue Imdur, Plavix, aspirin, amlodipine, metoprolol -Palliative care on board to assist with goals of care -Cardiology On Board. Appreciate recommendations. -Cardiothoracic surgery recommends against reoperative surgical intervention due to prohibitive risk secondary to his significant medical comorbidities, morbid obesity, cardiomyopathy as well as pulmonary and renal insufficiency. May benefit from being transferred to his previous cardiac surgeon for possible TMR. Cardiothoracic surgery currently attempting to obtain records to properly identify previous cardiac surgeon and to further discuss transfer with that surgeon. (2) CHF exacerbation Code(s): I50.9 - Heart failure, unspecified Status: Acute Plan: ECHO: Mild LVH, EF 40-45%, left atrial mild dilation, aortic valve sclerosis, pulmonary pressure 48 X-ray: Mild cardiomegaly, pulmonary congestion, no obvious pneumonia -Attempt to wean off BiPAP and using oxygen - Continue Bumex 1 mg bid for diuresis - Monitor intake and output. - Continue metoprolol, Imdur. May benefit from TALHA inhibitor but possibly with acute kidney injury so will hold off. - Continue telemetry, review daily - Keep head of bed elevated to 30 degrees - O2 walk test before discharge - O2 supplementation to target 88-93% O2 Sat (3) COPD exacerbation Code(s): J44.1 - Chronic obstructive pulmonary disease with (acute) exacerbation Status: Acute Plan: Symptoms most consistent with CHF exacerbation, may be component of COPD exacerbation. Has some mild diffuse wheezing on exam. - Will probably have some baseline of wheezing due to metoprolol and side effects of bronchospasm. Benefits of metoprolol with improving mortality for CHF outweighs bronchospasm at this time. Will continue on metoprolol. - Continue Atrovent and Symbicort for maintenance - DuoNebs once a day, albuterol as needed - Prednisone 40 mg daily (4) DM2 (diabetes mellitus, type 2) Code(s): E11.9 - Type 2 diabetes mellitus without complications Status: Acute Plan: SSI w/accuchecks Start 5 units Levemir HS Monitor glucose Con't home Gabapentin TID (5) Coronary artery disease Code(s): I25.10 - Atherosclerotic heart disease of [place] coronary artery without angina pectoris Status: Acute Plan: History of CABG and stable angina. - Continue high dose statin, Plavix and aspirin - Continue Ranolazine, Imdur (6) History of CVA (cerebrovascular accident) Code(s): Z86.73 - Personal history of transient ischemic attack (TIA), and cerebral infarction without residual deficits Status: Acute Plan: See above, con't home meds (7) CKD (chronic kidney disease) stage 3, GFR 30-59 ml/min Code(s): N18.3 - Chronic kidney disease, stage 3 (moderate) Status: Acute Plan: Avoid nephrotoxic meds Creatinine improving 1.96 Due to CHF caution with fluids. Will continue to monitor. See above plan Daily BMP (8) BPH (benign prostatic hyperplasia) Code(s): N40.0 - Benign prostatic hyperplasia without lower urinary tract symptoms Status: Acute Plan: Con't home Terazosin 4 mg daily (9) Gastritis Code(s): K29.70 - Gastritis, unspecified, without bleeding Status: Acute Plan: Con't home protonix daily (10) Smoker Code(s): F17.200 - Nicotine dependence, unspecified, uncomplicated Status: Acute Plan: Nicotine patches daily Encourage cessation Fluids: by mouth Electrolytes: monitor Nutrition: Diabetic diet DVT prophylaxis: plavix, aspirin, and SCDs <Edwin Ovalles 08/01/18 12:37> - Assessment and Plan 77-year-old male with past medical history of CHF, COPD presents with right- sided chest pain found to have NSTEMI. Elevated troponins. Status post cardiac catheterization. Continuing with medical management for NSTEMI. Attempting transfer for possible TMR. <Edwin Ovalles 08/01/18 12:42> - Attending Attestation The exam, history, and the medical decision-making described in the above note were completed with the assistance of the resident physician. I reviewed and agree with the findings presented. I attest that I had a [id number] encounter with the patient on the same day, and personally performed and documented my assessment and findings in the medical record. Seen with resident team this morning. This patient has complex medical history, including CHF, COPD, and extensive CAD. Presented with NSTEMI. Not a good candidate for traditional reperfusion strategy. Palliative care on board, he wishes for continued aggressive management for the time being. Attempting to obtain records and discuss further care with his established cardiothoracic surgery. Possibly a candidate for TMR. Appreciate assistance of all consultants helping to manage case. He is using his BiPAP fairly consistently, but more likely for personal comfort. He is maintaining normal O2 saturation. Now weaned off of the nitro drip. No chest pain reported this morning. Shortness of breath is at baseline. <Denny Garza - 08/01/18 19:47> <Edwin Ovalles - Last Filed: 08/01/18 12:37> (2) CHF exacerbation Qualifiers: Heart failure type: systolic Qualified Code(s): I50.23 - Acute on chronic systolic (congestive) heart failure <Denny Garza - Last Filed: 08/01/18 19:47> (2) CHF exacerbation Qualifiers: Heart failure type: systolic Qualified Code(s): I50.23 - Acute on chronic systolic (congestive) heart failure <Edwin Ovalles - Last Filed: 08/01/18 12:37> (2) CHF exacerbation Qualifiers: Heart failure type: systolic Qualified Code(s): I50.23 - Acute on chronic systolic (congestive) heart failure <Denny Garza - Last Filed: 08/01/18 19:47> (2) CHF exacerbation Qualifiers: Heart failure type: systolic Qualified Code(s): I50.23 - Acute on chronic systolic (congestive) heart failure
[2018-08-01] MEDS ORDERED: Insulin Detemir Inj 1,000 UNIT/10 ML Vial SQ SCH ×2 (21:00)
[2018-08-02 07:07] LABS: Hematocrit 28.9 % (39.0-51.0); Hemoglobin 8.8 gm/dL (13.0-17.0); Mean Corpuscular Hemoglobin 22.7 pg (27.0-34.0); Mean Corpuscular Volume 74.6 fL (80.0-100.0); Mean Platelet Volume 9.4 fL (7.0-11.0); Platelet Count 105 th/mm3 (150-450); Red Blood Count 3.87 mil/mm3 (4.50-5.90); Red Cell Distribution Width 19.7 % (11.6-17.2); White Blood Count 5.6 th/mm3 (4.0-11.0)
[2018-08-02 07:10] LABS: Mean Corpuscular HGB Conc 30.4 % (32.0-36.0)
[2018-08-02] MEDS: Isosorbide Mononitrate 60 MG ER 24HR Tablet (Imdur) PO SCH (08:13)
[2018-08-02] MEDS: Gabapentin 100 MG Capsule PO SCH ×3 (08:14→17:22)
[2018-08-02] MEDS: Ranolazine 500 MG 12HR ER Tablet PO SCH ×2 (08:14→20:32)
[2018-08-02] MEDS: predniSONE 20 MG Tablet PO SCH ×2 (08:14→20:32)
[2018-08-02] MEDS: amLODIPine 10 MG Tablet PO SCH (08:14)
--- NOTE | 2018-08-02 08:26 | P.PNFP ---
Subjective Interval history: Patient seen and examined this morning. No acute events overnight. Patient denies nausea, vomiting, fever, chills, abdominal pain, chest pain, lightheadedness, dizziness, left arm or jaw pain, weakness. Patient reports shortness of breath, increasing cough, productive. Reviewed current plan. Awaiting update on possible transfer. No other complaints at this time. <Felecia PerezDenny Whelan - 08/02/18 09:25> Results - Labs Result diagrams: 08/02/18 06:03 08/02/18 08:22 <Denny Garza - 08/02/18 16:29> Abnormal lab results 08/01/18 08/01/18 08/02/18 Range/Units 16:55 20:03 06:03 RBC 3.87 L (4.50-5.90) mil/mm3 Hgb 8.8 L (13.0-17.0) gm/dL Hct 28.9 L (39.0-51.0) % MCV 74.6 L (80.0-100.0) fL MCH 22.7 L (27.0-34.0) pg MCHC 30.4 L (32.0-36.0) % RDW 19.7 H (11.6-17.2) % Plt Count 105 L (150-450) th/mm3 BUN (7-18) mg/dL Creatinine (0.60-1.30) mg/dL Estimated GFR (>89) mL/min POC Glucose 375 H 380 H (68-110) mg/dl Random Glucose (74-106) mg/dL 08/02/18 08/02/18 08/02/18 Range/Units 07:33 08:22 11:46 RBC (4.50-5.90) mil/mm3 Hgb (13.0-17.0) gm/dL Hct (39.0-51.0) % MCV (80.0-100.0) fL MCH (27.0-34.0) pg MCHC (32.0-36.0) % RDW (11.6-17.2) % Plt Count (150-450) th/mm3 BUN 34 H (7-18) mg/dL Creatinine 1.88 H (0.60-1.30) mg/dL Estimated GFR 35 L (>89) mL/min POC Glucose 251 H 312 H (68-110) mg/dl Random Glucose 203 H (74-106) mg/dL Short CBC 08/02/18 Range/Units 06:03 WBC 5.6 (4.0-11.0) th/mm3 Hgb 8.8 L (13.0-17.0) gm/dL Hct 28.9 L (39.0-51.0) % Plt Count 105 L (150-450) th/mm3 BMP 08/02/18 08:22 Sodium 137 Potassium 4.3 Chloride 99 Carbon Dioxide 30.5 BUN 34 H Creatinine 1.88 H Calcium 8.8 <Young,Denny L - 08/02/18 16:29> Abnormal lab results 08/01/18 08/01/18 08/01/18 Range/Units 12:08 16:55 20:03 RBC (4.50-5.90) mil/mm3 Hgb (13.0-17.0) gm/dL Hct (39.0-51.0) % MCV (80.0-100.0) fL MCH (27.0-34.0) pg MCHC (32.0-36.0) % RDW (11.6-17.2) % Plt Count (150-450) th/mm3 POC Glucose 307 H 375 H 380 H (68-110) mg/dl 08/02/18 08/02/18 Range/Units 06:03 07:33 RBC 3.87 L (4.50-5.90) mil/mm3 Hgb 8.8 L (13.0-17.0) gm/dL Hct 28.9 L (39.0-51.0) % MCV 74.6 L (80.0-100.0) fL MCH 22.7 L (27.0-34.0) pg MCHC 30.4 L (32.0-36.0) % RDW 19.7 H (11.6-17.2) % Plt Count 105 L (150-450) th/mm3 POC Glucose 251 H (68-110) mg/dl Short CBC 08/02/18 Range/Units 06:03 WBC 5.6 (4.0-11.0) th/mm3 Hgb 8.8 L (13.0-17.0) gm/dL Hct 28.9 L (39.0-51.0) % Plt Count 105 L (150-450) th/mm3 <Denny Steel A - 08/02/18 08:26> - Imaging Impressions Chest X-Ray 08/02/18 00:00 CONCLUSION: No acute abnormality is identified to explain the clinical symptoms. There is enlargement of the cardiac silhouette with stable interstitial prominence at the lung bases. <Denny Garza L - 08/02/18 16:29> Physical Exam Vital signs: Vital Signs 08/01/18 17:00 08/01/18 18:00 08/01/18 19:00 Temperature 97.2 F L Pulse Rate 77 70 67 Respiratory Rate 18 Blood Pressure 161/64 H Pulse Oximetry 96 98 08/01/18 20:00 08/01/18 20:11 08/01/18 21:00 Temperature Pulse Rate 70 68 Respiratory Rate Blood Pressure Pulse Oximetry 98 96 08/01/18 22:00 08/01/18 23:00 08/02/18 00:00 Temperature 97.5 F L Pulse Rate 76 74 78 Respiratory Rate 18 Blood Pressure 153/67 H Pulse Oximetry 99 08/02/18 01:00 08/02/18 02:00 08/02/18 03:00 Temperature 97.8 F Pulse Rate 72 68 61 Respiratory Rate 18 Blood Pressure 165/75 H Pulse Oximetry 98 98 08/02/18 04:00 08/02/18 05:00 08/02/18 06:00 Temperature Pulse Rate 58 L 58 L 62 Respiratory Rate Blood Pressure Pulse Oximetry 08/02/18 07:00 08/02/18 08:00 08/02/18 09:00 Temperature 97.9 F Pulse Rate 57 L 78 72 Respiratory Rate 18 Blood Pressure 155/70 H Pulse Oximetry 99 99 08/02/18 10:00 08/02/18 11:00 08/02/18 12:00 Temperature 98.1 F Pulse Rate 68 69 66 Respiratory Rate 18 Blood Pressure 151/68 H Pulse Oximetry 94 L 08/02/18 13:00 08/02/18 14:00 08/02/18 15:00 Temperature 98.2 F Pulse Rate 74 71 66 Respiratory Rate 18 Blood Pressure 160/69 H Pulse Oximetry 100 08/02/18 16:00 Temperature Pulse Rate 67 Respiratory Rate Blood Pressure Pulse Oximetry Intake & Output 08/01/18 08/02/1819 18:59 06:59 18:59 Intake Total 720 / 720 Output Total 1100 / 1100 900 / 900 Balance -1100 / -1100 -180 / -180 Weight 117 kg Intake: Oral 720 / 720 Output: Urine 1100 / 1100 900 / 900 Other: Date of Last Bowel Movement 08/01/18 08/01/18 08/01/18 # Bowel Movements 1 <Young,Denny L - 08/02/18 16:29> Vital Signs 08/01/18 09:00 08/01/18 10:00 08/01/18 11:00 Temperature 98.6 F Pulse Rate 66 68 58 L Respiratory Rate Blood Pressure 130/60 Pulse Oximetry 98 100 08/01/18 12:00 08/01/18 13:00 08/01/18 13:24 Temperature Pulse Rate 60 70 Respiratory Rate Blood Pressure Pulse Oximetry 100 98 08/01/18 14:00 08/01/18 15:00 08/01/18 16:00 Temperature 97.5 F L Pulse Rate 68 70 66 Respiratory Rate 18 Blood Pressure 147/64 H Pulse Oximetry 96 08/01/18 17:00 08/01/18 18:00 08/01/18 19:00 Temperature 97.2 F L Pulse Rate 77 70 67 Respiratory Rate 18 Blood Pressure 161/64 H Pulse Oximetry 96 98 08/01/18 20:00 08/01/18 20:11 08/01/18 21:00 Temperature Pulse Rate 70 68 Respiratory Rate Blood Pressure Pulse Oximetry 98 96 08/01/18 22:00 08/01/18 23:00 08/02/18 00:00 Temperature 97.5 F L Pulse Rate 76 74 78 Respiratory Rate 18 Blood Pressure 153/67 H Pulse Oximetry 99 08/02/18 01:00 08/02/18 02:00 08/02/18 03:00 Temperature 97.8 F Pulse Rate 72 68 61 Respiratory Rate 18 Blood Pressure 165/75 H Pulse Oximetry 98 98 08/02/18 04:00 08/02/18 05:00 08/02/18 06:00 Temperature Pulse Rate 58 L 58 L 62 Respiratory Rate Blood Pressure Pulse Oximetry 08/02/18 07:00 Temperature 97.9 F Pulse Rate 57 L Respiratory Rate 18 Blood Pressure 155/70 H Pulse Oximetry 99 Intake & Output 08/01/18 08/02/18 08/02/18 18:59 06:59 18:59 Intake Total 720 / 720 Output Total 1100 / 1100 900 / 900 Balance -1100 / -1100 -180 / -180 Weight 117 kg Intake: Oral 720 / 720 Output: Urine 1100 / 1100 900 / 900 Other: Date of Last Bowel Movement 08/01/18 08/01/18 08/01/18 # Bowel Movements 1 <KirtDenny Ricks - 08/02/18 08:26> Narrative: General: Obese, laying in bed, no distress Skin: No rashes or lesions CV: RRR, no murmurs, rubs, or gallops, regular pulses, normal cap refill Lungs: Auscultated anteriorly, occasional, wheezing, worsened from yesterday. Abdomen: Soft, obese. Ext: Mild pitting edema. Neuro: Awake, alert <KirtDenny Ricks - 08/02/18 09:25> Assessment and Plan - Assessment (1) NSTEMI (non-ST elevated myocardial infarction) Code(s): I21.4 - Non-ST elevation (NSTEMI) myocardial infarction Status: Acute (2) CHF exacerbation Code(s): I50.9 - Heart failure, unspecified Status: Acute (3) COPD exacerbation Code(s): J44.1 - Chronic obstructive pulmonary disease with (acute) exacerbation Status: Acute (4) DM2 (diabetes mellitus, type 2) Code(s): E11.9 - Type 2 diabetes mellitus without complications Status: Acute (5) Coronary artery disease Code(s): I25.10 - Atherosclerotic heart disease of [place] coronary artery without angina pectoris Status: Acute (6) History of CVA (cerebrovascular accident) Code(s): Z86.73 - Personal history of transient ischemic attack (TIA), and cerebral infarction without residual deficits Status: Acute (7) CKD (chronic kidney disease) stage 3, GFR 30-59 ml/min Code(s): N18.3 - Chronic kidney disease, stage 3 (moderate) Status: Acute (8) BPH (benign prostatic hyperplasia) Code(s): N40.0 - Benign prostatic hyperplasia without lower urinary tract symptoms Status: Acute (9) Gastritis Code(s): K29.70 - Gastritis, unspecified, without bleeding Status: Acute (10) Smoker Code(s): F17.200 - Nicotine dependence, unspecified, uncomplicated Status: Acute <Denny Garza - 08/02/18 16:29> (1) NSTEMI (non-ST elevated myocardial infarction) Code(s): I21.4 - Non-ST elevation (NSTEMI) myocardial infarction Status: Acute Plan: Likely N-STEMI, status post cardiac catheterization 07/26/17. 07/24 grafts patent. -Continuing medical management. Currently weaned off Nitro drip -Continue Imdur, Plavix, aspirin, amlodipine, metoprolol -Palliative care on board to assist with goals of care -Cardiology On Board. Appreciate recommendations. -Cardiothoracic surgery recommends against reoperative surgical intervention due to prohibitive risk secondary to his significant medical comorbidities, morbid obesity, cardiomyopathy as well as pulmonary and renal insufficiency. May benefit from being transferred to his previous cardiac surgeon for possible TMR. Cardiothoracic surgery currently attempting to obtain records to properly identify previous cardiac surgeon and to further discuss transfer with that surgeon. (2) CHF exacerbation Code(s): I50.9 - Heart failure, unspecified Status: Acute Plan: ECHO: Mild LVH, EF 40-45%, left atrial mild dilation, aortic valve sclerosis, pulmonary pressure 48 X-ray: Mild cardiomegaly, pulmonary congestion, no obvious pneumonia -Attempt to wean off BiPAP and using oxygen - Continue Bumex 1 mg bid for diuresis - Monitor intake and output. - Continue metoprolol, Imdur. May benefit from TALHA inhibitor but possibly with acute kidney injury so will hold off. - Continue telemetry, review daily - Keep head of bed elevated to 30 degrees - O2 walk test before discharge - O2 supplementation to target 88-93% O2 Sat (3) COPD exacerbation Code(s): J44.1 - Chronic obstructive pulmonary disease with (acute) exacerbation Status: Acute Plan: Symptoms most consistent with CHF exacerbation, may be component of COPD exacerbation. Has some mild diffuse wheezing on exam. - Will probably have some baseline of wheezing due to metoprolol and side effects of bronchospasm. Benefits of metoprolol with improving mortality for CHF outweighs bronchospasm at this time. Will continue on metoprolol. - Continue Atrovent and Symbicort for maintenance - DuoNebs once a day, albuterol as needed - Prednisone 40 mg daily -Worsened wheezing, productive cough, follow up CXR (4) DM2 (diabetes mellitus, type 2) Code(s): E11.9 - Type 2 diabetes mellitus without complications Status: Acute Plan: SSI w/accuchecks Start 5 units Levemir HS Monitor glucose Con't home Gabapentin TID (5) Coronary artery disease Code(s): I25.10 - Atherosclerotic heart disease of [place] coronary artery without angina pectoris Status: Acute Plan: History of CABG and stable angina. - Continue high dose statin, Plavix and aspirin - Continue Ranolazine, Imdur (6) History of CVA (cerebrovascular accident) Code(s): Z86.73 - Personal history of transient ischemic attack (TIA), and cerebral infarction without residual deficits Status: Acute Plan: See above, con't home meds (7) CKD (chronic kidney disease) stage 3, GFR 30-59 ml/min Code(s): N18.3 - Chronic kidney disease, stage 3 (moderate) Status: Acute Plan: Avoid nephrotoxic meds Creatinine improving Due to CHF caution with fluids. Will continue to monitor. See above plan Daily BMP (8) BPH (benign prostatic hyperplasia) Code(s): N40.0 - Benign prostatic hyperplasia without lower urinary tract symptoms Status: Acute Plan: Con't home Terazosin 4 mg daily (9) Gastritis Code(s): K29.70 - Gastritis, unspecified, without bleeding Status: Acute Plan: Con't home protonix daily (10) Smoker Code(s): F17.200 - Nicotine dependence, unspecified, uncomplicated Status: Acute Plan: Nicotine patches daily Encourage cessation Fluids: by mouth Electrolytes: monitor Nutrition: Diabetic diet DVT prophylaxis: plavix, aspirin, and SCDs <Denny Steel - 08/02/18 09:21> - Assessment and Plan 77-year-old male with past medical history of CHF, COPD presents with right- sided chest pain found to have NSTEMI. Elevated troponins. Status post cardiac catheterization. Continuing with medical management for NSTEMI. Attempting transfer for possible TMR. <Denny Steel - 08/02/18 08:26> - Attending Attestation The exam, history, and the medical decision-making described in the above note were completed with the assistance of the resident physician. I reviewed and agree with the findings presented. I attest that I had a [id number] encounter with the patient on the same day, and personally performed and documented my assessment and findings in the medical record. I evaluated patient this afternoon. He is lying in bed, in no distress. Initially wearing CPAP but takes it off to talk without desaturation in his O2. Reports he was able to walk today with nasal cannula. No chest pain reported overnight. Overall he appears stable. Will continue to try to coordinate a plan with cardiothoracic surgery regarding next steps in care. Also discussed with patient the option of medical management alone. Answered questions regarding various options going forward. <Denny Garza - 08/02/18 16:29> <FailDenny Ricks - Last Filed: 08/02/18 09:21> (2) CHF exacerbation Qualifiers: Heart failure type: systolic Qualified Code(s): I50.23 - Acute on chronic systolic (congestive) heart failure <Denny Garza - Last Filed: 08/02/18 16:29> (2) CHF exacerbation Qualifiers: Heart failure type: systolic Qualified Code(s): I50.23 - Acute on chronic systolic (congestive) heart failure <FailDenny Ricks - Last Filed: 08/02/18 09:21> (2) CHF exacerbation Qualifiers: Heart failure type: systolic Qualified Code(s): I50.23 - Acute on chronic systolic (congestive) heart failure <Denny Garza - Last Filed: 08/02/18 16:29> (2) CHF exacerbation Qualifiers: Heart failure type: systolic Qualified Code(s): I50.23 - Acute on chronic systolic (congestive) heart failure
[2018-08-02] MEDS: Insulin NovoLOG Aspart Correctional Sugar Inj SQ SCH ×4 (08:27→20:33)
[2018-08-02 08:46] LABS: Calcium 8.8 mg/dL (8.5-10.1); Carbon Dioxide 30.5 meq/L (21.0-32.0); Potassium 4.3 meq/L (3.5-5.1)
--- NOTE | 2018-08-02 13:33 | XR ---
EXAM DATE: 08/02/2018 1:24 PM EST AGE/SEX: 77 years / Male INDICATIONS: Cough, short of breath. CLINICAL DATA: This is the patient's subsequent encounter. Patient reports that signs and symptoms h ave been present for 2 weeks and indicates a pain score of 0/10. MEDICAL/SURGICAL HISTORY: Myocardial infarction. Carpal tunnel syndrome. COMPARISON: [facility] [place] 1[place] SING[place], 07/24/2018. [facility] [place] 1V SINGLE AP, 07/23/2018. [facility] [place]ST P A & LAT, 11/06/2011. . FINDINGS: 2 AP views of the chest demonstrate stable mildly enlarged cardiac silhouette in this patient post me beth sternotomy. There is stable interstitial prominence at the lung bases. No pleural effusion or pn eumothorax is identified. The bones and soft tissues demonstrate no acute finding. CONCLUSION: No acute abnormality is identified to explain the clinical symptoms. There is enlargement of the card iac silhouette with stable interstitial prominence at the lung bases. Electronically signed by: Lakhwinder Griffin MD Board Certified Radiologist 08/02/2018 1:31 PM EST
[2018-08-02] MEDS: Insulin Detemir Inj 1,000 UNIT/10 ML Vial SQ SCH (20:33)
[2018-08-03] MEDS: Gabapentin 100 MG Capsule PO SCH ×3 (08:47→17:05)
[2018-08-03] MEDS: predniSONE 20 MG Tablet PO SCH ×2 (08:47→21:08)
[2018-08-03] MEDS: Isosorbide Mononitrate 60 MG ER 24HR Tablet (Imdur) PO SCH (08:47)
[2018-08-03] MEDS: Insulin NovoLOG Aspart Correctional Sugar Inj SQ SCH ×4 (08:48→21:08)
[2018-08-03] MEDS: amLODIPine 10 MG Tablet PO SCH (08:48)
[2018-08-03] MEDS: Ranolazine 500 MG 12HR ER Tablet PO SCH ×2 (08:48→21:07)
--- NOTE | 2018-08-03 09:12 | P.PNCA ---
Subjective Interval history: No events overnight No chest pain Off nitro drip Up and ambulating a bit yesterday Medications and Allergies Active Medications: Active Medications Al Hydroxide/Mg Hydroxide (Milk Of Magnalin Liq) 30 ml PO Q12H PRN PRN Reason: Mild Constipation Albuterol (Albuterol Neb (Prn)) 2.5 mg NEB Q2HR NEB PRN PRN Reason: SHORTNESS OF BREATH Last Admin: 07/27/18 18:15 Dose: 2.5 mg Amlodipine Besylate (Norvasc) 10 mg PO DAILY [facility] Last Admin: 08/03/18 08:48 Dose: 10 mg Artificial Tears (Refresh Tears 0.5% Opth Drops) 1 drop EACH EYE Q4H PRN PRN Reason: Eye Irritation Last Admin: 07/31/18 09:14 Dose: 1 drop Artificial Tears (Tears Naturale Opth Drops) 1 drop EACH EYE Q4H PRN PRN Reason: Eye dryness Last Admin: 07/31/18 09:14 Dose: 1 drop Aspirin (Aspirin Chew) 81 mg PO DAILY [facility] Last Admin: 08/03/18 08:47 Dose: 81 mg Atorvastatin Calcium (Lipitor) 80 mg PO QPM [facility] Last Admin: 08/02/18 20:33 Dose: 80 mg Bisacodyl (Dulcolax Supp) 10 mg RECTAL DAILY PRN PRN Reason: SEVERE CONSITIPATION Budesonide/Formoterol Fumarate (Symbicort 160/4.5 Mcg Inh) 2 puff INH BID [facility] Last Admin: 07/24/18 01:04 Dose: Not Given Bumetanide (Bumex Inj) 1 mg IV.PUSH BID [facility] Last Admin: 08/03/18 08:47 Dose: 1 mg Clopidogrel Bisulfate (Plavix) 75 mg PO DAILY [facility] Last Admin: 08/03/18 08:45 Dose: 75 mg Dextrose (D50w Vial) 50 ml IV.PUSH UNSCH PRN PRN Reason: PER HYPOGLYCEMIA PROTOCOL Gabapentin (Neurontin) 100 mg PO TID [facility] Last Admin: 08/03/18 08:47 Dose: 100 mg Glucagon (Glucagon Inj) 1 mg OTHER PRN PRN PRN Reason: for Hypoglycemia Protocol Nitroglycerin/Dextrose (Nitroglycerin Drip Premix) 50 mg in 250 mls @ 1.5 mls/ hr IV.CONT TITRATE PRN; Protocol PRN Reason: Per Protocol Last Titration: 07/31/18 14:45 Dose: 0 mcg/min, 0 mls/hr Insulin Aspart (Novolog Insulin Correctional Sugar Inj) 0 unit SQ ACHS [facility]; Protocol Last Admin: 08/03/18 08:48 Dose: 2 unit Insulin Detemir (Levemir Inj) 20 unit SQ HS [facility] Last Admin: 08/02/18 20:33 Dose: 20 unit Isosorbide Mononitrate (Imdur) 120 mg PO DAILY [facility] Last Admin: 08/03/18 08:47 Dose: 120 mg Lactulose (Lactulose Liq) 30 ml PO DAILY PRN PRN Reason: SEVERE CONSITIPATION Metoprolol Succinate (Toprol Xl) 25 mg PO DAILY [facility] Last Admin: 08/03/18 08:47 Dose: 25 mg Morphine Sulfate (Morphine Inj) 1 mg IV.PUSH Q4H PRN PRN Reason: PAIN SCALE 6 TO 10 Last Admin: 07/27/18 09:10 Dose: 1 mg Nicotine (Habitrol 21 Mg Patch.24 Hr) 1 patch T-DERMAL DAILY [facility] Last Admin: 07/26/18 09:27 Dose: 1 patch Nitroglycerin (Nitrostat Sl) 0.4 mg SL Q5M PRN PRN Reason: Chest Pain Last Admin: 07/27/18 00:55 Dose: 0.4 mg Ondansetron HCl (Zofran Inj) 4 mg IV.PUSH Q6H PRN PRN Reason: NAUSEA OR VOMITING Pantoprazole Sodium (Protonix) 40 mg PO BID [facility] Last Admin: 08/03/18 08:48 Dose: 40 mg Prednisone (Deltasone) 20 mg PO BID [facility] Last Admin: 08/03/18 08:47 Dose: 20 mg Ranolazine (Ranexa) 1,000 mg PO BID [facility] Last Admin: 08/03/18 08:48 Dose: 1,000 mg Sennosides (Senokot) 17.2 mg PO Q12H PRN PRN Reason: Moderate Constipation Sodium Chloride (Ns Flush) 2 ml IV.FLUSH BID [facility] Last Admin: 08/03/18 08:48 Dose: 2 ml Sodium Chloride (Ns Flush) 2 ml IV.FLUSH PRN PRN PRN Reason: FLUSH AFTER USING IV ACCESS Terazosin HCl (Hytrin) 4 mg PO DAILY [facility] Last Admin: 08/03/18 08:47 Dose: 4 mg Zolpidem Tartrate (Ambien) 10 mg PO HS PRN PRN Reason: INSOMNIA Allergies Allergy/AdvReac Type Severity Reaction Status Date / Time acetaminophen Allergy Severe Rash Verified 07/24/18 09:38 aspirin Allergy Severe Rash Verified 07/24/18 09:38 codeine Allergy Severe anaphylaxis Verified 07/24/18 09:38 ferrous sulfate Allergy Severe Rash Verified 07/24/18 09:38 iron Allergy Severe Rash Verified 07/24/18 09:38 oxycodone Allergy Severe Rash Verified 07/24/18 09:38 [place] AdvReac Severe SYSTEM Uncoded 04/11/14 08:32 SHUTS DOWN Home Medications Medication Instructions Recorded Confirmed Type amlodipine 10 mg PO DAILY 07/23/18 07/23/18 History aspirin 81 mg PO DAILY 07/23/18 07/23/18 History atorvastatin 80 mg PO QPM 07/23/18 07/23/18 History carboxymethylcellulose sodium 1 drp OPHTHALMIC (EYE) Q4-6H PRN 07/23/18 History clopidogrel 75 mg PO DAILY 07/23/18 07/23/18 History cyanocobalamin (vitamin B-12) 1,000 mcg PO DAILY 07/23/18 07/23/18 History furosemide 40 mg PO BID 07/23/18 07/23/18 History glipizide 10 mg PO BID 07/23/18 07/23/18 History ipratropium-albuterol 3 ml INHALATION Q6-8H PRN 07/23/18 07/23/18 History isosorbide mononitrate 120 mg PO DAILY 07/23/18 07/23/18 History metoprolol succinate 25 mg PO DAILY 07/23/18 07/23/18 History nitroglycerin 0.4 mg SUBLINGUAL Q5-15M PRN 07/23/18 07/23/18 History pantoprazole 40 mg PO BID 07/23/18 07/23/18 History ranolazine 1,000 mg PO Q12H 07/23/18 07/23/18 History terazosin 4 mg PO DAILY 07/23/18 07/23/18 History Physical Exam Vital signs: Vital Signs 08/02/18 10:00 08/02/18 11:00 08/02/18 12:00 Temperature 98.1 F Pulse Rate 68 69 66 Respiratory Rate 18 Blood Pressure 151/68 H Pulse Oximetry 94 L 08/02/18 13:00 08/02/18 14:00 08/02/18 15:00 Temperature 98.2 F Pulse Rate 74 71 66 Respiratory Rate 18 Blood Pressure 160/69 H Pulse Oximetry 100 08/02/18 16:00 08/02/18 17:00 08/02/18 18:00 Temperature Pulse Rate 67 73 75 Respiratory Rate Blood Pressure Pulse Oximetry 08/02/18 19:00 08/02/18 20:00 08/02/18 21:00 Temperature 97.7 F Pulse Rate 73 74 71 Respiratory Rate 18 Blood Pressure 143/67 H Pulse Oximetry 99 99 08/02/18 22:00 08/02/18 23:00 08/03/18 00:00 Temperature 98 F Pulse Rate 59 L 75 69 Respiratory Rate 18 Blood Pressure 152/68 H Pulse Oximetry 100 08/03/18 01:00 08/03/18 02:00 08/03/18 03:00 Temperature 98 F Pulse Rate 67 73 61 Respiratory Rate 18 Blood Pressure 132/64 Pulse Oximetry 100 08/03/18 04:00 08/03/18 05:00 08/03/18 06:00 Temperature Pulse Rate 63 60 62 Respiratory Rate Blood Pressure Pulse Oximetry 08/03/18 07:00 08/03/18 07:28 Temperature Pulse Rate 62 Respiratory Rate Blood Pressure Pulse Oximetry 95 Intake & Output 08/02/18 08/03/18 08/03/18 18:59 06:59 18:59 Intake Total 960 / 960 720 / 720 Output Total 1450 / 1450 1700 / 1700 Balance -490 / -490 -980 / -980 Weight 124.5 kg Intake: Oral 960 / 960 720 / 720 Output: Urine 1450 / 1450 1700 / 1700 Other: # Voids 4 5 Date of Last Bowel Movement 08/01/18 08/02/18 Narrative: GENERAL: NAD, AAOx3 SKIN: Warm and dry. HEAD: Atraumatic. Normocephalic. EYES: Pupils equal and round. No scleral icterus. No injection or drainage. ENT: No nasal bleeding or discharge. Mucous membranes pink and moist. NECK: Trachea midline. No JVD. CARDIOVASCULAR: Regular rate and rhythm. RESPIRATORY: No accessory muscle use. Mild wheezing GASTROINTESTINAL: Abdomen soft, non-tender, nondistended. Hepatic and splenic margins not palpable. MUSCULOSKELETAL: Trace edema NEUROLOGICAL: Awake and alert. No obvious cranial nerve deficits. Motor grossly within normal limits. Five out of 5 muscle strength in the arms and legs. Normal speech. PSYCHIATRIC: Appropriate mood and affect; insight and judgment normal. Results 08/02/18 06:03 08/02/18 08:22 CBC 08/02/18 Range/Units 06:03 WBC 5.6 (4.0-11.0) th/mm3 RBC 3.87 L (4.50-5.90) mil/mm3 Hgb 8.8 L (13.0-17.0) gm/dL Hct 28.9 L (39.0-51.0) % Plt Count 105 L (150-450) th/mm3 Comprehensive Metabolic Panel 08/02/18 Range/Units 08:22 Sodium 137 (136-145) meq/L Potassium 4.3 (3.5-5.1) meq/L Chloride 99 (98-107) meq/L Carbon Dioxide 30.5 (21.0-32.0) meq/L BUN 34 H (7-18) mg/dL Creatinine 1.88 H (0.60-1.30) mg/dL Calcium 8.8 (8.5-10.1) mg/dL Intake and Output 08/02/18 08/03/18 08/03/18 22:59 06:59 14:59 Intake Total 960 / 960 720 / 720 Output Total 1450 / 1450 1700 / 1700 Balance -490 / -490 -980 / -980 Intake: Oral 960 / 960 720 / 720 Output: Urine 1450 / 1450 1700 / 1700 Other: # Voids 4 5 Date of Last Bowel Movement 08/02/18 08/02/18 Weight 124.5 kg - Imaging and Cardiology Imaging: Impressions Chest X-Ray 08/02/18 00:00 CONCLUSION: No acute abnormality is identified to explain the clinical symptoms. There is enlargement of the cardiac silhouette with stable interstitial prominence at the lung bases. Assessment and Plan - Assessment (1) NSTEMI (non-ST elevated myocardial infarction) Code(s): I21.4 - Non-ST elevation (NSTEMI) myocardial infarction Status: Acute Plan: severe complex cad, not amenable to PCI, still w/ cp, put in a CV consult. (2) CHF exacerbation Code(s): I50.9 - Heart failure, unspecified Status: Acute Plan: Doing well on IV bumex, cr stable., elevated lvedp yesterday suggests still room for diuresis (3) CKD (chronic kidney disease) stage 3, GFR 30-59 ml/min Code(s): N18.3 - Chronic kidney disease, stage 3 (moderate) Status: Acute (4) COPD exacerbation Code(s): J44.1 - Chronic obstructive pulmonary disease with (acute) exacerbation Status: Acute - Plan 1) [place] Complex CAD not amendable to PCI Review of old notes, apparently he's been told this since a cath in 2011 Off nitro drip Discussed with CT surgery Consideration of TMR Not available here Possible transfer to [facility] if they have available Otherwise not much to offer Ranexa restarted 2) Acute on chronic CHF Con't diuresis as heart failure will exacerbate his angina 3) CKD Creatinine better today with diuresis, con't to try to diurese 4) Work with physical therapy If not going for TMR, then home with medical therapy (2) CHF exacerbation Qualifiers: Heart failure type: systolic Qualified Code(s): I50.23 - Acute on chronic systolic (congestive) heart failure
--- NOTE | 2018-08-03 09:14 | P.PNFP ---
Subjective Interval history: Patient seen and examined this morning. No acute events overnight. Patient denies nausea, vomiting, fever, chills, abdominal pain, chest pain, lightheadedness, dizziness, left arm or jaw pain, weakness. Cough improved. Patient reports he continues to use CPAP for most of the day. Reviewed current plan. Awaiting update on possible transfer. No other complaints at this time. <Denny Steel - 08/03/18 09:14> Results - Labs Result diagrams: 08/04/18 07:59 08/04/18 07:59 <Denny Garza - 08/04/18 17:00> Abnormal lab results 08/03/18 08/03/18 08/04/18 Range/Units 17:01 20:25 07:47 RBC (4.50-5.90) mil/mm3 Hgb (13.0-17.0) gm/dL Hct (39.0-51.0) % MCV (80.0-100.0) fL MCH (27.0-34.0) pg RDW (11.6-17.2) % Plt Count (150-450) th/mm3 Neut % (Auto) (16.0-70.0) % Lymph # (Auto) (1.0-4.8) th/mm3 Platelet Estimate (Normal) Ovalocytes (None) BUN (7-18) mg/dL Creatinine (0.60-1.30) mg/dL Estimated GFR (>89) mL/min POC Glucose 367 H 363 H 210 H (68-110) mg/dl Random Glucose (74-106) mg/dL 08/04/18 08/04/18 08/04/18 Range/Units 07:59 07:59 11:03 RBC 3.84 L (4.50-5.90) mil/mm3 Hgb 9.0 L (13.0-17.0) gm/dL Hct 27.3 L (39.0-51.0) % MCV 71.1 L D (80.0-100.0) fL MCH 23.3 L (27.0-34.0) pg RDW 19.5 H (11.6-17.2) % Plt Count 91 L (150-450) th/mm3 Neut % (Auto) 81.8 H (16.0-70.0) % Lymph # (Auto) 0.7 L (1.0-4.8) th/mm3 Platelet Estimate Low L (Normal) Ovalocytes 1+ H (None) BUN 36 H (7-18) mg/dL Creatinine 1.77 H (0.60-1.30) mg/dL Estimated GFR 38 L (>89) mL/min POC Glucose 286 H (68-110) mg/dl Random Glucose 187 H (74-106) mg/dL 08/04/18 Range/Units 16:09 RBC (4.50-5.90) mil/mm3 Hgb (13.0-17.0) gm/dL Hct (39.0-51.0) % MCV (80.0-100.0) fL MCH (27.0-34.0) pg RDW (11.6-17.2) % Plt Count (150-450) th/mm3 Neut % (Auto) (16.0-70.0) % Lymph # (Auto) (1.0-4.8) th/mm3 Platelet Estimate (Normal) Ovalocytes (None) BUN (7-18) mg/dL Creatinine (0.60-1.30) mg/dL Estimated GFR (>89) mL/min POC Glucose 389 H (68-110) mg/dl Random Glucose (74-106) mg/dL Short CBC 08/04/18 Range/Units 07:59 WBC 6.7 (4.0-11.0) th/mm3 Hgb 9.0 L (13.0-17.0) gm/dL Hct 27.3 L (39.0-51.0) % Plt Count 91 L (150-450) th/mm3 [facility] 08/04/18 07:59 Sodium 137 Potassium 4.6 Chloride 100 Carbon Dioxide 29.6 BUN 36 H Creatinine 1.77 H Calcium 8.5 <Denny Garza - 08/04/18 17:00> Abnormal lab results 08/02/18 08/02/18 08/02/18 Range/Units 11:46 16:53 19:48 POC Glucose 312 H 430 H 396 H (68-110) mg/dl 08/03/18 Range/Units 07:45 POC Glucose 181 H (68-110) mg/dl <Denny Steel - 08/03/18 09:14> - Imaging Impressions Chest X-Ray 08/02/18 00:00 CONCLUSION: No acute abnormality is identified to explain the clinical symptoms. There is enlargement of the cardiac silhouette with stable interstitial prominence at the lung bases. <Felecia PerezDennyRolf - 08/03/18 09:14> Physical Exam Vital signs: Vital Signs 08/03/18 17:00 08/03/18 17:59 08/03/18 19:00 Temperature 97.7 F Pulse Rate 62 63 63 Respiratory Rate 18 Blood Pressure 152/68 H Pulse Oximetry 100 08/03/18 20:00 08/03/18 21:00 08/03/18 22:00 Temperature Pulse Rate 71 72 67 Respiratory Rate Blood Pressure Pulse Oximetry 99 08/03/18 23:00 08/04/18 00:00 08/04/18 01:00 Temperature 97.8 F Pulse Rate 69 66 63 Respiratory Rate 18 Blood Pressure 153/67 H Pulse Oximetry 98 08/04/18 02:00 08/04/18 03:00 08/04/18 04:00 Temperature 97.4 F L Pulse Rate 66 65 65 Respiratory Rate 18 Blood Pressure 159/72 H Pulse Oximetry 98 08/04/18 04:57 08/04/18 05:42 08/04/18 07:00 Temperature 97.8 F Pulse Rate 66 71 70 Respiratory Rate 20 Blood Pressure 163/64 H Pulse Oximetry 94 L 08/04/18 07:55 08/04/18 08:00 08/04/18 09:00 Temperature Pulse Rate 68 70 Respiratory Rate Blood Pressure Pulse Oximetry 92 L 08/04/18 10:00 08/04/18 10:04 08/04/18 11:49 Temperature 97.9 F Pulse Rate 68 70 70 Respiratory Rate 22 Blood Pressure 157/67 H Pulse Oximetry 94 L 08/04/18 12:00 08/04/18 12:03 08/04/18 13:11 Temperature Pulse Rate 65 68 68 Respiratory Rate Blood Pressure Pulse Oximetry 08/04/18 14:20 08/04/18 16:00 Temperature 98.2 F Pulse Rate 68 73 Respiratory Rate 20 Blood Pressure 141/69 H Pulse Oximetry 100 Intake & Output 08/03/18 08/04/18 08/04/18 18:59 06:59 18:59 Intake Total 960 / 960 720 / 720 Output Total 1100 / 1100 1625 / 1625 Balance -140 / -140 -905 / -905 Weight 116.8 kg Intake: Oral 960 / 960 720 / 720 Output: Urine 1100 / 1100 1625 / 1625 Other: # Voids 4 5 Date of Last Bowel Movement 08/03/18 08/03/18 08/03/18 # Bowel Movements 2 <Greg,Denny L - 08/04/18 17:00> Vital Signs 08/02/18 10:00 08/02/18 11:00 08/02/18 12:00 Temperature 98.1 F Pulse Rate 68 69 66 Respiratory Rate 18 Blood Pressure 151/68 H Pulse Oximetry 94 L 08/02/18 13:00 08/02/18 14:00 08/02/18 15:00 Temperature 98.2 F Pulse Rate 74 71 66 Respiratory Rate 18 Blood Pressure 160/69 H Pulse Oximetry 100 08/02/18 16:00 08/02/18 17:00 08/02/18 18:00 Temperature Pulse Rate 67 73 75 Respiratory Rate Blood Pressure Pulse Oximetry 08/02/18 19:00 08/02/18 20:00 08/02/18 21:00 Temperature 97.7 F Pulse Rate 73 74 71 Respiratory Rate 18 Blood Pressure 143/67 H Pulse Oximetry 99 99 08/02/18 22:00 08/02/18 23:00 08/03/18 00:00 Temperature 98 F Pulse Rate 59 L 75 69 Respiratory Rate 18 Blood Pressure 152/68 H Pulse Oximetry 100 08/03/18 01:00 08/03/18 02:00 08/03/18 03:00 Temperature 98 F Pulse Rate 67 73 61 Respiratory Rate 18 Blood Pressure 132/64 Pulse Oximetry 100 08/03/18 04:00 08/03/18 05:00 08/03/18 06:00 Temperature Pulse Rate 63 60 62 Respiratory Rate Blood Pressure Pulse Oximetry 08/03/18 07:00 08/03/18 07:28 Temperature 98.1 F Pulse Rate 54 L Respiratory Rate 18 Blood Pressure 159/71 H Pulse Oximetry 100 95 Intake & Output 08/02/18 08/03/18 08/03/18 18:59 06:59 18:59 Intake Total 960 / 960 720 / 720 Output Total 1450 / 1450 1700 / 1700 Balance -490 / -490 -980 / -980 Weight 124.5 kg Intake: Oral 960 / 960 720 / 720 Output: Urine 1450 / 1450 1700 / 1700 Other: # Voids 4 5 Date of Last Bowel Movement 08/01/18 08/02/18 08/01/18 <Felecia PerezDenny - 08/03/18 09:14> Narrative: General: Obese, laying in bed, no distress Skin: No rashes or lesions CV: RRR, no murmurs, rubs, or gallops, regular pulses, normal cap refill Lungs: Auscultated anteriorly, occasional wheezing, Abdomen: Soft, obese. Ext: Mild pitting edema. Neuro: Awake, alert <Felecia PerzeDenny - 08/03/18 09:14> Assessment and Plan - Assessment (1) NSTEMI (non-ST elevated myocardial infarction) Code(s): I21.4 - Non-ST elevation (NSTEMI) myocardial infarction Status: Acute (2) CHF exacerbation Code(s): I50.9 - Heart failure, unspecified Status: Acute (3) COPD exacerbation Code(s): J44.1 - Chronic obstructive pulmonary disease with (acute) exacerbation Status: Acute (4) DM2 (diabetes mellitus, type 2) Code(s): E11.9 - Type 2 diabetes mellitus without complications Status: Acute (5) Coronary artery disease Code(s): I25.10 - Atherosclerotic heart disease of [place] coronary artery without angina pectoris Status: Acute (6) History of CVA (cerebrovascular accident) Code(s): Z86.73 - Personal history of transient ischemic attack (TIA), and cerebral infarction without residual deficits Status: Acute (7) CKD (chronic kidney disease) stage 3, GFR 30-59 ml/min Code(s): N18.3 - Chronic kidney disease, stage 3 (moderate) Status: Acute (8) BPH (benign prostatic hyperplasia) Code(s): N40.0 - Benign prostatic hyperplasia without lower urinary tract symptoms Status: Acute (9) Gastritis Code(s): K29.70 - Gastritis, unspecified, without bleeding Status: Acute (10) Smoker Code(s): F17.200 - Nicotine dependence, unspecified, uncomplicated Status: Acute <Denny Garza - 08/04/18 17:00> (1) NSTEMI (non-ST elevated myocardial infarction) Code(s): I21.4 - Non-ST elevation (NSTEMI) myocardial infarction Status: Acute Plan: Likely N-STEMI, status post cardiac catheterization 07/26/17. 07/24 grafts patent. -Continuing medical management. Currently weaned off Nitro drip -Continue Imdur, Plavix, aspirin, amlodipine, metoprolol -Palliative care on board to assist with goals of care -Cardiology On Board. Appreciate recommendations. -Cardiothoracic surgery recommends against reoperative surgical intervention due to prohibitive risk secondary to his significant medical comorbidities, morbid obesity, cardiomyopathy as well as pulmonary and renal insufficiency. May benefit from being transferred to his previous cardiac surgeon for possible TMR. Cardiothoracic surgery currently attempting to obtain records to properly identify previous cardiac surgeon and to further discuss transfer with that surgeon. (2) CHF exacerbation Code(s): I50.9 - Heart failure, unspecified Status: Acute Plan: ECHO: Mild LVH, EF 40-45%, left atrial mild dilation, aortic valve sclerosis, pulmonary pressure 48 X-ray: Mild cardiomegaly, pulmonary congestion, no obvious pneumonia -Attempt to wean off BiPAP and using oxygen - Continue Bumex 1 mg bid for diuresis - Monitor intake and output. - Continue metoprolol, Imdur. May benefit from TALHA inhibitor but possibly with acute kidney injury so will hold off. - Continue telemetry, review daily - Keep head of bed elevated to 30 degrees - O2 walk test before discharge - O2 supplementation to target 88-93% O2 Sat (3) COPD exacerbation Code(s): J44.1 - Chronic obstructive pulmonary disease with (acute) exacerbation Status: Acute Plan: Symptoms most consistent with CHF exacerbation, may be component of COPD exacerbation. Has some mild diffuse wheezing on exam. - Will probably have some baseline of wheezing due to metoprolol and side effects of bronchospasm. Benefits of metoprolol with improving mortality for CHF outweighs bronchospasm at this time. Will continue on metoprolol. - Continue Atrovent and Symbicort for maintenance - DuoNebs once a day, albuterol as needed - Prednisone 40 mg daily -Worsened wheezing, productive cough, follow up CXR (4) DM2 (diabetes mellitus, type 2) Code(s): E11.9 - Type 2 diabetes mellitus without complications Status: Acute Plan: SSI w/accuchecks Levimir 20 untis hs Monitor glucose Con't home Gabapentin TID (5) Coronary artery disease Code(s): I25.10 - Atherosclerotic heart disease of [place] coronary artery without angina pectoris Status: Acute Plan: History of CABG and stable angina. - Continue high dose statin, Plavix and aspirin - Continue Ranolazine, Imdur (6) History of CVA (cerebrovascular accident) Code(s): Z86.73 - Personal history of transient ischemic attack (TIA), and cerebral infarction without residual deficits Status: Acute Plan: See above, con't home meds (7) CKD (chronic kidney disease) stage 3, GFR 30-59 ml/min Code(s): N18.3 - Chronic kidney disease, stage 3 (moderate) Status: Acute Plan: Avoid nephrotoxic meds Creatinine improving Due to CHF caution with fluids. Will continue to monitor. See above plan Daily BMP (8) BPH (benign prostatic hyperplasia) Code(s): N40.0 - Benign prostatic hyperplasia without lower urinary tract symptoms Status: Acute Plan: Con't home Terazosin 4 mg daily (9) Gastritis Code(s): K29.70 - Gastritis, unspecified, without bleeding Status: Acute Plan: Con't home protonix daily (10) Smoker Code(s): F17.200 - Nicotine dependence, unspecified, uncomplicated Status: Acute Plan: Nicotine patches daily Encourage cessation Fluids: by mouth Electrolytes: monitor Nutrition: Diabetic diet DVT prophylaxis: plavix, aspirin, and SCDs <Felecia PerezRolf - 08/03/18 09:11> - Assessment and Plan 77-year-old male with past medical history of CHF, COPD presents with right- sided chest pain found to have NSTEMI. Elevated troponins. Status post cardiac catheterization. Continuing with medical management for NSTEMI. Attempting transfer for possible TMR. <Felecia PerezRolf - 08/03/18 09:14> - Attending Attestation The exam, history, and the medical decision-making described in the above note were completed with the assistance of the resident physician. I reviewed and agree with the findings presented. I attest that I had a [id number] encounter with the patient on the same day, and personally performed and documented my assessment and findings in the medical record. I evaluated patient independently of resident team. He is stable clinically. Chest pain well controlled for the time being. Shortness of breath at baseline. [facility]. Continuing to discuss options and goals of treatment with patient and family. He would like to pursue reperfusion for the time being. Palliative care also on board helping to have these discussions with patient. <Denny Garza - 08/04/18 17:00> <Denny Garza - Last Filed: 08/04/18 17:00> (2) CHF exacerbation Qualifiers: Heart failure type: systolic Qualified Code(s): I50.23 - Acute on chronic systolic (congestive) heart failure <Denny Garza L - Last Filed: 08/04/18 17:00> (2) CHF exacerbation Qualifiers: Heart failure type: systolic Qualified Code(s): I50.23 - Acute on chronic systolic (congestive) heart failure
--- NOTE | 2018-08-03 09:45 | P.PNCV ---
- Note Subjective/Hospital Course: Clinically and hemodynamically stable No active chest pain waiting on eval from [place] as to direction for transfer Objective: Vital Signs - 24 hr 08/02/18 10:00 08/02/18 11:00 08/02/18 12:00 Temperature 98.1 F Pulse Rate 68 69 66 Respiratory Rate 18 Blood Pressure 151/68 H Pulse Oximetry 94 L 08/02/18 13:00 08/02/18 14:00 08/02/18 15:00 Temperature 98.2 F Pulse Rate 74 71 66 Respiratory Rate 18 Blood Pressure 160/69 H Pulse Oximetry 100 08/02/18 16:00 08/02/18 17:00 08/02/18 18:00 Temperature Pulse Rate 67 73 75 Respiratory Rate Blood Pressure Pulse Oximetry 08/02/18 19:00 08/02/18 20:00 08/02/18 21:00 Temperature 97.7 F Pulse Rate 73 74 71 Respiratory Rate 18 Blood Pressure 143/67 H Pulse Oximetry 99 99 08/02/18 22:00 08/02/18 23:00 08/03/18 00:00 Temperature 98 F Pulse Rate 59 L 75 69 Respiratory Rate 18 Blood Pressure 152/68 H Pulse Oximetry 100 08/03/18 01:00 08/03/18 02:00 08/03/18 03:00 Temperature 98 F Pulse Rate 67 73 61 Respiratory Rate 18 Blood Pressure 132/64 Pulse Oximetry 100 08/03/18 04:00 08/03/18 05:00 08/03/18 06:00 Temperature Pulse Rate 63 60 62 Respiratory Rate Blood Pressure Pulse Oximetry 08/03/18 07:00 08/03/18 07:28 Temperature 98.1 F Pulse Rate 54 L Respiratory Rate 18 Blood Pressure 159/71 H Pulse Oximetry 100 95 Labs: Laboratory Results - last 12 hr 08/03/18 07:45 POC Glucose 181 H Result Diagrams: 08/02/18 06:03 08/02/18 08:22
[2018-08-03] MEDS: Heparin - SQ 10,000 UNITS/ML Vial SQ SCH ×2 (17:11→21:06)
[2018-08-03] MEDS: Insulin Detemir Inj 1,000 UNIT/10 ML Vial SQ SCH (21:08)
--- NOTE | 2018-08-03 23:54 | P.PNPAL ---
Reason for Visit Reason for visit: a. To assist with evaluation and management of symptoms including: pain, dyspnea b. To assist medical decision maker(s) with: better understanding of current medical conditions; weighing benefits/burdens of medical treatment options; making medical treatment decisions. Subjective Subjective/Interval History: This is a 77-year-old male with a past medical history significant for CHF, COPD was not previously oxygen dependent, chronic kidney disease stage III, previous CVA, diabetes, obesity, obstructive sleep apnea, known vasculopathy. He originally presented to the emergency room on 07/23/2018 with a one-week history of worsening shortness of breath, cough with yellow sputum, and fluid weight gain of 11 pounds. He is reportedly had 4 hospitalizations past year for fluid overload, also sees [facility] manager of engineering was recently recommending a defibrillator due to heart blockage. He was evaluated on 07/24/18 by cardiology for elevated troponins, at that time he alerted Dr. Hoffman he was unable to undergo cardiac cath due to blockages in both femoral arteries and left arm approach. Patient declined cath procedure and elected medical management, Dr. Hoffman opined that was appropriate given overall condition, he also noted that tropnins may also be elevated due to chronic illnesses (creatinine >2). He was started on a Heparin gtt, aspirin, Plavix, high dose statin, metoprolol. On 07/26/17, he began having chest pain after heparin was stopped. His chest pain was not controlled by nitro as it was in the past and was called a Hallicat. He continued to decline cardiac cath. He was again seen by cardiology advised urgent cath, he eventually agreed. Per cath report, "does not appear to have lesions amenable to PCI at this time," recommended continuation of medical management for NSTEMI. Labs today: WBC 6 hemoglobin 8.2, hematocrit 26.1, platelet 102, sodium 138, potassium 4.1, chloride 102, carbon dioxide 29.4, BUN 31, creatinine 2.05, GFR 32, glucose 191, calcium 8.9 Patient remains on BiPAP. He is breathing comfortably. He is awaiting transfer plans to the [facility] for possible TMR. Spoke with CM who states she is trying to facilitate the transfer. Family/Friend Interactions: Received call from patient's significant other requesting an update regarding possible transfer to [facility] for cardiac intervention. Advised I would follow up today. 1900: Returned call to her, advised that CM is working on transfer. Advance Directives Living Will: Copy in medical record Health Care Surrogate: Copy in medical record Durable Power of Tallow Pumper: Copy in medical record Objective Vital Signs: Vital Signs 08/03/18 00:00 08/03/18 01:00 08/03/18 02:00 Temperature Pulse Rate 69 67 73 Respiratory Rate Blood Pressure Pulse Oximetry Pulse Oximetry [Resting on Room Air] Pulse Oximetry [Resting with Oxygen] 08/03/18 03:00 08/03/18 04:00 08/03/18 05:00 Temperature 98 F Pulse Rate 61 63 60 Respiratory Rate 18 Blood Pressure 132/64 Pulse Oximetry 100 Pulse Oximetry [Resting on Room Air] Pulse Oximetry [Resting with Oxygen] 08/03/18 06:00 08/03/18 07:00 08/03/18 07:28 Temperature 98.1 F Pulse Rate 62 54 L Respiratory Rate 18 Blood Pressure 159/71 H Pulse Oximetry 100 95 Pulse Oximetry [Resting on Room Air] Pulse Oximetry [Resting with Oxygen] 08/03/18 08:00 08/03/18 09:00 08/03/18 10:00 Temperature Pulse Rate 74 64 62 Respiratory Rate Blood Pressure Pulse Oximetry Pulse Oximetry [Resting on Room Air] Pulse Oximetry [Resting with Oxygen] 08/03/18 11:00 08/03/18 12:00 08/03/18 13:00 Temperature 97.7 F Pulse Rate 53 L 54 L 64 Respiratory Rate 18 Blood Pressure 149/70 H Pulse Oximetry 99 Pulse Oximetry [Resting on Room Air] Pulse Oximetry [Resting with Oxygen] 08/03/18 13:20 08/03/18 14:00 08/03/18 15:00 Temperature 97.6 F Pulse Rate 56 L 66 Respiratory Rate 18 Blood Pressure 160/93 H Pulse Oximetry 98 Pulse Oximetry [Resting on Room Air] 84 L Pulse Oximetry [Resting with Oxygen] 95 08/03/18 16:00 08/03/18 17:00 08/03/18 17:59 Temperature Pulse Rate 61 62 63 Respiratory Rate Blood Pressure Pulse Oximetry Pulse Oximetry [Resting on Room Air] Pulse Oximetry [Resting with Oxygen] 08/03/18 19:00 08/03/18 20:00 08/03/18 21:00 Temperature 97.7 F Pulse Rate 63 71 72 Respiratory Rate 18 Blood Pressure 152/68 H Pulse Oximetry 100 99 Pulse Oximetry [Resting on Room Air] Pulse Oximetry [Resting with Oxygen] 08/03/18 22:00 08/03/18 23:00 Temperature 97.8 F Pulse Rate 67 69 Respiratory Rate 18 Blood Pressure 153/67 H Pulse Oximetry 98 Pulse Oximetry [Resting on Room Air] Pulse Oximetry [Resting with Oxygen] Intake & Output 08/03/18 08/03/18 08/04/18 06:59 18:59 06:59 Intake Total 720 / 720 960 / 960 Output Total 1700 / 1700 1100 / 1100 Balance -980 / -980 -140 / -140 Weight 124.5 kg Intake: Oral 720 / 720 960 / 960 Output: Urine 1700 / 1700 1100 / 1100 Other: # Voids 5 4 Date of Last Bowel Movement 08/02/18 08/03/18 08/03/18 # Bowel Movements 2 Physical Exam: CONSTITUTIONAL/GENERAL: This is an adequately nourished patient, in no apparent distress. TUBES/LINES/DRAINS: PIV, BiPAP SKIN: intact and appropriately warm EYES: Pupils equal and round and reactive. Extraocular motions intact. No scleral icterus. No injection or drainage. Fundi not examined. ENT: Hearing grossly normal. Nose without bleeding or purulent drainage. Throat without visible erythema, exudates, masses, or lesions. CARDIOVASCULAR: Regular rate and rhythm. On nitro drip for chest pain no JVD. RESPIRATORY/CHEST: Symmetric, unlabored respirations. Clear to auscultation. Has CPAP in place GASTROINTESTINAL: Abdomen soft, non-tender, nondistended. No hepato-splenomegaly , or palpable masses. No guarding. Bowel sounds present. GENITOURINARY: Without palpable bladder distension. MUSCULOSKELETAL: Extremities without clubbing, cyanosis, or edema. No joint tenderness or effusion noted. No calf tenderness. No mottling or clubbing. NEUROLOGICAL: Awake and alert. Motor and sensory grossly within normal limits. Follows commands. Cognitively sharp. Moves all extremities. PSYCHIATRIC: No obvious anxiety/depression. no apparent hallucinations or other psychotic thought process. Diagnostic Tests Laboratory: Laboratory Results - last 72 hr 08/01/18 08/01/18 08/01/18 04:14 04:14 07:50 WBC 5.9 RBC 3.70 L Hgb 8.4 L Hct 26.7 L MCV 72.3 L MCH 22.8 L MCHC 31.5 L RDW 20.3 H Plt Count 102 L MPV 9.0 Sodium 139 Potassium 4.2 Chloride 101 Carbon Dioxide 32.2 H Anion Gap 6 BUN 39 H Creatinine 1.96 H Estimated GFR 34 L POC Glucose 298 H Random Glucose 181 H Calcium 8.6 08/01/18 08/01/18 08/01/18 12:08 16:55 20:03 WBC RBC Hgb Hct MCV MCH MCHC RDW Plt Count MPV Sodium Potassium Chloride Carbon Dioxide Anion Gap BUN Creatinine Estimated GFR POC Glucose 307 H 375 H 380 H Random Glucose Calcium 08/02/18 08/02/18 08/02/18 06:03 07:33 08:22 WBC 5.6 RBC 3.87 L Hgb 8.8 L Hct 28.9 L MCV 74.6 L MCH 22.7 L MCHC 30.4 L RDW 19.7 H Plt Count 105 L MPV 9.4 Sodium 137 Potassium 4.3 Chloride 99 Carbon Dioxide 30.5 Anion Gap 8 BUN 34 H Creatinine 1.88 H Estimated GFR 35 L POC Glucose 251 H Random Glucose 203 H Calcium 8.8 08/02/18 08/02/18 08/02/18 11:46 16:53 19:48 WBC RBC Hgb Hct MCV MCH MCHC RDW Plt Count MPV Sodium Potassium Chloride Carbon Dioxide Anion Gap BUN Creatinine Estimated GFR POC Glucose 312 H 430 H 396 H Random Glucose Calcium 08/03/18 08/03/18 08/03/18 07:45 11:56 17:01 WBC RBC Hgb Hct MCV MCH MCHC RDW Plt Count MPV Sodium Potassium Chloride Carbon Dioxide Anion Gap BUN Creatinine Estimated GFR POC Glucose 181 H 300 H 367 H Random Glucose Calcium 08/03/18 20:25 WBC RBC Hgb Hct MCV MCH MCHC RDW Plt Count MPV Sodium Potassium Chloride Carbon Dioxide Anion Gap BUN Creatinine Estimated GFR POC Glucose 363 H Random Glucose Calcium Result Diagrams: 08/02/18 06:03 08/02/18 08:22 Imaging: Allergies acetaminophen Allergy (Severe, Verified 07/24/18 09:38) Rash anaphylaxis aspirin Allergy (Severe, Verified 07/24/18 09:38) Rash anaphylaxis codeine Allergy (Severe, Verified 07/24/18 09:38) anaphylaxis ferrous sulfate Allergy (Severe, Verified 07/24/18 09:38) Rash developed rash and skin blisters iron Allergy (Severe, Verified 07/24/18 09:38) Rash developed rash and skin blisters oxycodone Allergy (Severe, Verified 07/24/18 09:38) Rash anaphylaxis [place] Adverse Reaction (Severe, Uncoded 04/11/14 08:32) SYSTEM SHUTS DOWN Ambulatory Orders amlodipine 10 mg PO DAILY 07/23/18 aspirin 81 mg PO DAILY 07/23/18 atorvastatin 80 mg PO QPM 07/23/18 carboxymethylcellulose sodium 1 drp OPHTHALMIC (EYE) Q4-6H PRN 07/23/18 clopidogrel 75 mg PO DAILY 07/23/18 cyanocobalamin (vitamin B-12) 1,000 mcg PO DAILY 07/23/18 furosemide 40 mg PO BID 07/23/18 glipizide 10 mg PO BID 07/23/18 ipratropium-albuterol 3 ml INHALATION Q6-8H PRN 07/23/18 isosorbide mononitrate 120 mg PO DAILY 07/23/18 metoprolol succinate 25 mg PO DAILY 07/23/18 nitroglycerin 0.4 mg SUBLINGUAL Q5-15M PRN 07/23/18 pantoprazole 40 mg PO BID 07/23/18 ranolazine 1,000 mg PO Q12H 07/23/18 terazosin 4 mg PO DAILY 07/23/18 Intake & Output 08/02/18 08/03/18 08/04/18 06:59 06:59 06:59 Intake Total 720 / 720 1680 / 1680 960 / 960 Output Total 1999 / 1999 3150 / 3150 1100 / 1100 Balance -1280 / -1280 -1470 / -1470 -140 / -140 Weight 117 kg 124.5 kg ITS Impressions Chest X-Ray 08/02/18 00:00 CONCLUSION: No acute abnormality is identified to explain the clinical symptoms. There is enlargement of the cardiac silhouette with stable interstitial prominence at the lung bases. Medications Al Hydroxide/Mg Hydroxide (Milk Of Magdi Liq) 30 ml PO Q12H PRN PRN Reason: Mild Constipation Albuterol (Albuterol Neb (Prn)) 2.5 mg NEB Q2HR NEB PRN PRN Reason: SHORTNESS OF BREATH Last Admin: 07/27/18 18:15 Dose: 2.5 mg Amlodipine Besylate (Norvasc) 10 mg PO DAILY [facility] Last Admin: 08/03/18 08:48 Dose: 10 mg Artificial Tears (Refresh Tears 0.5% Opth Drops) 1 drop EACH EYE Q4H PRN PRN Reason: Eye Irritation Last Admin: 07/31/18 09:14 Dose: 1 drop Artificial Tears (Tears Naturale Opth Drops) 1 drop EACH EYE Q4H PRN PRN Reason: Eye dryness Last Admin: 07/31/18 09:14 Dose: 1 drop Aspirin (Aspirin Chew) 81 mg PO DAILY [facility] Last Admin: 08/03/18 08:47 Dose: 81 mg Atorvastatin Calcium (Lipitor) 80 mg PO QPM [facility] Last Admin: 08/03/18 17:14 Dose: 80 mg Bisacodyl (Dulcolax Supp) 10 mg RECTAL DAILY PRN PRN Reason: SEVERE CONSITIPATION Budesonide/Formoterol Fumarate (Symbicort 160/4.5 Mcg Inh) 2 puff INH BID [facility] Last Admin: 07/24/18 01:04 Dose: Not Given Bumetanide (Bumex Inj) 1 mg IV.PUSH BID [facility] Last Admin: 08/03/18 21:07 Dose: 1 mg Clopidogrel Bisulfate (Plavix) 75 mg PO DAILY [facility] Last Admin: 08/03/18 08:45 Dose: 75 mg Dextrose (D50w Vial) 50 ml IV.PUSH UNSCH PRN PRN Reason: PER HYPOGLYCEMIA PROTOCOL Gabapentin (Neurontin) 100 mg PO TID [facility] Last Admin: 08/03/18 17:05 Dose: 100 mg Glucagon (Glucagon Inj) 1 mg OTHER PRN PRN PRN Reason: for Hypoglycemia Protocol Heparin Sodium (Porcine) (Heparin Inj) 5,000 units SQ Q8HR [facility] Last Admin: 08/03/18 21:06 Dose: 5,000 units Nitroglycerin/Dextrose (Nitroglycerin Drip Premix) 50 mg in 250 mls @ 1.5 mls/ hr IV.CONT TITRATE PRN; Protocol PRN Reason: Per Protocol Last Titration: 07/31/18 14:45 Dose: 0 mcg/min, 0 mls/hr Insulin Aspart (Novolog Insulin Correctional Sugar Inj) 0 unit SQ ACHS [facility]; Protocol Last Admin: 08/03/18 21:08 Dose: 12 unit Insulin Detemir (Levemir Inj) 20 unit SQ HS [facility] Last Admin: 08/03/18 21:08 Dose: 20 unit Isosorbide Mononitrate (Imdur) 120 mg PO DAILY [facility] Last Admin: 08/03/18 08:47 Dose: 120 mg Lactulose (Lactulose Liq) 30 ml PO DAILY PRN PRN Reason: SEVERE CONSITIPATION Metoprolol Succinate (Toprol Xl) 25 mg PO DAILY [facility] Last Admin: 08/03/18 08:47 Dose: 25 mg Morphine Sulfate (Morphine Inj) 1 mg IV.PUSH Q4H PRN PRN Reason: PAIN SCALE 6 TO 10 Last Admin: 07/27/18 09:10 Dose: 1 mg Nicotine (Habitrol 21 Mg Patch.24 Hr) 1 patch T-DERMAL DAILY [facility] Last Admin: 07/26/18 09:27 Dose: 1 patch Nitroglycerin (Nitrostat Sl) 0.4 mg SL Q5M PRN PRN Reason: Chest Pain Last Admin: 07/27/18 00:55 Dose: 0.4 mg Ondansetron HCl (Zofran Inj) 4 mg IV.PUSH Q6H PRN PRN Reason: NAUSEA OR VOMITING Pantoprazole Sodium (Protonix) 40 mg PO BID [facility] Last Admin: 08/03/18 21:08 Dose: 40 mg Prednisone (Deltasone) 20 mg PO BID [facility] Last Admin: 08/03/18 21:08 Dose: 20 mg Ranolazine (Ranexa) 1,000 mg PO BID [facility] Last Admin: 08/03/18 21:07 Dose: 1,000 mg Sennosides (Senokot) 17.2 mg PO Q12H PRN PRN Reason: Moderate Constipation Sodium Chloride (Ns Flush) 2 ml IV.FLUSH BID [facility] Last Admin: 08/03/18 21:08 Dose: 2 ml Sodium Chloride (Ns Flush) 2 ml IV.FLUSH PRN PRN PRN Reason: FLUSH AFTER USING IV ACCESS Terazosin HCl (Hytrin) 4 mg PO DAILY [facility] Last Admin: 08/03/18 08:47 Dose: 4 mg Zolpidem Tartrate (Ambien) 10 mg PO HS PRN PRN Reason: INSOMNIA Orders 08/04/18 05:00 BMP [Basic Metabolic Panel] Timed Complete Blood Count with Diff Timed Problems (Last Reviewed 07/28/18 @ 12:37 by PANDA Bruce) CHF exacerbation (Acute) DM2 (diabetes mellitus, type 2) (Acute) Coronary artery disease (Acute) History of CVA (cerebrovascular accident) (Acute) CKD (chronic kidney disease) stage 3, GFR 30-59 ml/min (Acute) Osteoarthritis (Acute) BPH (benign prostatic hyperplasia) (Acute) Gastritis (Acute) Smoker (Acute) COPD exacerbation (Acute) NSTEMI (non-ST elevated myocardial infarction) (Acute) Pain (Acute) Dyspnea (Acute) Weakness (Acute) Vital Signs 08/03/18 00:00 08/03/18 01:00 08/03/18 02:00 Temperature Pulse Rate 69 67 73 Respiratory Rate Blood Pressure Pulse Oximetry Pulse Oximetry [Resting on Room Air] Pulse Oximetry [Resting with Oxygen] 08/03/18 03:00 08/03/18 04:00 08/03/18 05:00 Temperature 98 F Pulse Rate 61 63 60 Respiratory Rate 18 Blood Pressure 132/64 Pulse Oximetry 100 Pulse Oximetry [Resting on Room Air] Pulse Oximetry [Resting with Oxygen] 08/03/18 06:00 08/03/18 07:00 08/03/18 07:28 Temperature 98.1 F Pulse Rate 62 54 L Respiratory Rate 18 Blood Pressure 159/71 H Pulse Oximetry 100 95 Pulse Oximetry [Resting on Room Air] Pulse Oximetry [Resting with Oxygen] 08/03/18 08:00 08/03/18 09:00 08/03/18 10:00 Temperature Pulse Rate 74 64 62 Respiratory Rate Blood Pressure Pulse Oximetry Pulse Oximetry [Resting on Room Air] Pulse Oximetry [Resting with Oxygen] 08/03/18 11:00 08/03/18 12:00 08/03/18 13:00 Temperature 97.7 F Pulse Rate 53 L 54 L 64 Respiratory Rate 18 Blood Pressure 149/70 H Pulse Oximetry 99 Pulse Oximetry [Resting on Room Air] Pulse Oximetry [Resting with Oxygen] 08/03/18 13:20 08/03/18 14:00 08/03/18 15:00 Temperature 97.6 F Pulse Rate 56 L 66 Respiratory Rate 18 Blood Pressure 160/93 H Pulse Oximetry 98 Pulse Oximetry [Resting on Room Air] 84 L Pulse Oximetry [Resting with Oxygen] 95 08/03/18 16:00 08/03/18 17:00 08/03/18 17:59 Temperature Pulse Rate 61 62 63 Respiratory Rate Blood Pressure Pulse Oximetry Pulse Oximetry [Resting on Room Air] Pulse Oximetry [Resting with Oxygen] 08/03/18 19:00 08/03/18 20:00 08/03/18 21:00 Temperature 97.7 F Pulse Rate 63 71 72 Respiratory Rate 18 Blood Pressure 152/68 H Pulse Oximetry 100 99 Pulse Oximetry [Resting on Room Air] Pulse Oximetry [Resting with Oxygen] 08/03/18 22:00 08/03/18 23:00 Temperature 97.8 F Pulse Rate 67 69 Respiratory Rate 18 Blood Pressure 153/67 H Pulse Oximetry 98 Pulse Oximetry [Resting on Room Air] Pulse Oximetry [Resting with Oxygen] Laboratory Tests WBC 5.6 th/mm3 (4.0-11.0) 08/02/18 06:03 RBC 3.87 mil/mm3 (4.50-5.90) L 08/02/18 06:03 Hgb 8.8 gm/dL (13.0-17.0) L 08/02/18 06:03 Hct 28.9 % (39.0-51.0) L 08/02/18 06:03 MCV 74.6 fL (80.0-100.0) L 08/02/18 06:03 MCH 22.7 pg (27.0-34.0) L 08/02/18 06:03 MCHC 30.4 % (32.0-36.0) L 08/02/18 06:03 RDW 19.7 % (11.6-17.2) H 08/02/18 06:03 Plt Count 105 th/mm3 (150-450) L 08/02/18 06:03 MPV 9.4 fL (7.0-11.0) 08/02/18 06:03 Prelim Diff (Auto) Slide review pending 07/30/18 04:49 Neut % (Auto) 83.1 % (16.0-70.0) H 07/31/18 04:27 Lymph % (Auto) 9.5 % (9.0-44.0) 07/31/18 04:27 Gregg % (Auto) 7.2 % (0.0-8.0) 07/31/18 04:27 Eos % (Auto) 0.0 % (0.0-4.0) 07/31/18 04:27 Baso % (Auto) 0.2 % (0.0-2.0) 07/31/18 04:27 Neut # (Auto) 5.3 th/mm3 (1.8-7.7) 07/31/18 04:27 Lymph # (Auto) 0.6 th/mm3 (1.0-4.8) L 07/31/18 04:27 Gregg # (Auto) 0.5 th/mm3 (0.0-0.9) 07/31/18 04:27 Eos # (Auto) 0.0 th/mm3 (0.0-0.4) 07/31/18 04:27 Baso # (Auto) 0.0 th/mm3 (0.0-0.2) 07/31/18 04:27 WBC Differential . 07/31/18 04:27 Diff Scan Auto diff confirmed 07/30/18 04:49 Differential Comment Auto diff final 07/31/18 04:27 Platelet Estimate Low (Normal) L 07/30/18 04:49 Platelet Morphology Enlarged (Normal) H 07/30/18 04:49 Ovalocytes 1+ (None) H 07/30/18 04:49 PT 11.4 sec (9.8-11.6) 07/26/18 06:46 INR 1.1 Ratio 07/26/18 06:46 APTT 22.6 sec (23.4-31.7) L D 07/26/18 16:25 Puncture Site Right radial 07/23/18 17:03 Patient Temperature 98.6 07/23/18 17:03 O2 Saturation 87 % (90-100) L* 07/23/18 17:03 ABG pH 7.42 (7.380-7.420) 07/23/18 17:03 ABG pCO2 46 mmHg (38-42) H 07/23/18 17:03 ABG pO2 69 mmHg (61-120) 07/23/18 17:03 ABG HCO3 30 mmol/L (22-26) H 07/23/18 17:03 ABG O2 Content 10.5 Vol % (12.0-20.0) L 07/23/18 17:03 ABG Base Excess 5.4 mmol/L (-2-2) H 07/23/18 17:03 ABG Methemoglobin 0.6 % (0-2) 07/23/18 17:03 Matt Test Present 07/23/18 17:03 Hemoglobin 8.5 G/DL (12.0-16.0) L 07/23/18 17:03 Carboxyhemoglobin 6.4 % (0-4) H* 07/23/18 17:03 Inspired O2 21 % 07/23/18 17:03 Critical Value Yes 07/23/18 17:03 Sodium 137 meq/L (136-145) 08/02/18 08:22 Potassium 4.3 meq/L (3.5-5.1) 08/02/18 08:22 Chloride 99 meq/L (98-107) 08/02/18 08:22 Carbon Dioxide 30.5 meq/L (21.0-32.0) 08/02/18 08:22 Anion Gap 8 meq/L (5-15) 08/02/18 08:22 BUN 34 mg/dL (7-18) H 08/02/18 08:22 Creatinine 1.88 mg/dL (0.60-1.30) H 08/02/18 08:22 Estimated GFR 35 mL/min (>89) L 08/02/18 08:22 POC Glucose 363 mg/dl (68-110) H 08/03/18 20:25 Random Glucose 203 mg/dL (74-106) H 08/02/18 08:22 Calcium 8.8 mg/dL (8.5-10.1) 08/02/18 08:22 Total Bilirubin 0.7 mg/dL (0.2-1.0) 07/23/18 16:40 AST 18 U/L (15-37) 07/23/18 16:40 ALT 20 U/L (12-78) 07/23/18 16:40 Alkaline Phosphatase 132 U/L (45-117) H 07/23/18 16:40 Troponin I 7.74 ng/mL (0.02-0.05) H* 07/26/18 06:46 B-Natriuretic Peptide 365 pg/mL (0-100) H 07/24/18 06:39 Total Protein 7.6 g/dL (6.4-8.2) 07/23/18 16:40 Albumin 3.6 g/dL (3.4-5.0) 07/23/18 16:40 Procalcitonin 0.08 ng/mL (0.00-0.08) 07/24/18 10:36 Urine Color Yellow (Yellw/Straw) 07/23/18 18:38 Urine Clarity Clear (Clear) 07/23/18 18:38 Urine pH 6.0 (5.0-8.5) 07/23/18 18:38 Ur Specific [place] 1.004 (1.002-1.035) 07/23/18 18:38 Urine Protein Negative mg/dL (Neg-Trace) 07/23/18 18:38 Urine Glucose (UA) Negative mg/dL (Negative) 07/23/18 18:38 Urine Ketones Negative mg/dL (Negative) 07/23/18 18:38 Urine Occult Blood Negative (Negative) 07/23/18 18:38 Urine Nitrate Negative (Negative) 07/23/18 18:38 Urine Bilirubin Negative (Negative) 07/23/18 18:38 Urine Urobilinogen Less than 2 mg/dL (Less than 2) 07/23/18 18:38 Ur Leukocyte Esterase Negative (Negative) 07/23/18 18:38 Micro UA Comment Culture not ind 07/23/18 18:38 Ur Microscopic Review Not Reportable 07/23/18 18:38 Urine Culture Comments Culture not ind 07/23/18 18:38 Nasal Screen MRSA (PCR) Not detected (Negative) 07/24/18 04:20 Assessment and Plan - Symptom Scale (1) Pain 0-10 Scale: Unable to quantify (2) Dyspnea 0-10 Scale: Unable to quantify (3) Weakness 0-10 Scale: Unable to quantify Pertinent Non-Medical Issues: Psychosocial: Patient is 3 times. 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 He has significant other for the past 13 years, danii, and 6 children aged 54-13. Spiritual: Software Configuration Analyst available Legal: Patient is capacitated to make his own decisions. 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 Having continuous chest pain requiring a nitro drip in large doses and has been unable to be weaned. Was previously not on oxygen, now requiring continuous CPAP. Not likely a surgical candidate for any further aggressive type treatments due to multiple other comorbid illnesses. Life expectancy is limited. Would be medically eligible for hospice services if goals were appropriate Code Status: Alternative Code (DO NOT INTUBATE) Plan: Legal decision maker: Patient currently capacitated make his own decisions. Patient has healthcare surrogate and power of community development coordinator designating his significant other danii as healthcare decision maker. Goals: Remain aggressive short of intubation. Hopeful for transfer to [place] for TMR CODE STATUS: DO NOT INTUBATE SYMPTOMS: --chest pain: Has been on Nitro chronically at home. Reports frequent use. Us having difficulty understanding different medications and proper use.Has rodger weaned from Nitro, no new complaints of chest pain --Dyspnea: He is having ongoing SOB, now requiring continuous BiPAP/CPAP. Is having difficulty understanding progression of heart failure, though has good understanding of his options being limited. SOB improving. Palliative care will continue to follow during hospital course as condition evolves, to assist patient/decision-maker with understanding of medical conditions, weighing benefits/burdens of treatment options, for clarification of goals of treatment. Additionally will assist with any symptoms of palliative concern Attestation Collaborating Comments: Dr. Carcamo Attestation: To help prompt me to consider important information that might be impacting today's encounter and assessment, information from prior notes written by myself or my colleagues may have been "brought forward" into today's note. My signature on this note, however, is an attestation that I personally performed the exam, history, and/or decision-making noted today, and, unless otherwise indicated, the interactions with patient, family, and staff as well as the review of records all occurred today. I also attest that the listed assessment and stated plan reflect my best clinical judgment today based on the combination of historical information, prior notes, and today's exam/ interactions. When time spent is documented, it refers only to time spent today by the signer, or if indicated, combined time spent today by collaborating physician/nurse practitioner.
[2018-08-04] MEDS: Heparin - SQ 10,000 UNITS/ML Vial SQ SCH ×2 (05:34→13:09)
[2018-08-04] MEDS: Insulin NovoLOG Aspart Correctional Sugar Inj SQ SCH ×3 (07:49→17:13)
[2018-08-04 08:46] LABS: Hematocrit 27.3 % (39.0-51.0); Lymph # (Auto) 0.7 th/mm3 (1.0-4.8); Lymph % (Auto) 10.6 % (9.0-44.0); Mean Corpuscular HGB Conc 32.8 % (32.0-36.0); Mean Corpuscular Hemoglobin 23.3 pg (27.0-34.0); Mean Corpuscular Volume 71.1 fL (80.0-100.0); Mean Platelet Volume 8.6 fL (7.0-11.0); Mono # (Auto) 0.5 th/mm3 (0.0-0.9); Mono % (Auto) 7.6 % (0.0-8.0); Neut # (Auto) 5.5 th/mm3 (1.8-7.7); Neut % (Auto) 81.8 % (16.0-70.0); Platelet Count 91 th/mm3 (150-450); Red Blood Count 3.84 mil/mm3 (4.50-5.90); Red Cell Distribution Width 19.5 % (11.6-17.2); White Blood Count 6.7 th/mm3 (4.0-11.0)
[2018-08-04 09:01] LABS: Calcium 8.5 mg/dL (8.5-10.1); Carbon Dioxide 29.6 meq/L (21.0-32.0); Potassium 4.6 meq/L (3.5-5.1)
[2018-08-04] MEDS: predniSONE 20 MG Tablet PO SCH (09:03)
[2018-08-04] MEDS: Isosorbide Mononitrate 60 MG ER 24HR Tablet (Imdur) PO SCH (09:03)
[2018-08-04] MEDS: Gabapentin 100 MG Capsule PO SCH ×3 (09:03→17:14)
[2018-08-04] MEDS: Ranolazine 500 MG 12HR ER Tablet PO SCH (09:03)
[2018-08-04] MEDS: amLODIPine 10 MG Tablet PO SCH (09:03)
[2018-08-04 09:20] LABS: Ovalocytes 1+; Platelet Morphology Normal (Normal)
--- NOTE | 2018-08-04 10:57 | P.PNFP ---
Subjective Interval history: Attending note: Patient seen with resident team and discussed the patient's history of angina pectoris, his current symptoms and potential plans for treatment either medical stabilization, consideration of transfer to facility for intervention,? TMR. Patient requesting nicotine patch, states he usually her bowels cigarettes per day. Does have shortness of breath and keeps his CPAP on continuously. Currently not complaining of angina. Discussed his home routine of getting up in the morning, household activities he is not want to be able to walk etc. without using sublingual nitroglycerin. Results - Labs Result diagrams: 08/04/18 07:59 08/04/18 07:59 Abnormal lab results 08/03/18 08/03/18 08/03/18 Range/Units 11:56 17:01 20:25 RBC (4.50-5.90) mil/mm3 Hgb (13.0-17.0) gm/dL Hct (39.0-51.0) % MCV (80.0-100.0) fL MCH (27.0-34.0) pg RDW (11.6-17.2) % Plt Count (150-450) th/mm3 Neut % (Auto) (16.0-70.0) % Lymph # (Auto) (1.0-4.8) th/mm3 Platelet Estimate (Normal) Ovalocytes (None) BUN (7-18) mg/dL Creatinine (0.60-1.30) mg/dL Estimated GFR (>89) mL/min POC Glucose 300 H 367 H 363 H (68-110) mg/dl Random Glucose (74-106) mg/dL 08/04/18 08/04/18 08/04/18 Range/Units 07:47 07:59 07:59 RBC 3.84 L (4.50-5.90) mil/mm3 Hgb 9.0 L (13.0-17.0) gm/dL Hct 27.3 L (39.0-51.0) % MCV 71.1 L D (80.0-100.0) fL MCH 23.3 L (27.0-34.0) pg RDW 19.5 H (11.6-17.2) % Plt Count 91 L (150-450) th/mm3 Neut % (Auto) 81.8 H (16.0-70.0) % Lymph # (Auto) 0.7 L (1.0-4.8) th/mm3 Platelet Estimate Low L (Normal) Ovalocytes 1+ H (None) BUN 36 H (7-18) mg/dL Creatinine 1.77 H (0.60-1.30) mg/dL Estimated GFR 38 L (>89) mL/min POC Glucose 210 H (68-110) mg/dl Random Glucose 187 H (74-106) mg/dL Short CBC 08/04/18 Range/Units 07:59 WBC 6.7 (4.0-11.0) th/mm3 Hgb 9.0 L (13.0-17.0) gm/dL Hct 27.3 L (39.0-51.0) % Plt Count 91 L (150-450) th/mm3 BMP 08/04/18 07:59 Sodium 137 Potassium 4.6 Chloride 100 Carbon Dioxide 29.6 BUN 36 H Creatinine 1.77 H Calcium 8.5 Physical Exam Vital signs: Vital Signs 08/03/18 11:00 08/03/18 12:00 08/03/18 13:00 Temperature 97.7 F Pulse Rate 53 L 54 L 64 Respiratory Rate 18 Blood Pressure 149/70 H Pulse Oximetry 99 Pulse Oximetry [Resting on Room Air] Pulse Oximetry [Resting with Oxygen] 08/03/18 13:20 08/03/18 14:00 08/03/18 15:00 Temperature 97.6 F Pulse Rate 56 L 66 Respiratory Rate 18 Blood Pressure 160/93 H Pulse Oximetry 98 Pulse Oximetry [Resting on Room Air] 84 L Pulse Oximetry [Resting with Oxygen] 95 08/03/18 16:00 08/03/18 17:00 08/03/18 17:59 Temperature Pulse Rate 61 62 63 Respiratory Rate Blood Pressure Pulse Oximetry Pulse Oximetry [Resting on Room Air] Pulse Oximetry [Resting with Oxygen] 08/03/18 19:00 08/03/18 20:00 08/03/18 21:00 Temperature 97.7 F Pulse Rate 63 71 72 Respiratory Rate 18 Blood Pressure 152/68 H Pulse Oximetry 100 99 Pulse Oximetry [Resting on Room Air] Pulse Oximetry [Resting with Oxygen] 08/03/18 22:00 08/03/18 23:00 08/04/18 00:00 Temperature 97.8 F Pulse Rate 67 69 66 Respiratory Rate 18 Blood Pressure 153/67 H Pulse Oximetry 98 Pulse Oximetry [Resting on Room Air] Pulse Oximetry [Resting with Oxygen] 08/04/18 01:00 08/04/18 02:00 08/04/18 03:00 Temperature 97.4 F L Pulse Rate 63 66 65 Respiratory Rate 18 Blood Pressure 159/72 H Pulse Oximetry 98 Pulse Oximetry [Resting on Room Air] Pulse Oximetry [Resting with Oxygen] 08/04/18 04:00 08/04/18 04:57 08/04/18 05:42 Temperature Pulse Rate 65 66 71 Respiratory Rate Blood Pressure Pulse Oximetry Pulse Oximetry [Resting on Room Air] Pulse Oximetry [Resting with Oxygen] 08/04/18 07:00 08/04/18 07:55 08/04/18 08:00 Temperature 97.8 F Pulse Rate 70 68 Respiratory Rate 20 Blood Pressure 163/64 H Pulse Oximetry 94 L 92 L Pulse Oximetry [Resting on Room Air] Pulse Oximetry [Resting with Oxygen] 08/04/18 09:00 08/04/18 10:00 08/04/18 10:04 Temperature Pulse Rate 70 68 70 Respiratory Rate Blood Pressure Pulse Oximetry Pulse Oximetry [Resting on Room Air] Pulse Oximetry [Resting with Oxygen] Intake & Output 08/03/18 08/04/18 08/04/18 18:59 06:59 18:59 Intake Total 960 / 960 720 / 720 Output Total 1100 / 1100 1625 / 1625 Balance -140 / -140 -905 / -905 Weight 116.8 kg Intake: Oral 960 / 960 720 / 720 Output: Urine 1100 / 1100 1625 / 1625 Other: # Voids 4 5 Date of Last Bowel Movement 08/03/18 08/03/18 08/03/18 # Bowel Movements 2 Narrative: Vital signs noted. Blood pressure 162/64 pulse 70/min and irregular respirations recorded at 20 on room air patient saturating 92%, does use his CPAP continuously. I and O reviewed. General appearance: Older gentleman overweight, intermittently using his CPAP, pleasant in conversation. No acute symptoms. HEENT: Grossly nonlocalizing. Lungs: Markedly diminished breath sounds, occasional rhonchi. Diminished breath sounds at the bases. Cardiac: Distant heart sounds: Irregular rhythm: No definite murmur appreciated. No definite S3. Abdomen: Rotund, protuberant. No tenderness on palpation. Extremities: Sequential hose in place, feet are warm and dry. Labs reviewed including Accu-Cheks which range from 180 to the 300 range. H&H 9.0/27.37 platelets 91,000. Assessment and Plan - Assessment (1) NSTEMI (non-ST elevated myocardial infarction) Code(s): I21.4 - Non-ST elevation (NSTEMI) myocardial infarction Status: Acute Plan: Likely N-STEMI, status post cardiac catheterization 07/26/17. 07/24 grafts patent. -Continuing medical management. Currently weaned off Nitro drip -Continue Imdur, Plavix, aspirin, amlodipine, metoprolol -Palliative care on board to assist with goals of care -Cardiology On Board. Appreciate recommendations. -Cardiothoracic surgery recommends against reoperative surgical intervention due to prohibitive risk secondary to his significant medical comorbidities, morbid obesity, cardiomyopathy as well as pulmonary and renal insufficiency. May benefit from being transferred to his previous cardiac surgeon for possible TMR. Cardiothoracic surgery currently attempting to obtain records to properly identify previous cardiac surgeon and to further discuss transfer with that surgeon. (2) CHF exacerbation Code(s): I50.9 - Heart failure, unspecified Status: Acute Plan: ECHO: Mild LVH, EF 40-45%, left atrial mild dilation, aortic valve sclerosis, pulmonary pressure 48 X-ray: Mild cardiomegaly, pulmonary congestion, no obvious pneumonia -Attempt to wean off BiPAP and using oxygen - Continue Bumex 1 mg bid for diuresis - Monitor intake and output. - Continue metoprolol, Imdur. May benefit from TALHA inhibitor but possibly with acute kidney injury so will hold off. - Continue telemetry, review daily - Keep head of bed elevated to 30 degrees - O2 walk test before discharge - O2 supplementation to target 88-93% O2 Sat (3) COPD exacerbation Code(s): J44.1 - Chronic obstructive pulmonary disease with (acute) exacerbation Status: Acute Plan: Symptoms most consistent with CHF exacerbation, may be component of COPD exacerbation. Has some mild diffuse wheezing on exam. - Will probably have some baseline of wheezing due to metoprolol and side effects of bronchospasm. Benefits of metoprolol with improving mortality for CHF outweighs bronchospasm at this time. Will continue on metoprolol. - Continue Atrovent and Symbicort for maintenance - DuoNebs once a day, albuterol as needed - Prednisone 40 mg daily -Worsened wheezing, productive cough, follow up CXR (4) DM2 (diabetes mellitus, type 2) Code(s): E11.9 - Type 2 diabetes mellitus without complications Status: Acute Plan: SSI w/accuchecks Levimir 20 untis hs Monitor glucose Con't home Gabapentin TID (5) Coronary artery disease Code(s): I25.10 - Atherosclerotic heart disease of [place] coronary artery without angina pectoris Status: Acute Plan: History of CABG and stable angina. - Continue high dose statin, Plavix and aspirin - Continue Ranolazine, Imdur (6) History of CVA (cerebrovascular accident) Code(s): Z86.73 - Personal history of transient ischemic attack (TIA), and cerebral infarction without residual deficits Status: Acute Plan: See above, con't home meds (7) CKD (chronic kidney disease) stage 3, GFR 30-59 ml/min Code(s): N18.3 - Chronic kidney disease, stage 3 (moderate) Status: Acute Plan: Avoid nephrotoxic meds Creatinine improving Due to CHF caution with fluids. Will continue to monitor. See above plan Daily BMP (8) BPH (benign prostatic hyperplasia) Code(s): N40.0 - Benign prostatic hyperplasia without lower urinary tract symptoms Status: Acute Plan: Con't home Terazosin 4 mg daily (9) Gastritis Code(s): K29.70 - Gastritis, unspecified, without bleeding Status: Acute Plan: Con't home protonix daily (10) Smoker Code(s): F17.200 - Nicotine dependence, unspecified, uncomplicated Status: Acute Plan: Nicotine patches daily Encourage cessation Fluids: by mouth Electrolytes: monitor Nutrition: Diabetic diet DVT prophylaxis: plavix, aspirin, and SCDs - Assessment and Plan 77-year-old male with past medical history of CHF, COPD presents with right- sided chest pain found to have NSTEMI. Elevated troponins. Status post cardiac catheterization. Continuing with medical management for NSTEMI. Attempting transfer for possible TMR. - Attending Attestation Attending assessment and plan: Severe multivessel coronary artery disease, status post CABG x5. Not a candidate for redo coronary artery surgery, not candidate for percutaneous intervention. There is consideration for center. Question if stabilizing given the complexity of his case and would be a candidate for close outpatient following. CHF: Compensated the present time, ejection fraction 40 full medical treatment. Atrial fibrillation: Rate controlled COPD: On appropriate medications Continues to be problematic spell. Obesity: Chronic. Diabetes mellitus: Strictly controlled troll blood sugars given the overall medical picture. Kidney disease: Getting issues and concern regarding dosing of medications. Sleep apnea: On CPAP Discussed with resident plan. With cardiothoracic [facility]MI[facility] PHYSICAL. (2) CHF exacerbation Qualifiers: Heart failure type: systolic Qualified Code(s): I50.23 - Acute on chronic systolic (congestive) heart failure
--- NOTE | 2018-08-04 13:25 | P.PNCA ---
Subjective Interval history: No events overnight No chest pain Medications and Allergies Active Medications: Active Medications Al Hydroxide/Mg Hydroxide (Milk Of Magdi Liq) 30 ml PO Q12H PRN PRN Reason: Mild Constipation Albuterol (Albuterol Neb (Prn)) 2.5 mg NEB Q2HR NEB PRN PRN Reason: SHORTNESS OF BREATH Last Admin: 07/27/18 18:15 Dose: 2.5 mg Amlodipine Besylate (Norvasc) 10 mg PO DAILY [facility] Last Admin: 08/04/18 09:03 Dose: 10 mg Artificial Tears (Refresh Tears 0.5% Opth Drops) 1 drop EACH EYE Q4H PRN PRN Reason: Eye Irritation Last Admin: 07/31/18 09:14 Dose: 1 drop Artificial Tears (Tears Naturale Opth Drops) 1 drop EACH EYE Q4H PRN PRN Reason: Eye dryness Last Admin: 07/31/18 09:14 Dose: 1 drop Aspirin (Aspirin Chew) 81 mg PO DAILY [facility] Last Admin: 08/04/18 09:03 Dose: 81 mg Atorvastatin Calcium (Lipitor) 80 mg PO QPM [facility] Last Admin: 08/03/18 17:14 Dose: 80 mg Bisacodyl (Dulcolax Supp) 10 mg RECTAL DAILY PRN PRN Reason: SEVERE CONSITIPATION Budesonide/Formoterol Fumarate (Symbicort 160/4.5 Mcg Inh) 2 puff INH BID [facility] Last Admin: 07/24/18 01:04 Dose: Not Given Bumetanide (Bumex Inj) 1 mg IV.PUSH BID [facility] Last Admin: 08/04/18 09:03 Dose: 1 mg Clopidogrel Bisulfate (Plavix) 75 mg PO DAILY [facility] Last Admin: 08/04/18 09:03 Dose: 75 mg Dextrose (D50w Vial) 50 ml IV.PUSH UNSCH PRN PRN Reason: PER HYPOGLYCEMIA PROTOCOL Gabapentin (Neurontin) 100 mg PO TID [facility] Last Admin: 08/04/18 12:10 Dose: 100 mg Glucagon (Glucagon Inj) 1 mg OTHER PRN PRN PRN Reason: for Hypoglycemia Protocol Heparin Sodium (Porcine) (Heparin Inj) 5,000 units SQ Q8HR [facility] Last Admin: 08/04/18 13:09 Dose: 5,000 units Nitroglycerin/Dextrose (Nitroglycerin Drip Premix) 50 mg in 250 mls @ 1.5 mls/ hr IV.CONT TITRATE PRN; Protocol PRN Reason: Per Protocol Last Titration: 07/31/18 14:45 Dose: 0 mcg/min, 0 mls/hr Insulin Aspart (Novolog Insulin Correctional Sugar Inj) 0 unit SQ ACHS [facility]; Protocol Last Admin: 08/04/18 12:10 Dose: 15 unit Insulin Detemir (Levemir Inj) 20 unit SQ HS [facility] Last Admin: 08/03/18 21:08 Dose: 20 unit Isosorbide Mononitrate (Imdur) 120 mg PO DAILY [facility] Last Admin: 08/04/18 09:03 Dose: 120 mg Lactulose (Lactulose Liq) 30 ml PO DAILY PRN PRN Reason: SEVERE CONSITIPATION Metoprolol Succinate (Toprol Xl) 25 mg PO DAILY [facility] Last Admin: 08/04/18 09:03 Dose: 25 mg Morphine Sulfate (Morphine Inj) 1 mg IV.PUSH Q4H PRN PRN Reason: PAIN SCALE 6 TO 10 Last Admin: 07/27/18 09:10 Dose: 1 mg Nicotine (Habitrol 7 Mg Patch.24 Hr) 1 patch T-DERMAL DAILY [facility] Last Admin: 08/04/18 10:59 Dose: 1 patch Nitroglycerin (Nitrostat Sl) 0.4 mg SL Q5M PRN PRN Reason: Chest Pain Last Admin: 07/27/18 00:55 Dose: 0.4 mg Ondansetron HCl (Zofran Inj) 4 mg IV.PUSH Q6H PRN PRN Reason: NAUSEA OR VOMITING Pantoprazole Sodium (Protonix) 40 mg PO BID [facility] Last Admin: 08/04/18 09:03 Dose: 40 mg Patch Removal (Remove Old Patch) 1 each T-DERMAL DAILY [facility] Prednisone (Deltasone) 20 mg PO BID [facility] Last Admin: 08/04/18 09:03 Dose: 20 mg Ranolazine (Ranexa) 1,000 mg PO BID [facility] Last Admin: 08/04/18 09:03 Dose: 1,000 mg Sennosides (Senokot) 17.2 mg PO Q12H PRN PRN Reason: Moderate Constipation Sodium Chloride (Ns Flush) 2 ml IV.FLUSH BID [facility] Last Admin: 08/04/18 09:04 Dose: 2 ml Sodium Chloride (Ns Flush) 2 ml IV.FLUSH PRN PRN PRN Reason: FLUSH AFTER USING IV ACCESS Terazosin HCl (Hytrin) 4 mg PO DAILY [facility] Last Admin: 08/04/18 09:03 Dose: 4 mg Zolpidem Tartrate (Ambien) 10 mg PO HS PRN PRN Reason: INSOMNIA Allergies Allergy/AdvReac Type Severity Reaction Status Date / Time acetaminophen Allergy Severe Rash Verified 07/24/18 09:38 aspirin Allergy Severe Rash Verified 07/24/18 09:38 codeine Allergy Severe anaphylaxis Verified 07/24/18 09:38 ferrous sulfate Allergy Severe Rash Verified 07/24/18 09:38 iron Allergy Severe Rash Verified 07/24/18 09:38 oxycodone Allergy Severe Rash Verified 07/24/18 09:38 [place] AdvReac Severe SYSTEM Uncoded 04/11/14 08:32 SHUTS DOWN Home Medications Medication Instructions Recorded Confirmed Type amlodipine 10 mg PO DAILY 07/23/18 07/23/18 History aspirin 81 mg PO DAILY 07/23/18 07/23/18 History atorvastatin 80 mg PO QPM 07/23/18 07/23/18 History carboxymethylcellulose sodium 1 drp OPHTHALMIC (EYE) Q4-6H PRN 07/23/18 History clopidogrel 75 mg PO DAILY 07/23/18 07/23/18 History cyanocobalamin (vitamin B-12) 1,000 mcg PO DAILY 07/23/18 07/23/18 History furosemide 40 mg PO BID 07/23/18 07/23/18 History glipizide 10 mg PO BID 07/23/18 07/23/18 History ipratropium-albuterol 3 ml INHALATION Q6-8H PRN 07/23/18 07/23/18 History isosorbide mononitrate 120 mg PO DAILY 07/23/18 07/23/18 History metoprolol succinate 25 mg PO DAILY 07/23/18 07/23/18 History nitroglycerin 0.4 mg SUBLINGUAL Q5-15M PRN 07/23/18 07/23/18 History pantoprazole 40 mg PO BID 07/23/18 07/23/18 History ranolazine 1,000 mg PO Q12H 07/23/18 07/23/18 History terazosin 4 mg PO DAILY 07/23/18 07/23/18 History Physical Exam Vital signs: Vital Signs 08/03/18 14:00 08/03/18 15:00 08/03/18 16:00 Temperature 97.6 F Pulse Rate 56 L 66 61 Respiratory Rate 18 Blood Pressure 160/93 H Pulse Oximetry 98 08/03/18 17:00 08/03/18 17:59 08/03/18 19:00 Temperature 97.7 F Pulse Rate 62 63 63 Respiratory Rate 18 Blood Pressure 152/68 H Pulse Oximetry 100 08/03/18 20:00 08/03/18 21:00 08/03/18 22:00 Temperature Pulse Rate 71 72 67 Respiratory Rate Blood Pressure Pulse Oximetry 99 08/03/18 23:00 08/04/18 00:00 08/04/18 01:00 Temperature 97.8 F Pulse Rate 69 66 63 Respiratory Rate 18 Blood Pressure 153/67 H Pulse Oximetry 98 08/04/18 02:00 08/04/18 03:00 08/04/18 04:00 Temperature 97.4 F L Pulse Rate 66 65 65 Respiratory Rate 18 Blood Pressure 159/72 H Pulse Oximetry 98 08/04/18 04:57 08/04/18 05:42 08/04/18 07:00 Temperature 97.8 F Pulse Rate 66 71 70 Respiratory Rate 20 Blood Pressure 163/64 H Pulse Oximetry 94 L 08/04/18 07:55 08/04/18 08:00 08/04/18 09:00 Temperature Pulse Rate 68 70 Respiratory Rate Blood Pressure Pulse Oximetry 92 L 08/04/18 10:00 08/04/18 10:04 08/04/18 11:49 Temperature 97.9 F Pulse Rate 68 70 70 Respiratory Rate 22 Blood Pressure 157/67 H Pulse Oximetry 94 L 08/04/18 12:00 08/04/18 12:03 08/04/18 13:11 Temperature Pulse Rate 65 68 68 Respiratory Rate Blood Pressure Pulse Oximetry Intake & Output 08/03/18 08/04/18 08/04/18 18:59 06:59 18:59 Intake Total 960 / 960 720 / 720 Output Total 1100 / 1100 1625 / 1625 Balance -140 / -140 -905 / -905 Weight 116.8 kg Intake: Oral 960 / 960 720 / 720 Output: Urine 1100 / 1100 1625 / 1625 Other: # Voids 4 5 Date of Last Bowel Movement 08/03/18 08/03/18 08/03/18 # Bowel Movements 2 Narrative: GENERAL: NAD, AAOx3 SKIN: Warm and dry. HEAD: Atraumatic. Normocephalic. EYES: Pupils equal and round. No scleral icterus. No injection or drainage. ENT: No nasal bleeding or discharge. Mucous membranes pink and moist. NECK: Trachea midline. No JVD. CARDIOVASCULAR: Regular rate and rhythm. RESPIRATORY: No accessory muscle use. Decreased breath sounds bilaterally, no rales noted. GASTROINTESTINAL: Abdomen soft, non-tender, nondistended. Hepatic and splenic margins not palpable. MUSCULOSKELETAL: Trace edema NEUROLOGICAL: Awake and alert. No obvious cranial nerve deficits. Motor grossly within normal limits. Five out of 5 muscle strength in the arms and legs. Normal speech. PSYCHIATRIC: Appropriate mood and affect; insight and judgment normal. Results 08/04/18 07:59 08/04/18 07:59 CBC 08/04/18 Range/Units 07:59 WBC 6.7 (4.0-11.0) th/mm3 RBC 3.84 L (4.50-5.90) mil/mm3 Hgb 9.0 L (13.0-17.0) gm/dL Hct 27.3 L (39.0-51.0) % Plt Count 91 L (150-450) th/mm3 Neut # (Auto) 5.5 (1.8-7.7) th/mm3 Lymph # (Auto) 0.7 L (1.0-4.8) th/mm3 Crisp # (Auto) 0.5 (0.0-0.9) th/mm3 Eos # (Auto) 0.0 (0.0-0.4) th/mm3 Baso # (Auto) 0.0 (0.0-0.2) th/mm3 Comprehensive Metabolic Panel 08/04/18 Range/Units 07:59 Sodium 137 (136-145) meq/L Potassium 4.6 (3.5-5.1) meq/L Chloride 100 (98-107) meq/L Carbon Dioxide 29.6 (21.0-32.0) meq/L BUN 36 H (7-18) mg/dL Creatinine 1.77 H (0.60-1.30) mg/dL Calcium 8.5 (8.5-10.1) mg/dL Intake and Output 08/03/18 08/04/18 08/04/18 22:59 06:59 14:59 Intake Total 960 / 960 720 / 720 Output Total 1100 / 1100 1625 / 1625 Balance -140 / -140 -905 / -905 Intake: Oral 960 / 960 720 / 720 Output: Urine 1100 / 1100 1625 / 1625 Other: # Voids 4 5 Date of Last Bowel Movement 08/03/18 08/03/18 08/03/18 # Bowel Movements 2 Weight 116.8 kg - Imaging and Cardiology Imaging: Impressions Chest X-Ray 08/02/18 00:00 CONCLUSION: No acute abnormality is identified to explain the clinical symptoms. There is enlargement of the cardiac silhouette with stable interstitial prominence at the lung bases. Assessment and Plan - Assessment (1) NSTEMI (non-ST elevated myocardial infarction) Code(s): I21.4 - Non-ST elevation (NSTEMI) myocardial infarction Status: Acute Plan: severe complex cad, not amenable to PCI, still w/ cp, put in a CV consult. (2) CHF exacerbation Code(s): I50.9 - Heart failure, unspecified Status: Acute Plan: Doing well on IV bumex, cr stable., elevated lvedp yesterday suggests still room for diuresis (3) CKD (chronic kidney disease) stage 3, GFR 30-59 ml/min Code(s): N18.3 - Chronic kidney disease, stage 3 (moderate) Status: Acute (4) COPD exacerbation Code(s): J44.1 - Chronic obstructive pulmonary disease with (acute) exacerbation Status: Acute - Plan 1) [place] Complex CAD not amendable to PCI Review of old notes, apparently he's been told this since a cath in 2011 Off nitro drip Discussed with CT surgery Consideration of TMR Not available here Possible transfer to [facility] if they have available Otherwise not much to offer Ranexa restarted No further chest pain, con't medical management unless decision made to transfer for further options 2) Acute on chronic CHF Con't diuresis as heart failure will exacerbate his angina Doing well, negative 1L daily 3) CKD Creatinine better today with diuresis, con't to try to diurese 4) Work with physical therapy If not going for TMR, then home with medical therapy (2) CHF exacerbation Qualifiers: Heart failure type: systolic Qualified Code(s): I50.23 - Acute on chronic systolic (congestive) heart failure
[2018-08-04 16:56] VITALS: BP 141/69; RESP 20; TEMP 98.2; O2SAT 100
[2018-08-04 17:00] VITALS: PULSE 72
--- NOTE | 2018-08-04 17:28 | P.PNPAL ---
Reason for Visit Reason for visit: a. To assist with evaluation and management of symptoms including: pain, dyspnea b. To assist medical decision maker(s) with: better understanding of current medical conditions; weighing benefits/burdens of medical treatment options; making medical treatment decisions. Subjective Subjective/Interval History: This is a 77-year-old male with a past medical history significant for CHF, COPD was not previously oxygen dependent, chronic kidney disease stage III, previous CVA, diabetes, obesity, obstructive sleep apnea, known vasculopathy. He originally presented to the emergency room on 07/23/2018 with a one-week history of worsening shortness of breath, cough with yellow sputum, and fluid weight gain of 11 pounds. He is reportedly had 4 hospitalizations past year for fluid overload, also sees [facility] behavioral specialist was recently recommending a defibrillator due to heart blockage. He was evaluated on 07/24/18 by cardiology for elevated troponins, at that time he alerted Dr. Hoffman he was unable to undergo cardiac cath due to blockages in both femoral arteries and left arm approach. Patient declined cath procedure and elected medical management, Dr. Hoffman opined that was appropriate given overall condition, he also noted that tropnins may also be elevated due to chronic illnesses (creatinine >2). He was started on a Heparin gtt, aspirin, Plavix, high dose statin, metoprolol. On 07/26/17, he began having chest pain after heparin was stopped. His chest pain was not controlled by nitro as it was in the past and was called a Hallicat. He continued to decline cardiac cath. He was again seen by cardiology advised urgent cath, he eventually agreed. Per cath report, "does not appear to have lesions amenable to PCI at this time," recommended continuation of medical management for NSTEMI. Labs today: WBC 6 hemoglobin 8.2, hematocrit 26.1, platelet 102, sodium 138, potassium 4.1, chloride 102, carbon dioxide 29.4, BUN 31, creatinine 2.05, GFR 32, glucose 191, calcium 8.9 Patient remains on BiPAP. He is breathing comfortably. He is awaiting transfer plans to the [facility] for possible TMR. States that he signed paperwork for transfer today. Advance Directives Living Will: Copy in medical record Health Care Surrogate: Copy in medical record Durable Power of Receptionist Doctor'S Office: Copy in medical record Objective Vital Signs: Vital Signs 08/03/18 17:59 08/03/18 19:00 08/03/18 20:00 Temperature 97.7 F Pulse Rate 63 63 71 Respiratory Rate 18 Blood Pressure 152/68 H Pulse Oximetry 100 99 08/03/18 21:00 08/03/18 22:00 08/03/18 23:00 Temperature 97.8 F Pulse Rate 72 67 69 Respiratory Rate 18 Blood Pressure 153/67 H Pulse Oximetry 98 08/04/18 00:00 08/04/18 01:00 08/04/18 02:00 Temperature Pulse Rate 66 63 66 Respiratory Rate Blood Pressure Pulse Oximetry 08/04/18 03:00 08/04/18 04:00 08/04/18 04:57 Temperature 97.4 F L Pulse Rate 65 65 66 Respiratory Rate 18 Blood Pressure 159/72 H Pulse Oximetry 98 08/04/18 05:42 08/04/18 07:00 08/04/18 07:55 Temperature 97.8 F Pulse Rate 71 70 Respiratory Rate 20 Blood Pressure 163/64 H Pulse Oximetry 94 L 92 L 08/04/18 08:00 08/04/18 09:00 08/04/18 10:00 Temperature Pulse Rate 68 70 68 Respiratory Rate Blood Pressure Pulse Oximetry 08/04/18 10:04 08/04/18 11:49 08/04/18 12:00 Temperature 97.9 F Pulse Rate 70 70 65 Respiratory Rate 22 Blood Pressure 157/67 H Pulse Oximetry 94 L 08/04/18 12:03 08/04/18 13:11 08/04/18 14:20 Temperature Pulse Rate 68 68 68 Respiratory Rate Blood Pressure Pulse Oximetry 08/04/18 16:00 08/04/18 17:00 08/04/18 17:21 Temperature 98.2 F Pulse Rate 74 72 72 Respiratory Rate 20 Blood Pressure 141/69 H Pulse Oximetry 100 Intake & Output 08/03/18 08/04/18 08/04/18 18:59 06:59 18:59 Intake Total 960 / 960 720 / 720 960 / 960 Output Total 1100 / 1100 1625 / 1625 1000 / 1000 Balance -140 / -140 -905 / -905 -40 / -40 Weight 116.8 kg Intake: Oral 960 / 960 720 / 720 960 / 960 Output: Urine 1100 / 1100 1625 / 1625 1000 / 1000 Other: # Voids 4 5 Date of Last Bowel Movement 08/03/18 08/03/18 08/04/18 # Bowel Movements 2 1 Physical Exam: CONSTITUTIONAL/GENERAL: This is an adequately nourished patient, in no apparent distress. TUBES/LINES/DRAINS: PIV, BiPAP SKIN: intact and appropriately warm EYES: Pupils equal and round and reactive. Extraocular motions intact. No scleral icterus. No injection or drainage. Fundi not examined. ENT: Hearing grossly normal. Nose without bleeding or purulent drainage. Throat without visible erythema, exudates, masses, or lesions. CARDIOVASCULAR: Regular rate and rhythm. On nitro drip for chest pain no JVD. RESPIRATORY/CHEST: Symmetric, unlabored respirations. Clear to auscultation. Has CPAP in place GASTROINTESTINAL: Abdomen soft, non-tender, nondistended. No hepato-splenomegaly , or palpable masses. No guarding. Bowel sounds present. GENITOURINARY: Without palpable bladder distension. MUSCULOSKELETAL: Extremities without clubbing, cyanosis, or edema. No joint tenderness or effusion noted. No calf tenderness. No mottling or clubbing. NEUROLOGICAL: Awake and alert. Motor and sensory grossly within normal limits. Follows commands. Cognitively sharp. Moves all extremities. PSYCHIATRIC: No obvious anxiety/depression. no apparent hallucinations or other psychotic thought process. Diagnostic Tests Laboratory: Laboratory Results - last 72 hr 08/01/18 08/02/18 08/02/18 20:03 06:03 07:33 WBC 5.6 RBC 3.87 L Hgb 8.8 L Hct 28.9 L MCV 74.6 L MCH 22.7 L MCHC 30.4 L RDW 19.7 H Plt Count 105 L MPV 9.4 Prelim Diff (Auto) Neut % (Auto) Lymph % (Auto) Posey % (Auto) Eos % (Auto) Baso % (Auto) Neut # (Auto) Lymph # (Auto) Posey # (Auto) Eos # (Auto) Baso # (Auto) WBC Differential Diff Scan Differential Comment Platelet Estimate Platelet Morphology Ovalocytes Sodium Potassium Chloride Carbon Dioxide Anion Gap BUN Creatinine Estimated GFR POC Glucose 380 H 251 H Random Glucose Calcium 08/02/18 08/02/18 08/02/18 08:22 11:46 16:53 WBC RBC Hgb Hct MCV MCH MCHC RDW Plt Count MPV Prelim Diff (Auto) Neut % (Auto) Lymph % (Auto) Posey % (Auto) Eos % (Auto) Baso % (Auto) Neut # (Auto) Lymph # (Auto) Posey # (Auto) Eos # (Auto) Baso # (Auto) WBC Differential Diff Scan Differential Comment Platelet Estimate Platelet Morphology Ovalocytes Sodium 137 Potassium 4.3 Chloride 99 Carbon Dioxide 30.5 Anion Gap 8 BUN 34 H Creatinine 1.88 H Estimated GFR 35 L POC Glucose 312 H 430 H Random Glucose 203 H Calcium 8.8 08/02/18 08/03/18 08/03/18 19:48 07:45 11:56 WBC RBC Hgb Hct MCV MCH MCHC RDW Plt Count MPV Prelim Diff (Auto) Neut % (Auto) Lymph % (Auto) Posey % (Auto) Eos % (Auto) Baso % (Auto) Neut # (Auto) Lymph # (Auto) Posey # (Auto) Eos # (Auto) Baso # (Auto) WBC Differential Diff Scan Differential Comment Platelet Estimate Platelet Morphology Ovalocytes Sodium Potassium Chloride Carbon Dioxide Anion Gap BUN Creatinine Estimated GFR POC Glucose 396 H 181 H 300 H Random Glucose Calcium 08/03/18 08/03/18 08/04/18 17:01 20:25 07:47 WBC RBC Hgb Hct MCV MCH MCHC RDW Plt Count MPV Prelim Diff (Auto) Neut % (Auto) Lymph % (Auto) Posey % (Auto) Eos % (Auto) Baso % (Auto) Neut # (Auto) Lymph # (Auto) Posey # (Auto) Eos # (Auto) Baso # (Auto) WBC Differential Diff Scan Differential Comment Platelet Estimate Platelet Morphology Ovalocytes Sodium Potassium Chloride Carbon Dioxide Anion Gap BUN Creatinine Estimated GFR POC Glucose 367 H 363 H 210 H Random Glucose Calcium 08/04/18 08/04/18 08/04/18 07:59 07:59 11:03 WBC 6.7 RBC 3.84 L Hgb 9.0 L Hct 27.3 L MCV 71.1 L D MCH 23.3 L MCHC 32.8 RDW 19.5 H Plt Count 91 L MPV 8.6 Prelim Diff (Auto) Slide review pending Neut % (Auto) 81.8 H Lymph % (Auto) 10.6 Posey % (Auto) 7.6 Eos % (Auto) 0.0 Baso % (Auto) 0.0 Neut # (Auto) 5.5 Lymph # (Auto) 0.7 L Posey # (Auto) 0.5 Eos # (Auto) 0.0 Baso # (Auto) 0.0 WBC Differential . Diff Scan Auto diff confirmed Differential Comment . Platelet Estimate Low L Platelet Morphology Normal Ovalocytes 1+ H Sodium 137 Potassium 4.6 Chloride 100 Carbon Dioxide 29.6 Anion Gap 7 BUN 36 H Creatinine 1.77 H Estimated GFR 38 L POC Glucose 286 H Random Glucose 187 H Calcium 8.5 08/04/18 16:09 WBC RBC Hgb Hct MCV MCH MCHC RDW Plt Count MPV Prelim Diff (Auto) Neut % (Auto) Lymph % (Auto) Posey % (Auto) Eos % (Auto) Baso % (Auto) Neut # (Auto) Lymph # (Auto) Posey # (Auto) Eos # (Auto) Baso # (Auto) WBC Differential Diff Scan Differential Comment Platelet Estimate Platelet Morphology Ovalocytes Sodium Potassium Chloride Carbon Dioxide Anion Gap BUN Creatinine Estimated GFR POC Glucose 389 H Random Glucose Calcium Result Diagrams: 08/04/18 07:59 08/04/18 07:59 Assessment and Plan - Symptom Scale (1) Pain 0-10 Scale: Unable to quantify (2) Dyspnea 0-10 Scale: Unable to quantify (3) Weakness 0-10 Scale: Unable to quantify Pertinent Non-Medical Issues: Psychosocial: Patient is 3 times. 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 He has significant other for the past 13 years, danii, and 6 children aged 54-13. Spiritual: Ep Tech available Legal: Patient is capacitated to make his own decisions. He has healthcare surrogate and living well Ethical issues impacting care: None Important Contacts: Significant other Gifty [place] [phone] Prognosis: Patient has extensive cardiac history, remote history of 5 vessel CABG, 4 of 5 vessels are now occluded. Having continuous chest pain requiring a nitro drip in large doses and has been unable to be weaned. Was previously not on oxygen, now requiring continuous CPAP. Not likely a surgical candidate for any further aggressive type treatments due to multiple other comorbid illnesses. Life expectancy is limited. Would be medically eligible for hospice services if goals were appropriate Code Status: Alternative Code (DO NOT INTUBATE) Plan: Legal decision maker: Patient currently capacitated make his own decisions. Patient has healthcare surrogate and power of workers compensation defense attorney designating his significant other danii as healthcare decision maker. Goals: Remain aggressive short of intubation. Hopeful for transfer to [facility] for TMR CODE STATUS: DO NOT INTUBATE SYMPTOMS: --chest pain: Has been on Nitro chronically at home. Reports frequent use. Us having difficulty understanding different medications and proper use.Has rodger weaned from Nitro, no new complaints of chest pain --Dyspnea: He is having ongoing SOB, now requiring continuous BiPAP/CPAP. Is having difficulty understanding progression of heart failure, though has good understanding of his options being limited. SOB improving. Palliative care will continue to follow during hospital course as condition evolves, to assist patient/decision-maker with understanding of medical conditions, weighing benefits/burdens of treatment options, for clarification of goals of treatment. Additionally will assist with any symptoms of palliative concern Attestation Collaborating MD Comments: Dr. King Attestation: To help prompt me to consider important information that might be impacting today's encounter and assessment, information from prior notes written by myself or my colleagues may have been "brought forward" into today's note. My signature on this note, however, is an attestation that I personally performed the exam, history, and/or decision-making noted today, and, unless otherwise indicated, the interactions with patient, family, and staff as well as the review of records all occurred today. I also attest that the listed assessment and stated plan reflect my best clinical judgment today based on the combination of historical information, prior notes, and today's exam/ interactions. When time spent is documented, it refers only to time spent today by the signer, or if indicated, combined time spent today by collaborating physician/nurse practitioner.
--- NOTE | 2018-08-05 09:46 | P.DS ---
Date of admission: 07/23/18 20:21 Primary care physician: [facility] Brief History from admission: 77 y/o M w/hx of CHF, COPD, and CKD3 presents w/progressive SOB. A week ago, developed gradual worsening SOB occurring with activity and rest. Feels that his belly is pressing against his lungs and that it will bust. Is feeling SOB while laying in bed, even while sitting up. Uses CPAP at night. His stomach and feet swelled up. If he does any activity at all, he has to take a nitro. Taking his medications. Has vertigo, not feeling more lightheaded or dizzy more than usual. Has an occasional cough. No fevers/chills, recent illness , nausea/vomiting, or diarrhea. PCP is Dr. Burton at the [facility]. Sees coal inspector in [place] is Dr. Ellison. Did stress test a couple weeks ago, which "was good." Discussed placing a defibrillator due to heart blockage. Has been to the hospital 4 times for fluid overload in total, last year was hospitalized for several weeks and this was the last time (CHF, AR[facility]). Uses a cane to ambulate. Uses atrovent and symbicort for COPD. Does not use O2 at home. PMH: DM2, controlled JENNIFER CHF CVA x4, last was 2014 CKD 3 Gastritis Anemia obesity OA BPH Past surgical history: CABG x 5 1997 Carotid endarterectomy 1997 2013 cholecystectomy 2016 colonoscopy 2016 EGD Family Hx: Social hx: No ETOH use. Smoked 50 pack years, no illicit or recreational drug use. Lives in house, ambulates with cane. 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 DS: Diagnosis - Discharge Diagnosis (1) NSTEMI (non-ST elevated myocardial infarction) Status: Acute (2) CHF exacerbation Status: Acute (3) COPD exacerbation Status: Acute (4) DM2 (diabetes mellitus, type 2) Status: Acute (5) Coronary artery disease Status: Acute (6) History of CVA (cerebrovascular accident) Status: Acute (7) CKD (chronic kidney disease) stage 3, GFR 30-59 ml/min Status: Acute (8) BPH (benign prostatic hyperplasia) Status: Acute (9) Gastritis Status: Acute (10) Smoker Status: Acute DS: Summary Hospital Course: 77-year-old male with past medical history of CHF, COPD, CKD stage III, status post CABG with 5 stents presents with progressive shortness of breath. Admitted for COPD and CHF exacerbation. .Treated with steroids and diuresed appropriately. Patient also complained of left-sided chest pain that was not relieved with nitroglycerin. Patient underwent a cardiac catheterization that showed 4 out of the 5 stents to be blocked. He was managed on a nitroglycerin drip and placed on CPAP. He was eventually weaned off his nitroglycerin drip but remained on CPAP. Was transferred to his previous cardiothoracic surgeon Dr. Hi with attempts to do a TMR. Patient was accepted at hospital and transferred appropriately. - Time Spent with Patient Total time spent providing and/or coordinating discharge services: Less than 30 minutes - Quality: VTE Deep Vein Thrombosis/Pulmonary Embolism Present on Admission: No Exam Vital signs: Vital Signs 08/04/18 10:00 08/04/18 10:04 08/04/18 11:49 Temperature 97.9 F Pulse Rate 68 70 70 Respiratory Rate 22 Blood Pressure 157/67 H Pulse Oximetry 94 L 08/04/18 12:00 08/04/18 12:03 08/04/18 13:11 Temperature Pulse Rate 65 68 68 Respiratory Rate Blood Pressure Pulse Oximetry 08/04/18 14:20 08/04/18 16:00 08/04/18 17:00 Temperature 98.2 F Pulse Rate 68 74 72 Respiratory Rate 20 Blood Pressure 141/69 H Pulse Oximetry 100 08/04/18 17:21 Temperature Pulse Rate 72 Respiratory Rate Blood Pressure Pulse Oximetry Intake & Output 08/04/18 08/05/18 08/05/18 18:59 06:59 18:59 Intake Total 960 / 960 Output Total 1000 / 1000 Balance -40 / -40 Intake: Oral 960 / 960 Output: Urine 1000 / 1000 Other: Date of Last Bowel Movement 08/04/18 # Bowel Movements 1 Narrative: General: Obese, laying in bed, no distress Skin: No rashes or lesions HEENT: Normocephalic, no conjunctivitis, no nasal discharge Neck: Supple, endarterectomy scar, no thyromegaly or lymphadenopathy CV: RRR, no murmurs, rubs, or gallops, regular pulses, normal cap refill Lungs: Has mild expiratory wheezing bilaterally, improved inspiratory airflow. Abdomen: Soft, obese. Ext: Mild pitting edema. Neuro: Awake, alert Results Procedures completed during hospitalization: Cardiac Cath on 07/27/17 Labs on day of discharge: Labs from last 24 hours 08/04/18 08/04/18 16:09 11:03 POC Glucose 389 H 286 H - Impressions ITS Impressions Chest X-Ray 08/02/18 00:00 CONCLUSION: No acute abnormality is identified to explain the clinical symptoms. There is enlargement of the cardiac silhouette with stable interstitial prominence at the lung bases. Discharge Plan - Discharge Disposition Patient Disposition: Disch To Another Hospital - Discharge Condition Condition: Stable - Discharge Order Discharge Orders: Discharge Order (Routine); Ordered 08/04/18 Ordered By: Sully Aguilar ED Use Only Admit Order (Routine); Ordered 07/23/18 Ordered By: Nancy Garcia - Physicians Team Primary Care Provider: [facility] Attending Provider: Hamilton Vieira Other Providers: Tay Peters MD ; Manolo Carcamo MD
== END 2018-08-04 19:00 | disposition short-term general hospital (02) | DRG 280 ==
LOC: NEDA 16:23 → NEPC 16:23 → NEPHCDU 23:00 → HIMC 07-24 04:15 → N04 07-24 16:26 → HCPC 07-26 11:45 → HCVI 07-26 13:16 → HCPC 07-28 14:44
PROVIDERS: ADMIT Family Medicine; ATTEND Family Medicine
CPT/HCPCS: 36600; 71010; 71045; 80048; 80053; 81001; 82272; 82805; 82948; 82962; 83520; 83880; 84145; 84484; 85025; 85027; 85610; 85730; 87641; 90774; 90775; 90784; 93005; 93306; 93459; 94002; 94003; 94150; 94618; 94620; 94640; 94656; 94657; 94665; 96374; 96375; 97110; 97162; 97530; 99285; C1769; C1893; C8952; J1644; J1815; J2270; J2920; J3010; J7506; J7512; Q9967; S0171